=== PATIENT | female | born 1970 | race Caucasian/White ===

== ENCOUNTER → 2016-04-28 | Outpatient (CLI) | payer BC, OTHER ==
[~2016-04-28] MED LIST: NITROGLYCERIN SL TABS 0.4 MG TAB SUBLINGUAL ONE; REGADENOSON 0.4 MG/5 ML SYRINGE IV ONE
--- NOTE | 2016-04-28 12:14 | EST ---
DATE OF SERVICE: 04/28/2016 AGE: 45Y SEX: F HT: 64" WT: 356 lbs. Protocol Nelson: Other: Lexiscan Cardiolite Stage: Dur. of Exercise: *Heart Rate Blood Pressure *Rest: 68 Rest: 157/85 * *Max. Achieved: 96 Maximum BP: 254/117 85% PMHR: 147 100% PMHR: 173 *METS: INDICATIONS: Abnormal EKG. MEDICATIONS: [place], morphine, Mobic, Xanax. Baseline EKG revealed a lot of artifact, but there were no EKG changes of significance. Sinus bradycardia was noted. With Lexiscan administration, the patient had symptoms of shortness of breath, chest tightness. There was some hypertensive response, but then after nitroglycerin the pressure came back to normal. Maximum heart rate was 96 beats per minute. EKG was unremarkable for ischemia. IMPRESSION: 1. By EKG criteria this is an unremarkable Lexiscan stress test. 2. There was some hypertension noted, which then normalized. 3. Nuclear scan results, which are more pertinent, will be reported by the radiologist.
--- NOTE | 2016-04-28 14:30 | NM ---
EXAMINATION TYPE: NM stress lexiscan cardiolite DATE OF EXAM: 04/28/2016 11:39 AM COMPARISON: NONE HISTORY: 45-year-old female with chest pain TECHNIQUE: After the intravenous administration of 10.82 mCi Tc 99m Sestamibi - Cardiolite resting S PECT images acquired 45 minutes post injection. The patient received 0.4mg Lexiscan, 27.5 mCi Tc 99m Sestamibi - Stress images obtained [address] injection FINDINGS: Review of stress and rest SPECT images demonstrates moderate sized fixed perfusion defect along the m id to apical inferior wall. Gated analysis shows an estimated left ventricular ejection fraction of 5 7 %. TID is 1.01, within normal limits. IMPRESSION: Fixed defect along the mid to apical inferior wall could represent prominent artifact or prior infarc t. Clinically correlate. No scintigraphic evidence for reversible ischemia.
== END ==
LOC: RADNMMAIN 08:09
PROVIDERS: ATTEND Internal Medicine
DX: R94.31 Abnormal electrocardiogram [ECG] [EKG] (principal); R07.9 Chest pain, unspecified
CPT/HCPCS: 93017; 78452; A9500; J2785

== ENCOUNTER 2017-01-25 11:44 | Emergency (ER) | payer BC, OTHER ==
[2017-01-25 11:58] VITALS: BP 161/95; PULSE 71; RESP 18; TEMP 97.7
[2017-01-25] MEDS ORDERED: HYDROmorphone 1 MG/ML 1 ML SYRINGE IVP STA (12:14)
[2017-01-25] MEDS ORDERED: ONDANSETRON 4 MG/2 ML VIAL IVP STA (12:14)
--- NOTE | 2017-01-25 12:17 | XR ---
EXAMINATION TYPE: XR shoulder complete RT DATE OF EXAM: 01/25/2017 COMPARISON: None HISTORY: 46-year-old female with pain after fall today TECHNIQUE: 3 views FINDINGS: Mild degenerative joint space narrowing at the AC joint. Subacromial space is preserved. There is com minuted fracture of the right humeral head with a transverse component through the surgical neck and a gated greater tuberosity component that is displaced by 9 mm. The glenohumeral joint itself appears to be intact. IMPRESSION: 1. Comminuted fracture right humeral head involving the surgical neck and greater tuberosity. The gre ater tuberosity fracture fragment is displaced by 9 mm. 2. Mild AC joint OA.
--- NOTE | 2017-01-25 12:23 | ED ---
Fall HPI - General Chief Complaint: Fall Stated Complaint: Fall Time Seen by Provider: 01/25/17 11:49 Source: patient, EMS, old records reviewed Mode of arrival: EMS Limitations: no limitations - History of Present Illness Initial Comments: This a 46-year-old female presents emergency Department chief complaint trip and fall. Patient is she is walking 3 yard and states that there was a whole knee aren't she tripped and fell onto her right shoulder. Patient went to severe right shoulder pain. Patient denies head injury, LOC, hip or neck or back pain this time. Patient states that she only has right shoulder pain. No prior injuries. Patient is left-hand dominant. - Related Data Home Medications Medication Instructions Recorded Confirmed ALPRAZolam [Xanax] 1 mg PO TID 09/11/13 09/11/13 Butalb/Acetaminophen/Caffeine 1 each PO TID 09/11/13 09/11/13 [Fioricet 50-325-40 mg Tablet] Citalopram Hydrobromide 40 mg PO DAILY 09/11/13 09/11/13 [Citalopram HBr] Etodolac [Lodine] 400 mg PO BID 09/11/13 09/11/13 Gabapentin [Neurontin] 600 mg PO TID 09/11/13 09/11/13 HYDROcodone/APAP 7.5-325MG [Redrock 1 each PO Q8HR PRN 09/11/13 09/11/13 7.5] Oxybutynin Chloride [Ditropan XL] 10 mg PO DAILY 09/11/13 09/11/13 Zonisamide [Zonegran] 200 mg PO DAILY 09/11/13 09/11/13 rOPINIRole HCL [Requip] 1 mg PO HS 09/11/13 09/11/13 traZODone HCL [traZODone] 200 mg PO HS 09/11/13 09/11/13 Previous Rx's Medication Instructions Recorded HYDROcodone/APAP 7.5-325MG [[place]rock 1 tab PO Q6HR PRN #20 tab 01/25/17 7.5-325] Allergies Allergy/AdvReac Type Severity Reaction Status Date / Time No Known Allergies Allergy Verified 09/11/13 20:34 Review of Systems ROS Statement: Those systems with pertinent positive or pertinent negative responses have been documented in the HPI. ROS Other: All systems not noted in ROS Statement are negative. Past Medical History Additional Past Medical History / Comment(s): NEUROPATHY, CARPEL TUNNEL, BACK AND KNEE PAIN, MIGRAIN, NECK PAIN History of Any Multi-Drug Resistant Organisms: None Reported Past Surgical History: Bariatric Surgery, Section, Hysterectomy, Orthopedic Surgery, Tubal Ligation Additional Past Surgical History / Comment(s): GASTRIC BIPASS, SPINAL CORD STIMULATOR Past Psychological History: No Psychological Hx Reported Smoking Status: Never smoker Past Alcohol Use History: None Reported Past Drug Use History: None Reported General Exam Limitations: no limitations General appearance: alert, in no apparent distress Head exam: Present: atraumatic, normocephalic, normal inspection Neck exam: Present: normal inspection, full ROM. Absent: tenderness, meningismus, lymphadenopathy Respiratory exam: Present: normal lung sounds bilaterally. Absent: respiratory distress, wheezes, rales, rhonchi, stridor, chest wall tenderness Cardiovascular Exam: Present: regular rate, normal rhythm, normal heart sounds. Absent: systolic murmur, diastolic murmur, rubs, gallop, clicks GI/Abdominal exam: Present: soft, normal bowel sounds. 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 Absent: motor sensory deficit Skin exam: Present: warm, dry, intact, normal color. Absent: rash Course Vital Signs 01/25/17 11:54 Temperature 97.7 F Pulse Rate 71 Respiratory 18 Rate Blood Pressure 161/95 O2 Sat by Pulse 98 Oximetry Medical Decision Making - Medical Decision Making 46-year-old female presents emergency department for a fall. Patient has a comminuted right humeral fracture. Patient was placed in a sling and follow-up with on-call orthopedics Dr. Bates. Return parameters were discussed. Disposition Clinical Impression: Fall, Right humeral fracture Disposition: HOME SELF-CARE Condition: Stable Instructions: Arm Fracture in Adults (ED) Additional Instructions: Please return to the Emergency Department if symptoms worsen or any other concerns. Prescriptions: HYDROcodone/APAP 7.5-325MG [[place] 7.5-325] 1 tab PO Q6HR PRN #20 tab PRN Reason: Pain Referrals: Anthony Brandon MD [Primary Care Provider] - 1-2 days Santo Martell MD [STAFF PHYSICIAN] - 1-2 days Time of Disposition: 12:22
== END 2017-01-25 12:37 | disposition home or self-care (01) ==
LOC: EC 11:44
DX: S42.211A Unspecified displaced fracture of surgical neck of right humerus, initial encounter for closed fracture (principal); G62.9 Polyneuropathy, unspecified; Z79.899 Other long term (current) drug therapy; W01.0XXA Fall on same level from slipping, tripping and stumbling without subsequent striking against object, initial encounter; Y92.096 Garden or yard of other non-institutional residence as the place of occurrence of the external cause
CPT/HCPCS: 99284 ×2; 96374 ×2; 96375 ×2; 73030; J2405; J1170

== ENCOUNTER → 2020-06-22 | Outpatient (CLI) | payer MEDICARE ==
[2020-06-22 20:11] LABS: Follicle Stimulating Hormone 42.2 mIU/mL; Luteinizing Hormone 14.1 mIU/mL; Prolactin 5.4 ng/mL (2.8-29.2); T4, Free (Free Thyroxine) 1.1 ng/dL (0.80-1.80)
[2020-06-22 20:42] LABS: Progesterone <0.2 ng/mL
[2020-06-23 14:32] LABS: Estrogens Total 108 pg/mL
[2020-06-24 06:09] LABS: ACTH 7.41 pg/mL (0.00-45.99)
== END | disposition home or self-care (01) ==
LOC: LABWHC1 14:19
PROVIDERS: ATTEND Psychiatry & Neurology Pain Medicine
DX: R53.82 Chronic fatigue, unspecified (principal)
CPT/HCPCS: 36415; 82024; 82672; 83001; 83002; 84144; 84146; 84305; 84439; 84443; 84481

== ENCOUNTER → 2020-07-23 | Outpatient (CLI) | payer MEDICARE ==
[2020-07-24 01:36] LABS: Basophils # (A) 0.06 X 10*3/uL (0.00-0.10); Basophils % (A) 0.8 %; Eosinophils # (A) 0.54 X 10*3/uL (0.04-0.35); Eosinophils % (A) 7.3 %; HCT 41.6 % (37.2-46.3); HGB 12.1 g/dL (12.0-15.0); Lymphocytes # (A) 1.44 X 10*3/uL (0.90-5.00); Lymphocytes % (A) 19.5 %; MCH 25.6 pg (27.0-32.0); MCHC 29.1 g/dL (32.0-37.0); MCV 88.1 fL (80.0-97.0); Mean Platelet Volume 13.2 fL (9.5-12.2); Monocytes # (A) 0.64 X 10*3/uL (0.20-1.00); Monocytes % (A) 8.6 %; Neutrophils # (A) 4.71 X 10*3/uL (1.80-7.70); Neutrophils % (A) 63.7 %; Platelet Count 175 X 10*3/uL (140-440); RBC 4.72 X 10*6/uL (4.10-5.20); RDW 15.5 % (11.5-14.5)
== END | disposition home or self-care (01) ==
LOC: LABWHC1 15:40
PROVIDERS: ATTEND Psychiatry & Neurology Pain Medicine
DX: T14.8XXA Other injury of unspecified body region, initial encounter (principal); X58.XXXA Exposure to other specified factors, initial encounter
CPT/HCPCS: 36415; 85025

== ENCOUNTER → 2020-07-27 | Day surgery (SDC) | payer MEDICARE ==
[2020-07-23 11:25] VITALS: BMI 64.3
[~2020-07-27] MED LIST changes: -NITROGLYCERIN SL TABS 0.4 MG TAB SUBLINGUAL ONE; -REGADENOSON 0.4 MG/5 ML SYRINGE IV ONE; +SIMETHICONE 40 MG/0.6 ML DROPS 2,000 MG/30 ML BOTTLE PO ONE
[2020-07-27 06:52] VITALS: BP 131/77; PULSE 73; RESP 18; TEMP 97.8
== END ==
LOC: ORWHC2ENDO 06:16
PROVIDERS: ATTEND Internal Medicine
DX: D50.9 Iron deficiency anemia, unspecified (principal)
CPT/HCPCS: 91110

== ENCOUNTER → 2021-03-03 | Outpatient (CLI) | payer MEDICARE ==
[2021-03-04 01:23] LABS: Basophils # (A) 0.07 X 10*3/uL (0.00-0.10); Basophils % (A) 0.8 %; Eosinophils # (A) 0.47 X 10*3/uL (0.04-0.35); Eosinophils % (A) 5.4 %; HCT 49.2 % (37.2-46.3); HGB 15.2 g/dL (12.0-15.0); Lymphocytes # (A) 1.49 X 10*3/uL (0.90-5.00); Lymphocytes % (A) 17.2 %; MCHC 30.9 g/dL (32.0-37.0); MCV 97.2 fL (80.0-97.0); Mean Platelet Volume 10.9 fL (9.5-12.2); Monocytes # (A) 0.51 X 10*3/uL (0.20-1.00); Monocytes % (A) 5.9 %; Neutrophils # (A) 6.12 X 10*3/uL (1.80-7.70); Neutrophils % (A) 70.5 %; Platelet Count 185 X 10*3/uL (140-440); RBC 5.06 X 10*6/uL (4.10-5.20); RDW 12.2 % (11.5-14.5); WBC 8.68 X 10*3/uL (4.50-10.00)
[2021-03-04 02:53] LABS: African American GFR (CKD) 121.5 (60.0-200.0); Albumin 3.7 g/dL (3.8-4.9); Albumin/Globulin Ratio 1.54 (1.60-3.17); Anion Gap 9.5 mmol/L (4.00-12.00); BUN/Creat Ratio 10.83 Ratio (12.00-20.00); Blood Urea Nitrogen 6.5 mg/dL (9.0-27.0); Calcium 8.8 mg/dL (8.7-10.3); Carbon Dioxide 32.5 mmol/L (21.6-31.8); Globulin 2.4 g/dL (1.6-3.3); Non-African American GFR(CKD) 104.8 (60.0-200.0); Potassium 3.9 mmol/L (3.5-5.5); Total Bilirubin 0.3 mg/dL (0.30-1.20); Total Protein 6.1 g/dL (6.2-8.2)
== END | disposition home or self-care (01) ==
LOC: LABWHC1 15:29
PROVIDERS: ATTEND Psychiatry & Neurology Neurology
DX: Z20.822 Contact with and (suspected) exposure to COVID-19 (principal); R50.9 Fever, unspecified; R53.83 Other fatigue
CPT/HCPCS: 80053; 85025; 36415; U0003; C9803

== ENCOUNTER 2021-11-13 17:00 | Emergency (ER) | payer MEDICARE ==
[2021-11-13 17:06] VITALS: TEMP 98.2
--- NOTE | 2021-11-13 18:32 | ED ---
General Adult HPI - General Chief complaint: Shortness of Breath Stated complaint: SOB Time Seen by Provider: 11/13/21 17:14 Source: patient Mode of arrival: ambulatory Limitations: no limitations - History of Present Illness Initial comments: Patient is a 51-year-old female presents to the emergency room with complaints of episodic dyspnea at rest along with associated palpitations. She was confident that her symptoms more most likely due to anxiety. She did take a dose of her blood pressure medication along with hydroxyzine which she is now on for anxiety. She was previously on Xanax several months ago for anxiety as needed unfortunately her primary care provider can no longer prescribe benzodiazepines and she is only on hydroxyzine for anxiety. She reports that she also had another episode in the car and the episode resolved without any intervention other than deep breathing. She denies any typical chest pain, shortness of breath at this time, cough, abdominal pain, nausea, vomiting, fevers or chills. She does have a significant past medical history including CAD, home oxygen secondary to COPD, morbid obesity, chronic back pain with spine simulator hypertension and hyperlipidemia along with neuropathy secondary to her chronic pain syndrome. - Related Data Home Medications Medication Instructions Recorded Confirmed ALPRAZolam [Xanax] 1 mg PO TID PRN 09/11/13 07/23/20 Butalb/Acetaminophen/Caffeine 1 each PO TID PRN 09/11/13 07/23/20 [Fioricet 50-325-40 mg Tablet] Etodolac [Lodine] 400 mg PO BID 09/11/13 07/23/20 Gabapentin [Neurontin] 600 mg PO TID 09/11/13 07/23/20 Oxybutynin Chloride [Ditropan XL] 10 mg PO DAILY 09/11/13 07/23/20 Zonisamide [Zonegran] 200 mg PO DAILY 09/11/13 07/23/20 rOPINIRole HCL [Requip] 1 mg PO HS 09/11/13 07/23/20 traZODone HCL [traZODone] 200 mg PO HS 09/11/13 07/23/20 Cold Sore Medication 1 tab PO DIRECTED PRN 07/23/20 07/23/20 Folic Acid (Unknown Dose) 1 tab PO DAILY 07/23/20 07/23/20 HYDROcodone/APAP 7.5-325MG [[place] 1 tab PO Q6H PRN 07/23/20 07/23/20 7.5-325] Metoprolol Succinate (ER) [Toprol 50 mg PO BID 07/23/20 07/23/20 Xl] Allergies Allergy/AdvReac Type Severity Reaction Status Date / Time No Known Allergies Allergy Verified 11/13/21 17:06 Review of Systems ROS Statement: Those systems with pertinent positive or pertinent negative responses have been documented in the HPI. ROS Other: All systems not noted in ROS Statement are negative. Past Medical History Past Medical History: Hyperlipidemia, Hypertension, Musculoskeletal Disorder, Osteoarthritis (OA) Additional Past Medical History / Comment(s): NEUROPATHY, CARPEL TUNNEL, BACK NECK AND KNEE PAIN, MIGRAINES. "Raspy voice last few days." "Oxygen 2.5L per brayan al cannula." History of Any Multi-Drug Resistant Organisms: None Reported Past Surgical History: Bariatric Surgery, Section, Hysterectomy, Joint Replacement, Orthopedic Surgery, Tubal Ligation Additional Past Surgical History / Comment(s): GASTRIC BYPASS, SPINAL CORD STIMULATOR, bilateral knee replacements, right knee arthroscopy. Past Anesthesia/Blood Transfusion Reactions: No Reported Reaction Past Psychological History: Anxiety Smoking Status: Never smoker Past Alcohol Use History: None Reported Past Drug Use History: None Reported - Past Family History Mother Family Medical History: No Reported History General Exam Limitations: no limitations General appearance: alert, in no apparent distress, obese Head exam: Present: atraumatic, normocephalic, normal inspection Eye exam: Present: normal appearance, PERRL, EOMI. Absent: scleral icterus, conjunctival injection, periorbital swelling ENT exam: Present: normal exam, mucous membranes moist Neck exam: Present: normal inspection. Absent: tenderness, meningismus, lymphadenopathy Respiratory exam: Present: normal lung sounds bilaterally. Absent: respiratory distress, wheezes, rales, rhonchi, stridor Cardiovascular Exam: Present: regular rate, normal rhythm, normal heart sounds. Absent: systolic murmur, diastolic murmur, rubs, gallop, clicks GI/Abdominal exam: Present: soft, normal bowel sounds. Absent: distended, tenderness, guarding, rebound, rigid Extremities exam: Present: normal inspection. Absent: pedal edema, joint swelling Neurological exam: Present: alert, oriented X3, CN II-XII intact Psychiatric exam: Present: normal affect, normal mood Skin exam: Present: warm, dry, intact, normal color. Absent: rash Course Vital Signs 11/13/21 11/13/21 17:03 18:54 Temperature 98.2 F Pulse Rate 57 L 57 L Respiratory 20 18 Rate Blood Pressure 150/67 136/63 O2 Sat by Pulse 96 98 Oximetry Medical Decision Making - Medical Decision Making Patient is a 51-year-old female presents for dyspnea with associated palpitations that occurred in 3 different events today without any identifying aggravating factors. She does note alleviating factor of hydroxyzine at one point and deep breathing for another. High probability for panic attack in the setting of response to hydroxyzine without associated symptoms. Unfortunately given past medical history of CAD, hypertension and home oxygen will check EKG, CMP, CBC, PT, PTT, d-dimer, troponin and chest x-ray. Chest x-ray without acute cardiopulmonary processes. Laboratory studies consistent for chronic diseases troponin negative. EKG sinus bradycardia without acute abnormalities. D-dimer elevated. Given dyspnea with elevated d-dimer will check CTA to rule out pulmonary emboli the low probability. CTA negative for acute pulmonary process including thrombus. Will discharge home. Advised to continue use of hydroxyzine for anxiety as n eeded. She is establishing with a new primary care provider next week. Encouraged to keep upcoming appointment with new provider. Signs and symptoms requiring further evaluation intention reviewed at length with patient. Patient reassured of findings today. Case discussed with Dr. Lieberman and Dr. Chaney - Lab Data Result diagrams: 11/13/21 18:46 11/13/21 18:46 Lab Results 11/13/21 11/13/21 11/13/21 Range/Units 18:46 18:46 18:46 WBC 8.9 (3.8-10.6) k/uL RBC 5.27 (3.80-5.40) m/uL Hgb 14.8 (11.4-16.0) gm/dL Hct 47.3 H (34.0-46.0) % MCV 89.7 (80.0-100.0) fL MCH 28.0 (25.0-35.0) pg MCHC 31.2 (31.0-37.0) g/dL RDW 12.3 (11.5-15.5) % Plt Count 155 (150-450) k/uL MPV 8.0 Neutrophils % 70 % Lymphocytes % 14 % Monocytes % 5 % Eosinophils % 9 % Basophils % 1 % Neutrophils # 6.2 (1.3-7.7) k/uL Lymphocytes # 1.3 (1.0-4.8) k/uL Monocytes # 0.4 (0-1.0) k/uL Eosinophils # 0.8 H (0-0.7) k/uL Basophils # 0.1 (0-0.2) k/uL PT 9.6 (9.0-12.0) sec INR 0.9 (<1.2) APTT 23.8 (22.0-30.0) sec D-Dimer 1.84 H (<0.60) mg/L FEU Sodium 138 (137-145) mmol/L Potassium 4.1 (3.5-5.1) mmol/L Chloride 102 (98-107) mmol/L Carbon Dioxide 34 H (22-30) mmol/L Anion Gap 2 mmol/L BUN 5 L (7-17) mg/dL Creatinine 0.68 (0.52-1.04) mg/dL Est GFR (CKD-EPI)AfAm >90 (>60 ml/min/1.73 sqM) Est GFR (CKD-EPI)NonAf >90 (>60 ml/min/1.73 sqM) Glucose 102 H (74-99) mg/dL Plasma Lactic Acid Narinder (0.7-2.0) mmol/L Calcium 8.9 (8.4-10.2) mg/dL Total Bilirubin 0.5 (0.2-1.3) mg/dL AST 34 (14-36) U/L ALT 24 (4-34) U/L Alkaline Phosphatase 132 H (38-126) U/L Troponin I (0.000-0.034) ng/mL NT-Pro-B Natriuret Pep pg/mL Total Protein 6.5 (6.3-8.2) g/dL Albumin 3.8 (3.5-5.0) g/dL 11/13/21 11/13/21 11/13/21 Range/Units 18:46 18:46 18:46 WBC (3.8-10.6) k/uL RBC (3.80-5.40) m/uL Hgb (11.4-16.0) gm/dL Hct (34.0-46.0) % MCV (80.0-100.0) fL MCH (25.0-35.0) pg MCHC (31.0-37.0) g/dL RDW (11.5-15.5) % Plt Count (150-450) k/uL MPV Neutrophils % % Lymphocytes % % Monocytes % % Eosinophils % % Basophils % % Neutrophils # (1.3-7.7) k/uL Lymphocytes # (1.0-4.8) k/uL Monocytes # (0-1.0) k/uL Eosinophils # (0-0.7) k/uL Basophils # (0-0.2) k/uL PT (9.0-12.0) sec INR (<1.2) APTT (22.0-30.0) sec D-Dimer (<0.60) mg/L FEU Sodium (137-145) mmol/L Potassium (3.5-5.1) mmol/L Chloride (98-107) mmol/L Carbon Dioxide (22-30) mmol/L Anion Gap mmol/L BUN (7-17) mg/dL Creatinine (0.52-1.04) mg/dL Est GFR (CKD-EPI)AfAm (>60 ml/min/1.73 sqM) Est GFR (CKD-EPI)NonAf (>60 ml/min/1.73 sqM) Glucose (74-99) mg/dL Plasma Lactic Acid Narinder 0.6 L (0.7-2.0) mmol/L Calcium (8.4-10.2) mg/dL Total Bilirubin (0.2-1.3) mg/dL AST (14-36) U/L ALT (4-34) U/L Alkaline Phosphatase (38-126) U/L Troponin I <0.012 (0.000-0.034) ng/mL NT-Pro-B Natriuret Pep 548 pg/mL Total Protein (6.3-8.2) g/dL Albumin (3.5-5.0) g/dL - EKG Data EKG Comments: Sinus bradycardia. Old probable lateral myocardial infarct. Ventricular rate 56 bpm, TX interval 176 ms, QRS duration 122 ms, QT/QTC 406/397 ms, PRT axes 47, - 15, 39 Disposition Clinical Impression: Panic attack Disposition: HOME SELF-CARE Condition: Stable Instructions (If sedation given, give patient instructions): Panic Attack (ED), Anxiety (ED) Additional Instructions: Your testing today did not reveal any findings concerning for your shortness of breath and palpitations. Your symptoms are consistent with a panic attack. Please continue to utilize your already prescribed hydroxyzine as needed. Please follow-up with your new primary care provider as scheduled next week. Please return to the Emergency Department if symptoms worsen or any other concerns. Is patient prescribed a controlled substance at d/c from ED?: No Referrals: Carlos Eduardo Reese [STAFF PHYSICIAN] - 1-2 days Time of Disposition: 22:02
[2021-11-13 18:56] VITALS: RESP 18
[2021-11-13 18:57] LABS: Basophils # (A) 0.1 k/uL (0-0.2); Basophils % (A) 1 %; Eosinophils # (A) 0.8 k/uL (0-0.7); Eosinophils % (A) 9 %; HCT 47.3 % (34.0-46.0); HGB 14.8 gm/dL (11.4-16.0); Lymphocytes # (A) 1.3 k/uL (1.0-4.8); Lymphocytes % (A) 14 %; MCHC 31.2 g/dL (31.0-37.0); MCV 89.7 fL (80.0-100.0); Monocytes # (A) 0.4 k/uL (0-1.0); Monocytes % (A) 5 %; Neutrophils # (A) 6.2 k/uL (1.3-7.7); Neutrophils % (A) 70 %; Platelet Count 155 k/uL (150-450); RBC 5.27 m/uL (3.80-5.40); RDW 12.3 % (11.5-15.5); WBC 8.9 k/uL (3.8-10.6)
[2021-11-13 19:06] LABS: ALT 24 U/L (4-34); AST 34 U/L (14-36); African American GFR (CKD) >90 (>60 ml/min/1.73 sqM); Albumin 3.8 g/dL (3.5-5.0); Alkaline Phosphatase 132 U/L (38-126); Anion Gap 2 mmol/L; Blood Urea Nitrogen 5 mg/dL (7-17); Calcium 8.9 mg/dL (8.4-10.2); Carbon Dioxide 34 mmol/L (22-30); Chloride 102 mmol/L (98-107); Glucose 102 mg/dL (74-99); Non-African American GFR(CKD) >90 (>60 ml/min/1.73 sqM); Potassium 4.1 mmol/L (3.5-5.1); Sodium 138 mmol/L (137-145); Total Bilirubin 0.5 mg/dL (0.2-1.3); Total Protein 6.5 g/dL (6.3-8.2)
[2021-11-13 19:19] LABS: INR 0.9 (<1.2); Partial Thromboplastin Time 23.8 sec (22.0-30.0); Prothrombin Time 9.6 sec (9.0-12.0)
--- NOTE | 2021-11-13 19:21 | XR ---
EXAMINATION TYPE: XR chest 2V DATE OF EXAM: 11/13/2021 COMPARISON: 05/19/2020 HISTORY: Short of breath TECHNIQUE: 2 FINDINGS: There is no heart failure nor confluent pneumonic infiltrate. There is no stimulator in the thoracic spine. Costophrenic angles are clear. IMPRESSION: No active cardiopulmonary disease. No change
--- NOTE | 2021-11-13 20:47 | CT ---
EXAMINATION TYPE: CT chest angio for PE DATE OF EXAM: 11/13/2021 COMPARISON: HISTORY: Dyspnea CT DLP: 1113 mGycm Automated exposure control for dose reduction was used. CONTRAST: Performed with IV Contrast, patient injected with 100ml mL of Isovue 370. There are 3-D post processed images. The lungs are clear of consolidation. No pleural effusion. Heart size is normal. No pericardial effus ion. There is no mediastinal adenopathy. There are no hilar masses. There is normal contrast opacification of the pulmonary arteries. No filling defect. There is neural stimulator in the thoracic spine. . There is a T3 compression fracture 75%. Fracture is probably old. There is old healed manubrial fra cture. IMPRESSION: No evidence of pulmonary embolism. There is T3 compression fracture that appears old and is a change compared to old exam.
[2021-11-13 22:46] VITALS: BP 143/78; PULSE 71
== END 2021-11-13 22:46 | disposition home or self-care (01) ==
LOC: EC 17:00
DX: F41.0 Panic disorder [episodic paroxysmal anxiety] (principal); E78.5 Hyperlipidemia, unspecified; I10 Essential (primary) hypertension
CPT/HCPCS: 36415; 93005; 85379; 83880; 80053; 83605; 84484; 85025; 85610; 85730; 71046; 71275; 99285; Q9967

== ENCOUNTER 2022-03-08 15:37 | Observation (INO) | payer MEDICARE ==
--- NOTE | 2022-03-08 16:25 | ED ---
Anxiety HPI - General Chief Complaint: Anxiety Stated Complaint: Back Pain,SOB Time Seen by Provider: 03/08/22 15:46 Source: patient Mode of arrival: wheelchair - History of Present Illness Initial Comments: This patient is a 51-year-old woman who presents evaluation which she initially thought was a panic attack, however was accompanied by chest pain and numbness of the right arm. The patient states that today she had onset of her usual panic symptoms. She had palpitations, shortness of breath, anxiety, and tingling to the extremities. She states she became concerned when she noticed that she was having numbness of the right arm. She checked her blood pressure at home and it was elevated as well as her heart rate. She felt she should be seen here. She states that her symptoms have improved somewhat. MD Complaint: anxiety, shortness of breath -: hour(s) Symptoms: dyspnea, palpitations, extremity numbness/tingling Place: home Previous History of Same: Yes Severity: severe Quality: improving Provoking factors: none known Improves With: nothing Worsens With: nothing Associated symptoms: chest pain, shortness of breath - Related Data Home Medications: Home Medications Medication Instructions Recorded Confirmed Zonisamide [Zonegran] 200 mg PO DAILY 09/11/13 03/08/22 Gabapentin 800 mg PO DAILY 03/08/22 03/08/22 HYDROcodone/APAP 5-325MG [[place] 1 tab PO BID 03/08/22 03/08/22 5-325] Montelukast [Singulair] 10 mg PO DAILY 03/08/22 03/08/22 Morphine Pain Pump 1 dose INTRATHECA CONTINUOUS 03/08/22 03/08/22 Oxybutynin Chloride [Oxybutynin 15 mg PO DAILY 03/08/22 03/08/22 Chloride ER] hydrOXYzine HCL [Atarax] 25 mg PO DAILY PRN 03/08/22 03/08/22 Previous Rx's Medication Instructions Recorded Metoprolol Succinate (ER) [Toprol 50 mg PO DAILY #30 tab 03/09/22 XL] Allergies/Adverse Reactions: Allergies Allergy/AdvReac Type Severity Reaction Status Date / Time No Known Allergies Allergy Verified 03/08/22 17:44 Review of Systems ROS Statement: Those systems with pertinent positive or pertinent negative responses have been documented in the HPI. ROS Other: All systems not noted in ROS Statement are negative. Constitutional: Denies: fever, chills, weakness Eyes: Denies: vision change Respiratory: Reports: as per HPI, dyspnea, wheezes. Denies: cough, hemoptysis Cardiovascular: Reports: as per HPI, chest pain, palpitations. Denies: syncope Gastrointestinal: Denies: abdominal pain, nausea, vomiting, diarrhea Genitourinary: Denies: dysuria, hematuria Musculoskeletal: Denies: back pain Skin: Denies: rash Neurological: Reports: paresthesias (Right arm). Denies: headache, weakness, numbness Psychiatric: Reports: anxiety Past Medical History Past Medical History: Hyperlipidemia, Hypertension, Musculoskeletal Disorder, Osteoarthritis (OA) Additional Past Medical History / Comment(s): NEUROPATHY, CARPEL TUNNEL, BACK NECK AND KNEE PAIN, MIGRAINES. "Raspy voice last few days." "Oxygen 2.5L per nasal cannula." History of Any Multi-Drug Resistant Organisms: None Reported Past Surgical History: Bariatric Surgery, Section, Hysterectomy, Joint Replacement, Orthopedic Surgery, Tubal Ligation Additional Past Surgical History / Comment(s): GASTRIC BYPASS, SPINAL CORD STIMULATOR, bilateral knee replacements, right knee arthroscopy. Past Anesthesia/Blood Transfusion Reactions: No Reported Reaction Past Psychological History: Anxiety Smoking Status: Never smoker Past Alcohol Use History: None Reported Past Drug Use History: None Reported - Past Family History Mother Family Medical History: No Reported History General Exam Limitations: no limitations General appearance: alert, in no apparent distress Head exam: Present: atraumatic, normocephalic Eye exam: Present: normal appearance. Absent: scleral icterus, conjunctival injection Neck exam: Present: normal inspection Respiratory exam: Present: wheezes. Absent: normal lung sounds bilaterally, respiratory distress, rales, rhonchi, chest wall tenderness, accessory muscle use, decreased breath sounds, prolonged expiratory Cardiovascular Exam: Present: regular rate, normal rhythm, normal heart sounds. Absent: systolic murmur, diastolic murmur, rubs, gallop GI/Abdominal exam: Present: soft. Absent: distended, tenderness, guarding, rebound, rigid, mass Extremities exam: Present: normal inspection, normal capillary refill. Absent: pedal edema, calf tenderness Back exam: Present: normal inspection. Absent: CVA tenderness (R), CVA tenderness (L) Neurological exam: Present: alert Skin exam: Present: warm, dry, intact, normal color. Absent: rash Course Vital Signs 03/08/22 03/08/22 03/08/22 15:39 15:53 17:28 Temperature 98.1 F Pulse Rate 132 H 68 68 Respiratory 24 20 18 Rate Blood Pressure 156/70 140/88 O2 Sat by Pulse 99 98 Oximetry 03/08/22 03/09/22 03/09/22 22:38 00:00 03:00 Temperature Pulse Rate 60 Respiratory 16 14 Rate Blood Pressure 140/68 115/76 O2 Sat by Pulse 97 97 97 Oximetry 03/09/22 03/09/22 03/09/22 05:12 06:00 07:25 Temperature 98.3 F Pulse Rate 60 58 L 58 L Respiratory 18 14 16 Rate Blood Pressure 137/83 124/71 121/75 O2 Sat by Pulse 97 96 95 Oximetry Medical Decision Making - Lab Data Result diagrams: 03/08/22 16:45 03/08/22 16:45 Lab Results 03/08/22 03/08/22 03/08/22 Range/Units 16:45 16:45 16:45 WBC 8.4 (3.8-10.6) k/uL RBC 5.12 (3.80-5.40) m/uL Hgb 14.6 (11.4-16.0) gm/dL Hct 44.9 (34.0-46.0) % MCV 87.7 (80.0-100.0) fL MCH 28.5 (25.0-35.0) pg MCHC 32.5 (31.0-37.0) g/dL RDW 13.1 (11.5-15.5) % Plt Count 128 L (150-450) k/uL MPV 9.7 Neutrophils % 75 % Lymphocytes % 13 % Monocytes % 4 % Eosinophils % 6 % Basophils % 1 % Neutrophils # 6.3 (1.3-7.7) k/uL Lymphocytes # 1.1 (1.0-4.8) k/uL Monocytes # 0.3 (0-1.0) k/uL Eosinophils # 0.5 (0-0.7) k/uL Basophils # 0.1 (0-0.2) k/uL PT 9.8 (9.0-12.0) sec INR 0.9 (<1.2) APTT 23.5 (22.0-30.0) sec D-Dimer 2.41 H (<0.60) mg/L FEU Sodium 141 (137-145) mmol/L Potassium 4.0 (3.5-5.1) mmol/L Chloride 103 (98-107) mmol/L Carbon Dioxide 33 H (22-30) mmol/L Anion Gap 5 mmol/L BUN 10 (7-17) mg/dL Creatinine 0.72 (0.52-1.04) mg/dL Est GFR (CKD-EPI)AfAm >90 (>60 ml/min/1.73 sqM) Est GFR (CKD-EPI)NonAf >90 (>60 ml/min/1.73 sqM) Glucose 113 H (74-99) mg/dL Plasma Lactic Acid Narinder (0.7-2.0) mmol/L Calcium 8.8 (8.4-10.2) mg/dL Total Bilirubin 0.5 (0.2-1.3) mg/dL AST 62 H (14-36) U/L ALT 50 H (4-34) U/L Alkaline Phosphatase 173 H (38-126) U/L Troponin I (0.000-0.034) ng/mL NT-Pro-B Natriuret Pep pg/mL Total Protein 6.2 L (6.3-8.2) g/dL Albumin 3.8 (3.5-5.0) g/dL Coronavirus (PCR) (Not Detectd) 03/08/22 03/08/22 03/08/22 Range/Units 16:52 16:52 16:52 WBC (3.8-10.6) k/uL RBC (3.80-5.40) m/uL Hgb (11.4-16.0) gm/dL Hct (34.0-46.0) % MCV (80.0-100.0) fL MCH (25.0-35.0) pg MCHC (31.0-37.0) g/dL RDW (11.5-15.5) % Plt Count (150-450) k/uL MPV Neutrophils % % Lymphocytes % % Monocytes % % Eosinophils % % Basophils % % Neutrophils # (1.3-7.7) k/uL Lymphocytes # (1.0-4.8) k/uL Monocytes # (0-1.0) k/uL Eosinophils # (0-0.7) k/uL Basophils # (0-0.2) k/uL PT (9.0-12.0) sec INR (<1.2) APTT (22.0-30.0) sec D-Dimer (<0.60) mg/L FEU Sodium (137-145) mmol/L Potassium (3.5-5.1) mmol/L Chloride (98-107) mmol/L Carbon Dioxide (22-30) mmol/L Anion Gap mmol/L BUN (7-17) mg/dL Creatinine (0.52-1.04) mg/dL Est GFR (CKD-EPI)AfAm (>60 ml/min/1.73 sqM) Est GFR (CKD-EPI)NonAf (>60 ml/min/1.73 sqM) Glucose (74-99) mg/dL Plasma Lactic Acid Narinder 0.9 (0.7-2.0) mmol/L Calcium (8.4-10.2) mg/dL Total Bilirubin (0.2-1.3) mg/dL AST (14-36) U/L ALT (4-34) U/L Alkaline Phosphatase (38-126) U/L Troponin I <0.012 (0.000-0.034) ng/mL NT-Pro-B Natriuret Pep 607 pg/mL Total Protein (6.3-8.2) g/dL Albumin (3.5-5.0) g/dL Coronavirus (PCR) (Not Detectd) 03/08/22 Range/Units 16:55 WBC (3.8-10.6) k/uL RBC (3.80-5.40) m/uL Hgb (11.4-16.0) gm/dL Hct (34.0-46.0) % MCV (80.0-100.0) fL MCH (25.0-35.0) pg MCHC (31.0-37.0) g/dL RDW (11.5-15.5) % Plt Count (150-450) k/uL MPV Neutrophils % % Lymphocytes % % Monocytes % % Eosinophils % % Basophils % % Neutrophils # (1.3-7.7) k/uL Lymphocytes # (1.0-4.8) k/uL Monocytes # (0-1.0) k/uL Eosinophils # (0-0.7) k/uL Basophils # (0-0.2) k/uL PT (9.0-12.0) sec INR (<1.2) APTT (22.0-30.0) sec D-Dimer (<0.60) mg/L FEU Sodium (137-145) mmol/L Potassium (3.5-5.1) mmol/L Chloride (98-107) mmol/L Carbon Dioxide (22-30) mmol/L Anion Gap mmol/L BUN (7-17) mg/dL Creatinine (0.52-1.04) mg/dL Est GFR (CKD-EPI)AfAm (>60 ml/min/1.73 sqM) Est GFR (CKD-EPI)NonAf (>60 ml/min/1.73 sqM) Glucose (74-99) mg/dL Plasma Lactic Acid Narinder (0.7-2.0) mmol/L Calcium (8.4-10.2) mg/dL Total Bilirubin (0.2-1.3) mg/dL AST (14-36) U/L ALT (4-34) U/L Alkaline Phosphatase (38-126) U/L Troponin I (0.000-0.034) ng/mL NT-Pro-B Natriuret Pep pg/mL Total Protein (6.3-8.2) g/dL Albumin (3.5-5.0) g/dL Coronavirus (PCR) Not Detected (Not Detectd) - EKG Data -: EKG Interpreted by Me EKG shows normal: sinus rhythm, intervals (Normal), QRS complexes (Possible right ventricular conduction delay) Rate: normal (Rate 69 bpm) Interpretation: LVH, other (Possible old lateral HI) Disposition Clinical Impression: Chest pain Disposition: ADMITTED IP TO THIS HOSP Condition: Stable Is patient prescribed a controlled substance at d/c from ED?: No
[2022-03-08 17:31] LABS: ALT 50 U/L (4-34); AST 62 U/L (14-36); African American GFR (CKD) >90 (>60 ml/min/1.73 sqM); Albumin 3.8 g/dL (3.5-5.0); Alkaline Phosphatase 173 U/L (38-126); Anion Gap 5 mmol/L; Blood Urea Nitrogen 10 mg/dL (7-17); Calcium 8.8 mg/dL (8.4-10.2); Carbon Dioxide 33 mmol/L (22-30); Chloride 103 mmol/L (98-107); Glucose 113 mg/dL (74-99); Non-African American GFR(CKD) >90 (>60 ml/min/1.73 sqM); Sodium 141 mmol/L (137-145); Total Bilirubin 0.5 mg/dL (0.2-1.3); Total Protein 6.2 g/dL (6.3-8.2)
[2022-03-08 17:39] LABS: INR 0.9 (<1.2); Partial Thromboplastin Time 23.5 sec (22.0-30.0); Prothrombin Time 9.8 sec (9.0-12.0)
[2022-03-08 18:11] LABS: Basophils # (A) 0.1 k/uL (0-0.2); Basophils % (A) 1 %; Eosinophils # (A) 0.5 k/uL (0-0.7); Eosinophils % (A) 6 %; HCT 44.9 % (34.0-46.0); HGB 14.6 gm/dL (11.4-16.0); Lymphocytes # (A) 1.1 k/uL (1.0-4.8); Lymphocytes % (A) 13 %; MCH 28.5 pg (25.0-35.0); MCHC 32.5 g/dL (31.0-37.0); MCV 87.7 fL (80.0-100.0); Mean Platelet Volume 9.7; Monocytes # (A) 0.3 k/uL (0-1.0); Monocytes % (A) 4 %; Neutrophils # (A) 6.3 k/uL (1.3-7.7); Neutrophils % (A) 75 %; Platelet Count 128 k/uL (150-450); RBC 5.12 m/uL (3.80-5.40); RDW 13.1 % (11.5-15.5); WBC 8.4 k/uL (3.8-10.6)
--- NOTE | 2022-03-08 18:24 | XR ---
EXAMINATION TYPE: XR chest 2V DATE OF EXAM: 03/08/2022 COMPARISON: 11/13/2021 HISTORY: Short of breath TECHNIQUE: 2 views FINDINGS: There is no heart failure nor confluent pneumonic infiltrate. Costophrenic angles are clear . Bony thorax is intact. There are chest leads. IMPRESSION: No active cardiopulmonary disease. No change.
--- NOTE | 2022-03-08 20:00 | CT ---
EXAMINATION TYPE: CT chest angio for PE DATE OF EXAM: 03/08/2022 COMPARISON: None HISTORY: dyspnea, possible PE CT DLP: 942.6 mGycm Automated exposure control for dose reduction was used. CONTRAST: Performed with IV Contrast, patient injected with 76 mL of Isovue 370. Images obtained from the thoracic inlet to the diaphragm with the IV contrast. There are Three-D post processed images. There is no pericardial effusion. Heart size is fairly normal. No pleural effusion. The lungs are alexis ar of consolidation. There are some mild groundglass interstitial infiltrates in the upper lobes. No There is no mediastinal adenopathy. There are no hilar masses. There is some fatty infiltration of th e liver. Spleen is intact. There is no evidence of filling defect in the pulmonary arteries. The thoracic spine is intact. No compression fracture. There is neural stimulator in the mid thoracic spine. IMPRESSION: No evidence of pulmonary embolism. Fatty infiltration of the liver. Mild interstitial pulmonary infil trates.
[2022-03-08] MEDS ORDERED: NALOXONE 0.4 MG/ML 1 ML VIAL IVP PRN (23:42)
[2022-03-08] MEDS ORDERED: ASPIRIN 325 MG TAB PO STA (23:42)
--- NOTE | 2022-03-08 23:42 | P.HPIM ---
History of Present Illness H&P Date: 03/08/22 The patient is a 51-year-old female with a PMH of [id number] bariatric surgery, anxiety, and panic disorder who presents to the emergency room with complaints of shortness of breath. Patient reports that she suddenly developed dyspnea at around 11 AM shortly after she took her daily Atarax. She reports associated mild pressure-like chest discomfort. States that the dyspnea persisted until she arrived at the emergency room. She denied experiencing nausea, diaphoresis, lower extremity swelling, or lower extremity pain. Denied fever, chills, cough. Laboratory evaluation in the emergency room was remarkable for d-dimer 2.41, AST 62, ALT 50, alk phos 173, and troponin less than 0.012 with proBNP 607. Chest CTA revealed fatty infiltration of the liver with mild interstitial pulmonary infiltrates. EKG revealed sinus rhythm at 69 bpm with LVH. Review of systems: Pertinent positives and negatives as discussed in HPI, a complete review of systems was performed and all other systems are negative. Physical examination: General: non toxic, no distress, appears older than stated age, morbidly obese Derm: no unusual rashes/lesions, warm Head: atraumatic, normocephalic, symmetric Eyes: EOMI, no lid lag, anicteric sclera, pupils equal round reactive to light ENT: Nose and ears atraumatic Neck: No cervical lymphadenopathy, trachea midline, supple Mouth: no lip lesion, mucus membranes moist Cardiovascular: S1S2 reg, no murmur, positive dorsalis pedis pulse bilateral, no edema Lungs: CTA bilateral, no rhonchi, no rales, no accessory muscle use Abdominal: soft, nontender to palpation, no guarding Ext: muscle strength 4 out of 5 in all 4 extremities grossly, no gross muscle atrophy, no contractures, Neuro: CN II-XI grossly intact, no gross focal neuro deficits Psych: Alert, oriented, appropriate affect Assessment/plan Chest pain and shortness of breath, rule out ACS -Cardiology consult -Cardiac monitoring -Trend troponin -Echocardiogram -C/w ASA and statin Abnormal LFTs, likely secondary to hepatic steatosis -Advised patient on importance of lifestyle modifications including an outpatient dietitian follow-up DVT prophylaxis -Heparin subq The patient is admitted with an anticipated less than 2 midnight stay for evaluation of chest pain CODE STATUS: Full Code Discussed with: Patient Anticipated discharge date: in am Anticipated discharge place: Home Past Medical History Past Medical History: Hyperlipidemia, Hypertension, Musculoskeletal Disorder, Osteoarthritis (OA) Additional Past Medical History / Comment(s): NEUROPATHY, CARPEL TUNNEL, BACK NECK AND KNEE PAIN, MIGRAINES. "Raspy voice last few days." "Oxygen 2.5L per nasal cannula." History of Any Multi-Drug Resistant Organisms: None Reported Past Surgical History: Bariatric Surgery, Section, Hysterectomy, Joint Replacement, Orthopedic Surgery, Tubal Ligation Additional Past Surgical History / Comment(s): GASTRIC BYPASS, SPINAL CORD STIMULATOR, bilateral knee replacements, right knee arthroscopy. Past Anesthesia/Blood Transfusion Reactions: No Reported Reaction Past Psychological History: Anxiety Smoking Status: Never smoker Past Alcohol Use History: None Reported Past Drug Use History: None Reported - Past Family History Mother Family Medical History: Hyperlipidemia Medications and Allergies Home Medications Medication Instructions Recorded Confirmed Type Zonisamide [Zonegran] 200 mg PO DAILY 09/11/13 03/08/22 History Metoprolol Succinate (ER) [Toprol 50 mg PO DAILY 07/23/20 03/08/22 History Xl] Gabapentin 800 mg PO DAILY 03/08/22 03/08/22 History HYDROcodone/APAP 5-325MG [[place] 1 tab PO BID 03/08/22 03/08/22 History 5-325] Montelukast [Singulair] 10 mg PO DAILY 03/08/22 03/08/22 History Morphine Pain Pump 1 dose INTRATHECA CONTINUOUS 03/08/22 03/08/22 History Oxybutynin Chloride [Oxybutynin 15 mg PO DAILY 03/08/22 03/08/22 History Chloride ER] hydrOXYzine HCL [Atarax] 25 mg PO DAILY PRN 03/08/22 03/08/22 History Allergies Allergy/AdvReac Type Severity Reaction Status Date / Time No Known Allergies Allergy Verified 03/08/22 17:44 Physical Exam Vitals: Vital Signs Temp Pulse Resp BP Pulse Ox 03/08/22 22:38 97 03/08/22 17:28 68 18 140/88 03/08/22 15:53 68 20 98 03/08/22 15:39 98.1 F 132 H 24 156/70 99 Intake and Output 03/08/22 03/08/22 03/09/22 14:59 22:59 06:59 Other: Weight 173.272 kg Results CBC & Chem 7: 03/08/22 16:45 03/08/22 16:45 Labs: Abnormal Lab Results - Last 24 Hours (Table) 03/08/22 03/08/22 03/08/22 Range/Units 16:45 16:45 16:45 Plt Count 128 L (150-450) k/uL D-Dimer 2.41 H (<0.60) mg/L FEU Carbon Dioxide 33 H (22-30) mmol/L Glucose 113 H (74-99) mg/dL AST 62 H (14-36) U/L ALT 50 H (4-34) U/L Alkaline Phosphatase 173 H (38-126) U/L Total Protein 6.2 L (6.3-8.2) g/dL
[2022-03-08] MEDS ORDERED: ATORVASTATIN 80 MG TAB PO SCH (23:45)
[2022-03-09] MEDS ORDERED: MORPHINE SULFATE 4 MG/ML SYRINGE IV PRN (01:20)
[2022-03-09] MEDS ORDERED: NALOXONE 0.4 MG/ML 1 ML VIAL IV PRN (01:20)
[2022-03-09] MEDS ORDERED: ONDANSETRON 4 MG/2 ML VIAL IVP PRN (01:20)
[2022-03-09] MEDS ORDERED: DOBUTamine DRIP for NUC MED 500 MG in DEXTROSE/WATER 1 250ML.BAG IV PRN (08:41)
[2022-03-09] MEDS ORDERED: ASPIRIN 81 MG PO SCH (09:00)
[2022-03-09 09:24] LABS: Chol/HDL Ratio 4.91 Ratio; LDL Cholesterol,Calculated 132.3 mg/dL (0.0-131.0); VLDL Calculation 18.22 mg/dL (5.00-40.00)
--- NOTE | 2022-03-09 10:00 | P.CRDCN ---
History of Present Illness Consult date: 03/09/22 History of present illness: HISTORY OF PRESENT ILLNESS: This is a 51-year-old female with a past medical history significant for paroxysmal atrial fibrillation, anxiety, and multiple orthopedic issues with a pain pump, and morbid obesity. Patient follows in the office with Dr. Tran but has not been seen in the office since June 2020. We have been asked to see the patient in consultation for chest pain. Patient examined at the bedside. Arjun sarmiento states that yesterday around 11 AM she had a panic attack. She states that she felt her heart racing. She also felt as though her blood pressure was elevated. She reports taking and Atarax an extra blood pressure pill but her symptoms persisted so she came to the hospital for further evaluation. She reports feeling the patient's twice since been in the hospital. Telemetry was reviewed revealing sinus mechanism with no signs of atrial fibrillation. She denies chest pain or pressure. She currently denies shortness of breath. Vital signs are stable. * EKG reveals sinus mechanism with no signs of acute ischemia * Chest xray negative for acute process * Chest CTA: Negative for pulmonary embolism. Fatty infiltration of the liver. Mild interstitial pulmonary infiltrates. * Laboratory data: WBC 8.4. Hemoglobin 14.6. Platelet count 128. D-dimer 2.41. Sodium 141. Potassium 4.0. BUN 10. Creatinine 0.72. Troponin negative 3. ProBNP 607. * Current home cardiac medications include metoprolol succinate 50 mg daily * Most recent echocardiogram obtained in July 2020 revealing ejection fraction 55%, moderate LVH, moderate mitral regurgitation, and moderate tricuspid regurgitation * Cardiac catheterization history: Unknown REVIEW OF SYSTEMS: At the time of my exam: CONSTITUTIONAL: Denies fever or chills. HEENT: Denies blurred vision, vision changes, or eye pain. Denies hemoptysis CARDIOVASCULAR: Denies chest pain. Denies orthopnea. Denies PND. Denies palpitations RESPIRATORY: Denies shortness of breath. GASTROINTESTINAL: Denies abdominal pain. Denies nausea or vomiting. HEMATOLOGIC: Denies bleeding disorders. GENITOURINARY: Denies any blood in urine. SKIN: Denies pruitis. Denies rash. PHYSICAL EXAM: VITAL SIGNS: Reviewed. GENERAL: Well-developed in no acute distress. HEENT: Head is normocephalic. Pupils are equal, round. Sclerae anicteric. Mucous membranes of the mouth are moist. Neck supple. No JVD or thyromegaly LUNGS: Respirations even and unlabored. Lungs essentially clear to auscultation bilaterally. HEART: Regular rate and rhythm. S1 and S2 heard. ABDOMEN: Soft. Nondistended. Nontender. EXTREMITIES: Normal range of motion. No clubbing or cyanosis. Peripheral pulses intact. No lower extremity edema NEUROLOGIC: Awake and alert. Oriented x 3. ASSESSMENT: Anxiety Palpitations History of paroxysmal atrial fibrillation with RVR, currently maintaining sinus mechanism History of multiple orthopedic issues with pain pump Morbid obesity PLAN: Obtain 2D echo to assess cardiac structure and function Continue telemetry monitoring Patient to undergo Dobutamine stress test today If negative, she may be discharged home from a cardiac standpoint and follow up outpatient with Dr. Tran Nurse practitioner note has been reviewed by physician. Signing provider agrees with the documented findings, assessment, and plan of care. Past Medical History Past Medical History: Hyperlipidemia, Hypertension, Musculoskeletal Disorder, Osteoarthritis (OA) Additional Past Medical History / Comment(s): NEUROPATHY, CARPEL TUNNEL, BACK NECK AND KNEE PAIN, MIGRAINES. "Raspy voice last few days." "Oxygen 2.5L per nasal cannula." History of Any Multi-Drug Resistant Organisms: None Reported Past Surgical History: Bariatric Surgery, Section, Hysterectomy, Joint Replacement, Orthopedic Surgery, Tubal Ligation Additional Past Surgical History / Comment(s): GASTRIC BYPASS, SPINAL CORD STIMULATOR, bilateral knee replacements, right knee arthroscopy. Past Anesthesia/Blood Transfusion Reactions: No Reported Reaction Past Psychological History: Anxiety Smoking Status: Never smoker Past Alcohol Use History: None Reported Past Drug Use History: None Reported - Past Family History Mother Family Medical History: No Reported History Medications and Allergies Home Medications Medication Instructions Recorded Confirmed Type Zonisamide [Zonegran] 200 mg PO DAILY 09/11/13 03/08/22 History Metoprolol Succinate (ER) [Toprol 50 mg PO DAILY 07/23/20 03/08/22 History Xl] Gabapentin 800 mg PO DAILY 03/08/22 03/08/22 History HYDROcodone/APAP 5-325MG [[place] 1 tab PO BID 03/08/22 03/08/22 History 5-325] Montelukast [Singulair] 10 mg PO DAILY 03/08/22 03/08/22 History Morphine Pain Pump 1 dose INTRATHECA CONTINUOUS 03/08/22 03/08/22 History Oxybutynin Chloride [Oxybutynin 15 mg PO DAILY 03/08/22 03/08/22 History Chloride ER] hydrOXYzine HCL [Atarax] 25 mg PO DAILY PRN 03/08/22 03/08/22 History Allergies Allergy/AdvReac Type Severity Reaction Status Date / Time No Known Allergies Allergy Verified 03/08/22 17:44 Physical Exam Vitals: Vital Signs Temp Pulse Resp BP Pulse Ox 03/09/22 07:25 98.3 F 58 L 16 121/75 95 03/09/22 06:00 58 L 14 124/71 96 03/09/22 05:12 60 18 137/83 97 03/09/22 03:00 60 14 115/76 97 03/09/22 00:00 16 140/68 97 03/08/22 22:38 97 03/08/22 17:28 68 18 140/88 03/08/22 15:53 68 20 98 03/08/22 15:39 98.1 F 132 H 24 156/70 99 Intake and Output 03/08/22 03/09/22 03/09/22 22:59 06:59 14:59 Other: Weight 173.272 kg Results 03/08/22 16:45 03/08/22 16:45 Cardiac Enzymes 03/08/22 03/08/22 03/09/22 Range/Units 16:45 16:52 02:19 AST 62 H (14-36) U/L Troponin I <0.012 <0.012 (0.000-0.034) ng/mL 03/09/22 Range/Units 05:46 AST (14-36) U/L Troponin I <0.012 (0.000-0.034) ng/mL Coagulation 03/08/22 Range/Units 16:45 PT 9.8 (9.0-12.0) sec APTT 23.5 (22.0-30.0) sec Lipids 03/09/22 Range/Units 05:46 Triglycerides 91.10 (0.00-149.00) mg/dL Cholesterol 189.00 (0.00-200.00) mg/dL HDL Cholesterol 38.50 L (40.00-60.00) mg/dL Cholesterol/HDL Ratio 4.91 Ratio CBC 03/08/22 Range/Units 16:45 WBC 8.4 (3.8-10.6) k/uL RBC 5.12 (3.80-5.40) m/uL Hgb 14.6 (11.4-16.0) gm/dL Hct 44.9 (34.0-46.0) % Plt Count 128 L (150-450) k/uL Comprehensive Metabolic Panel 03/08/22 Range/Units 16:45 Sodium 141 (137-145) mmol/L Potassium 4.0 (3.5-5.1) mmol/L Chloride 103 (98-107) mmol/L Carbon Dioxide 33 H (22-30) mmol/L BUN 10 (7-17) mg/dL Creatinine 0.72 (0.52-1.04) mg/dL Glucose 113 H (74-99) mg/dL Calcium 8.8 (8.4-10.2) mg/dL AST 62 H (14-36) U/L ALT 50 H (4-34) U/L Alkaline Phosphatase 173 H (38-126) U/L Total Protein 6.2 L (6.3-8.2) g/dL Albumin 3.8 (3.5-5.0) g/dL Current Medications Generic Name Dose Route Start Last Admin Trade Name Freq PRN Reason Stop Dose Admin Aspirin 81 mg 03/09/22 09:00 Aspirin 81 Mg PO DAILY VANE Atorvastatin Calcium 80 mg 03/08/22 23:45 03/09/22 02:04 Atorvastatin 80 Mg Tab PO 80 mg HS VANE Administration Dobutamine HCl/Dextrose 500 mg 250 mls @ 51.982 mls/hr 03/09/22 08:41 / IV Solution IV 03/09/22 12:41 .Q4H49M PRN Per Protocol Protocol 10 MCG/KG/MIN Morphine Sulfate 4 mg 03/09/22 01:20 03/09/22 02:17 Morphine Sulfate 4 Mg/Ml Syringe IV 4 mg Q4HR PRN Administration Severe Pain (Scale 7 to 10) Naloxone HCl 0.2 mg 03/08/22 23:42 Naloxone 0.4 Mg/Ml 1 Ml Vial IVP Q2M PRN Opioid Reversal Naloxone HCl 0.2 mg 03/09/22 01:20 Naloxone 0.4 Mg/Ml 1 Ml Vial IV Q2M PRN Opioid Reversal Ondansetron HCl 4 mg 03/09/22 01:20 Ondansetron 4 Mg/2 Ml Vial IVP Q8HR PRN Nausea And Vomiting Intake and Output 03/08/22 03/09/22 03/09/22 22:59 06:59 14:59 Other: Weight 173.272 kg 03/08/22 16:45 03/08/22 16:45
[2022-03-09] MEDS ORDERED: DOBUTamine DRIP for NUC MED 500 MG/250 ML BAG IV ONE (11:00)
--- NOTE | 2022-03-09 13:05 | CA ---
Dobutamine Stress Echocardiogram Report Jemma Muniz Age: 51 Gender: F : 1970 Exam Date: 03/09/2022 10:45 Exam Location: [facility] Ordering Physician: Lizzeth Orozco Referring Physician: Vanda Marie MD [place] Attendant: Roya Jerome RDCS Technologist: Ht (in): 64 Wt (lb): 382 Procedure CPT: Indication: CP ICD-9 Codes: Rhythm: Patient History: CHEST PAIN, DIFFICULTY IN BREATHING, PALPITATIONS, HTN, TIA, ASTHMA/COPD Cardiac Medications: Medications in past 24 hours: Contrast: Total Dose (mL): Stress Results Protocol: Peak Dose (???g/kg/min): Duration (min:sec): Atropine:(mg) Target HR: 142 Double Product: 07507 Resting HR: 70 Resting BP: 142 / 83 Peak HR: 150 Peak BP: 148 / 78 Max Predicted HR: 167 90 % Max Predicted HR Stress Summary: BP Response: Reason for Termination: Target HR Cardiac Symptoms: CHEST PRESSURE ECG Analysis Resting EKG: Stress EKG: Arrhythmia: Echo Analysis Base Echo Analysis: Low Echo Anaylsis: Peak Echo Analysis: Recovery Echo: MEASUREMENTS (Male/Female) Normal Values CONCLUSIONS Patient underwent dobutamine stress echo with infusion of dobutamine into Stage 3 for a total of 11 minutes and 27 seconds. Patient's maximum heart rate was 150 which represented 89 % age-predicted maximum heart rate. Stress EKG portion: At baseline patient's EKG showed normal sinus rhythm, normal axis, no significant ST or T wave abnormalities. At peak dobutamine infusion, EKG showed occasional PVCs, nonspecific 0.[address] depressions in the inferolateral leads which is nondiagnostic. Stress echo portion: 2-D echocardiogram was performed in the parasternal long, personal short, apical 2 and apical four-chamber views at rest, low-dose, peak infusion and in recovery. At baseline, echocardiogram showed left ventricular ejection fraction 55% without wall motion abnormalities. With peak infusion, echocardiogram shows improvement in left ventricular ejection fraction, increase contractility, decrease in left ventricular end systolic dimension without wall motion abnormalities consistent with a normal response to dobutamine. Conclusions: 1. Normal stress EKG and echo response to dobutamine infusion without any evidence of inducible ischemia. Dr. Dl Tran DO (Electronically Signed) Final Date: 09 March 2022 13:04
--- NOTE | 2022-03-09 13:07 | CA ---
Transthoracic Echo Report Name: Jemma Muniz Age: 51 Gender: F : 1970 Exam Date: 03/09/2022 11:22 Exam Location: [facility] Ht (in): 64 Wt (lb): 382 Ordering Physician: Quin Bustos MD Attending/Referring Phys: Vanda Marie MD [place] Skimmer Roya Jerome, RDCS Procedure CPT: Indications: Chest Pain Cardiac Hx: Technical Quality: Very technically difficult study Contrast 1: Total Dose (mL): Contrast 2: Total Dose (mL): MEASUREMENTS (Male / Female) Normal Values 2D ECHO LV Diastolic Diameter PLAX 4.1 cm 4.2 - 5.9 / 3.9 - 5.3 cm LV Systolic Diameter PLAX 3.0 cm IVS Diastolic Thickness 1.4 cm 0.6 - 1.0 / 0.6 - 0.9 cm LVPW Diastolic Thickness 1.4 cm 0.6 - 1.0 / 0.6 - 0.9 cm LV Relative Wall Thickness 0.7 RV Internal Dim ED PLAX 3.2 cm LA Systolic Diameter LX 4.1 cm 3.0 - 4.0 / 2.7 - 3.8 cm M-MODE Aortic Root Diameter MM 3.0 cm AV Cusp Separation MM 2.2 cm DOPPLER AV Peak Velocity 187.0 cm/s AV Peak Gradient 14.0 mmHg MV Area PHT 2.5 cm??? Mitral E Point Velocity 93.0 cm/s Mitral A Point Velocity 89.4 cm/s Mitral E to A Ratio 1.0 MV Deceleration Time 303.5 ms FINDINGS Left Ventricle Left ventricular ejection fraction is estimated at 55-60 %. Left ventricular cavity size normal. Moderate concentric left ventricular hypertrophy. Right Ventricle Normal right ventricular size. Unable to estimate the right ventricular systolic pressure. Right Atrium Right atrium not well visualized. Left Atrium Mild left atrial dilatation. Mitral Valve Structurally normal mitral valve. No mitral stenosis, regurgitation or prolapse. Aortic Valve Aortic valve not well visualized. No aortic valve stenosis or regurgitation. Tricuspid Valve Tricuspid valve not well visualized. Pulmonic Valve Pulmonic valve not well visualized. Pericardium Normal pericardium. No pericardial effusion. Aorta Normal size aortic root and proximal ascending aorta. CONCLUSIONS Moderate LVH Left ventricular ejection fraction 55-60% Mild left atrial dilation No mitral regurgitation No pericardial effusion Previewed by: Dr. Dl Tran DO (Electronically Signed) Final Date: 09 March 2022 13:06
--- NOTE | 2022-03-09 14:33 | P.DS ---
Providers Date of admission: 03/09/22 01:21 Expected date of discharge: 03/09/22 Attending physician: Quin Bustos MD Primary care physician: Joseph Barillas MD Hospital Course: Discharge Diagnosis: Chest pain Anxiety Morbid obesity Abnormal LFTs Hospital Course: 51-year-old female with a PMH of Vinh-en-Y bariatric surgery, anxiety, and panic disorder who presents to the emergency room with complaints of shortness of breath. Patient reports that she suddenly developed dyspnea at around 11 AM shortly after she took her daily Atarax. She reports associated mild pressure- like chest discomfort. States that the dyspnea persisted until she arrived at the emergency room. She denied experiencing nausea, diaphoresis, lower extremity swelling, or lower extremity pain. Denied fever, chills, cough. Laboratory evaluation in the emergency room was remarkable for d-dimer 2.41, AST 62, ALT 50, alk phos 173, and troponin less than 0.012 with proBNP 607. Chest CTA revealed fatty infiltration of the liver with mild interstitial pulmonary infiltrates. EKG revealed sinus rhythm at 69 bpm with LVH. Cardiology consulted. Echocardiogram showed LVEF 55-60%. Dobutamine stress test showed no evidence of inducible ischemia. Lipid panel showed total cholesterol 189, LDL 132, triglyceride 91, HDL 38. ASVCD score less than 5%. Chest pain likely in the setting of anxiety. Patient seen and examined at bedside. Vital signs reviewed and stable. General: nontoxic, no distress, appears at stated age, morbid obesity Derm: warm, dry Head: atraumatic, normocephalic, symmetric Eyes: EOMI, no lid lag, anicteric sclera Mouth: no lip lesion, mucus membranes moist Cardiovascular: S1S2 reg, no murmur Lungs: CTA bilateral, no rhonchi, no rales , no accessory muscle use Abdominal: soft, nontender to palpation, no guarding, no appreciable organomegaly Ext: no gross muscle atrophy, no edema, no contractures Neuro: CN II-XI grossly intact, no focal neuro deficits Psych: Alert, oriented, appropriate affect A total of 35 minutes of time were spent preparing this complex discharge summary. Patient was discharged on 03/09/22 at 14:31. Patient Condition at Discharge: Stable Plan - Discharge Summary Discharge Rx Participant: No New Discharge Prescriptions: Continue Zonisamide [Zonegran] 200 mg PO DAILY Metoprolol Succinate (ER) [Toprol XL] 50 mg PO DAILY Gabapentin 800 mg PO DAILY Oxybutynin Chloride [Oxybutynin Chloride ER] 15 mg PO DAILY HYDROcodone/APAP 5-325MG [[place] 5-325] 1 tab PO BID hydrOXYzine HCL [Atarax] 25 mg PO DAILY PRN PRN Reason: Anxiety Montelukast [Singulair] 10 mg PO DAILY Morphine Pain Pump 1 dose INTRATHECA CONTINUOUS Discharge Medication List Zonisamide [Zonegran] 200 mg PO DAILY 09/11/13 [History] Metoprolol Succinate (ER) [Toprol XL] 50 mg PO DAILY 07/23/20 [History] Gabapentin 800 mg PO DAILY 03/08/22 [History] HYDROcodone/APAP 5-325MG [Wilson 5-325] 1 tab PO BID 03/08/22 [History] Montelukast [Singulair] 10 mg PO DAILY 03/08/22 [History] Morphine Pain Pump 1 dose INTRATHECA CONTINUOUS 03/08/22 [History] Oxybutynin Chloride [Oxybutynin Chloride ER] 15 mg PO DAILY 03/08/22 [History] hydrOXYzine HCL [Atarax] 25 mg PO DAILY PRN 03/08/22 [History] Follow up Appointment(s)/Referral(s): Joseph Barillas MD [Primary Care Provider] - 1-2 days Patient Instructions/Handouts: Generalized Anxiety Disorder (ED) Discharge Disposition: HOME SELF-CARE
[2022-03-09 14:39] VITALS: BP 114/74; PULSE 88; RESP 20; TEMP 98.2
--- NOTE | 2022-03-09 15:10 | P.CNPUL ---
History of Present Illness Consult date: 03/09/22 Reason for consult: dyspnea History of present illness: This is a morbidly obese female patient and I was investigated with the patient was of some shortness of breath and chest pain. The patient states that she has undergone a previous bariatric surgery more than 10 years ago and she has undergone a Vinh-en-Y gastric bypass surgery. At the time of surgery, the patient was given an IVC filter. Nevertheless, the patient does not have any p revious history of DVT or pulmonary embolism. The patient has history of chronic panic and she is on off hyperventilating and she admits to do this for quite sometime. She denies having any active chest pain for now. She became short of breath and anxious yesterday and this occurs periodically and she takes Atarax in that regard. The patient came into the hospital for further evaluation. Motor the d-dimer was slightly elevated at 2.41. Based on that, the patient was given a CT angiogram that showed no acute abnormalities. No evidence of any pulmonary embolism. She is morbidly obese and she was oxygen probably related to chronic hypoxic respiratory failure. She states that she doesn't use oxygen or regular basis and she mainly uses at night. She denies having any sleep breathing disorder and she denies having any previous is a soapsuds of sleep apnea. The patient underwent further evaluation here in the hospital. The patient's blood work was essentially within normal limits. The [place] with 8.4 with a hemoglobin of 14.6 and a platelet count of 128. Cognition profile was normal. There blood work was essentially within normal limits including normal electrolytes, and some mild metabolic alkalosis. LFTs were slightly elevated with an AST of 62 ALP of 50, troponins were negative, proBNP level was 607, and the Covid 19 testing was also negative. The patient underwent an echocardiogram that showed no acute abnormalities and the patient had a preserved LV function. The patient's stress echo was also within normal limits. No significant emphysema. Positive asthma. No aspiration. No chest trauma. Review of Systems Constitutional: Reports chronic pain (And the patient is in morphine pump for chronic back pain), Reports daytime sleepiness, Reports weight gain, Reports weight loss Eyes: denies as per HPI, denies blurred vision, denies bulging eye, denies decreased vision, denies diplopia, denies discharge, denies dry eye, denies irritation, denies itching, denies pain, denies photophobia, denies loss of peripheral vision, denies loss of vision, denies tunnel vision/blind spots Ears: deny: decreased hearing, ear discharge, earache, tinnitus Ears, nose, mouth and throat: Reports as per HPI Breasts: absent: as per HPI, change in shape, gynecomastia, masses, nipple discharge, pain, skin changes, swelling Cardiovascular: Reports decreased exercise tolerance, Reports dyspnea on exertion Respiratory: Reports dyspnea Gastrointestinal: Reports as per HPI Genitourinary: Reports as per HPI Menstruation: Reports as per HPI Musculoskeletal: Reports as per HPI (Chronic back pain), Reports gait dysfunction, Reports limitation of motion Musculoskeletal: absent: ankle pain, ankle stiffness, ankle swelling Integumentary: Reports as per HPI Neurological: Reports as per HPI Psychiatric: Reports anxiety Endocrine: Reports as per HPI, Reports fatigue Hematologic/Lymphatic: Reports as per HPI Allergic/Immunologic: Reports as per HPI Past Medical History Past Medical History: Hyperlipidemia, Hypertension, Musculoskeletal Disorder, Osteoarthritis (OA) Additional Past Medical History / Comment(s): NEUROPATHY, CARPEL TUNNEL, BACK NECK AND KNEE PAIN, MIGRAINES. "Raspy voice last few days." "Oxygen 2.5L per nasal cannula." History of Any Multi-Drug Resistant Organisms: None Reported Past Surgical History: Bariatric Surgery, Section, Hysterectomy, Joint Replacement, Orthopedic Surgery, Tubal Ligation Additional Past Surgical History / Comment(s): GASTRIC BYPASS, SPINAL CORD STIMULATOR, bilateral knee replacements, right knee arthroscopy. Past Anesthesia/Blood Transfusion Reactions: No Reported Reaction Past Psychological History: Anxiety Smoking Status: Never smoker Past Alcohol Use History: None Reported Past Drug Use History: None Reported - Past Family History Mother Family Medical History: No Reported History Medications and Allergies Home Medications Medication Instructions Recorded Confirmed Type Zonisamide [Zonegran] 200 mg PO DAILY 09/11/13 03/08/22 History Metoprolol Succinate (ER) [Toprol 50 mg PO DAILY 07/23/20 03/08/22 History XL] Gabapentin 800 mg PO DAILY 03/08/22 03/08/22 History HYDROcodone/APAP 5-325MG [[place] 1 tab PO BID 03/08/22 03/08/22 History 5-325] Montelukast [Singulair] 10 mg PO DAILY 03/08/22 03/08/22 History Morphine Pain Pump 1 dose INTRATHECA CONTINUOUS 03/08/22 03/08/22 History Oxybutynin Chloride [Oxybutynin 15 mg PO DAILY 03/08/22 03/08/22 History Chloride ER] hydrOXYzine HCL [Atarax] 25 mg PO DAILY PRN 03/08/22 03/08/22 History Allergies Allergy/AdvReac Type Severity Reaction Status Date / Time No Known Allergies Allergy Verified 03/08/22 17:44 Physical Exam Vitals: Vital Signs Temp Pulse Pulse Resp BP BP Pulse Ox 03/09/22 14:37 98.2 F 88 20 114/74 100 03/09/22 10:08 18 03/09/22 07:25 98.3 F 58 L 16 121/75 95 03/09/22 06:00 58 L 14 124/71 96 03/09/22 05:12 60 18 137/83 97 03/09/22 03:00 60 14 115/76 97 03/09/22 00:00 16 140/68 97 03/08/22 22:38 97 03/08/22 17:28 68 18 140/88 03/08/22 15:53 68 20 98 03/08/22 15:39 98.1 F 132 H 24 156/70 99 Intake and Output 03/09/22 03/09/22 03/09/22 06:59 14:59 22:59 Intake Total 120 Balance 120 Intake: Oral 120 Other: # Voids 2 # Bowel Movements 0 Weight 173.272 kg GENERAL: Well-developed in no acute distress. Head exam was generally normal. There was no scleral icterus or corneal arcus. Mucous membranes were moist. HEENT: Head is normocephalic. Pupils are equal, round. Sclerae anicteric. Mucous membranes of the mouth are moist. Neck supple. No JVD or thyromegaly ,Mallampati class IV LUNGS: Respirations even and unlabored. Lungs essentially clear to auscultation bilaterally. HEART: Regular rate and rhythm. S1 and S2 heard. ABDOMEN: Soft. Nondistended. Nontender. EXTREMITIES: Normal range of motion. No clubbing or cyanosis. Peripheral pulses intact. No lower extremity edema NEUROLOGIC: Awake and alert. Oriented x 3. Examination of the skin revealed no evidence of significant rashes, suspicious appearing nevi or other concerning lesions. Results - Laboratory Findings CBC and BMP: 03/08/22 16:45 03/08/22 16:45 PT/INR, D-dimer PT 9.8 sec (9.0-12.0) 03/08/22 16:45 INR 0.9 (<1.2) 03/08/22 16:45 D-Dimer 2.41 mg/L FEU (<0.60) H 03/08/22 16:45 Abnormal lab findings: Abnormal Labs 03/08/22 03/08/22 03/08/22 16:45 16:45 16:45 Plt Count 128 L D-Dimer 2.41 H Carbon Dioxide 33 H Glucose 113 H AST 62 H ALT 50 H Alkaline Phosphatase 173 H Total Protein 6.2 L LDL Cholesterol, Calc HDL Cholesterol 03/09/22 05:46 Plt Count D-Dimer Carbon Dioxide Glucose AST ALT Alkaline Phosphatase Total Protein LDL Cholesterol, Calc 132.3 H HDL Cholesterol 38.50 L - Diagnostic Findings Chest x-ray: image reviewed CT scan - chest: image reviewed Assessment and Plan Plan: Episodic dyspnea, on the basis of anxiety/panic. The patient response Atarax. The patient underwent an extensive cardiac pulmonary evaluation during this current admission and a workup has been essentially negative. D-dimer was mildly elevated and the patient had a CT angiogram that was negative and the patient has an IVC filter in place. She is morbidly obese and she is currently being some chronic dyspnea. Cardiac workup has been negative including cardiac enzymes, proBNP, troponins were negative and the patient's echocardiogram and stress echo was also within normal limits Morbid obesity Chronic obesity hypoventilation with metabolic alkalosis. The patient is oxygen dependent at 2.5 L on outpatient basis Hypertension Hyperlipidemia Previous history of bariatric surgery History of IVC filter placement History of chronic back pain and the patient has a morphine pump in place Plan No additional workup is needed The patient can be discharged home from pulmonary standpoint Continue oxygen at 2 1/2 L with activity and during sleep Outpatient PFT Outpatient sleep study Cardiac evaluation has been completed We'll see on an as-needed basis and would like to see her in outpatient basis. There may be a component of chronic hypercapnic and hypoxic respiratory failure due to morbid obesity and she may as well be a case of an obesity hypovent ilation syndrome.
== END 2022-03-09 15:50 | disposition home or self-care (01) ==
LOC: EC 15:37 → 6NMEDSUR 03-09 01:21
PROVIDERS: ADMIT Internal Medicine; ATTEND Internal Medicine
DX: R07.89 Other chest pain (principal); R00.2 Palpitations; F41.0 Panic disorder [episodic paroxysmal anxiety]; J45.909 Unspecified asthma, uncomplicated; I11.9 Hypertensive heart disease without heart failure; I48.0 Paroxysmal atrial fibrillation; G62.9 Polyneuropathy, unspecified; G89.29 Other chronic pain; M54.9 Dorsalgia, unspecified; E78.5 Hyperlipidemia, unspecified; M19.90 Unspecified osteoarthritis, unspecified site; G43.909 Migraine, unspecified, not intractable, without status migrainosus; R79.89 Other specified abnormal findings of blood chemistry; G56.00 Carpal tunnel syndrome, unspecified upper limb; K76.0 Fatty (change of) liver, not elsewhere classified; R91.8 Other nonspecific abnormal finding of lung field; E66.01 Morbid (severe) obesity due to excess calories; Z68.44 Body mass index [BMI] 60.0-69.9, adult; Z20.822 Contact with and (suspected) exposure to COVID-19; Z79.891 Long term (current) use of opiate analgesic; Z79.899 Other long term (current) drug therapy; Z98.84 Bariatric surgery status; Z90.710 Acquired absence of both cervix and uterus; Z98.891 History of uterine scar from previous surgery; Z96.82 Presence of neurostimulator; Z96.653 Presence of artificial knee joint, bilateral; Z98.51 Tubal ligation status; Z83.49 Family history of other endocrine, nutritional and metabolic diseases
CPT/HCPCS: 96374; 99285; 36415; 93005; 85379; 83880; 80061; 80053; 83605; 84484 ×2; 85025; 85610; 85730; 87635; 71046; 71275; G0378; C8929; C8930; J1250; J2270; Q9950; Q9967; 93306; 93351

== ENCOUNTER 2022-08-29 19:40 | Inpatient (IN) | payer MEDICARE ==
--- NOTE | 2022-08-29 19:54 | ED ---
General Adult HPI - General Chief complaint: Skin/Abscess/Foreign Body Stated complaint: A fib/R leg pain Time Seen by Provider: 08/29/22 19:44 Source: patient, EMS, RN notes reviewed Mode of arrival: EMS Limitations: no limitations - History of Present Illness Initial comments: Patient is a pleasant 51-year-old female presenting to the emergency department with concerns for right leg pain. Onset of symptoms was today. Patient states anus persistent and worse with trying in bed. Patient has noticed redness. Discomfort is most of the right knee that extends from right mid thigh all the way down. No weakness. No history of similar symptoms previously. No recent trauma. Patient denies any chest pain or palpitations. Patient states she does have history of atrial fibrillation however is not on anticoagulation, unclear why. - Related Data Home Medications Medication Instructions Recorded Confirmed Zonisamide [Zonegran] 200 mg PO HS 09/11/13 08/29/22 Gabapentin 800 mg PO DAILY 03/08/22 08/29/22 HYDROcodone/APAP 5-325MG [[place] 1 tab PO BID PRN 03/08/22 08/29/22 5-325] Montelukast [Singulair] 10 mg PO DAILY 03/08/22 08/29/22 Morphine Pain Pump 1 dose INTRATHECA CONTINUOUS 03/08/22 08/29/22 Oxybutynin Chloride [Oxybutynin 15 mg PO DAILY 03/08/22 08/29/22 Chloride ER] hydrOXYzine HCL [Atarax] 25 mg PO DAILY 03/08/22 08/29/22 Butalb/APAP/Caff 50-325-40Mg 1 tab PO Q4H PRN 08/29/22 08/29/22 [Fioricet 50-325-40] Metoprolol Succinate (ER) [Toprol 50 mg PO BID 08/29/22 08/29/22 XL] Nystatin [Nystop] 1 applic TOPICAL BID PRN 08/29/22 08/29/22 Allergies Allergy/AdvReac Type Severity Reaction Status Date / Time No Known Allergies Allergy Verified 08/29/22 21:53 Review of Systems ROS Statement: Those systems with pertinent positive or pertinent negative responses have been documented in the HPI. ROS Other: All systems not noted in ROS Statement are negative. Constitutional: Denies: fever Eyes: Denies: eye pain ENT: Denies: ear pain Respiratory: Denies: cough, dyspnea Cardiovascular: Denies: chest pain, palpitations Endocrine: Denies: fatigue Gastrointestinal: Denies: abdominal pain Genitourinary: Denies: dysuria Musculoskeletal: Reports: as per HPI. Denies: back pain Skin: Reports: as per HPI, rash Past Medical History Past Medical History: Atrial Fibrillation, Hyperlipidemia, Hypertension, Musculoskeletal Disorder, Osteoarthritis (OA) Additional Past Medical History / Comment(s): NEUROPATHY, CARPEL TUNNEL, BACK NECK AND KNEE PAIN, MIGRAINES. "Raspy voice last few days." "Oxygen 2.5L per nasal cannula." History of Any Multi-Drug Resistant Organisms: None Reported Past Surgical History: Bariatric Surgery, Section, Hysterectomy, Joint Replacement, Orthopedic Surgery, Tubal Ligation Additional Past Surgical History / Comment(s): GASTRIC BYPASS, SPINAL CORD STIMULATOR, bilateral knee replacements, right knee arthroscopy. Past Anesthesia/Blood Transfusion Reactions: No Reported Reaction Past Psychological History: Anxiety Smoking Status: Never smoker Past Alcohol Use History: None Reported Past Drug Use History: None Reported - Past Family History Mother Family Medical History: No Reported History General Exam Limitations: no limitations General appearance: alert Head exam: Present: atraumatic Eye exam: Present: normal appearance Respiratory exam: Present: normal lung sounds bilaterally Cardiovascular Exam: Present: tachycardia, irregular rhythm Expanded Peripheral pulses: 2+: Posterior Tibialis (R), Dorsalis Pedis (R) GI/Abdominal exam: Present: soft. Absent: distended, tenderness Extremities exam: Present: other (Right lower leg with erythema from mid thigh down. There is warmth and tenderness. Distally the patient and he is neurovascularly intact.) Neurological exam: Present: alert Psychiatric exam: Present: normal affect, normal mood Skin exam: Present: erythema Course Vital Signs 08/29/22 08/29/22 08/29/22 19:44 19:50 21:01 Temperature 97.6 F 98.6 F Pulse Rate 165 H 165 H 135 H Respiratory 20 16 20 Rate Blood Pressure 127/85 127/86 110/60 O2 Sat by Pulse 95 96 98 Oximetry 08/29/22 08/29/22 08/29/22 22:41 22:50 23:00 Temperature Pulse Rate 130 H 120 H 114 H Respiratory 17 13 17 Rate Blood Pressure 119/82 119/82 119/82 O2 Sat by Pulse 90 L 93 L 93 L Oximetry - Reevaluation(s) Reevaluation #1: 08/29/22 23:36 Patient does meet sepsis criteria diagnosed at 2330. Blood culture and lactic acid and IV antibiotics will be started EKG Findings - EKG Results: EKG: interpreted by ERMD (Nonspecific ST-T), normal axis, normal QRS EKG shows: tachycardia, atrial fibrillation Medical Decision Making - Medical Decision Making Was pt. sent in by a medical professional or institution (, PA, ELECTROPHYSIOLOGY TECHNOLOGIST, urgent care, hospital, or half-way...) When possible be specific @ -No Did you speak to anyone other than the patient for history (EMS, parent, family, police, friend...)? What history was obtained from this source @ -No Did you review nursing and triage notes (agree or disagree)? Why? @ -I reviewed and agree with nursing and triage notes Were old charts reviewed (outside hosp., previous admission, EMS record, old EKG, old radiological studies, urgent care reports/EKG's, half-way records)? Report findings @ -No old charts were reviewed Differential Diagnosis (chest pain, altered mental status, abdominal pain women, abdominal pain men, vaginal bleeding, weakness, fever, dyspnea, syncope, headache, dizziness, GI bleed, back pain, seizure, CVA, palpatations, mental health)? @ -Differential Fever: Pneumonia, viral URI, endocarditis, myocarditis, pericarditis, otitis, sinusitis, peritonsillar Abscess, retropharyngeal Abscess, epiglottitis, peritonitis, appendicitis, Magaly cystitis, diverticulitis, hepatitis, colitis, UTI, PID, TOA, pyelonephritis, prostatitis, epididymitis, meningitis, encephalitis, pulmonary embolism, CVA, thyroid storm, pancreatitis, adrenal crisis, cavernous sinus thrombosis, this is not meant to be an all-inclusive list. EKG interpreted by me (3pts min.). @ -As above X-rays interpreted by me (1pt min.). @ -Chest x-ray shows no acute process. X-ray right knee shows no acute process. CT interpreted by me (1pt min.). @ -None done U/S interpreted by me (1pt. min.). @ -Report reviewed What testing was considered but not performed or refused? (CT, X-rays, U/S, labs)? Why? @ -None What meds were considered but not given or refused? Why? @ -None Did you discuss the management of the patient with other professionals (professionals i.e. , PA, ELECTROPHYSIOLOGY TECHNOLOGIST, lab, RT, psych nurse, social service agency director, jig maker, teacher, aoc plans intelligence officer, family independence case manager)? Give summary @ -Case was discussed in detail with Dr. simental, who will admit, Dr. Cardona Was smoking cessation discussed for >3mins.? @ -No Was critical care preformed (if so, how long)? @ -33 minutes critical care to Were there social determinants of health that impacted care today? How? (Homelessness, low income, unemployed, alcoholism, drug addiction, transportation, low edu. Level, literacy, decrease access to med. care, correction, rehab)? @ -No Was there de-escalation of care discussed even if they declined (Discuss DNR or withdrawal of care, Hospice)? DNR status @ -No What co-morbidities impacted this encounter? (DM, HTN, Smoking, COPD, CAD, Cancer, CVA, ARF, Chemo, Hep., AIDS, mental health diagnosis, sleep apnea, morbid obesity)? @ -None Was patient admitted / discharged? Hospital course, mention meds given and route, prescriptions, significant lab abnormalities, going to OR and other pertinent info. @ -Patient reevaluated. Heart rate remains 05/17/1941. Patient is on Cardizem drip. Patient will be admitted with cardiac consult. Patient also has concern for cellulitis and sepsis Undiagnosed new problem with uncertain prognosis? @ -No Drug Therapy requiring intensive monitoring for toxicity (Heparin, Nitro, Insulin, Cardizem)? @ -Patient on Cardizem drip which will require monitoring. Patient also will necessitate blood thinners, IV heparin Were any procedures done? @ -No Diagnosis/symptom? @ -A. fib with RVR, cellulitis, sepsis Acute, or Chronic, or Acute on Chronic? @ -Acute, acute, acute Uncomplicated (without systemic symptoms) or Complicated (systemic symptoms)? @ -Cellulitis is complicated with sepsis Side effects of treatment? @ -No Exacerbation, Progression, or Severe Exacerbation? @ -No Poses a threat to life or bodily function? How? (Chest pain, [place], [place], pneumonia, PE, COPD, DKA, ARF, appy, cholecystitis, CVA, Diverticulitis, Homicidal, Suicidal, threat to staff... and all critical care pts) @ -[Sepsis does pose a threat to life - Lab Data Result diagrams: 08/29/22 19:55 08/29/22 19:55 Lab Results 08/29/22 08/29/22 08/29/22 Range/Units 19:55 19:55 19:55 WBC 18.5 H (3.8-10.6) k/uL RBC 5.20 (3.80-5.40) m/uL Hgb 15.0 (11.4-16.0) gm/dL Hct 47.8 H (34.0-46.0) % MCV 91.9 (80.0-100.0) fL MCH 28.8 (25.0-35.0) pg MCHC 31.4 (31.0-37.0) g/dL RDW 13.7 (11.5-15.5) % Plt Count 201 (150-450) k/uL MPV 9.9 Neutrophils % 90 % Lymphocytes % 5 % Monocytes % 2 % Eosinophils % 1 % Basophils % 0 % Neutrophils # 16.7 H (1.3-7.7) k/uL Lymphocytes # 1.0 (1.0-4.8) k/uL Monocytes # 0.4 (0-1.0) k/uL Eosinophils # 0.2 (0-0.7) k/uL Basophils # 0.0 (0-0.2) k/uL PT 12.0 (9.0-12.0) sec INR 1.2 H (<1.2) APTT 26.5 (22.0-30.0) sec Sodium 140 (137-145) mmol/L Potassium 4.3 (3.5-5.1) mmol/L Chloride 101 (98-107) mmol/L Carbon Dioxide 31 H (22-30) mmol/L Anion Gap 8 mmol/L BUN 16 (7-17) mg/dL Creatinine 0.73 (0.52-1.04) mg/dL Est GFR (CKD-EPI)AfAm >90 (>60 ml/min/1.73 sqM) Est GFR (CKD-EPI)NonAf >90 (>60 ml/min/1.73 sqM) Glucose 116 H (74-99) mg/dL Plasma Lactic Acid Narinder (0.7-2.0) mmol/L Calcium 8.3 L (8.4-10.2) mg/dL Total Bilirubin 0.9 (0.2-1.3) mg/dL AST 29 (14-36) U/L ALT 23 (4-34) U/L Alkaline Phosphatase 297 H (38-126) U/L Troponin I (0.000-0.034) ng/mL Total Protein 6.2 L (6.3-8.2) g/dL Albumin 3.2 L (3.5-5.0) g/dL 08/29/22 08/29/22 Range/Units 19:55 19:55 WBC (3.8-10.6) k/uL RBC (3.80-5.40) m/uL Hgb (11.4-16.0) gm/dL Hct (34.0-46.0) % MCV (80.0-100.0) fL MCH (25.0-35.0) pg MCHC (31.0-37.0) g/dL RDW (11.5-15.5) % Plt Count (150-450) k/uL MPV Neutrophils % % Lymphocytes % % Monocytes % % Eosinophils % % Basophils % % Neutrophils # (1.3-7.7) k/uL Lymphocytes # (1.0-4.8) k/uL Monocytes # (0-1.0) k/uL Eosinophils # (0-0.7) k/uL Basophils # (0-0.2) k/uL PT (9.0-12.0) sec INR (<1.2) APTT (22.0-30.0) sec Sodium (137-145) mmol/L Potassium (3.5-5.1) mmol/L Chloride (98-107) mmol/L Carbon Dioxide (22-30) mmol/L Anion Gap mmol/L BUN (7-17) mg/dL Creatinine (0.52-1.04) mg/dL Est GFR (CKD-EPI)AfAm (>60 ml/min/1.73 sqM) Est GFR (CKD-EPI)NonAf (>60 ml/min/1.73 sqM) Glucose (74-99) mg/dL Plasma Lactic Acid Narinder 1.4 (0.7-2.0) mmol/L Calcium (8.4-10.2) mg/dL Total Bilirubin (0.2-1.3) mg/dL AST (14-36) U/L ALT (4-34) U/L Alkaline Phosphatase (38-126) U/L Troponin I <0.012 (0.000-0.034) ng/mL Total Protein (6.3-8.2) g/dL Albumin (3.5-5.0) g/dL Critical Care Time Critical Care Time: Yes Total Critical Care Time: 33 Disposition Clinical Impression: Atrial fibrillation with RVR, Cellulitis, Sepsis Disposition: ADMITTED IP TO THIS HOSP Condition: Serious Is patient prescribed a controlled substance at d/c from ED?: No Referrals: Radha Epps MD [REFERRING] - 1-2 days Time of Disposition: 23:37
[2022-08-29] MEDS: DILTIAZEM 125 MG in SODIUM CHLORIDE 0.9% 100 ML IV SCH (20:13)
[2022-08-29 20:27] LABS: Basophils % (A) 0 %; Eosinophils # (A) 0.2 k/uL (0-0.7); Eosinophils % (A) 1 %; HCT 47.8 % (34.0-46.0); Lymphocytes % (A) 5 %; MCH 28.8 pg (25.0-35.0); MCHC 31.4 g/dL (31.0-37.0); MCV 91.9 fL (80.0-100.0); Mean Platelet Volume 9.9; Monocytes # (A) 0.4 k/uL (0-1.0); Monocytes % (A) 2 %; Neutrophils # (A) 16.7 k/uL (1.3-7.7); Neutrophils % (A) 90 %; Platelet Count 201 k/uL (150-450); RDW 13.7 % (11.5-15.5); WBC 18.5 k/uL (3.8-10.6)
[2022-08-29 20:46] LABS: ALT 23 U/L (4-34); AST 29 U/L (14-36); African American GFR (CKD) >90 (>60 ml/min/1.73 sqM); Albumin 3.2 g/dL (3.5-5.0); Alkaline Phosphatase 297 U/L (38-126); Anion Gap 8 mmol/L; Blood Urea Nitrogen 16 mg/dL (7-17); Calcium 8.3 mg/dL (8.4-10.2); Carbon Dioxide 31 mmol/L (22-30); Chloride 101 mmol/L (98-107); Glucose 116 mg/dL (74-99); Non-African American GFR(CKD) >90 (>60 ml/min/1.73 sqM); Potassium 4.3 mmol/L (3.5-5.1); Sodium 140 mmol/L (137-145); Total Bilirubin 0.9 mg/dL (0.2-1.3); Total Protein 6.2 g/dL (6.3-8.2)
[2022-08-29 20:52] LABS: INR 1.2 (<1.2); Partial Thromboplastin Time 26.5 sec (22.0-30.0)
[2022-08-29] MEDS ORDERED: MORPHINE SULFATE 4 MG/ML SYRINGE IVP STA ×2 (20:58→23:18)
--- NOTE | 2022-08-29 22:42 | XR ---
EXAMINATION TYPE: XR chest 1V portable DATE OF EXAM: 08/29/2022 COMPARISON: Chest x-ray March 08, 2022 HISTORY: Dysrhythmia. TECHNIQUE: Single AP portable frontal upright view of the chest is obtained. FINDINGS: Low lung volumes redemonstrated. There is no suspicious new focal air space opacity, pleura l effusion, or pneumothorax seen. Increased central markings redemonstrated. The cardiac silhouette size is upper limits of normal. The osseous structures are intact. IMPRESSION: No new acute pulmonary infiltrate.
--- NOTE | 2022-08-29 22:42 | XR ---
EXAMINATION TYPE: XR knee limited RT DATE OF EXAM: 08/29/2022 CLINICAL HISTORY: Pain. TECHNIQUE: Frontal and lateral views of the right knee are obtained. COMPARISON: Bilateral knee x-rays 2014. FINDINGS: There is no acute fracture/dislocation evident in right knee. Metallic prosthesis is now p resent. Positioning is satisfactory. No suspicious lucency to suggest loosening or infection. Old hea led fracture of the fibular head is noted. Soft tissue prominence likely reflects product of patient' s large body habitus. IMPRESSION: As above.
--- NOTE | 2022-08-29 22:42 | US ---
EXAMINATION TYPE: US venous doppler duplex LE RT DATE OF EXAM: 08/29/2022 7:52 PM COMPARISON: Bilateral venous ultrasound 2015 CLINICAL INDICATION: Female, 51 years old with history of pain; Right knee and calf pain on lateral s gloria and redness. No hx of DVT. Not on blood thinners Limited due to pt being morbidly obese SIDE PERFORMED: Right TECHNIQUE: The lower extremity deep venous system is examined utilizing real time linear array sonog yosef with graded compression, doppler sonography and color-flow sonography. VESSELS IMAGED: Common Femoral Vein Deep Femoral Vein Greater Saphenous Vein * Femoral Vein Popliteal Vein Small Saphenous Vein * (* superficial vessels) Right Leg: Limited due to body habitus. Appears negative for DVT Grayscale, color doppler, spectral doppler imaging performed of the deep veins of the right lower ext remity. There is normal flow, compressibility, vascular waveforms. IMPRESSION: No ultrasound evidence for acute DVT in the right lower extremity.
[2022-08-29] MEDS ORDERED: HEPARIN SODIUM 1,000 UN/ML (10ML VL) IV PRN (23:37)
[2022-08-29] MEDS ORDERED: HEPARIN SODIUM 1,000 UN/ML (10ML VL) IV ONE (23:37)
[2022-08-29] MEDS ORDERED: ONDANSETRON 4 MG/2 ML VIAL IVP PRN (23:38)
[2022-08-29] MEDS ORDERED: AMPICILLIN-SULBACTAM 3 GM in SODIUM CHLORIDE 0.9% 100 ML IVPB STA (23:38)
[2022-08-29] MEDS ORDERED: NALOXONE 0.4 MG/ML 1 ML VIAL IV PRN (23:38)
[2022-08-29] MEDS ORDERED: SODIUM CHLORIDE 0.9% 1,000 ML IV STA (23:38)
[2022-08-30] MEDS: HEPARIN SOD,PORK IN 0.45% NACL 25,000 UNIT in 0.45% NACL 1 250ML.BAG IV SCH ×2 (00:22→23:19)
[2022-08-30] MEDS: SODIUM CHLORIDE 0.9% 1,000 ML IV SCH ×4 (00:27→23:20)
--- NOTE | 2022-08-30 02:17 | P.HPIM ---
History of Present Illness H&P Date: 08/29/22 The patient is a 51-year-old female with a PMH of [id number]-[id number] bariatric surgery, morbid obesity, anxiety, and panic disorder who presents to the emergency room with complaints of right leg pain. The patient states that her symptoms started 2 days ago initially with a small amount of redness which gradually worsened. She reports that the pain extending from her right mid thigh to her feet. She denied experiencing fever, chest pain, shortness of breath, nausea, vomiting, abdominal pain, diarrhea. Also denies trauma to the area. She underwent an extensive evaluation in the emergency room with right lower extremity venous Doppler which revealed no evidence of DVT. Chest x-ray was unremarkable. Knee x-ray was unremarkable. EKG had revealed A. fib with RVR at [address] segment changes noted. Laboratory evaluation was remarkable for leukocytosis of 18.5, CO2 31, lactic acid 1.4, and albumin 3.2. ED documentation reviewed and case discussed with ED provider. Review of systems: Pertinent positives and negatives as discussed in HPI, a complete review of systems was performed and all other systems are negative. Physical examination: Vital signs reviewed General: non toxic, no distress, appears at stated age, morbidly obese Derm: Right lower extremity mild erythema, warmth, and tenderness extending from the right mid thigh below, warm Head: atraumatic, normocephalic, symmetric Eyes: EOMI, no lid lag, anicteric sclera, pupils equal round reactive to light ENT: Nose and ears atraumatic Neck: No cervical lymphadenopathy, trachea midline, supple Mouth: no lip lesion, mucus membranes moist Cardiovascular: S1S2 reg, no murmur, positive dorsalis pedis pulse bilateral, no edema Lungs: CTA bilateral, no rhonchi, no rales, no accessory muscle use Abdominal: soft, nontender to palpation, no guarding Ext: muscle strength 5 out of 5 in all 4 extremities grossly, no gross muscle atrophy, no contractures, Neuro: CN II-XI grossly intact, no gross focal neuro deficits Psych: Alert, oriented, appropriate affect Assessment: Sepsis secondary to right lower extremity cellulitis A. fib with RVR, not on anticoagulation Imaging: right lower extremity venous Doppler which revealed no evidence of DVT. Chest x-ray was unremarkable. Knee x-ray was unremarkable. EKG had revealed A. fib with RVR at [address] segment changes noted. Data Review: Laboratory evaluation was remarkable for leukocytosis of 18.5, CO2 31, lactic acid 1.4, and albumin 3.2. Plan: Continue Unasyn 3 g every 6 hourly IV Continue with Cardizem infusion at 5 mg an hour with heparin infusion per protocol with aPTT monitoring Pain control with morphine Continue with normal saline IV fluids at 1:30 miles per hour Cardiology consulted Follow-up blood cultures Cardiac monitoring DVT prophylaxis: Heparin infusion The patient is admitted with an anticipated greater than than 2 midnight stay for evaluation of cellulitis CODE STATUS: Full Code Discussed with: Patient Anticipated discharge date: 2-[address]: Home Past Medical History Past Medical History: Atrial Fibrillation, Hyperlipidemia, Hypertension, Musculoskeletal Disorder, Osteoarthritis (OA) Additional Past Medical History / Comment(s): NEUROPATHY, CARPEL TUNNEL, BACK NECK AND KNEE PAIN, MIGRAINES. "Raspy voice last few days." "Oxygen 2.5L per nasal cannula." History of Any Multi-Drug Resistant Organisms: None Reported Past Surgical History: Bariatric Surgery, Section, Hysterectomy, Joint Replacement, Orthopedic Surgery, Tubal Ligation Additional Past Surgical History / Comment(s): GASTRIC BYPASS, SPINAL CORD STIMULATOR, bilateral knee replacements, right knee arthroscopy. Past Anesthesia/Blood Transfusion Reactions: No Reported Reaction Past Psychological History: Anxiety Smoking Status: Never smoker Past Alcohol Use History: None Reported Past Drug Use History: None Reported - Past Family History Mother Family Medical History: Cancer Medications and Allergies Home Medications Medication Instructions Recorded Confirmed Type Zonisamide [Zonegran] 200 mg PO HS 09/11/13 08/29/22 History Gabapentin 800 mg PO DAILY 03/08/22 08/29/22 History HYDROcodone/APAP 5-325MG [[place] 1 tab PO BID PRN 03/08/22 08/29/22 History 5-325] Montelukast [Singulair] 10 mg PO DAILY 03/08/22 08/29/22 History Morphine Pain Pump 1 dose INTRATHECA CONTINUOUS 03/08/22 08/29/22 History Oxybutynin Chloride [Oxybutynin 15 mg PO DAILY 03/08/22 08/29/22 History Chloride ER] hydrOXYzine HCL [Atarax] 25 mg PO DAILY 03/08/22 08/29/22 History Butalb/APAP/Caff 50-325-40Mg 1 tab PO Q4H PRN 08/29/22 08/29/22 History [Fioricet 50-325-40] Metoprolol Succinate (ER) [Toprol 50 mg PO BID 08/29/22 08/29/22 History XL] Nystatin [Nystop] 1 applic TOPICAL BID PRN 08/29/22 08/29/22 History Allergies Allergy/AdvReac Type Severity Reaction Status Date / Time No Known Allergies Allergy Verified 08/29/22 21:53 Physical Exam Vitals: Vital Signs Temp Pulse Resp BP Pulse Ox 08/29/22 23:40 112 H 18 111/68 94 L 08/29/22 23:00 114 H 17 119/82 93 L 08/29/22 22:50 120 H 13 119/82 93 L 08/29/22 22:41 130 H 17 119/82 90 L 08/29/22 21:01 98.6 F 135 H 20 110/60 98 08/29/22 19:50 165 H 16 127/86 96 08/29/22 19:44 97.6 F 165 H 20 127/85 95 Intake and Output 08/29/22 08/29/22 08/30/22 14:59 22:59 06:59 Intake Total 1.667 Balance 1.667 Intake: Intake, IV Titration 1.667 Amount Diltiazem 125 mg In 1.667 Sodium Chloride 0.9% 100 ml @ 5 MG/HR 5 mls/hr IV .Q24H [facility] Rx#:[id number] Other: Weight 199.581 kg Results CBC & Chem 7: 08/29/22 19:55 08/29/22 19:55 Labs: Abnormal Lab Results - Last 24 Hours (Table) 08/29/22 08/29/22 08/29/22 Range/Units 19:55 19:55 19:55 WBC 18.5 H (3.8-10.6) k/uL Hct 47.8 H (34.0-46.0) % Neutrophils # 16.7 H (1.3-7.7) k/uL INR 1.2 H (<1.2) Carbon Dioxide 31 H (22-30) mmol/L Glucose 116 H (74-99) mg/dL Calcium 8.3 L (8.4-10.2) mg/dL Alkaline Phosphatase 297 H (38-126) U/L Total Protein 6.2 L (6.3-8.2) g/dL Albumin 3.2 L (3.5-5.0) g/dL
[2022-08-30] MEDS: MORPHINE SULFATE 4 MG/ML SYRINGE IV PRN ×3 (05:39→15:31)
[2022-08-30] MEDS: AMPICILLIN-SULBACTAM 3 GM in SODIUM CHLORIDE 0.9% 100 ML IVPB SCH ×4 (05:41→23:27)
[2022-08-30] MEDS: DILTIAZEM 125 MG in SODIUM CHLORIDE 0.9% 100 ML IV SCH ×2 (05:44→17:38)
[2022-08-30 07:07] LABS: Basophils # (A) 0.1 k/uL (0-0.2); Basophils % (A) 0 %; Eosinophils # (A) 0.4 k/uL (0-0.7); Eosinophils % (A) 2 %; HCT 44.3 % (34.0-46.0); HGB 13.6 gm/dL (11.4-16.0); Hypochromasia Slight; Lymphocytes # (A) 1.2 k/uL (1.0-4.8); Lymphocytes % (A) 6 %; MCH 28.7 pg (25.0-35.0); MCHC 30.7 g/dL (31.0-37.0); MCV 93.4 fL (80.0-100.0); Mean Platelet Volume 10.2; Monocytes # (A) 0.8 k/uL (0-1.0); Monocytes % (A) 4 %; Neutrophils # (A) 18.3 k/uL (1.3-7.7); Neutrophils % (A) 87 %; Platelet Count 173 k/uL (150-450); RBC 4.74 m/uL (3.80-5.40); RDW 13.5 % (11.5-15.5); WBC 21.1 k/uL (3.8-10.6)
[2022-08-30 07:09] LABS: INR 1.3 (<1.2); Prothrombin Time 13.6 sec (9.0-12.0)
[2022-08-30] MEDS ORDERED: GABAPENTIN 400 MG CAP PO SCH (09:00)
[2022-08-30] MEDS: METOPROLOL SUCCINATE (ER) 50 MG TAB.ER.24H PO SCH ×2 (09:46→19:56)
[2022-08-30] MEDS: PANTOPRAZOLE 40 MG/10 ML VIAL IV SCH (09:46)
--- NOTE | 2022-08-30 10:21 | CONS ---
CONSULTATION CHIEF COMPLAINT: Right leg and foot pain. HISTORY OF PRESENT ILLNESS: Jemma is a 51-year-old lady with history of atrial fibrillation, hypertension, chronic musculoskeletal pain, who presented to hospital primarily complaining of inability to walk and pain and discomfort involving right leg. We have been consulted because of atrial fibrillation with poorly controlled ventricular rate. On her initial presentation, the EKG revealed atrial fibrillation with RVR with a heart rate of 160 beats per minute. At the time of my evaluation this morning, she has intravenous Cardizem, continues to have somewhat of a poorly controlled ventricular rate. Her home medications have not been resumed yet. She is on beta blockers, which I am going to resume for better rate control. She is on IV heparin and I am going to switch her to Xarelto or Eliquis based on what she is covered. The patient had palpitations intermittently prior to coming in, which may be related to the atrial fibrillation. She has discomfort in the right leg. Management is as per primary. PAST MEDICAL HISTORY: Significant for paroxysmal atrial fibrillation, hypertension, COPD, morbid obesity, and chronic musculoskeletal pain. MEDICATIONS: Include, 1. Toprol-XL 50 b.i.d. 2. Morphine pain pump. 3. Singulair. 4. Neurontin. 5. Oxybutynin. 6. Fioricet. 7. [place]. ALLERGIES: There are no known drug allergies. FAMILY HISTORY: Negative for premature coronary artery disease. SOCIAL HISTORY: Negative for current smoking, EtOH abuse or drug abuse. REVIEW OF SYSTEMS: A 14 out of 14 review of systems has been performed. Pertinents are as documented. PHYSICAL EXAMINATION: GENERAL: She is comfortable at rest. Heart rate is 80 beats per minute, blood pressure is 115/79, respiratory rate is 18, O2 saturation is 96% on room air. NECK: There is no jugular venous distention. Carotid upstroke is normal. There is no bruit. CHEST: Reveals diminished air entry at the bases. HEART: Reveals first and second heart sounds, irregular rhythm and a systolic murmur at the apex. ABDOMEN: Soft. EXTREMITIES: Exam of extremities reveals chronic stasis changes. Foot pulses are intact. She has mild discomfort on touch in the right leg. DIAGNOSTIC DATA: EKG shows atrial fibrillation with poorly controlled ventricular rate. She had a venous duplex study that did not reveal any evidence of DVT. LABORATORY DATA: Labs showed a hemoglobin of 15.6, white cell count is 21, platelet count is 170. Potassium is 4.3, creatinine is 0.7. Troponin is normal. ASSESSMENT AND PLAN: 1. Persistent atrial fibrillation with poorly controlled ventricular rate. 2. Hypertension. 3. Morbid obesity. PLAN: I will treat the patient with intravenous Cardizem and heparin. The rest of the issues are going to be addressed by the primary care physician, especially the right leg discomfort and elevated white cell count. I will obtain a 2D echo to evaluate her LV function. MMROVERTO / IJN: [id number] /
--- NOTE | 2022-08-30 10:41 | P.PN ---
Subjective Progress Note Date: 08/30/22 Patient continues to report pain in the right lower extremity, especially on walking or moving the right lower extremity. Heart rates are still in the 110s range Gen: awake, alert, morbidly obese HEENT: normocephalic, atraumatic, good hearing acuity, moist mucous membranes Resp: good air exchange, breathing comfortably with no accessory muscle use CVS: good distal perfusion x 4, GI: soft, NTTP, ND : no SPT, no CVAT, eisenberg catheter not present MSK: Bilateral pitting edema, no clubbing, right lower extremity erythema Neuro: non-focal, moving all extremities Psych: cooperative, euthymic mood Hospital course: The patient is a 51-year-old female with a PMH of Vinh-en-Y bariatric surgery, morbid obesity, anxiety, and panic disorder who presents to the emergency room with complaints of right leg pain. Laboratory evaluation was remarkable for leukocytosis of 18.5, CO2 31, lactic acid 1.4, and albumin 3.2. Right lower extremity venous did not show evidence of DVT. Chest x-ray was unremarkable. Knee x-ray was unremarkable. EKG had revealed A. fib with RVR at [address] segment changes noted. Laboratory evaluation was remarkable for leukocytosis of 18.5, CO2 31, lactic acid 1.4, and albumin 3.2. Assessment: Sepsis secondary to right lower extremity cellulitis A. fib with RVR, not on anticoagulation Plan: Today, patient is afebrile, 123/73, heart rate 106, 94% on 4 L of nasal cannula CBC shows leukocytosis at 21 INR this morning was 1.3 Ordered CBC, basic metabolic panel, magnesium for tomorrow Cardiology note reviewed, continue heparin, Cardizem, obtain echocardiogram Continue Cardizem drip, monitor telemetry for toxicity Continue heparin drip, monitor PTT for toxicity Continue Unasyn 3 g every 6 hours Continue morphine 4 mg every 4 hours when necessary for pain Continue metoprolol XL 50 mg by mouth twice a day Patient is full code DVT prophylaxis is covered with therapeutic heparin Objective - Vital Signs Vital signs: Vital Signs Temp 97 F L 08/30/22 08:00 Pulse 106 H 08/30/22 08:00 Resp 18 08/30/22 08:00 BP 123/73 08/30/22 08:00 Pulse Ox 94 L 08/30/22 08:00 FiO2 Intake & Output 08/29/22 08/30/22 08/30/22 18:59 06:59 18:59 Intake Total 523.500 Output Total 300 Balance 223.500 Weight 200 kg Intake: IV 230 Ampicillin-Sulbactam 3 gm 100 In Sodium Chloride 0.9% 100 ml @ 200 mls/hr IVPB Q6HR [facility] Rx#:[id number] Sodium Chloride 0.9% 1, 130 000 ml @ 130 mls/hr IV . Q7H42M [facility] Rx#:[id number] Intake, IV Titration 93.500 Amount Diltiazem 125 mg In 93.500 Sodium Chloride 0.9% 100 ml @ 5 MG/HR 5 mls/hr IV .Q24H [facility] Rx#:[id number] Oral 200 Output: Urine 300 Other: Voiding Method External Catheter External Catheter - Labs CBC & Chem 7: 08/30/22 06:07 08/29/22 19:55 Labs: Abnormal Lab Results - Last 24 Hours (Table) 08/29/22 08/29/22 08/29/22 Range/Units 19:55 19:55 19:55 WBC 18.5 H (3.8-10.6) k/uL Hct 47.8 H (34.0-46.0) % MCHC (31.0-37.0) g/dL Neutrophils # 16.7 H (1.3-7.7) k/uL PT (9.0-12.0) sec INR 1.2 H (<1.2) Carbon Dioxide 31 H (22-30) mmol/L Glucose 116 H (74-99) mg/dL Calcium 8.3 L (8.4-10.2) mg/dL Alkaline Phosphatase 297 H (38-126) U/L Total Protein 6.2 L (6.3-8.2) g/dL Albumin 3.2 L (3.5-5.0) g/dL 08/30/22 08/30/22 Range/Units 06:07 06:16 WBC 21.1 H (3.8-10.6) k/uL Hct (34.0-46.0) % MCHC 30.7 L (31.0-37.0) g/dL Neutrophils # 18.3 H (1.3-7.7) k/uL PT 13.6 H (9.0-12.0) sec INR 1.3 H (<1.2) Carbon Dioxide (22-30) mmol/L Glucose (74-99) mg/dL Calcium (8.4-10.2) mg/dL Alkaline Phosphatase (38-126) U/L Total Protein (6.3-8.2) g/dL Albumin (3.5-5.0) g/dL
[2022-08-30] MEDS: OXYBUTYNIN 15 MG TAB.ER.24 PO SCH (12:00)
[2022-08-30] MEDS ORDERED: HEPARIN SODIUM 1,000 UN/ML (10ML VL) IVP ONE (18:04)
[2022-08-30] MEDS: HYDROcodone/APAP 5-325MG 1 EACH TAB PO PRN (18:53)
[2022-08-30] MEDS: GABAPENTIN 300 MG CAP PO SCH (19:56)
[2022-08-30] MEDS: ZONISAMIDE 100 MG CAP PO SCH (21:46)
[2022-08-30] MEDS: ACETAMINOPHEN TAB 325 MG TAB PO PRN (23:33)
[2022-08-31] MEDS: NYSTATIN 100,000 UNIT/GM POWD 15 GM TOPICAL SCH ×3 (00:18→19:42)
[2022-08-31] MEDS: HYDROcodone/APAP 5-325MG 1 EACH TAB PO PRN ×2 (04:54→18:04)
[2022-08-31] MEDS: SODIUM CHLORIDE 0.9% 1,000 ML IV SCH ×3 (04:54→19:42)
[2022-08-31] MEDS: AMPICILLIN-SULBACTAM 3 GM in SODIUM CHLORIDE 0.9% 100 ML IVPB SCH ×4 (04:54→23:05)
[2022-08-31] MEDS: DILTIAZEM 125 MG in SODIUM CHLORIDE 0.9% 100 ML IV SCH (05:34)
[2022-08-31 07:37] LABS: Basophils # (A) 0.1 k/uL (0-0.2); Basophils % (A) 0 %; Eosinophils # (A) 0.6 k/uL (0-0.7); Eosinophils % (A) 3 %; HCT 38.5 % (34.0-46.0); Hypochromasia Moderate; Lymphocytes # (A) 1.1 k/uL (1.0-4.8); Lymphocytes % (A) 7 %; MCH 28.5 pg (25.0-35.0); MCHC 31.2 g/dL (31.0-37.0); MCV 91.5 fL (80.0-100.0); Mean Platelet Volume 10.7; Monocytes # (A) 0.7 k/uL (0-1.0); Monocytes % (A) 4 %; Neutrophils # (A) 14.6 k/uL (1.3-7.7); Neutrophils % (A) 84 %; Platelet Count 182 k/uL (150-450); RDW 13.8 % (11.5-15.5); WBC 17.3 k/uL (3.8-10.6)
[2022-08-31 08:10] LABS: African American GFR (CKD) >90 (>60 ml/min/1.73 sqM); Anion Gap 7 mmol/L; Blood Urea Nitrogen 12 mg/dL (7-17); Calcium 7.5 mg/dL (8.4-10.2); Carbon Dioxide 24 mmol/L (22-30); Chloride 106 mmol/L (98-107); Glucose 125 mg/dL (74-99); Magnesium 2.3 mg/dL (1.6-2.3); Non-African American GFR(CKD) >90 (>60 ml/min/1.73 sqM); Sodium 137 mmol/L (137-145)
[2022-08-31] MEDS: PANTOPRAZOLE 40 MG/10 ML VIAL IV SCH (09:09)
[2022-08-31] MEDS: METOPROLOL SUCCINATE (ER) 50 MG TAB.ER.24H PO SCH ×2 (09:09→19:41)
[2022-08-31] MEDS: OXYBUTYNIN 15 MG TAB.ER.24 PO SCH (09:09)
[2022-08-31] MEDS: hydrOXYzine HCL 25 MG TAB PO SCH (09:10)
[2022-08-31] MEDS: MORPHINE SULFATE 4 MG/ML SYRINGE IV PRN (09:11)
[2022-08-31] MEDS: APIXABAN 5 MG TAB PO SCH ×2 (10:00→19:41)
[2022-08-31] MEDS ORDERED: VANCOMYCIN IV PER PHARMACY 1 EACH MISC MISCELLANE PRN (10:28)
--- NOTE | 2022-08-31 10:35 | P.PN ---
Subjective Progress Note Date: 08/31/22 Patient continues to report pain in the right lower extremity, especially on walking or moving the right lower extremity. HRs improved Gen: awake, alert, morbidly obese HEENT: normocephalic, atraumatic, good hearing acuity, moist mucous membranes Resp: good air exchange, breathing comfortably with no accessory muscle use CVS: good distal perfusion x 4, GI: soft, NTTP, ND : no SPT, no CVAT, eisenberg catheter not present MSK: Bilateral pitting edema, no clubbing, right lower extremity erythema Neuro: non-focal, moving all extremities Psych: cooperative, euthymic mood Hospital course: The patient is a 51-year-old female with a PMH of Vinh-en-Y bariatric surgery, morbid obesity, anxiety, and panic disorder who presents to the emergency room with complaints of right leg pain. Laboratory evaluation was remarkable for leukocytosis of 18.5, CO2 31, lactic acid 1.4, and albumin 3.2. Right lower extremity venous did not show evidence of DVT. Chest x-ray was unremarkable. Knee x-ray was unremarkable. EKG had revealed A. fib with RVR at [address] segment changes noted. Laboratory evaluation was remarkable for leukocytosis of 18.5, CO2 31, lactic acid 1.4, and albumin 3.2. Patient was admitted to the hospital and started on cardizem gtt, heparin gtt, and had cardiology evaluation. She underwent echo evaluation. Regarding cellulitis, she was started on unasyn, however, blood culture gram stain showed GPCs in clusters and was broadened to vancomycin. Assessment: Sepsis secondary to right lower extremity cellulitis Paroxysmal A. fib with RVR Gram positive bacteremia Plan: Today, patient is afebrile, 87/61, heart rate 89, 99% on 2 L of nasal cannula CBC shows leukocytosis at 17 BMP is unremarkable Blood culture gram stain showing GPCs in clusters Ordered CBC, basic metabolic panel, magnesium for tomorrow Continue Cardizem drip, monitor telemetry for toxicity Discontinue heparin gtt, transition to Apixaban 5mg BID Continue Unasyn 3 g every 6 hours, Add vancomycin, dose base on trough, and monitor trough for toxicity Continue morphine 4 mg every 4 hours when necessary for pain Continue metoprolol XL 50 mg by mouth twice a day Patient is full code DVT prophylaxis is covered with therapeutic heparin Objective - Vital Signs Vital signs: Vital Signs Temp 98.4 F 08/31/22 08:59 Pulse 89 08/31/22 08:59 Resp 18 08/31/22 08:59 BP 87/61 08/31/22 08:59 Pulse Ox 99 08/31/22 08:59 FiO2 Intake & Output 08/30/22 08/31/22 08/31/22 18:59 06:59 18:59 Intake Total 1050.945 481.246 144.893 Output Total 1200 450 Balance -149.055 31.246 144.893 Intake: IV 780 Sodium Chloride 0.9% 1, 780 000 ml @ 130 mls/hr IV . Q7H42M [facility] Rx#:[id number] Intake, IV Titration 270.945 245.246 144.893 Amount Diltiazem 125 mg In 119 125 Sodium Chloride 0.9% 100 ml @ 5 MG/HR 5 mls/hr IV .Q24H [facility] Rx#:[id number] Heparin Sod,Pork in 0.45% 151.945 120.246 144.893 NaCl 25,000 unit In 0.45 % NaCl 1 250ml.bag @ 5. 0105 UNITS/KG/HR 10 mls/ hr IV .Q24H [facility] Rx#: [id number] Oral 236 Output: Urine 1200 450 Other: Voiding Method External Catheter External Catheter - Labs CBC & Chem 7: 08/31/22 06:19 08/31/22 06:19 Labs: Abnormal Lab Results - Last 24 Hours (Table) 08/30/22 08/31/22 08/31/22 Range/Units 08:55 00:29 06:19 WBC 17.3 H (3.8-10.6) k/uL Neutrophils # 14.6 H (1.3-7.7) k/uL APTT 93.4 H 30.9 H (22.0-30.0) sec Glucose (74-99) mg/dL Calcium (8.4-10.2) mg/dL 08/31/22 08/31/22 Range/Units 06:19 06:19 WBC (3.8-10.6) k/uL Neutrophils # (1.3-7.7) k/uL APTT 34.9 H (22.0-30.0) sec Glucose 125 H (74-99) mg/dL Calcium 7.5 L (8.4-10.2) mg/dL Microbiology - Last 24 Hours (Table) 08/29/22 19:55 Blood Culture Gram Stain - Preliminary Blood
[2022-08-31] MEDS ORDERED: VANCOMYCIN 2,500 MG in SODIUM CHLORIDE 0.9% 500 ML 500 ML IVPB SCH (11:00)
--- NOTE | 2022-08-31 12:20 | P.PN ---
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 Patient presented to the hospital with difficulty walking and pain in her right lower extremity. She is being treated for cellulitis and is receiving IV hepatic. Patient was found to be in A. fib with RVR upon presentation to the emergency room. She denies a history of atrial fibrillation. Patient examined this morning at the bedside. She denies chest pain or pressure. She denies shortness of breath. Telemetry reveals atrial fibrillation with a heart rate in the 90s. Patient's blood pressure is on the lower side with a systolic in the 80s. Patient is continued on IV Cardizem at 10 mg an hour. PHYSICAL EXAM: VITAL SIGNS: Reviewed. GENERAL: Well-developed in no acute distress. NECK: Supple. No JVD or thyromegaly LUNGS: Respirations even and unlabored. Lungs essentially clear to auscultation bilaterally. HEART: Irregular rate and rhythm. S1 and S2 heard. EXTREMITIES: Normal range of motion. No clubbing or cyanosis. Peripheral p ulses intact. Trace lower extremity edema ASSESSMENT: Difficulty walking Right lower extremity cellulitis Atrial fibrillation with RVR, currently rate controlled, unknown duration, appears persistent Gram positive bacteremia Morbid obesity, BMI 75.7 History of anxiety Borderline hypotension, suspect secondary to IV Cardizem infusion PLAN: 2-D echo ordered. Await results Discontinue IV heparin. Begin Eliquis 5 mg twice a day Continue current dose of metoprolol succinate 50 mg twice a day Wean off Cardizem drip as heart rate will tolerate Continue to monitor blood pressure Further recommendations pending patient's course Nurse practitioner note has been reviewed by physician. Signing provider agrees with the documented findings, assessment, and plan of care. Objective - Vital Signs Vital signs: Vital Signs Temp 98.4 F 08/31/22 08:59 Pulse 89 08/31/22 08:59 Resp 18 08/31/22 08:59 BP 87/61 08/31/22 08:59 Pulse Ox 99 08/31/22 08:59 FiO2 Intake & Output 08/30/22 08/31/22 08/31/22 18:59 06:59 18:59 Intake Total 1050.945 481.246 144.893 Output Total 1200 450 Balance -149.055 31.246 144.893 Intake: IV 780 Sodium Chloride 0.9% 1, 780 000 ml @ 130 mls/hr IV . Q7H42M [facility] Rx#:[id number] Intake, IV Titration 270.945 245.246 144.893 Amount Diltiazem 125 mg In 119 125 Sodium Chloride 0.9% 100 ml @ 5 MG/HR 5 mls/hr IV .Q24H [facility] Rx#:[id number] Heparin Sod,Pork in 0.45% 151.945 120.246 144.893 NaCl 25,000 unit In 0.45 % NaCl 1 250ml.bag @ 5. 0105 UNITS/KG/HR 10 mls/ hr IV .Q24H [facility] Rx#: [id number] Oral 236 Output: Urine 1200 450 Other: Voiding Method External Catheter External Catheter External Catheter - Labs CBC & Chem 7: 08/31/22 06:19 08/31/22 06:19 Labs: Abnormal Lab Results - Last 24 Hours (Table) 08/31/22 08/31/22 08/31/22 Range/Units 00:29 06:19 06:19 WBC 17.3 H (3.8-10.6) k/uL Neutrophils # 14.6 H (1.3-7.7) k/uL APTT 30.9 H (22.0-30.0) sec Glucose 125 H (74-99) mg/dL Calcium 7.5 L (8.4-10.2) mg/dL 08/31/22 Range/Units 06:19 WBC (3.8-10.6) k/uL Neutrophils # (1.3-7.7) k/uL APTT 34.9 H (22.0-30.0) sec Glucose (74-99) mg/dL Calcium (8.4-10.2) mg/dL Microbiology - Last 24 Hours (Table) 08/29/22 19:55 Blood Culture Gram Stain - Preliminary Blood Blood Culture - Preliminary Coagulase Negative Staph
--- NOTE | 2022-08-31 12:23 | CA ---
Transthoracic Echo Report Name: Jemma Muniz Age: 51 Gender: F : 1970 Exam Date: 08/30/2022 13:30 Exam Location: [place] [facility] Ht (in): 64 Wt (lb): 440 Ordering Physician: Kei Kaplan MD ([id number]) Attending/Referring Phys: Rosaura HAYES [employer] Supervisor Matt Paredes Procedure CPT: Indications: a fib Cardiac Hx: Technical Quality: Very technically difficult study Contrast 1: Lumason Total Dose (mL): 5ml Contrast 2: Total Dose (mL): MEASUREMENTS (Male / Female) Normal Values 2D ECHO LV Diastolic Diameter PLAX 4.3 cm 4.2 - 5.9 / 3.9 - 5.3 cm LV Systolic Diameter PLAX 3.5 cm IVS Diastolic Thickness 1.7 cm 0.6 - 1.0 / 0.6 - 0.9 cm LVPW Diastolic Thickness 1.5 cm 0.6 - 1.0 / 0.6 - 0.9 cm LV Relative Wall Thickness 0.7 RV Internal Dim ED PLAX 2.4 cm Aortic Root Diameter 2.7 cm LA Systolic Diameter LX 2.4 cm 3.0 - 4.0 / 2.7 - 3.8 cm DOPPLER AV Peak Velocity 155.1 cm/s AV Peak Gradient 9.6 mmHg Mitral E Point Velocity 133.5 cm/s Mitral A Point Velocity 19.6 cm/s Mitral E to A Ratio 6.8 MV Deceleration Time 257.3 ms TR Peak Velocity 136.2 cm/s TR Peak Gradient 7.4 mmHg Right Ventricular Systolic Press 12.5 mmHg FINDINGS Left Ventricle Left ventricular ejection fraction is estimated at 55-60 %. Grossly normal size. Right Ventricle Right ventricle not well visualized. Normal right ventricular size and function. Right Atrium Not well visualized, Grossly within normal limits. Left Atrium Mild to Mod LA enlargement. Mitral Valve Grossly normal. No MR. Aortic Valve Aortic valve not well visualized. No aortic regurgitation. Tricuspid Valve Tricuspid valve not well visualized. Mild TR. Pulmonic Valve Pulmonic valve not well visualized. Pericardium Normal pericardium. Aorta Normal AO root ministerio. CONCLUSIONS Technically difficult study. Echo contrast was used. Ejection fraction is normal. Doppler exam is suboptimal. No pericardial effusion Previewed by: Dr. Shira Taylor MD (Electronically Signed) Final Date: 31 Aug 2022 12:22
[2022-08-31] MEDS: ZONISAMIDE 100 MG CAP PO SCH (19:41)
[2022-08-31] MEDS: GABAPENTIN 300 MG CAP PO SCH (19:41)
[2022-08-31] MEDS: ACETAMINOPHEN TAB 325 MG TAB PO PRN (23:04)
[2022-09-01] MEDS: DILTIAZEM 125 MG in SODIUM CHLORIDE 0.9% 100 ML IV SCH (05:10)
[2022-09-01] MEDS: SODIUM CHLORIDE 0.9% 1,000 ML IV SCH ×2 (05:11→17:03)
[2022-09-01] MEDS: AMPICILLIN-SULBACTAM 3 GM in SODIUM CHLORIDE 0.9% 100 ML IVPB SCH ×4 (05:11→23:44)
[2022-09-01] MEDS: ACETAMINOPHEN TAB 325 MG TAB PO PRN (05:18)
[2022-09-01] MEDS: HYDROcodone/APAP 5-325MG 1 EACH TAB PO PRN (08:46)
[2022-09-01] MEDS: hydrOXYzine HCL 25 MG TAB PO SCH (09:26)
[2022-09-01] MEDS: METOPROLOL SUCCINATE (ER) 50 MG TAB.ER.24H PO SCH ×2 (09:26→19:41)
[2022-09-01] MEDS: APIXABAN 5 MG TAB PO SCH ×2 (09:26→19:41)
[2022-09-01] MEDS: OXYBUTYNIN 15 MG TAB.ER.24 PO SCH (09:26)
[2022-09-01] MEDS: NYSTATIN 100,000 UNIT/GM POWD 15 GM TOPICAL SCH ×2 (09:27→19:42)
[2022-09-01 09:29] LABS: Basophils # (A) 0.1 k/uL (0-0.2); Basophils % (A) 0 %; Eosinophils # (A) 0.7 k/uL (0-0.7); Eosinophils % (A) 5 %; HCT 42.5 % (34.0-46.0); Hypochromasia Marked; Lymphocytes # (A) 1.2 k/uL (1.0-4.8); Lymphocytes % (A) 9 %; MCH 28.5 pg (25.0-35.0); MCHC 30.7 g/dL (31.0-37.0); MCV 92.8 fL (80.0-100.0); Mean Platelet Volume 9.2; Monocytes # (A) 0.6 k/uL (0-1.0); Monocytes % (A) 5 %; Neutrophils # (A) 11.1 k/uL (1.3-7.7); Neutrophils % (A) 80 %; Platelet Count 220 k/uL (150-450); RBC 4.58 m/uL (3.80-5.40); RDW 13.8 % (11.5-15.5); WBC 13.8 k/uL (3.8-10.6)
[2022-09-01] MEDS ORDERED: METOPROLOL SUCCINATE (ER) 25 MG TAB.ER.24H PO STA (09:36)
[2022-09-01 09:37] LABS: African American GFR (CKD) >90 (>60 ml/min/1.73 sqM); Anion Gap 9 mmol/L; Blood Urea Nitrogen 9 mg/dL (7-17); Calcium 7.6 mg/dL (8.4-10.2); Carbon Dioxide 26 mmol/L (22-30); Chloride 105 mmol/L (98-107); Glucose 116 mg/dL (74-99); Magnesium 2.3 mg/dL (1.6-2.3); Non-African American GFR(CKD) >90 (>60 ml/min/1.73 sqM); Potassium 4.1 mmol/L (3.5-5.1); Sodium 140 mmol/L (137-145)
[2022-09-01] MEDS: PANTOPRAZOLE 40 MG/10 ML VIAL IV SCH (10:04)
--- NOTE | 2022-09-01 12:29 | P.PN ---
Subjective Progress Note Date: 09/01/22 Hospital Course: 51-year-old female with a PMH of Vinh-en-Y bariatric surgery, morbid obesity, anxiety, and panic disorder who presents to the emergency room with complaints of right leg pain. Laboratory evaluation was remarkable for leukocytosis of 18.5, CO2 31, lactic acid 1.4, and albumin 3.2. Right lower extremity venous did not show evidence of DVT. Chest x-ray was unremarkable. Knee x-ray was unremarkable. EKG had revealed A. fib with RVR at [address] segment changes noted. Laboratory evaluation was remarkable for leukocytosis of 18.5, CO2 31, lactic acid 1.4, and albumin 3.2. Patient was admitted to the hospital and started on cardizem gtt, heparin gtt, and had cardiology evaluation. She underwent echo evaluation, showed normal EF. Regarding cellulitis, she was started on unasyn, however, blood culture gram stain showed GPCs in clusters and was broadened to vancomycin. Blood cultures resulted in coag negative staph, likely contaminant., Patient back on IV Unasyn. Subjective: Patient seen and examined at bedside. No acute events overnight. Denies any chest pain, shortness of breath, palpitations, nausea, vomiting, diarrhea, con stipation, or urinary complaints. She claims that she feels weak and unable to get out of the bed on her own. Pertinent positives and negatives as discussed above, a complete review of systems was performed and all other systems are negative. Vitals Signs Reviewed. General: nontoxic, no distress, appears at stated age, morbidly obese Derm: warm, dry, right lower extremity erythema improved Head: atraumatic, normocephalic, symmetric Eyes: EOMI, no lid lag, anicteric sclera Mouth: no lip lesion, mucus membranes moist Cardiovascular: S1S2 reg, no murmur Lungs: CTA bilateral, no rhonchi, no rales , no accessory muscle use Abdominal: soft, nontender to palpation, no guarding, no appreciable organomegaly Ext: no gross muscle atrophy, no edema, no contractures Neuro: CN II-XI grossly intact, no focal neuro deficits Psych: Alert, oriented, appropriate affect Data Reviewed Today: Pertinent Labs: WBC 13.8, sodium 140, creatinine 0.57, magnesium 2.3 Imaging: Echocardiogram report reviewed, normal EF, no pericardial effusion Assessment and Plan: Sepsis secondary to right lower extremity cellulitis Paroxysmal A. fib with RVR Coag negative staph bacteremia, likely contaminant -Leukocytosis improving, her erythema is improving -Continue IV Unasyn -Currently rate controlled, continue metoprolol 50 mg by mouth twice a day, and Eliquis 5 mg twice a day -Physical therapy evaluation, needs subacute rehab DVT ppx: Eliquis Code status: Full code Anticipated discharge place: Subacute rehab Anticipated discharge time: 1-2 days Objective - Vital Signs Vital signs: Vital Signs Temp 99.4 F 09/01/22 12:00 Pulse 120 H 09/01/22 12:00 Resp 18 09/01/22 12:00 BP 118/78 09/01/22 12:00 Pulse Ox 97 09/01/22 12:00 FiO2 Intake & Output 08/31/22 09/01/22 09/01/22 18:59 06:59 18:59 Intake Total 869.893 240 Output Total 800 1100 Balance 69.893 -1100 240 Intake: IV 100 Ampicillin-Sulbactam 3 gm 100 In Sodium Chloride 0.9% 100 ml @ 200 mls/hr IVPB Q6HR [facility] Rx#:[id number] Intake, IV Titration 769.893 Amount Diltiazem 125 mg In 125 Sodium Chloride 0.9% 100 ml @ 5 MG/HR 5 mls/hr IV .Q24H [facility] Rx#:[id number] Heparin Sod,Pork in 0.45% 144.893 NaCl 25,000 unit In 0.45 % NaCl 1 250ml.bag @ 5. 0105 UNITS/KG/HR 10 mls/ hr IV .Q24H [facility] Rx#: [id number] Vancomycin 2,500 mg In 500 Sodium Chloride 0.9% 500 ml 500 ml @ 167 mls/hr IVPB Q12HR [facility] Rx#: [id number] Oral 240 Output: Urine 800 1100 Other: Voiding Method External Catheter External Catheter External Catheter - Labs CBC & Chem 7: 09/01/22 08:45 09/01/22 08:45 Labs: Abnormal Lab Results - Last 24 Hours (Table) 09/01/22 09/01/22 Range/Units 08:45 08:45 WBC 13.8 H (3.8-10.6) k/uL MCHC 30.7 L (31.0-37.0) g/dL Neutrophils # 11.1 H (1.3-7.7) k/uL Glucose 116 H (74-99) mg/dL Calcium 7.6 L (8.4-10.2) mg/dL Microbiology - Last 24 Hours (Table) 08/29/22 19:55 Blood Culture Gram Stain - Preliminary Blood Blood Culture - Preliminary Coagulase Negative Staph
[2022-09-01] MEDS ORDERED: METOPROLOL SUCCINATE (ER) 25 MG TAB.ER.24H PO ONE (12:45)
--- NOTE | 2022-09-01 12:48 | P.PN ---
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 Patient presented to the hospital with difficulty walking and pain in her right lower extremity. She is being treated for cellulitis and is receiving IV hepatic. Patient was found to be in A. fib with RVR upon presentation to the emergency room. She denies a history of atrial fibrillation. Patient examined this morning at the bedside. She denies chest pain or pressure. She denies shortness of breath. Telemetry reveals atrial fibrillation with a heart rate in the 90s. Patient's blood pressure is on the lower side with a systolic in the 80s. Patient is continued on IV Cardizem at 10 mg an hour. 09/01/2022 Patient examined this morning at the bedside. Patient denies chest pain or pressure. She denies shortness of breath. Telemetry reveals atrial fibrillation with a heart rate around [id number]. She remains on IV Cardizem at 2.5 mg an hour. Echocardiogram completed revealing ejection fraction 55-60%. PHYSICAL EXAM: VITAL SIGNS: Reviewed. GENERAL: Well-developed in no acute distress. NECK: Supple. No JVD or thyromegaly LUNGS: Respirations even and unlabored. Lungs essentially clear to auscultation bilaterally. HEART: Irregular rate and rhythm. S1 and S2 heard. EXTREMITIES: Normal range of motion. No clubbing or cyanosis. Peripheral pulses intact. Trace lower extremity edema ASSESSMENT: Difficulty walking Right lower extremity cellulitis Atrial fibrillation with RVR, currently rate controlled, unknown duration, appears persistent Gram positive bacteremia Morbid obesity, BMI 75.7 History of anxiety Borderline hypotension, suspect secondary to IV Cardizem infusion PLAN: Discontinue IV Cardizem Change metoprolol to 100 mg in the morning and 50 mg at night for optimal heart rate control Continue additional cardiac medications Further recommendations pending patient's course Nurse practitioner note has been reviewed by physician. Signing provider agrees with the documented findings, assessment, and plan of care. Objective - Vital Signs Vital signs: Vital Signs Temp 99.4 F 09/01/22 12:00 Pulse 120 H 09/01/22 12:00 Resp 18 09/01/22 12:00 BP 118/78 09/01/22 12:00 Pulse Ox 97 09/01/22 12:00 FiO2 Intake & Output 08/31/22 09/01/22 09/01/22 18:59 06:59 18:59 Intake Total 869.893 240 Output Total 800 1100 Balance 69.893 -1100 240 Intake: IV 100 Ampicillin-Sulbactam 3 gm 100 In Sodium Chloride 0.9% 100 ml @ 200 mls/hr IVPB Q6HR [facility] Rx#:[id number] Intake, IV Titration 769.893 Amount Diltiazem 125 mg In 125 Sodium Chloride 0.9% 100 ml @ 5 MG/HR 5 mls/hr IV .Q24H [facility] Rx#:[id number] Heparin Sod,Pork in 0.45% 144.893 NaCl 25,000 unit In 0.45 % NaCl 1 250ml.bag @ 5. 0105 UNITS/KG/HR 10 mls/ hr IV .Q24H [facility] Rx#: [id number] Vancomycin 2,500 mg In 500 Sodium Chloride 0.9% 500 ml 500 ml @ 167 mls/hr IVPB Q12HR [facility] Rx#: [id number] Oral 240 Output: Urine 800 1100 Other: Voiding Method External Catheter External Catheter External Catheter - Labs CBC & Chem 7: 09/01/22 08:45 09/01/22 08:45 Labs: Abnormal Lab Results - Last 24 Hours (Table) 09/01/22 09/01/22 Range/Units 08:45 08:45 WBC 13.8 H (3.8-10.6) k/uL MCHC 30.7 L (31.0-37.0) g/dL Neutrophils # 11.1 H (1.3-7.7) k/uL Glucose 116 H (74-99) mg/dL Calcium 7.6 L (8.4-10.2) mg/dL Microbiology - Last 24 Hours (Table) 08/29/22 19:55 Blood Culture Gram Stain - Preliminary Blood Blood Culture - Preliminary Coagulase Negative Staph
[2022-09-01] MEDS: MORPHINE SULFATE 4 MG/ML SYRINGE IV PRN (17:25)
[2022-09-01] MEDS: GABAPENTIN 300 MG CAP PO SCH (19:41)
[2022-09-01] MEDS: ZONISAMIDE 100 MG CAP PO SCH (19:42)
[2022-09-02] MEDS: AMPICILLIN-SULBACTAM 3 GM in SODIUM CHLORIDE 0.9% 100 ML IVPB SCH ×3 (05:04→16:57)
[2022-09-02] MEDS: METOPROLOL SUCCINATE (ER) 100 MG TAB.ER.24H PO SCH (05:05)
[2022-09-02] MEDS: DILTIAZEM 125 MG in SODIUM CHLORIDE 0.9% 100 ML IV SCH (06:44)
[2022-09-02] MEDS: APIXABAN 5 MG TAB PO SCH ×2 (08:26→20:25)
[2022-09-02] MEDS: hydrOXYzine HCL 25 MG TAB PO SCH (08:26)
[2022-09-02] MEDS: PANTOPRAZOLE 40 MG/10 ML VIAL IV SCH (08:26)
[2022-09-02] MEDS: ACETAMINOPHEN TAB 325 MG TAB PO PRN ×2 (08:26→20:25)
[2022-09-02] MEDS: NYSTATIN 100,000 UNIT/GM POWD 15 GM TOPICAL SCH ×2 (08:27→20:26)
[2022-09-02] MEDS: OXYBUTYNIN 15 MG TAB.ER.24 PO SCH (08:27)
[2022-09-02] MEDS: HYDROcodone/APAP 5-325MG 1 EACH TAB PO PRN ×2 (10:41→21:47)
[2022-09-02 11:50] LABS: Basophils # (A) 0.1 k/uL (0-0.2); Basophils % (A) 0 %; Eosinophils # (A) 0.5 k/uL (0-0.7); Eosinophils % (A) 3 %; HCT 38.9 % (34.0-46.0); HGB 12.2 gm/dL (11.4-16.0); Hypochromasia Marked; Lymphocytes # (A) 1.3 k/uL (1.0-4.8); Lymphocytes % (A) 7 %; MCH 28.9 pg (25.0-35.0); MCHC 31.3 g/dL (31.0-37.0); MCV 92.3 fL (80.0-100.0); Mean Platelet Volume 9.1; Monocytes # (A) 0.8 k/uL (0-1.0); Monocytes % (A) 4 %; Neutrophils % (A) 84 %; Platelet Count 260 k/uL (150-450); RBC 4.21 m/uL (3.80-5.40); RDW 13.9 % (11.5-15.5); WBC 17.8 k/uL (3.8-10.6)
[2022-09-02 12:00] LABS: African American GFR (CKD) >90 (>60 ml/min/1.73 sqM); Anion Gap 7 mmol/L; Blood Urea Nitrogen 8 mg/dL (7-17); Calcium 7.8 mg/dL (8.4-10.2); Carbon Dioxide 29 mmol/L (22-30); Chloride 102 mmol/L (98-107); Glucose 114 mg/dL (74-99); Non-African American GFR(CKD) >90 (>60 ml/min/1.73 sqM); Potassium 4.6 mmol/L (3.5-5.1); Sodium 138 mmol/L (137-145)
--- NOTE | 2022-09-02 13:09 | P.PN ---
Subjective Progress Note Date: 09/02/22 Hospital Course: 51-year-old female with a PMH of Vinh-en-Y bariatric surgery, morbid obesity, a nxiety, and panic disorder who presents to the emergency room with complaints of right leg pain. Laboratory evaluation was remarkable for leukocytosis of 18.5, CO2 31, lactic acid 1.4, and albumin 3.2. Right lower extremity venous did not show evidence of DVT. Chest x-ray was unremarkable. Knee x-ray was unremarkable. EKG had revealed A. fib with RVR at [address] segment changes noted. Laboratory evaluation was remarkable for leukocytosis of 18.5, CO2 31, lactic acid 1.4, and albumin 3.2. Patient was admitted to the hospital and started on cardizem gtt, heparin gtt, and had cardiology evaluation. She underwent echo evaluation, showed normal EF. Regarding cellulitis, she was started on unasyn, however, blood culture gram stain showed GPCs in clusters and was broadened to vancomycin. Blood cultures resulted in coag negative staph, likely contaminant., Patient back on IV Unasyn. Still having fevers, repeat blood cultures pending Subjective: Patient seen and examined at bedside. No acute events overnight. Denies any chest pain, shortness of breath, palpitations, nausea, vomiting, diarrhea, constipation, or urinary complaints. She claims that she feels weak and unable to get out of the bed on her own. Pertinent positives and negatives as discussed above, a complete review of systems was performed and all other systems are negative. Vitals Signs Reviewed. General: nontoxic, no distress, appears at stated age, morbidly obese Derm: warm, dry, right lower extremity erythema improved Head: atraumatic, normocephalic, symmetric Eyes: EOMI, no lid lag, anicteric sclera Mouth: no lip lesion, mucus membranes moist Cardiovascular: S1S2 reg, tachycardic, no murmur Lungs: CTA bilateral, no rhonchi, no rales , no accessory muscle use Abdominal: soft, nontender to palpation, no guarding, no appreciable organomegaly Ext: no gross muscle atrophy, no edema, no contractures Neuro: CN II-XI grossly intact, no focal neuro deficits Psych: Alert, oriented, appropriate affect Data Reviewed Today: Pertinent Labs: WBC 13.8, sodium 140, creatinine 0.57, magnesium 2.3 Imaging: Echocardiogram report reviewed, normal EF, no pericardial effusion Assessment and Plan: Sepsis secondary to right lower extremity cellulitis Persistent fevers Paroxysmal A. fib with RVR Coag negative staph bacteremia, likely contaminant -Erythema has improved, but continues to have worsening leukocytosis and persistent fevers -Continue IV Unasyn -Repeat blood cultures ordered -Consulted ID -Became tachycardic again, metoprolol succinate increased 200 mg daily, card iology following -Eliquis 5 mg twice a day -Physical therapy evaluation, needs subacute rehab DVT ppx: Eliquis Code status: Full code Anticipated discharge place: Subacute rehab Anticipated discharge time: Likely Monday Objective - Vital Signs Vital signs: Vital Signs Temp 98.5 F 09/02/22 12:00 Pulse 104 H 09/02/22 12:00 Resp 20 09/02/22 12:00 BP 91/52 09/02/22 12:00 Pulse Ox 95 09/02/22 12:00 FiO2 Intake & Output 09/01/22 09/02/22 09/02/22 18:59 06:59 18:59 Intake Total 720 240 Output Total 600 2000 Balance 120 -2000 240 Intake: Oral 720 240 Output: Urine 600 2000 Other: Voiding Method External Catheter External Catheter External Catheter - Labs CBC & Chem 7: 09/02/22 11:05 09/02/22 11:05 Labs: Abnormal Lab Results - Last 24 Hours (Table) 09/02/22 09/02/22 Range/Units 11:05 11:05 WBC 17.8 H (3.8-10.6) k/uL Neutrophils # 15.0 H (1.3-7.7) k/uL Glucose 114 H (74-99) mg/dL Calcium 7.8 L (8.4-10.2) mg/dL
[2022-09-02] MEDS: GABAPENTIN 300 MG CAP PO SCH (20:24)
[2022-09-02] MEDS: ZONISAMIDE 100 MG CAP PO SCH (20:25)
[2022-09-02] MEDS: METOPROLOL SUCCINATE (ER) 50 MG TAB.ER.24H PO SCH (20:25)
[2022-09-02] MEDS ORDERED: VANCOMYCIN IV PER PHARMACY 1 EACH MISC MISCELLANE PRN (21:29)
[2022-09-02] MEDS ORDERED: VANCOMYCIN 2,500 MG in SODIUM CHLORIDE 0.9% 500 ML 500 ML IVPB ONE (21:45)
--- NOTE | 2022-09-02 21:51 | P.CONS ---
History of Present Illness - Reason for Consult Consult date: 09/02/22 Sepsis Requesting physician: Shaun Hines - Chief Complaint Right thigh pain and swelling x days - History of Present Illness Patient is a 51-year-old female presenting to the hospital 4 days ago on 08/29/2022 concerning for right lower extremity pain the patient pain started the day of presentation to the hospital and has been mostly to the right thigh area patient denies having any history of any fall trauma patient was describing the pain to be more of a sharp in nature 7- 8 out of 10 radiation with associated swelling and redness did not have any open wound or any drainage, patient on presentation to the hospital was afebrile she did spike a fever of 101 F on 08/30/2022 and the patient was afebrile since then until this morning when she spiked another fever of 101 F patient did have a elevated white count of 18.5 that it came down to 13.8 as of yesterday however it is up to 17.8 today with a left shift kidney function has been normal liver enzymes are normal patient did have blood culture positive for coagulase-negative staph and diphtheria species and is currently on Unasyn infectious disease was consulted for sepsis and adjustment of antibiotic therapy patient did have x-ray of the knee on admission no acute fracture or dislocation no suspicious lucency chest x-ray no acute cardiopulmonary disease also have a venous Doppler study appears negative for DVT, patient denies having any headache or URI symptoms no chest pain no shortness of breath or cough no abdominal pain no diarrhea and no urinary symptoms Review of Systems Positive point and negatives has been mentioned in the HPI, complete review of systems was performed and all other systems are negative Past Medical History Past Medical History: Atrial Fibrillation, Hyperlipidemia, Hypertension, Musculo skeletal Disorder, Osteoarthritis (OA) Additional Past Medical History / Comment(s): NEUROPATHY, CARPEL TUNNEL, BACK NECK AND KNEE PAIN, MIGRAINES. "Raspy voice last few days." "Oxygen 2.5L per nasal cannula." History of Any Multi-Drug Resistant Organisms: None Reported Past Surgical History: Bariatric Surgery, Section, Hysterectomy, Joint Replacement, Orthopedic Surgery, Tubal Ligation Additional Past Surgical History / Comment(s): GASTRIC BYPASS, SPINAL CORD STIMULATOR, bilateral knee replacements, right knee arthroscopy. Past Anesthesia/Blood Transfusion Reactions: No Reported Reaction Past Psychological History: Anxiety Smoking Status: Never smoker Past Alcohol Use History: None Reported Past Drug Use History: None Reported - Past Family History Mother Family Medical History: Cancer Medications and Allergies Home Medications Medication Instructions Recorded Confirmed Type Zonisamide [Zonegran] 200 mg PO HS 09/11/13 08/29/22 History Montelukast [Singulair] 10 mg PO DAILY 03/08/22 08/29/22 History Morphine Pain Pump 1 dose INTRATHECA CONTINUOUS 03/08/22 08/29/22 History Oxybutynin Chloride [oxyBUTYnin 15 mg PO DAILY 03/08/22 08/29/22 History chloride ER] hydrOXYzine HCL [Atarax] 25 mg PO DAILY 03/08/22 08/29/22 History Butalb/APAP/Caff 50-325-40Mg 1 tab PO Q4H PRN 08/29/22 08/29/22 History [Fioricet 50-325-40] Nystatin [Nystop] 1 applic TOPICAL BID PRN 08/29/22 08/29/22 History Amiodarone [Cordarone] 200 mg PO BID tab 09/08/22 Rx Apixaban [Eliquis] 5 mg PO BID tab 09/08/22 Rx Cefepime [Maxipime] 2 gm IVPB Q8H 10 Days each 09/08/22 Rx Diltiazem Oral [Cardizem*] 30 mg PO TID tab 09/08/22 Rx Gabapentin [Neurontin] 300 mg PO HS #3 cap 09/08/22 Rx HYDROcodone/APAP 5-325MG [[place] 1 tab PO BID PRN #6 tab 09/08/22 Rx 5-325] Metoprolol Succinate (ER) [Toprol 50 mg PO HS tab 09/08/22 Rx XL] Metoprolol Succinate (ER) [Toprol 100 mg PO DAILY tab 09/08/22 Rx XL] Allergies Allergy/AdvReac Type Severity Reaction Status Date / Time No Known Allergies Allergy Verified 08/29/22 21:53 Physical Exam Vitals: Vital Signs Temp Pulse Resp BP Pulse Ox 09/02/22 12:00 98.5 F 104 H 20 91/52 95 09/02/22 08:16 97 09/02/22 08:00 101.8 F H 118 H 20 86/62 95 09/02/22 06:41 110/62 09/02/22 03:12 99.5 F 126 H 19 97/68 97 09/01/22 23:54 98.9 F 113 H 19 123/86 97 09/01/22 19:36 100.0 F H 113 H 19 110/80 100 09/01/22 15:50 99.1 F 106 H 19 109/66 98 Intake and Output 09/01/22 09/02/22 09/02/22 22:59 06:59 14:59 Intake Total 240 240 Output Total 2000 Balance 240 -1999 240 Intake: Oral 240 240 Output: Urine 1999 Other: Voiding Method External Catheter External Catheter External Catheter GENERAL DESCRIPTION: Middle-aged female lying in bed, no distress. No tachypnea or accessory muscle of respiration use. HEENT: Shows Pallor , no scleral icterus. Oral mucous membrane is dry. No pharyngeal erythema or thrush NECK: Trachea central, no thyromegaly. LUNGS: Unlabored breathing. Clear to auscultation anteriorly. No wheeze or crackle. HEART: S1, S2, regular rate and rhythm. No loud murmur ABDOMEN: Soft, no tenderness , guarding or rigidity, no organomegaly EXTREMITIES: Right anterior thigh with swelling redness , warmth and tenderness SKIN: No rash, no masses palpable. NEUROLOGICAL: The patient is awake, alert, oriented x3, mood and affect normal. Results CBC & Chem 7: 09/07/22 07:54 09/06/22 10:15 Labs: Abnormal Lab Results - Last 24 Hours (Table) 09/02/22 09/02/22 Range/Units 11:05 11:05 WBC 17.8 H (3.8-10.6) k/uL Neutrophils # 15.0 H (1.3-7.7) k/uL Glucose 114 H (74-99) mg/dL Calcium 7.8 L (8.4-10.2) mg/dL Assessment and Plan (1) Abscess of right thigh Current Visit: Yes Status: Acute Code(s): L02.415 - CUTANEOUS ABSCESS OF R IGHT LOWER LIMB SNOMED Code(s): 34913726182916134 (2) Sepsis Current Visit: Yes Status: Acute Code(s): A41.9 - SEPSIS, UNSPECIFIED ORGANISM SNOMED Code(s): 40492286 Plan: 1patient with sepsis in this patient who did have a fever elevated white count symptom predominantly right thigh pain swelling numbness with the patient has been tender to touch likely the source of the sepsis patient abdominal soft medical examination no urinary symptoms no diarrhea and no evidence of pneumonia on the x-ray on admission 2-we will obtain a CT of the right thigh to make sure evidence of any abscess that may need to be drained 3-discontinue Unasyn 4-vancomycin pharmacy to dose with a target trough of 15 while watching kidney f unction and Vanco trough closely. We will follow on clinical condition and cultures to further adjust medication if needed Thank you for this consultation we will follow the patient along with you Time with Patient: Greater than 30
[2022-09-02] MEDS ORDERED: LORazepam 2 MG/ML INJ IV PRN (22:48)
--- NOTE | 2022-09-02 23:56 | PN ---
PROGRESS NOTE SUBJECTIVE: This is a 51-year-old lady who is admitted to hospital with cellulitis, infection, and atrial fibrillation with rapid ventricular rate. Yesterday, the heart rates were better controlled, but she went into atrial fibrillation with rapid ventricular rate again and had to be started back on Cardizem. OBJECTIVE: VITAL SIGNS: At the time of my evaluation, her heart rate is around 100 beats per minute, blood pressure is 91/50, respiratory rate is 18. CHEST: Reveals good air entry bilaterally. HEART: Reveals first and second heart sounds, irregular rhythm, and a systolic murmur at the left lower sternal border. ABDOMEN: Soft. EXTREMITIES: Reveal mild edema. LABORATORY DATA: Showed hemoglobin of 12.2, platelet count is 260, potassium is 4.6, and creatinine 0.6. ASSESSMENT: Persistent atrial fibrillation with poorly controlled ventricular rate. PLAN: The patient will continue the intravenous Cardizem for now, tomorrow I will switch her to oral Cardizem. Continue the Eliquis and continue the metoprolol that she is on. MMODL / IJN: [id number] /
--- NOTE | 2022-09-03 01:54 | CT ---
EXAM: CT Right Lower Extremity With Intravenous Contrast CLINICAL HISTORY: ITS.REASON CT Reason: Fever-- right thigh abscess TECHNIQUE: Axial computed tomography images of the right lower extremity with intravenous contrast. CTDI is 64 mGy and DLP is 2874 mGy-cm. This CT exam was performed using one or more of the following dose reduction techniques: automated exposure control, adjustment of the mA and/or kV according to patient size, and/or use of iterative reconstruction technique. COMPARISON: No relevant prior studies available. FINDINGS: There is a total knee arthroplasty with cemented tibial component. There is no evidence of hardware complication. There is no acute fracture or dislocation. There is an old, healed fracture of the fibular neck. Bones are osteopenic. There is a small right knee joint effusion. There is a peripherally enhancing subcutaneous collection anterior to the distal femur measuring 9.3 x 3.9 x 4.5 cm, located 12 cm above the joint line of the knee. There is a broad region of subcutaneous fat stranding within the thigh and calf. IMPRESSION: 1. Peripherally enhancing subcutaneous fluid collection in the anterior distal thigh measuring 9.3 x 3.9 x 4.5 cm, potentially an abscess. 2. Diffuse subcutaneous edema may represent cellulitis.
[2022-09-03] MEDS: ACETAMINOPHEN TAB 325 MG TAB PO PRN (04:36)
[2022-09-03] MEDS: DILTIAZEM 125 MG in SODIUM CHLORIDE 0.9% 100 ML IV SCH (05:32)
[2022-09-03 07:33] LABS: Basophils # (A) 0.1 k/uL (0-0.2); Basophils % (A) 0 %; Eosinophils # (A) 0.7 k/uL (0-0.7); Eosinophils % (A) 4 %; HGB 11.6 gm/dL (11.4-16.0); Hypochromasia Marked; Lymphocytes # (A) 1.1 k/uL (1.0-4.8); Lymphocytes % (A) 6 %; MCH 28.4 pg (25.0-35.0); MCHC 30.6 g/dL (31.0-37.0); Mean Platelet Volume 8.8; Monocytes # (A) 0.7 k/uL (0-1.0); Monocytes % (A) 4 %; Neutrophils # (A) 14.7 k/uL (1.3-7.7); Neutrophils % (A) 84 %; Platelet Count 223 k/uL (150-450); RBC 4.09 m/uL (3.80-5.40); RDW 13.9 % (11.5-15.5); WBC 17.4 k/uL (3.8-10.6)
[2022-09-03 07:38] LABS: African American GFR (CKD) >90 (>60 ml/min/1.73 sqM); Anion Gap 5 mmol/L; Blood Urea Nitrogen 7 mg/dL (7-17); Calcium 7.7 mg/dL (8.4-10.2); Carbon Dioxide 26 mmol/L (22-30); Chloride 106 mmol/L (98-107); Glucose 143 mg/dL (74-99); Non-African American GFR(CKD) >90 (>60 ml/min/1.73 sqM); Potassium 4.2 mmol/L (3.5-5.1); Sodium 137 mmol/L (137-145)
[2022-09-03] MEDS: APIXABAN 5 MG TAB PO SCH (08:37)
[2022-09-03] MEDS: hydrOXYzine HCL 25 MG TAB PO SCH (08:37)
[2022-09-03] MEDS: OXYBUTYNIN 15 MG TAB.ER.24 PO SCH (08:37)
[2022-09-03] MEDS: PANTOPRAZOLE 40 MG/10 ML VIAL IV SCH (08:37)
[2022-09-03] MEDS: METOPROLOL SUCCINATE (ER) 100 MG TAB.ER.24H PO SCH (08:37)
[2022-09-03] MEDS: NYSTATIN 100,000 UNIT/GM POWD 15 GM TOPICAL SCH ×2 (08:38→21:38)
[2022-09-03] MEDS: HYDROcodone/APAP 5-325MG 1 EACH TAB PO PRN ×2 (08:39→21:36)
--- NOTE | 2022-09-03 10:35 | P.GSCN ---
History of Present Illness Consult date: 09/03/22 Reason for Consult: Right thigh abscess History of present illness: 51-year-old female hospitalized with complaints of fevers. During the hospital stay the patient was having complaints of pain right thigh. She was noted to have some erythema there. She had a CAT scan performed last night showing a 9 cm fluid collection in the anterior aspect of the right thigh. A small knee effusion is also seen. There is a fair distance between the suspected abscess and the knee joint. White blood cell count today 17.4. T-max 101.8 yesterday morning. Review of Systems The patient denies any acute changes in vision or hearing, no dysphagia or odynophagia, no chest pain or shortness of breath, no dysuria or hematuria, no headache, no runny nose, no rectal bleeding or melena, no unexplained weight loss Past Medical History Past Medical History: Atrial Fibrillation, Hyperlipidemia, Hypertension, Musculoskeletal Disorder, Osteoarthritis (OA) Additional Past Medical History / Comment(s): NEUROPATHY, CARPEL TUNNEL, BACK NECK AND KNEE PAIN, MIGRAINES. "Raspy voice last few days." "Oxygen 2.5L per nasal cannula." History of Any Multi-Drug Resistant Organisms: None Reported Past Surgical History: Bariatric Surgery, Section, Hysterectomy, Joint Replacement, Orthopedic Surgery, Tubal Ligation Additional Past Surgical History / Comment(s): GASTRIC BYPASS, SPINAL CORD STIMULATOR, bilateral knee replacements, right knee arthroscopy. Past Anesthesia/Blood Transfusion Reactions: No Reported Reaction Past Psychological History: Anxiety Smoking Status: Never smoker Past Alcohol Use History: None Reported Past Drug Use History: None Reported - Past Family History Mother Family Medical History: Cancer Medications and Allergies Home Medications Medication Instructions Recorded Confirmed Type Zonisamide [Zonegran] 200 mg PO HS 09/11/13 08/29/22 History Gabapentin 800 mg PO DAILY 03/08/22 08/29/22 History HYDROcodone/APAP 5-325MG [[place] 1 tab PO BID PRN 03/08/22 08/29/22 History 5-325] Montelukast [Singulair] 10 mg PO DAILY 03/08/22 08/29/22 History Morphine Pain Pump 1 dose INTRATHECA CONTINUOUS 03/08/22 08/29/22 History Oxybutynin Chloride [oxyBUTYnin 15 mg PO DAILY 03/08/22 08/29/22 History chloride ER] hydrOXYzine HCL [Atarax] 25 mg PO DAILY 03/08/22 08/29/22 History Butalb/APAP/Caff 50-325-40Mg 1 tab PO Q4H PRN 08/29/22 08/29/22 History [Fioricet 50-325-40] Metoprolol Succinate (ER) [Toprol 50 mg PO BID 08/29/22 08/29/22 History XL] Nystatin [Nystop] 1 applic TOPICAL BID PRN 08/29/22 08/29/22 History Allergies Allergy/AdvReac Type Severity Reaction Status Date / Time No Known Allergies Allergy Verified 08/29/22 21:53 Surgical - Exam Vital Signs Temp Pulse Resp BP Pulse Ox 97.6 F 165 H 20 127/85 95 08/29/22 19:44 08/29/22 19:44 08/29/22 19:44 08/29/22 19:44 08/29/22 19:44 Physical exam: General: Well-developed, well-nourished HEENT: Normocephalic, sclerae nonicteric Abdomen: Nontender, nondistended Extremities: Edema present bilaterally, tenderness and erythema over the anterior aspect of the distal right thigh proximal to her vertical incision from previous knee replacement, no fluctuance Neuro: Alert and oriented Results - Labs 09/03/22 06:49 09/03/22 06:49 Abnormal Lab Results - Last 24 Hours (Table) 09/02/22 09/02/22 09/03/22 Range/Units 11:05 11:05 06:49 WBC 17.8 H 17.4 H (3.8-10.6) k/uL MCHC 30.6 L (31.0-37.0) g/dL Neutrophils # 15.0 H 14.7 H (1.3-7.7) k/uL Glucose 114 H (74-99) mg/dL Calcium 7.8 L (8.4-10.2) mg/dL C-Reactive Protein (<1.0) mg/dL 09/03/22 Range/Units 06:49 WBC (3.8-10.6) k/uL MCHC (31.0-37.0) g/dL Neutrophils # (1.3-7.7) k/uL Glucose 143 H (74-99) mg/dL Calcium 7.7 L (8.4-10.2) mg/dL C-Reactive Protein 21.0 H (<1.0) mg/dL Microbiology - Last 24 Hours (Table) 08/29/22 19:55 Blood Culture Gram Stain - Final Blood Blood Culture - Final Coagulase Negative Staph Diphtheroid species Diabetes panel 09/02/22 09/03/22 Range/Units 11:05 06:49 Sodium 138 137 (137-145) mmol/L Potassium 4.6 4.2 (3.5-5.1) mmol/L Chloride 102 106 (98-107) mmol/L Carbon Dioxide 29 26 (22-30) mmol/L BUN 8 7 (7-17) mg/dL Creatinine 0.69 0.58 (0.52-1.04) mg/dL Glucose 114 H 143 H (74-99) mg/dL Calcium 7.8 L 7.7 L (8.4-10.2) mg/dL Calcium panel 09/02/22 09/03/22 Range/Units 11:05 06:49 Calcium 7.8 L 7.7 L (8.4-10.2) mg/dL Pituitary panel 09/02/22 09/03/22 Range/Units 11:05 06:49 Sodium 138 137 (137-145) mmol/L Potassium 4.6 4.2 (3.5-5.1) mmol/L Chloride 102 106 (98-107) mmol/L Carbon Dioxide 29 26 (22-30) mmol/L BUN 8 7 (7-17) mg/dL Creatinine 0.69 0.58 (0.52-1.04) mg/dL Glucose 114 H 143 H (74-99) mg/dL Calcium 7.8 L 7.7 L (8.4-10.2) mg/dL Adrenal panel 09/02/22 09/03/22 Range/Units 11:05 06:49 Sodium 138 137 (137-145) mmol/L Potassium 4.6 4.2 (3.5-5.1) mmol/L Chloride 102 106 (98-107) mmol/L Carbon Dioxide 29 26 (22-30) mmol/L BUN 8 7 (7-17) mg/dL Creatinine 0.69 0.58 (0.52-1.04) mg/dL Glucose 114 H 143 H (74-99) mg/dL Calcium 7.8 L 7.7 L (8.4-10.2) mg/dL Assessment and Plan (1) Abscess of right thigh Narrative/Plan: 51-year-old female with right thigh abscess. Options reviewed with patient. We'll proceed with open incision and drainage tomorrow morning. Nothing by mouth after midnight. Hold eloquis. Current Visit: Yes Status: Acute Code(s): L02.415 - CUTANEOUS ABSCESS OF RIG HT LOWER LIMB SNOMED Code(s): 42395807128248131
--- NOTE | 2022-09-03 11:14 | P.PN ---
Subjective Progress Note Date: 09/03/22 Hospital Course: 51-year-old female with a PMH of Vinh-en-Y bariatric surgery, morbid obesity, anxiety, and panic disorder who presents to the emergency room with complaints of right leg pain. Laboratory evaluation was remarkable for leukocytosis of 18.5, CO2 31, lactic acid 1.4, and albumin 3.2. Right lower extremity venous did not show evidence of DVT. Chest x-ray was unremarkable. Knee x-ray was unremarkable. EKG had revealed A. fib with RVR at [address] segment changes noted. Laboratory evaluation was remarkable for leukocytosis of 18.5, CO2 31, lactic acid 1.4, and albumin 3.2. Patient was admitted to the hospital and started on cardizem gtt, heparin gtt, and had cardiology evaluation. She underwent echo evaluation, showed normal EF. Regarding ce llulitis, she was started on unasyn, however, blood culture gram stain showed GPCs in clusters and was broadened to vancomycin. Blood cultures resulted in coag negative staph, likely contaminant., Patient back on IV Unasyn. Still having fevers. ID consulted. Right lower extremity CT showed subcutaneous fluid collection in the anterior distal thigh measuring 9.3x3.94.5 cm, potentially an abscess. ID placed patient back on vancomycin. Surgery consulted. Subjective: Patient seen and examined at bedside. No acute events overnight. Denies any chest pain, shortness of breath, palpitations, nausea, vomiting, diarrhea, constipation, or urinary complaints. Continue to have right leg pain. Pertinent positives and negatives as discussed above, a complete review of systems was performed and all other systems are negative. Vitals Signs Reviewed. General: nontoxic, no distress, appears at stated age, morbidly obese Derm: warm, dry, right lower extremity erythema still present Head: atraumatic, normocephalic, symmetric Eyes: EOMI, no lid lag, anicteric sclera Mouth: no lip lesion, mucus membranes moist Cardiovascular: S1S2 reg, tachycardic, no murmur Lungs: CTA bilateral, no rhonchi, no rales , no accessory muscle use Abdominal: soft, nontender to palpation, no guarding, no appreciable organomegaly Ext: no gross muscle atrophy, no edema, no contractures, right lower extremity tender to palpation proximal to right knee Neuro: CN II-XI grossly intact, no focal neuro deficits Psych: Alert, oriented, appropriate affect Data Reviewed Today: Pertinent Labs: WBC 17.4, potassium 4.2, creatinine 0.58, CRP 21 Imaging: Right lower extremity CT fluid collection, essentially absence Assessment and Plan: Patient remains critically ill. Sepsis secondary to right lower extremity abscess and cellulitis Paroxysmal A. fib with RVR Coag negative staph bacteremia, likely contaminant -ID following, patient started back on vancomycin, monitor for renal toxicity -Surgery note reviewed, I&D tomorrow morning, hold Eliquis -Pain control with oral Tylenol, oral [place], IV morphine as needed -Remains tachycardic, on metoprolol 100 mg daily, and also Cardizem drip -Physical therapy evaluation, needs subacute rehab DVT ppx:SCDs Code status: Full code Anticipated discharge place: Subacute rehab Anticipated discharge time: Pending clinical course Objective - Vital Signs Vital signs: Vital Signs Temp 98.2 F 09/03/22 08:35 Pulse 115 H 09/03/22 08:35 Resp 18 09/03/22 08:35 BP 106/68 09/03/22 08:35 Pulse Ox 95 09/03/22 08:35 FiO2 Intake & Output 09/02/22 09/03/22 09/03/22 18:59 06:59 18:59 Intake Total 360 240 Output Total 1300 1400 Balance -940 -1400 240 Intake: Oral 360 240 Output: Urine 1300 1400 Other: Voiding Method External Catheter External Catheter External Catheter # Bowel Movements 1 - Labs CBC & Chem 7: 09/03/22 06:49 09/03/22 06:49 Labs: Abnormal Lab Results - Last 24 Hours (Table) 09/02/22 09/02/22 09/03/22 Range/Units 11:05 11:05 06:49 WBC 17.8 H 17.4 H (3.8-10.6) k/uL MCHC 30.6 L (31.0-37.0) g/dL Neutrophils # 15.0 H 14.7 H (1.3-7.7) k/uL Glucose 114 H (74-99) mg/dL Calcium 7.8 L (8.4-10.2) mg/dL C-Reactive Protein (<1.0) mg/dL 09/03/22 Range/Units 06:49 WBC (3.8-10.6) k/uL MCHC (31.0-37.0) g/dL Neutrophils # (1.3-7.7) k/uL Glucose 143 H (74-99) mg/dL Calcium 7.7 L (8.4-10.2) mg/dL C-Reactive Protein 21.0 H (<1.0) mg/dL Microbiology - Last 24 Hours (Table) 08/29/22 19:55 Blood Culture Gram Stain - Final Blood Blood Culture - Final Coagulase Negative Staph Diphtheroid species
[2022-09-03] MEDS: VANCOMYCIN 2,500 MG in SODIUM CHLORIDE 0.9% 500 ML 500 ML IVPB SCH ×2 (12:10→23:44)
--- NOTE | 2022-09-03 13:51 | P.PN ---
Subjective Progress Note Date: 09/03/22 History of present illness: This is a 51-year-old female admitted to the hospital due to cellulitis, abscess and atrial fibrillation with RVR. Yesterday, patient was started back on Cardizem drip currently at 5. Heart rate is 118, blood pressure 106/68. Patient denies having any chest pain. She does have palpitations. WBC 17.4, potassium 4.2, creatinine 0.58. Physical examination: Gen: This is a morbidly obese 51-year-old female. She is resting in bed and appears to be comfortable. VS: reviewed HEENT: Head is atraumatic, normocephalic. Pupils equal, round. Sclerae is anicteric. NECK: Supple. No JVD. . LUNGS: Good air entry bilaterally. No intercostal retractions. HEART: First heart sound and second heart sounds, irregular rhythm, systolic murmur at the left lower sternal border. ABDOMEN: Soft No tenderness. EXTREMITIES: Minimal pedal edema. No calf tenderness. NEUROLOGICAL: Patient is awake, alert and oriented x3. Assessment: Persistent atrial fibrillation with poorly controlled ventricular rate Right thigh abscess worked up by general surgery for I&D Plan: Discontinue Cardizem drip and start patient on oral Cardizem 30 mg every 8 hours starting now Continue eliquis and metoprolol Further recommendations to follow based upon clinical course Nurse practitioner note has been reviewed, I agree with documented findings and plan of care. Patient was seen and examined. Objective - Vital Signs Vital signs: Vital Signs Temp 98.2 F 09/03/22 08:35 Pulse 115 H 09/03/22 08:35 Resp 18 09/03/22 08:35 BP 106/68 09/03/22 08:35 Pulse Ox 95 09/03/22 08:35 FiO2 Intake & Output 09/02/22 09/03/22 09/03/22 18:59 06:59 18:59 Intake Total 360 240 Output Total 1300 1400 Balance -940 -1400 240 Intake: Oral 360 240 Output: Urine 1300 1400 Other: Voiding Method External Catheter External Catheter External Catheter # Bowel Movements 1 - Labs CBC & Chem 7: 09/03/22 06:49 09/03/22 06:49 Labs: Abnormal Lab Results - Last 24 Hours (Table) 09/02/22 09/02/22 09/03/22 Range/Units 11:05 11:05 06:49 WBC 17.8 H 17.4 H (3.8-10.6) k/uL MCHC 30.6 L (31.0-37.0) g/dL Neutrophils # 15.0 H 14.7 H (1.3-7.7) k/uL Glucose 114 H (74-99) mg/dL Calcium 7.8 L (8.4-10.2) mg/dL C-Reactive Protein (<1.0) mg/dL 09/03/22 Range/Units 06:49 WBC (3.8-10.6) k/uL MCHC (31.0-37.0) g/dL Neutrophils # (1.3-7.7) k/uL Glucose 143 H (74-99) mg/dL Calcium 7.7 L (8.4-10.2) mg/dL C-Reactive Protein 21.0 H (<1.0) mg/dL Microbiology - Last 24 Hours (Table) 08/29/22 19:55 Blood Culture Gram Stain - Final Blood Blood Culture - Final Coagulase Negative Staph Diphtheroid species
[2022-09-03] MEDS: DILTIAZEM ORAL 30 MG TAB PO SCH ×2 (14:54→21:36)
[2022-09-03 18:14] VITALS: BMI 75.6
[2022-09-03] MEDS: ZONISAMIDE 100 MG CAP PO SCH (21:35)
[2022-09-03] MEDS: METOPROLOL SUCCINATE (ER) 50 MG TAB.ER.24H PO SCH (21:38)
[2022-09-03] MEDS: GABAPENTIN 300 MG CAP PO SCH (21:39)
[2022-09-04] MEDS: DILTIAZEM ORAL 30 MG TAB PO SCH ×3 (07:33→21:59)
[2022-09-04] MEDS: PANTOPRAZOLE 40 MG/10 ML VIAL IV SCH (07:33)
[2022-09-04] MEDS: hydrOXYzine HCL 25 MG TAB PO SCH (07:33)
[2022-09-04] MEDS: METOPROLOL SUCCINATE (ER) 100 MG TAB.ER.24H PO SCH (07:33)
[2022-09-04] MEDS: NYSTATIN 100,000 UNIT/GM POWD 15 GM TOPICAL SCH ×2 (07:34→22:01)
[2022-09-04] MEDS: OXYBUTYNIN 15 MG TAB.ER.24 PO SCH (07:34)
[2022-09-04] MEDS ORDERED: PROPOFOL 10 MG/ML 20 ML VIAL IV ONE (07:55)
[2022-09-04] MEDS ORDERED: KETAMINE 10 MG/ML 20 ML VIAL ONE (07:55)
[2022-09-04] MEDS ORDERED: MIDAZOLAM 2 MG/2 ML VIAL ONE (07:55)
[2022-09-04] MEDS ORDERED: ONDANSETRON 4 MG/2 ML VIAL ONE (07:55)
[2022-09-04] MEDS ORDERED: LIDOCAINE 2% INJ 20 MG/ML (2 ML VIAL) ONE (07:55)
[2022-09-04] MEDS ORDERED: DEXAMETHASONE SOD PHOSPHATE 4 MG/ML 1 ML VIAL ONE (07:55)
[2022-09-04] MEDS ORDERED: fentaNYL (PF) 50 MCG/ML 2 ML AMP ONE (07:55)
[2022-09-04] MEDS ORDERED: LACTATED RINGERS 1,000 ML IV ONE (08:00)
[2022-09-04] MEDS ORDERED: BUPIVACAINE (PF) 0.25% 30 ML VIAL SQ ONE (08:33)
--- NOTE | 2022-09-04 08:55 | P.OP ---
Date of Procedure: 09/04/22 Procedure(s) Performed: PREOPERATIVE DIAGNOSIS: Right thigh abscess POSTOPERATIVE DIAGNOSIS: Same PROCEDURE: Incision and drainage right thigh abscess SURGEON: Waldemar EBL: 20 mL ANESTHESIA: Sedation and local COMPLICATIONS: None OPERATIVE PROCEDURE: Patient placed in the operating table in the supine positio n. The anterior aspect of the right thigh was prepped and draped sterilely. A vertical incision was made overlying the mid to lower anterior thigh. Entrance into a subcutaneous abscess cavity took place. This measured approximately 13 cm in width and 4 cm in length. Fluid was cultured. Area was then irrigated thoroughly with saline. No further purulence was seen. I made a counter incision 2 one on the medial aspect and one on the lateral aspect of the thigh lateral to our incision sites. This is where the abscess seemed to be coming close to the skin surface. The Radha drain was then brought through these 2 counterincisions and sutured back to itself externally. The wound bed itself was of packed with lightly moistened Kerlix roll. Sterile dressings were applied. DISPOSITION: Stable to recovery room
[2022-09-04] MEDS ORDERED: PHENYLEPHRINE 10 MG/ML VIAL IV ONE (09:00)
[2022-09-04 09:13] LABS: Glucose,Whole Blood 117 mg/dL (70-110)
[2022-09-04] MEDS ORDERED: DILTIAZEM ORAL 30 MG TAB PO STA (10:02)
[2022-09-04] MEDS ORDERED: METOPROLOL SUCCINATE (ER) 50 MG TAB.ER.24H PO STA (10:02)
[2022-09-04] MEDS: HYDROcodone/APAP 5-325MG 1 EACH TAB PO PRN ×2 (10:49→23:53)
[2022-09-04] MEDS: VANCOMYCIN 2,500 MG in SODIUM CHLORIDE 0.9% 500 ML 500 ML IVPB SCH ×2 (10:49→23:54)
[2022-09-04] MEDS: ACETAMINOPHEN TAB 325 MG TAB PO PRN (13:12)
[2022-09-04] MEDS: AMIODARONE 200 MG TAB PO SCH ×2 (13:17→22:04)
--- NOTE | 2022-09-04 13:17 | P.PN ---
Subjective Progress Note Date: 09/04/22 History of present illness: This is a 51-year-old female admitted to the hospital due to cellulitis, abscess and atrial fibrillation with RVR. Yesterday, patient was started back on Cardizem drip currently at 5. Heart rate is 118, blood pressure 106/68. Patient denies having any chest pain. She does have palpitations. WBC 17.4, potassium 4.2, creatinine 0.58. 09/04 Patient is seen in follow-up today. She remains in atrial fibrillation heart rate running between 129 and 133. Patient is currently on Toprol-XL 100 mg in the morning, 50 in the afternoon and Cardizem 30 mg 3 times daily. Patient underwent drainage of a right thigh abscess by Dr. Medeiros this morning and if cleared by surgery, we will resume eliquis today. Physical examination: Gen: This is a morbidly obese 51-year-old female. She is resting in bed and appears to be comfortable. VS: reviewed HEENT: Head is atraumatic, normocephalic. Pupils equal, round. Sclerae is anicteric. NECK: Supple. No JVD. . LUNGS: Good air entry bilaterally. No intercostal retractions. HEART: First heart sound and second heart sounds, irregular rhythm, systolic murmur at the left lower sternal border. ABDOMEN: Soft No tenderness. EXTREMITIES: Minimal pedal edema. No calf tenderness. NEUROLOGICAL: Patient is awake, alert and oriented x3. Assessment: Persistent atrial fibrillation with poorly controlled ventricular rate Right thigh abscess status post I&D 09/04 Plan: Continue oral Cardizem 30 mg every 8 hours and continue metoprolol 100 mg in the morning and 50 mg at bedtime Add amiodarone 200 mg twice daily for better heart rate control. Resume eliquis 5 g twice daily if cleared by general surgery Further recommendations to follow based upon clinical course Nurse practitioner note has been reviewed, I agree with the documented findings and plan of care. Patient was seen and examined. Objective - Vital Signs Vital signs: Vital Signs Temp 98 F 09/04/22 08:46 Pulse 121 H 09/04/22 09:46 Resp 23 09/04/22 09:46 BP 106/70 09/04/22 09:46 Pulse Ox 95 09/04/22 09:46 FiO2 Intake & Output 09/03/22 09/04/2209/04/23 18:59 06:59 18:59 Intake Total 1320 400 Output Total 1200 1550 20 Balance 120 -1550 380 Weight 200 kg Intake: IV 400 Oral 1320 Output: Urine 1200 1550 Estimated Blood Loss 20 Other: Voiding Method External Catheter External Catheter External Catheter - Labs CBC & Chem 7: 09/03/22 06:49 09/03/22 06:49 Labs: Abnormal Lab Results - Last 24 Hours (Table) 09/03/22 09/04/22 Range/Units 06:49 09:11 POC Glucose (mg/dL) 117 H (70-110) mg/dL Procalcitonin 0.13 H (0.02-0.09) ng/mL
--- NOTE | 2022-09-04 13:24 | P.PN ---
Subjective Progress Note Date: 09/04/22 Hospital Course: 51-year-old female with a PMH of Vinh-en-Y bariatric surgery, morbid obesity, anxiety, and panic disorder who presents to the emergency room with complaints of right leg pain. Laboratory evaluation was remarkable for leukocytosis of 18.5, CO2 31, lactic acid 1.4, and albumin 3.2. Right lower extremity venous did not show evidence of DVT. Chest x-ray was unremarkable. Knee x-ray was unremarkable. EKG had revealed A. fib with RVR at [address] segment changes noted. Laboratory evaluation was remarkable for leukocytosis of 18.5, CO2 31, lactic acid 1.4, and albumin 3.2. Patient was admitted to the hospital and started on cardizem gtt, heparin gtt, and had cardiology evaluation. She underwent echo evaluation, showed normal EF. Regarding ce llulitis, she was started on unasyn, however, blood culture gram stain showed GPCs in clusters and was broadened to vancomycin. Blood cultures resulted in coag negative staph, likely contaminant., Patient back on IV Unasyn. Still having fevers. ID consulted. Right lower extremity CT showed subcutaneous fluid collection in the anterior distal thigh measuring 9.3x3.94.5 cm, potentially an abscess. ID placed patient back on vancomycin. Surgery consulted. Patient is now status post I&D. Subjective: Patient seen and examined at bedside. No acute events overnight. Denies any chest pain, shortness of breath, palpitations, nausea, vomiting, diarrhea, constipation, or urinary complaints. She is now status post I&D. Pertinent positives and negatives as discussed above, a complete review of systems was performed and all other systems are negative. Vitals Signs Reviewed. General: nontoxic, no distress, appears at stated age, morbidly obese Derm: warm, dry, right thigh dressing appears clean, dry, intact Head: atraumatic, normocephalic, symmetric Eyes: EOMI, no lid lag, anicteric sclera Mouth: no lip lesion, mucus membranes moist Cardiovascular: S1S2 reg, tachycardic, no murmur Lungs: CTA bilateral, no rhonchi, no rales , no accessory muscle use Abdominal: soft, nontender to palpation, no guarding, no appreciable organomegaly Ext: no gross muscle atrophy, no edema, no contractures Neuro: CN II-XI grossly intact, no focal neuro deficits Psych: Alert, oriented, appropriate affect Data Reviewed Today: Pertinent Labs: CBC and BMP pending, will be reviewed when available Assessment and Plan: Sepsis secondary to right lower extremity abscess and cellulitis Status post I&D Paroxysmal A. fib with RVR Coag negative staph bacteremia, likely contaminant -ID following, patient on vancomycin, monitor for renal toxicity with BMP -Operative note reviewed, estimated blood loss 20 mL -Pain control with oral Tylenol, oral Allen, IV morphine as needed -Remains tachycardic, patient now on Cardizem 30 mg 3 times a day, metoprolol- grade PID -Physical therapy evaluation, needs subacute rehab DVT ppx:SCDs Code status: Full code Anticipated discharge place: Subacute rehab Anticipated discharge time: Pending clinical course Objective - Vital Signs Vital signs: Vital Signs Temp 98 F 09/04/22 08:46 Pulse 101 H 09/04/22 10:45 Resp 18 09/04/22 10:45 BP 97/66 09/04/22 10:45 Pulse Ox 96 09/04/22 10:45 FiO2 Intake & Output 09/03/22 09/04/22 09/04/22 18:59 06:59 18:59 Intake Total 1320 400 Output Total 1200 1550 870 Balance 120 -1550 -470 Weight 200 kg Intake: IV 400 Oral 1320 Output: Urine 1200 1550 850 Estimated Blood Loss 20 Other: Voiding Method External Catheter External Catheter External Catheter # Voids 1 - Labs CBC & Chem 7: 09/03/22 06:49 09/03/22 06:49 Labs: Abnormal Lab Results - Last 24 Hours (Table) 09/04/22 Range/Units 09:11 POC Glucose (mg/dL) 117 H (70-110) mg/dL
[2022-09-04 14:56] LABS: Basophils % (A) 0 %; Eosinophils # (A) 0.1 k/uL (0-0.7); Eosinophils % (A) 0 %; HCT 40.9 % (34.0-46.0); HGB 12.2 gm/dL (11.4-16.0); Hypochromasia Marked; Lymphocytes # (A) 0.8 k/uL (1.0-4.8); Lymphocytes % (A) 5 %; MCH 27.7 pg (25.0-35.0); MCHC 29.9 g/dL (31.0-37.0); MCV 92.6 fL (80.0-100.0); Mean Platelet Volume 8.9; Monocytes # (A) 0.2 k/uL (0-1.0); Monocytes % (A) 1 %; Neutrophils # (A) 15.6 k/uL (1.3-7.7); Neutrophils % (A) 93 %; Platelet Count 253 k/uL (150-450); RBC 4.42 m/uL (3.80-5.40); WBC 16.8 k/uL (3.8-10.6)
[2022-09-04 15:21] LABS: African American GFR (CKD) >90 (>60 ml/min/1.73 sqM); Anion Gap 7 mmol/L; Blood Urea Nitrogen 9 mg/dL (7-17); Carbon Dioxide 25 mmol/L (22-30); Chloride 104 mmol/L (98-107); Glucose 234 mg/dL (74-99); Non-African American GFR(CKD) >90 (>60 ml/min/1.73 sqM); Potassium 4.9 mmol/L (3.5-5.1); Sodium 136 mmol/L (137-145)
--- NOTE | 2022-09-04 15:40 | P.PN ---
Subjective Progress Note Date: 09/04/22 Principal diagnosis: Right thigh abscess and cellulitis Patient is a 51-year-old female presenting to the hospital on 08/29/2022 concerning for right lower extremity pain, patient was diagnosed with a cellulitis treated with Unasyn did not have improvement subsequently leading to infectious disease consultation patient did have a CT of right thigh concerning for an abscess that was completed on 09/02/2022 evening, patient is status post surgical drainage of the right thigh abscess on 09/04/2022 On today's evaluation that is 09/04/2022, the patient remains to be afebrile, patient pain to the right thigh area is controlled with the pain medication, the patient denies having any chest pain shortness of breath or cough no nausea no vomiting no abdominal pain or diarrhea Objective - Vital Signs Vital signs: Vital Signs Temp 98 F 09/04/22 08:46 Pulse 101 H 09/04/22 10:45 Resp 18 09/04/22 10:45 BP 97/66 09/04/22 10:45 Pulse Ox 96 09/04/22 10:45 FiO2 Intake & Output 09/03/22 09/04/22 09/04/22 18:59 06:59 18:59 Intake Total 1320 400 Output Total 1200 1550 870 Balance 120 -1550 -470 Weight 200 kg Intake: IV 400 Oral 1320 Output: Urine 1200 1550 850 Estimated Blood Loss 20 Other: Voiding Method External Catheter External Catheter External Catheter # Voids 1 - Exam GENERAL DESCRIPTION: Middle-aged female lying in bed in no distress RESPIRATORY SYSTEM: Unlabored breathing , decreased breath sounds at bases HEART: S1 S2 regular rate and rhythm , ABDOMEN: Soft , no tenderness EXTREMITIES: Right thigh is currently dressed in OR dressing - Labs CBC & Chem 7: 09/04/22 14:34 09/04/22 14:34 Labs: Abnormal Lab Results - Last 24 Hours (Table) 09/04/22 Range/Units 09:11 POC Glucose (mg/dL) 117 H (70-110) mg/dL Assessment and Plan (1) Abscess of right thigh Current Visit: Yes Status: Acute Code(s): L02.415 - CUTANEOUS ABSCESS OF RIGHT LOWER LIMB SNOMED Code(s): 82802644912206710 Plan: 1patient with sepsis in this patient who did have a fever elevated white count symptom predominantly right thigh pain swelling numbness with the patient has been tender to touch likely the source of the sepsis patient abdominal soft medical examination no urinary symptoms no diarrhea and no evidence of pneumonia on the x-ray on admission 2-patient did have CT of the right thigh with evidence of abscess , patient is s tatus post surgical drainage of the abscess and cultures which are currently pending 3Patient to continue pharmacy to dose with a target trough of 15 while waiting for the cultures to finalize Time with Patient: Less than 30
[2022-09-04] MEDS ORDERED: METOPROLOL SUCCINATE (ER) 50 MG TAB.ER.24H PO SCH (21:00)
[2022-09-04] MEDS: GABAPENTIN 300 MG CAP PO SCH (21:59)
[2022-09-04] MEDS: METOPROLOL SUCCINATE (ER) 50 MG TAB.ER.24H PO SCH ×2 (22:00→23:37)
[2022-09-04] MEDS: APIXABAN 5 MG TAB PO SCH (22:00)
[2022-09-04] MEDS: ZONISAMIDE 100 MG CAP PO SCH (22:00)
[2022-09-05] MEDS: AMIODARONE 200 MG TAB PO SCH ×2 (09:03→21:28)
[2022-09-05] MEDS: DILTIAZEM ORAL 30 MG TAB PO SCH ×3 (09:03→21:28)
[2022-09-05] MEDS: PANTOPRAZOLE 40 MG/10 ML VIAL IV SCH (09:03)
[2022-09-05] MEDS: APIXABAN 5 MG TAB PO SCH ×2 (09:03→21:27)
[2022-09-05] MEDS: METOPROLOL SUCCINATE (ER) 100 MG TAB.ER.24H PO SCH (09:03)
[2022-09-05] MEDS: hydrOXYzine HCL 25 MG TAB PO SCH (09:04)
[2022-09-05] MEDS: OXYBUTYNIN 15 MG TAB.ER.24 PO SCH (09:04)
[2022-09-05] MEDS: NYSTATIN 100,000 UNIT/GM POWD 15 GM TOPICAL SCH ×2 (09:04→21:29)
[2022-09-05] MEDS ORDERED: VANCOMYCIN TROUGH DUE 1 EACH MISC MISCELLANE ONE (11:00)
[2022-09-05 11:27] LABS: Basophils % (A) 0 %; Eosinophils # (A) 0.1 k/uL (0-0.7); Eosinophils % (A) 0 %; HCT 40.7 % (34.0-46.0); HGB 12.3 gm/dL (11.4-16.0); Hypochromasia Marked; Lymphocytes # (A) 0.9 k/uL (1.0-4.8); Lymphocytes % (A) 5 %; MCH 28.7 pg (25.0-35.0); MCHC 30.3 g/dL (31.0-37.0); MCV 94.7 fL (80.0-100.0); Mean Platelet Volume 9.2; Monocytes # (A) 0.5 k/uL (0-1.0); Monocytes % (A) 2 %; Neutrophils # (A) 18.5 k/uL (1.3-7.7); Neutrophils % (A) 92 %; Platelet Count 309 k/uL (150-450); RDW 13.7 % (11.5-15.5); WBC 20.1 k/uL (3.8-10.6)
[2022-09-05 11:38] LABS: African American GFR (CKD) >90 (>60 ml/min/1.73 sqM); Anion Gap 4 mmol/L; Blood Urea Nitrogen 13 mg/dL (7-17); Calcium 8.2 mg/dL (8.4-10.2); Carbon Dioxide 32 mmol/L (22-30); Chloride 101 mmol/L (98-107); Glucose 180 mg/dL (74-99); Non-African American GFR(CKD) >90 (>60 ml/min/1.73 sqM); Potassium 5.5 mmol/L (3.5-5.1); Sodium 137 mmol/L (137-145)
[2022-09-05] MEDS: VANCOMYCIN 2,500 MG in SODIUM CHLORIDE 0.9% 500 ML 500 ML IVPB SCH (11:50)
--- NOTE | 2022-09-05 11:52 | P.PN ---
Subjective Progress Note Date: 09/05/22 CHIEF COMPLAINT: Right thigh abscess HISTORY OF PRESENT ILLNESS: Patient is postop day #1 status post incision and drainage of right thigh abscess. Patient reports improvement in pain in her right thigh. Afebrile. WBC 16.8 up to 20.1 hgb 12.3 PHYSICAL EXAM: VITAL SIGNS: Reviewed. GENERAL: Well-developed in no acute distress. HEENT: No sclera icterus. Extraocular movements grossly intact. Moist buccal mucosa. Head is atraumatic, normocephalic. ABDOMEN: Soft. Nondistended. Nontender. NEUROLOGIC: Alert and oriented. Cranial nerves II through XII grossly intact. Extremities: Right thigh packing with serosanguineous drainage. [place] drain in place. soft. Nontender ASSESSMENT: 1. Right thigh abscess status post incision and drainage PLAN: -Continue local wound care -Continue antibiotics per ID service -Continue supportive care Physician Office Machine Installer note has been reviewed by physician. Signing provider agrees with the documented findings, assessment, and plan of care. I have personally seen and examined the patient, reviewed the HOME ECONOMIST /PAs history, exam and MDM and agree with the assessment and plan as written. Based on total visit time, I have performed more than 50% of the visit. As above: Patient doing better today. Pain is improved. Mild soreness and mild erythema on exam. Await cultures. Continue antibiotics. Objective - Vital Signs Vital signs: Vital Signs Temp 97.7 F 09/05/22 08:00 Pulse 70 09/05/22 08:00 Resp 18 09/05/22 08:00 BP 96/64 09/05/22 08:00 Pulse Ox 89 L 09/05/22 08:00 FiO2 Intake & Output 09/04/22 09/05/22 09/05/22 18:59 06:59 18:59 Intake Total 400 2040 118 Output Total 1320 700 Balance -920 1340 118 Intake: IV 400 Intake, IV Titration 500 Amount Vancomycin 2,500 mg In 500 Sodium Chloride 0.9% 500 ml 500 ml @ 167 mls/hr IVPB Q12H [facility] Rx#: [id number] Oral 1540 118 Output: Urine 1300 700 Estimated Blood Loss 20 Other: Voiding Method External Catheter External Catheter External Catheter # Voids 1 - Labs CBC & Chem 7: 09/05/22 10:50 09/05/22 10:50 Labs: Abnormal Lab Results - Last 24 Hours (Table) 09/04/22 09/04/22 09/05/22 Range/Units 14:34 14:34 10:50 WBC 16.8 H 20.1 H (3.8-10.6) k/uL MCHC 29.9 L 30.3 L (31.0-37.0) g/dL Neutrophils # 15.6 H 18.5 H (1.3-7.7) k/uL Lymphocytes # 0.8 L 0.9 L (1.0-4.8) k/uL Sodium 136 L (137-145) mmol/L Potassium (3.5-5.1) mmol/L Carbon Dioxide (22-30) mmol/L Glucose 234 H (74-99) mg/dL Calcium 8.0 L (8.4-10.2) mg/dL 09/05/22 Range/Units 10:50 WBC (3.8-10.6) k/uL MCHC (31.0-37.0) g/dL Neutrophils # (1.3-7.7) k/uL Lymphocytes # (1.0-4.8) k/uL Sodium (137-145) mmol/L Potassium 5.5 H (3.5-5.1) mmol/L Carbon Dioxide 32 H (22-30) mmol/L Glucose 180 H (74-99) mg/dL Calcium 8.2 L (8.4-10.2) mg/dL Microbiology - Last 24 Hours (Table) 09/02/22 13:10 Blood Culture - Preliminary Blood
--- NOTE | 2022-09-05 11:57 | P.PN ---
Subjective Progress Note Date: 09/05/22 History of present illness: This is a 51-year-old female admitted to the hospital due to cellulitis, abscess and atrial fibrillation with RVR. Yesterday, patient was started back on Cardizem drip currently at 5. Heart rate is 118, blood pressure 106/68. Patient denies having any chest pain. She does have palpitations. WBC 17.4, potassium 4.2, creatinine 0.58. 09/04 Patient is seen in follow-up today. She remains in atrial fibrillation heart rate running between 129 and 133. Patient is currently on Toprol-XL 100 mg in the morning, 50 in the afternoon and Cardizem 30 mg 3 times daily. Patient underwent drainage of a right thigh abscess by Dr. Medeiros this morning and if cleared by surgery, we will resume eliquis today. 09/05 Heart rate is improved today running in the 80s, continues to be in atrial fibrillation. She was resumed back on eliquis last evening. Yesterday, we added amiodarone 200 mg twice daily continue Cardizem and Toprol. Blood pressure this morning is 109/70. Patient denies any chest pain, shortness of breath, palpitations. Physical examination: Gen: This is a morbidly obese 51-year-old female. She is resting in bed and appears to be comfortable. VS: reviewed HEENT: Head is atraumatic, normocephalic. Pupils equal, round. Sclerae is anicteric. NECK: Supple. No JVD. . LUNGS: Good air entry bilaterally. No intercostal retractions. HEART: First heart sound and second heart sounds, irregular rhythm, systolic murmur at the left lower sternal border. ABDOMEN: Soft No tenderness. EXTREMITIES: Minimal pedal edema. No calf tenderness. NEUROLOGICAL: Patient is awake, alert and oriented x3. Assessment: Paroxysmal atrial fibrillation with poorly controlled ventricular rate Right thigh abscess status post I&D 09/04 Plan: Continue oral Cardizem 30 mg every 8 hours and continue metoprolol 100 mg in the morning and 50 mg at bedtime Continue amiodarone 200 mg twice daily for better heart rate control. Continue eliquis 5 g twice daily Further recommendations to follow based upon clinical course Nurse practitioner note has been reviewed, I agree with the documented findings and plan of care. Patient was seen and examined. Objective - Vital Signs Vital signs: Vital Signs Temp 97.8 F 09/05/22 04:00 Pulse 76 09/05/22 04:00 Resp 18 09/05/22 04:00 BP 109/70 09/05/22 04:00 Pulse Ox 99 09/05/22 07:42 FiO2 Intake & Output 09/04/22 09/05/22 09/05/22 18:59 06:59 18:59 Intake Total 400 2040 118 Output Total 1320 700 Balance -920 1340 118 Intake: IV 400 Intake, IV Titration 500 Amount Vancomycin 2,500 mg In 500 Sodium Chloride 0.9% 500 ml 500 ml @ 167 mls/hr IVPB Q12H [facility] Rx#: [id number] Oral 1540 118 Output: Urine 1300 700 Estimated Blood Loss 20 Other: Voiding Method External Catheter External Catheter # Voids 1 - Labs CBC & Chem 7: 09/05/22 10:50 09/05/22 10:50 Labs: Abnormal Lab Results - Last 24 Hours (Table) 09/04/22 09/04/22 09/04/22 Range/Units 09:11 14:34 14:34 WBC 16.8 H (3.8-10.6) k/uL MCHC 29.9 L (31.0-37.0) g/dL Neutrophils # 15.6 H (1.3-7.7) k/uL Lymphocytes # 0.8 L (1.0-4.8) k/uL Sodium 136 L (137-145) mmol/L Glucose 234 H (74-99) mg/dL POC Glucose (mg/dL) 117 H (70-110) mg/dL Calcium 8.0 L (8.4-10.2) mg/dL Microbiology - Last 24 Hours (Table) 09/02/22 13:10 Blood Culture - Preliminary Blood
--- NOTE | 2022-09-05 12:08 | P.PN ---
Subjective Progress Note Date: 09/05/22 51-year-old female with a PMH of Vinh-en-Y bariatric surgery, morbid obesity, anxiety, and panic disorder who presents to the emergency room with complaints of right leg pain. Laboratory evaluation was remarkable for leukocytosis of 18.5, CO2 31, lactic acid 1.4, and albumin 3.2. Right lower extremity venous did not show evidence of DVT. Chest x-ray was unremarkable. Knee x-ray was unremarkable. EKG had revealed A. fib with RVR at [address] segment changes noted. Laboratory evaluation was remarkable for leukocytosis of 18.5, CO2 31, lactic acid 1.4, and albumin 3.2. Patient was admitted to the hospital and started on cardizem gtt, heparin gtt, and had cardiology evaluatio n. She underwent echocardiogram, showed normal EF. Regarding cellulitis, she was started on unasyn. However, blood culture gram stain showed GPCs in clusters and was broadened to vancomycin. Blood cultures resulted in coagulase negative staph, likely contaminant. Patient was placed back on IV Unasyn. She continued to have persistent fevers. ID consulted. Right lower extremity CT showed subcu taneous fluid collection in the anterior distal thigh measuring 9.3 x 3.9 x 4.5 cm, potentially an abscess. ID placed patient back on vancomycin. Surgery consulted. Patient is now status post I&D on 09/04. 09/05 Patient was seen and examined. Tmax 99.6F over the past 24H. CBC shows leukocytosis of 20.1 with neutrophilia. BMP shows potassium of 5.5 and bicarb of 32 with glucose 180 and calcium of 8.2. Patient reports well-controlled pain in her right thigh. She has no complaints today. General: non toxic, no distress, appears at stated age, morbidly obese Derm: warm, dry Head: atraumatic, normocephalic, symmetric Eyes: EOMI, no lid lag, anicteric sclera Cardiovascular: Irregularly regular, no murmur Lungs: Decreased breath bilateral, no rhonchi, no rales , no accessory muscle use Abdominal: soft, nontender to palpation, no guarding, no appreciable organomegaly Ext: no gross muscle atrophy, no edema, no contractures, right thigh dressing clean dry and intact Neuro: no focal neuro deficits Psych: Alert, oriented, appropriate affect Assessment and Plan: Sepsis secondary to right lower extremity abscess and cellulitis status post I&D 09/04 Paroxysmal A. fib with RVR Hyperkalemia Coag negative staph bacteremia, likely contaminant Based on my assessment of this patient, this patient meets a high complexity level of care. Patient has an acute diagnosis of sepsis related to RLE abscess that poses a threat to life or bodily function. She is status post I&D 09/04. Wound cultures pending. Initial blood culture positive for coagulase-negative staph and Diptheroid species, likely contaminant. Repeat blood cultures on 09/02 negative at 24 hours. Antibiotics: Vancomycin 2500 mg IV twice a day all maintaining trough of 15. Daily monitoring of BMP since vancomycin is nephrotoxic. Pain control: Morphine 4 mg IV every 4 hours as needed. Antipyretic: Tylenol 650 mg by mouth every 6 hours as needed for fever or mild pain. ID and Surgery on board. PT and OT recommending SNF. Patient is currently on amiodarone 200 mg by mouth twice a day, Cardizem 30 mg by mouth 3 times a day, metoprolol 100 mg by mouth daily, 50 mg by mouth at bedtime. Eliquis 5 mg PO BID for anticoagulation. Cardiology on board. K 5.5. Repeat BMP tomorrow morning. DVT ppx: Eliquis. Code status: Full code Anticipated discharge place: Subacute rehab Anticipated discharge time: Pending clinical course I have reviewed the following human capital consultant notes: I have reviewed the results of the following tests: CBC shows leukocytosis of 20.1 with neutrophilia. BMP shows potassium of 5.5 and bicarb of 32 with glucose 180 and calcium of 8.2. I have ordered the following tests: CBC ordered to evaluate leukocytosis. BMP ordered for tomorrow morning to monitor renal function. Vancomycin trough ordered. Wound culture pending. Blood culture 09/02 negative at 24 hours. I have discussed the care of this patient with the following independent historian: I have independently interpreted the following test below: I have discussed the management of this patient with the following physician: This patient has a high risk of morbidity due to the following reasons: Patient is on Vancomycin IV - Nephrotoxic, requires daily renal function monitoring. Objective - Vital Signs Vital signs: Vital Signs Temp 97.8 F 09/05/22 04:00 Pulse 76 09/05/22 04:00 Resp 18 09/05/22 04:00 BP 109/70 09/05/22 04:00 Pulse Ox 99 09/05/22 07:42 FiO2 Intake & Output 09/04/22 09/05/22 09/05/22 18:59 06:59 18:59 Intake Total 400 2040 118 Output Total 1320 700 Balance -920 1340 118 Intake: IV 400 Intake, IV Titration 500 Amount Vancomycin 2,500 mg In 500 Sodium Chloride 0.9% 500 ml 500 ml @ 167 mls/hr IVPB Q12H [facility] Rx#: [id number] Oral 1540 118 Output: Urine 1300 700 Estimated Blood Loss 20 Other: Voiding Method External Catheter External Catheter # Voids 1 - Labs CBC & Chem 7: 09/05/22 10:50 09/05/22 10:50 Labs: Abnormal Lab Results - Last 24 Hours (Table) 09/04/22 09/04/22 09/04/22 Range/Units 09:11 14:34 14:34 WBC 16.8 H (3.8-10.6) k/uL MCHC 29.9 L (31.0-37.0) g/dL Neutrophils # 15.6 H (1.3-7.7) k/uL Lymphocytes # 0.8 L (1.0-4.8) k/uL Sodium 136 L (137-145) mmol/L Glucose 234 H (74-99) mg/dL POC Glucose (mg/dL) 117 H (70-110) mg/dL Calcium 8.0 L (8.4-10.2) mg/dL Microbiology - Last 24 Hours (Table) 09/02/22 13:10 Blood Culture - Preliminary Blood
[2022-09-05] MEDS: HYDROcodone/APAP 5-325MG 1 EACH TAB PO PRN (18:11)
[2022-09-05] MEDS: ZONISAMIDE 100 MG CAP PO SCH (21:28)
[2022-09-05] MEDS: GABAPENTIN 300 MG CAP PO SCH (21:28)
[2022-09-05] MEDS: METOPROLOL SUCCINATE (ER) 50 MG TAB.ER.24H PO SCH (21:28)
--- NOTE | 2022-09-05 22:45 | P.PN ---
Subjective Progress Note Date: 09/05/22 Principal diagnosis: Right thigh abscess and cellulitis Patient is a 51-year-old female presenting to the hospital on 08/29/2022 concerning for right lower extremity pain, patient was diagnosed with a cellulitis treated with Unasyn did not have improvement subsequently leading to infectious disease consultation patient did have a CT of right thigh concerning for an abscess that was completed on 09/02/2022 evening, patient is status post surgical drainage of the right thigh abscess on 09/04/2022 On today's evaluation that is 09/05/2022, the patient continues to be afebrile, patient pain to the right thigh area has decreased in intensity, the patient denies having any chest pain shortness of breath or cough no nausea no vomiting no abdominal pain or diarrhea Objective - Vital Signs Vital signs: Vital Signs Temp 97.7 F 09/05/22 08:00 Pulse 70 09/05/22 08:00 Resp 18 09/05/22 08:00 BP 96/64 09/05/22 08:00 Pulse Ox 89 L 09/05/22 08:00 FiO2 Intake & Output 09/04/22 09/05/22 09/05/22 18:59 06:59 18:59 Intake Total 400 2040 118 Output Total 1320 700 Balance -920 1340 118 Intake: IV 400 Intake, IV Titration 500 Amount Vancomycin 2,500 mg In 500 Sodium Chloride 0.9% 500 ml 500 ml @ 167 mls/hr IVPB Q12H [facility] Rx#: [id number] Oral 1540 118 Output: Urine 1300 700 Estimated Blood Loss 20 Other: Voiding Method External Catheter External Catheter External Catheter # Voids 1 - Exam GENERAL DESCRIPTION: Middle-aged female lying in bed in no distress RESPIRATORY SYSTEM: Unlabored breathing , decreased breath sounds at bases HEART: S1 S2 regular rate and rhythm , ABDOMEN: Soft , no tenderness EXTREMITIES: Right thigh is currently dressed in OR dressing - Labs CBC & Chem 7: 09/05/22 10:50 09/05/22 10:50 Labs: Abnormal Lab Results - Last 24 Hours (Table) 09/04/22 09/04/22 09/05/22 Range/Units 14:34 14:34 10:50 WBC 16.8 H 20.1 H (3.8-10.6) k/uL MCHC 29.9 L 30.3 L (31.0-37.0) g/dL Neutrophils # 15.6 H 18.5 H (1.3-7.7) k/uL Lymphocytes # 0.8 L 0.9 L (1.0-4.8) k/uL Sodium 136 L (137-145) mmol/L Potassium (3.5-5.1) mmol/L Carbon Dioxide (22-30) mmol/L Glucose 234 H (74-99) mg/dL Calcium 8.0 L (8.4-10.2) mg/dL 09/05/22 Range/Units 10:50 WBC (3.8-10.6) k/uL MCHC (31.0-37.0) g/dL Neutrophils # (1.3-7.7) k/uL Lymphocytes # (1.0-4.8) k/uL Sodium (137-145) mmol/L Potassium 5.5 H (3.5-5.1) mmol/L Carbon Dioxide 32 H (22-30) mmol/L Glucose 180 H (74-99) mg/dL Calcium 8.2 L (8.4-10.2) mg/dL Microbiology - Last 24 Hours (Table) 09/02/22 13:10 Blood Culture - Preliminary Blood Assessment and Plan (1) Abscess of right thigh Current Visit: Yes Status: Acute Code(s): L02.415 - CUTANEOUS ABSCESS OF RIGHT LOWER LIMB SNOMED Code(s): 36957619973928920 Plan: 1patient with sepsis in this patient who did have a fever elevated white count symptom predominantly right thigh pain swelling numbness with the patient has been tender to touch likely the source of the sepsis patient abdominal soft medical examination no urinary symptoms no diarrhea and no evidence of pneumonia on the x-ray on admission 2-patient did have CT of the right thigh with evidence of abscess , patient is status post surgical drainage of the abscess and cultures which are currently pending 3Patient is afebrile however the patient did have slight worsening of the white count which will be monitored closely, patient to continue pharmacy to dose with a target trough of 15 while waiting for the cultures to finalize Time with Patient: Less than 30
[2022-09-06] MEDS: VANCOMYCIN 2,250 MG in SODIUM CHLORIDE 0.9% 500 ML 500 ML IVPB SCH ×2 (03:33→17:16)
[2022-09-06 09:26] LABS: HCT 42.1 % (34.0-46.0); HGB 12.7 gm/dL (11.4-16.0); Hypochromasia Marked; MCH 28.8 pg (25.0-35.0); MCHC 30.3 g/dL (31.0-37.0); MCV 95.1 fL (80.0-100.0); Mean Platelet Volume 9.4; Platelet Count 345 k/uL (150-450); RBC 4.42 m/uL (3.80-5.40); RDW 13.9 % (11.5-15.5); WBC 20.9 k/uL (3.8-10.6)
[2022-09-06] MEDS: DILTIAZEM ORAL 30 MG TAB PO SCH ×3 (09:38→20:19)
[2022-09-06] MEDS: APIXABAN 5 MG TAB PO SCH ×2 (09:38→20:19)
[2022-09-06] MEDS: AMIODARONE 200 MG TAB PO SCH ×2 (09:38→20:19)
[2022-09-06] MEDS: PANTOPRAZOLE 40 MG/10 ML VIAL IV SCH (09:38)
[2022-09-06] MEDS: METOPROLOL SUCCINATE (ER) 100 MG TAB.ER.24H PO SCH (09:38)
[2022-09-06] MEDS: hydrOXYzine HCL 25 MG TAB PO SCH (09:39)
[2022-09-06] MEDS: NYSTATIN 100,000 UNIT/GM POWD 15 GM TOPICAL SCH ×2 (09:39→20:24)
[2022-09-06] MEDS: OXYBUTYNIN 15 MG TAB.ER.24 PO SCH (09:40)
[2022-09-06] MEDS: MORPHINE SULFATE 4 MG/ML SYRINGE IV PRN ×3 (09:42→22:56)
[2022-09-06 10:53] LABS: African American GFR (CKD) >90 (>60 ml/min/1.73 sqM); Anion Gap 4 mmol/L; Blood Urea Nitrogen 18 mg/dL (7-17); Calcium 7.9 mg/dL (8.4-10.2); Carbon Dioxide 31 mmol/L (22-30); Chloride 103 mmol/L (98-107); Glucose 122 mg/dL (74-99); Non-African American GFR(CKD) >90 (>60 ml/min/1.73 sqM); Potassium 4.9 mmol/L (3.5-5.1); Sodium 138 mmol/L (137-145)
--- NOTE | 2022-09-06 11:16 | P.PN ---
Subjective Progress Note Date: 09/06/22 History of present illness: This is a 51-year-old female admitted to the hospital due to cellulitis, abscess and atrial fibrillation with RVR. Yesterday, patient was started back on Cardizem drip currently at 5. Heart rate is 118, blood pressure 106/68. Patient denies having any chest pain. She does have palpitations. WBC 17.4, potassium 4.2, creatinine 0.58. 09/04 Patient is seen in follow-up today. She remains in atrial fibrillation heart rate running between 129 and 133. Patient is currently on Toprol-XL 100 mg in the morning, 50 in the afternoon and Cardizem 30 mg 3 times daily. Patient underwent drainage of a right thigh abscess by Dr. Medeiros this morning and if cleared by surgery, we will resume eliquis today. 09/05 Heart rate is improved today running in the 80s, continues to be in atrial fibrillation. She was resumed back on eliquis last evening. Yesterday, we added amiodarone 200 mg twice daily continue Cardizem and Toprol. Blood pressure this morning is 109/70. Patient denies any chest pain, shortness of breath, palpitations. 09/06 Patient is seen today in follow-up. cafeteria monitor and remains atrial fibrillation 7680s and blood pressure 144/82. Patient is continued on IV antibiotics managed by infectious disease. Discharge planning is in process. Physical examination: Gen: This is a morbidly obese 51-year-old female. She is resting in bed and appears to be comfortable. VS: reviewed HEENT: Head is atraumatic, normocephalic. Pupils equal, round. Sclerae is anicteric. LUNGS: Good air entry bilaterally. No intercostal retractions. HEART: First heart sound and second heart sounds, irregular rhythm, systolic murmur at the left lower sternal border. ABDOMEN: Soft No tenderness. EXTREMITIES: Minimal pedal edema. No calf tenderness. NEUROLOGICAL: Patient is awake, alert and oriented x3. Assessment: Paroxysmal atrial fibrillation with poorly controlled ventricular rate Right thigh abscess status post I&D 09/04 Plan: Continue oral Cardizem 30 mg every 8 hours and continue metoprolol 100 mg in the morning and 50 mg at bedtime Continue amiodarone 200 mg twice daily for better heart rate control. Continue eliquis 5 mg twice daily Patient will have follow-up with Dr. Kaplan 2 weeks after discharge. Nurse practitioner note has been reviewed, I agree with the documented findings and plan of care. Patient was seen and examined. Objective - Vital Signs Vital signs: Vital Signs Temp 98.2 F 09/06/22 04:00 Pulse 88 09/06/22 04:00 Resp 20 09/06/22 04:00 BP 144/82 09/06/22 04:00 Pulse Ox 99 09/06/22 04:00 FiO2 Intake & Output 09/05/22 09/06/22 09/06/22 18:59 06:59 18:59 Intake Total 838 1740 Output Total 500 Balance 338 1740 Intake: Intake, IV Titration 500 500 Amount Vancomycin 2,250 mg In 500 500 Sodium Chloride 0.9% 500 ml 500 ml @ 167 mls/hr IVPB Q12H [facility] Rx#: [id number] Oral 338 1240 Output: Urine 500 Other: Voiding Method External Catheter External Catheter - Labs CBC & Chem 7: 09/06/22 08:55 09/06/22 10:15 Labs: Abnormal Lab Results - Last 24 Hours (Table) 09/05/22 09/05/22 Range/Units 10:50 10:50 WBC 20.1 H (3.8-10.6) k/uL MCHC 30.3 L (31.0-37.0) g/dL Neutrophils # 18.5 H (1.3-7.7) k/uL Lymphocytes # 0.9 L (1.0-4.8) k/uL Potassium 5.5 H (3.5-5.1) mmol/L Carbon Dioxide 32 H (22-30) mmol/L Glucose 180 H (74-99) mg/dL Calcium 8.2 L (8.4-10.2) mg/dL Microbiology - Last 24 Hours (Table) 09/04/22 08:30 Gram Stain - Preliminary Thigh - Right Wound Culture - Preliminary 09/02/22 13:10 Blood Culture - Preliminary Blood
--- NOTE | 2022-09-06 11:47 | P.PN ---
Subjective Progress Note Date: 09/06/22 Principal diagnosis: Right thigh abscess and cellulitis Patient is a 51-year-old female presenting to the hospital on 08/29/2022 concerning for right lower extremity pain, patient was diagnosed with a cellulitis treated with Unasyn did not have improvement subsequently leading to infectious disease consultation patient did have a CT of right thigh concerning for an abscess that was completed on 09/02/2022 evening, patient is status post surgical drainage of the right thigh abscess on 09/04/2022 On today's evaluation that is 09/06/2022, the patient remains to be afebrile, patient pain to the right thigh area is controlled with current pain medication, the patient denies having any chest pain shortness of breath or cough no nausea no vomiting no abdominal pain or diarrhea with antibiotic therapy Objective - Vital Signs Vital signs: Vital Signs Temp 98.2 F 09/06/22 04:00 Pulse 88 09/06/22 04:00 Resp 20 09/06/22 04:00 BP 144/82 09/06/22 04:00 Pulse Ox 99 09/06/22 04:00 FiO2 Intake & Output 09/05/22 09/06/22 09/06/22 18:59 06:59 18:59 Intake Total 838 1740 236 Output Total 500 Balance 338 1740 236 Intake: Intake, IV Titration 500 500 Amount Vancomycin 2,250 mg In 500 500 Sodium Chloride 0.9% 500 ml 500 ml @ 167 mls/hr IVPB Q12H [facility] 234 BEDS AT [facility] Rx#: [id number] Oral 338 1240 236 Output: Urine 500 Other: Voiding Method External Catheter External Catheter - Exam GENERAL DESCRIPTION: Middle-aged female lying in bed in no distress RESPIRATORY SYSTEM: Unlabored breathing , decreased breath sounds at bases HEART: S1 S2 regular rate and rhythm , ABDOMEN: Soft , no tenderness EXTREMITIES: Right thigh is currently dressed in OR dressing - Labs CBC & Chem 7: 09/06/22 08:55 09/06/22 10:15 Labs: Abnormal Lab Results - Last 24 Hours (Table) 09/05/22 09/05/22 09/06/22 Range/Units 10:50 10:50 08:55 WBC 20.1 H 20.9 H (3.8-10.6) k/uL MCHC 30.3 L 30.3 L (31.0-37.0) g/dL Neutrophils # 18.5 H (1.3-7.7) k/uL Lymphocytes # 0.9 L (1.0-4.8) k/uL Potassium 5.5 H (3.5-5.1) mmol/L Carbon Dioxide 32 H (22-30) mmol/L Glucose 180 H (74-99) mg/dL Calcium 8.2 L (8.4-10.2) mg/dL Microbiology - Last 24 Hours (Table) 09/04/22 08:30 Gram Stain - Preliminary Thigh - Right Wound Culture - Preliminary 09/02/22 13:10 Blood Culture - Preliminary Blood Assessment and Plan (1) Abscess of right thigh Current Visit: Yes Status: Acute Code(s): L02.415 - CUTANEOUS ABSCESS OF RIGHT LOWER LIMB SNOMED Code(s): 00640092460224815 Plan: 1patient with sepsis in this patient who did have a fever elevated white count symptom predominantly right thigh pain swelling numbness with the patient has been tender to touch likely the source of the sepsis patient abdominal soft medical examination no urinary symptoms no diarrhea and no evidence of pneumonia on the x-ray on admission 2-patient did have CT of the right thigh with evidence of abscess , patient is status post surgical drainage of the abscess and cultures which are currently pending 3Patient is afebrile however the patient did have persistent elevated white co unt the will add cefepime to cover for the gram-negative till the culture finalized and continue with vancomycin, may need IV antibiotic on discharge Time with Patient: Less than 30
--- NOTE | 2022-09-06 11:49 | P.PN ---
Subjective Progress Note Date: 09/06/22 CHIEF COMPLAINT: Right thigh abscess HISTORY OF PRESENT ILLNESS: Patient is postop day #2 status post incision and drainage of right thigh abscess. Patient does report pain in her right thigh. However, it has improved since the incision and drainage. WBC 20.9 Hgb 12.7. Wound culture preliminary report shows no growth PHYSICAL EXAM: VITAL SIGNS: Reviewed. GENERAL: Well-developed in no acute distress. HEENT: No sclera icterus. Extraocular movements grossly intact. Moist buccal mucosa. Head is atraumatic, normocephalic. ABDOMEN: Soft. Nondistended. Nontender. NEUROLOGIC: Alert and oriented. Cranial nerves II through XII grossly intact. Extremities: Right thigh packing with serosanguineous drainage. Mild erythema noted at the incision. Lateral aspect of the right thigh with swelling. Tony drain in place. ASSESSMENT: 1. Right thigh abscess status post incision and drainage PLAN: -Continue local wound care -Continue antibiotics per ID service -Continue supportive care -Educated patient to change positions to help with swelling. Elevate hip with pillow Physician Music Therapy Specialist note has been reviewed by physician. Signing provider agrees with the documented findings, assessment, and plan of care. I have personally seen and examined the patient, reviewed the CEMETERY MANAGER /PAs history, exam and MDM and agree with the assessment and plan as written. Based on total visit time, I have performed more than 50% of the visit. As above: Patient doing well today. White blood cell count remains elevated. Await cultures. Change packing today. Continue local wound care. Objective - Vital Signs Vital signs: Vital Signs Temp 97.7 F 09/06/22 08:00 Pulse 105 H 09/06/22 08:00 Resp 20 09/06/22 08:00 BP 97/65 09/06/22 08:00 Pulse Ox 94 L 09/06/22 08:00 FiO2 Intake & Output 09/05/22 09/06/22 09/06/22 18:59 06:59 18:59 Intake Total 838 1740 356 Output Total 500 Balance 338 1740 356 Intake: Intake, IV Titration 500 500 Amount Vancomycin 2,250 mg In 500 500 Sodium Chloride 0.9% 500 ml 500 ml @ 167 mls/hr IVPB Q12H [facility] Rx#: [id number] Oral 338 1240 356 Output: Urine 500 Other: Voiding Method External Catheter External Catheter External Catheter - Labs CBC & Chem 7: 09/06/22 08:55 09/06/22 10:15 Labs: Abnormal Lab Results - Last 24 Hours (Table) 09/06/22 09/06/22 Range/Units 08:55 10:15 WBC 20.9 H (3.8-10.6) k/uL MCHC 30.3 L (31.0-37.0) g/dL Carbon Dioxide 31 H (22-30) mmol/L BUN 18 H (7-17) mg/dL Glucose 122 H (74-99) mg/dL Calcium 7.9 L (8.4-10.2) mg/dL Microbiology - Last 24 Hours (Table) 09/04/22 08:30 Gram Stain - Preliminary Thigh - Right Wound Culture - Preliminary 09/02/22 13:10 Blood Culture - Preliminary Blood
--- NOTE | 2022-09-06 12:15 | P.PN ---
Subjective Progress Note Date: 09/06/22 51-year-old female with a PMH of Vinh-en-Y bariatric surgery, morbid obesity, anxiety, and panic disorder who presents to the emergency room with complaints of right leg pain. Laboratory evaluation was remarkable for leukocytosis of 18.5, CO2 31, lactic acid 1.4, and albumin 3.2. Right lower extremity venous did not show evidence of DVT. Chest x-ray was unremarkable. Knee x-ray was unremarkable. EKG had revealed A. fib with RVR at [address] segment changes noted. Laboratory evaluation was remarkable for leukocytosis of 18.5, CO2 31, lactic acid 1.4, and albumin 3.2. Patient was admitted to the hospital and started on cardizem gtt, heparin gtt, and had cardiology evaluatio n. She underwent echocardiogram, showed normal EF. Regarding cellulitis, she was started on unasyn. However, blood culture gram stain showed GPCs in clusters and was broadened to vancomycin. Blood cultures resulted in coagulase negative staph, likely contaminant. Patient was placed back on IV Unasyn. She continued to have persistent fevers. ID consulted. Right lower extremity CT showed subcu taneous fluid collection in the anterior distal thigh measuring 9.3 x 3.9 x 4.5 cm, potentially an abscess. ID placed patient back on vancomycin. Surgery consulted. Patient is now status post I&D on 09/04. 09/05 Patient was seen and examined. Tmax 99.6F over the past 24H. CBC shows leukocytosis of 20.1 with neutrophilia. BMP shows potassium of 5.5 and bicarb of 32 with glucose 180 and calcium of 8.2. Patient reports well-controlled pain in her right thigh. She has no complaints today. 09/06 Patient was seen and examined. Afebrile over the past 24H. BMP shows bicarb of 31 and BUN of 18 with glucose of 122 and Ca of 7.9. She has no complaints today. CBC pending at the time of this note. General: non toxic, no distress, appears at stated age, morbidly obese Derm: warm, dry Head: atraumatic, normocephalic, symmetric Eyes: EOMI, no lid lag, anicteric sclera Cardiovascular: Irregularly regular, no murmur Lungs: Decreased breath bilateral, no rhonchi, no rales , no accessory muscle use Ext: no gross muscle atrophy, no edema, no contractures, right thigh dressing clean dry and intact Neuro: no focal neuro deficits Psych: Alert, oriented, appropriate affect Assessment and Plan: Sepsis secondary to right lower extremity abscess and cellulitis status post I&D 09/04 Paroxysmal A. fib with RVR Coag negative staph bacteremia, likely contaminant Resolved: HyperK Based on my assessment of this patient, this patient meets a high complexity level of care. Patient has an acute diagnosis of sepsis related to RLE abscess that poses a threat to life or bodily function. She is status post I&D 09/04. Wound cultures pending. Initial blood culture positive for coagulase-negative staph and Diptheroid species, likely contaminant. Repeat blood cultures on 09/02 negative at 48 hours. Antibiotics: Vancomycin 2250 mg IV twice a day all maintaining trough of 15. Daily monitoring of BMP since vancomycin is nephrotoxic. Pain control: Morphine 4 mg IV every 4 hours as needed. Antipyretic: Tylenol 650 mg by mouth every 6 hours as needed for fever or mild pain. ID and Surgery on board. PT and OT recommending SNF. Patient is currently on amiodarone 200 mg by mouth twice a day, Cardizem 30 mg by mouth 3 times a day, metoprolol 100 mg by mouth daily, 50 mg by mouth at bedtime. Eliquis 5 mg PO BID for anticoagulation. Cardiology on board. DVT ppx: Eliquis. Code status: Full code Anticipated discharge place: Subacute rehab Anticipated discharge time: Pending clinical course I have reviewed the following [employer] consultant notes: I have reviewed the results of the following tests: BMP shows bicarb of 31 and BUN of 18 with glucose of 122 and Ca of 7.9. Vancomycin trough 21.7. I have ordered the following tests: CBC ordered to evaluate leukocytosis. BMP ordered for tomorrow morning to monitor renal function. Vancomycin trough ordered. Wound culture pending. Blood culture 09/02 negative at 48 hours. I have discussed the care of this patient with the following independent histor tato: I have independently interpreted the following test below: I have discussed the management of this patient with the following physician: This patient has a high risk of morbidity due to the following reasons: Patient is on Vancomycin IV - Nephrotoxic, requires daily renal function monitoring. Objective - Vital Signs Vital signs: Vital Signs Temp 97.7 F 09/06/22 08:00 Pulse 105 H 09/06/22 08:00 Resp 20 09/06/22 08:00 BP 97/65 09/06/22 08:00 Pulse Ox 94 L 09/06/22 08:00 FiO2 Intake & Output 09/05/22 09/06/22 09/06/22 18:59 06:59 18:59 Intake Total 838 1740 356 Output Total 500 Balance 338 1740 356 Intake: Intake, IV Titration 500 500 Amount Vancomycin 2,250 mg In 500 500 Sodium Chloride 0.9% 500 ml 500 ml @ 167 mls/hr IVPB Q12H [facility] Rx#: [id number] Oral 338 1240 356 Output: Urine 500 Other: Voiding Method External Catheter External Catheter External Catheter - Labs CBC & Chem 7: 09/06/22 08:55 09/06/22 10:15 Labs: Abnormal Lab Results - Last 24 Hours (Table) 09/06/22 09/06/22 Range/Units 08:55 10:15 WBC 20.9 H (3.8-10.6) k/uL MCHC 30.3 L (31.0-37.0) g/dL Carbon Dioxide 31 H (22-30) mmol/L BUN 18 H (7-17) mg/dL Glucose 122 H (74-99) mg/dL Calcium 7.9 L (8.4-10.2) mg/dL Microbiology - Last 24 Hours (Table) 09/04/22 08:30 Gram Stain - Preliminary Thigh - Right Wound Culture - Preliminary 09/02/22 13:10 Blood Culture - Preliminary Blood
[2022-09-06] MEDS: CEFEPIME 2 GM in SODIUM CHLORIDE 0.9% 100 ML IVPB SCH ×2 (12:45→20:19)
[2022-09-06] MEDS: GABAPENTIN 300 MG CAP PO SCH (20:19)
[2022-09-06] MEDS: METOPROLOL SUCCINATE (ER) 50 MG TAB.ER.24H PO SCH (20:19)
[2022-09-06] MEDS: ZONISAMIDE 100 MG CAP PO SCH (20:19)
[2022-09-07] MEDS: VANCOMYCIN 2,250 MG in SODIUM CHLORIDE 0.9% 500 ML 500 ML IVPB SCH (01:17)
[2022-09-07] MEDS: CEFEPIME 2 GM in SODIUM CHLORIDE 0.9% 100 ML IVPB SCH ×3 (04:56→17:09)
[2022-09-07] MEDS: MORPHINE SULFATE 4 MG/ML SYRINGE IV PRN ×2 (04:57→21:18)
--- NOTE | 2022-09-07 08:31 | P.PN ---
Subjective Progress Note Date: 09/07/22 History of present illness: This is a 51-year-old female admitted to the hospital due to cellulitis, abscess and atrial fibrillation with RVR. Yesterday, patient was started back on Cardizem drip currently at 5. Heart rate is 118, blood pressure 106/68. Patient denies having any chest pain. She does have palpitations. WBC 17.4, potassium 4.2, creatinine 0.58. 09/04 Patient is seen in follow-up today. She remains in atrial fibrillation heart rate running between 129 and 133. Patient is currently on Toprol-XL 100 mg in the morning, 50 in the afternoon and Cardizem 30 mg 3 times daily. Patient underwent drainage of a right thigh abscess by Dr. Medeiros this morning and if cleared by surgery, we will resume eliquis today. 09/05 Heart rate is improved today running in the 80s, continues to be in atrial fibrillation. She was resumed back on eliquis last evening. Yesterday, we added amiodarone 200 mg twice daily continue Cardizem and Toprol. Blood pressure this morning is 109/70. Patient denies any chest pain, shortness of breath, palpitations. 09/06 Patient is seen today in follow-up. licensed mental health counselor and remains atrial fibrillation 70-80s and blood pressure 144/82. Patient is continued on IV antibiotics managed by infectious disease. Discharge planning is in process. 09/07 The patient states that she is feeling sore and achy all over. Heart rate is running in the 60s to 80s. Blood pressure 109/70. Patient is maintained on amiodarone, continued on eliquis, Cardizem and Toprol-XL. Physical examination: Gen: This is a morbidly obese 51-year-old female. She is resting in bed and appears to be comfortable. VS: reviewed HEENT: Head is atraumatic, normocephalic. Pupils equal, round. Sclerae is anicteric. LUNGS: Good air entry bilaterally. No intercostal retractions. HEART: First heart sound and second heart sounds, irregular rhythm, systolic murmur at the left lower sternal border. ABDOMEN: Soft No tenderness. EXTREMITIES: Minimal pedal edema. No calf tenderness. NEUROLOGICAL: Patient is awake, alert and oriented x3. Assessment: Paroxysmal atrial fibrillation with poorly controlled ventricular rate Right thigh abscess status post I&D 09/04 Plan: Continue oral Cardizem 30 mg every 8 hours and continue metoprolol 100 mg in the morning and 50 mg at bedtime Continue amiodarone 200 mg twice daily Continue eliquis 5 mg twice daily Cardiology we'll sign off and follow on an as-needed basis. Please reconsult for any new concerns. Patient will have follow-up with Dr. Kaplan 2 weeks after discharge. Nurse practitioner note has been reviewed, I agree with the documented findings and plan of care. Patient was seen and examined. Objective - Vital Signs Vital signs: Vital Signs Temp 97.9 F 09/07/22 03:58 Pulse 86 09/07/22 03:58 Resp 18 09/07/22 03:58 BP 109/70 09/07/22 03:58 Pulse Ox 94 L 09/07/22 03:58 FiO2 Intake & Output 09/06/22 09/07/22 09/07/22 18:59 06:59 18:59 Intake Total 356 540 Output Total 1100 1100 Balance -744 -560 Intake: Oral 356 540 Output: Urine 1100 1100 Other: Voiding Method External Catheter External Catheter - Labs CBC & Chem 7: 09/06/22 08:55 09/06/22 10:15 Labs: Abnormal Lab Results - Last 24 Hours (Table) 09/06/22 09/06/22 Range/Units 08:55 10:15 WBC 20.9 H (3.8-10.6) k/uL MCHC 30.3 L (31.0-37.0) g/dL Carbon Dioxide 31 H (22-30) mmol/L BUN 18 H (7-17) mg/dL Glucose 122 H (74-99) mg/dL Calcium 7.9 L (8.4-10.2) mg/dL Microbiology - Last 24 Hours (Table) 09/04/22 08:30 Gram Stain - Preliminary Thigh - Right Wound Culture - Preliminary 09/02/22 13:10 Blood Culture - Preliminary Blood
[2022-09-07 08:39] LABS: HCT 41.9 % (34.0-46.0); HGB 12.5 gm/dL (11.4-16.0); Hypochromasia Marked; MCHC 29.9 g/dL (31.0-37.0); MCV 93.8 fL (80.0-100.0); Mean Platelet Volume 8.7; Platelet Count 353 k/uL (150-450); RBC 4.47 m/uL (3.80-5.40); RDW 14.1 % (11.5-15.5); WBC 16.1 k/uL (3.8-10.6)
[2022-09-07] MEDS: OXYBUTYNIN 15 MG TAB.ER.24 PO SCH (09:31)
[2022-09-07] MEDS: PANTOPRAZOLE 40 MG/10 ML VIAL IV SCH (09:31)
[2022-09-07] MEDS: METOPROLOL SUCCINATE (ER) 100 MG TAB.ER.24H PO SCH (09:32)
[2022-09-07] MEDS: DILTIAZEM ORAL 30 MG TAB PO SCH ×3 (09:32→21:18)
[2022-09-07] MEDS: APIXABAN 5 MG TAB PO SCH ×2 (09:32→20:40)
[2022-09-07] MEDS: AMIODARONE 200 MG TAB PO SCH ×2 (09:32→20:40)
[2022-09-07] MEDS: hydrOXYzine HCL 25 MG TAB PO SCH (09:32)
[2022-09-07] MEDS: HYDROcodone/APAP 5-325MG 1 EACH TAB PO PRN ×2 (09:32→17:08)
[2022-09-07] MEDS: NYSTATIN 100,000 UNIT/GM POWD 15 GM TOPICAL SCH ×2 (09:37→23:05)
--- NOTE | 2022-09-07 10:17 | P.PN ---
Subjective Progress Note Date: 09/07/22 CHIEF COMPLAINT: Right thigh abscess HISTORY OF PRESENT ILLNESS: Patient is postop day #3 status post incision and drainage of right thigh abscess. Patient does report pain in her right thigh. Controlled with pain medication. Afebrile. Mildly tachycardic. WBC is down from 20.9-16.1. Wound culture final report pending PHYSICAL EXAM: VITAL SIGNS: Reviewed. GENERAL: Well-developed in no acute distress. HEENT: No sclera icterus. Extraocular movements grossly intact. Moist buccal mucosa. Head is atraumatic, normocephalic. ABDOMEN: Soft. Nondistended. Nontender. NEUROLOGIC: Alert and oriented. Cranial nerves II through XII grossly intact. Extremities: Right thigh Aquacel silver packing in place with serosanguineous drainage Minimal erythema noted at the incision. Lateral aspect of the right thigh with swelling. Radha drain in place. ASSESSMENT: 1. Right thigh abscess status post incision and drainage PLAN: -Continue local wound care -Continue antibiotics per ID service -Continue supportive care -Follow up on culture results Physician Cash Posting Clerk note has been reviewed by physician. Signing provider agrees with the documented findings, assessment, and plan of care. I have personally seen and examined the patient, reviewed the DUMBWAITER OPERATOR /PAs history, exam and MDM and agree with the assessment and plan as written. Based on total visit time, I have performed more than 50% of the visit. As above: Patient doing well today. Pain is improved. Continue local wound care. Continue antibiotics per infectious disease. Objective - Vital Signs Vital signs: Vital Signs Temp 97.9 F 09/07/22 08:00 Pulse 111 H 09/07/22 08:00 Resp 18 09/07/22 08:00 BP 103/74 09/07/22 08:00 Pulse Ox 98 09/07/22 08:00 FiO2 Intake & Output 09/06/22 09/07/22 09/07/22 18:59 06:59 18:59 Intake Total 356 540 Output Total 1100 1100 Balance -744 -560 Intake: Oral 356 540 Output: Urine 1100 1100 Other: Voiding Method External Catheter External Catheter - Labs CBC & Chem 7: 09/07/22 07:54 09/06/22 10:15 Labs: Abnormal Lab Results - Last 24 Hours (Table) 09/06/22 09/07/22 Range/Units 10:15 07:54 WBC 16.1 H (3.8-10.6) k/uL MCHC 29.9 L (31.0-37.0) g/dL Carbon Dioxide 31 H (22-30) mmol/L BUN 18 H (7-17) mg/dL Glucose 122 H (74-99) mg/dL Calcium 7.9 L (8.4-10.2) mg/dL Microbiology - Last 24 Hours (Table) 09/04/22 08:30 Gram Stain - Final Thigh - Right Wound Culture - Final 09/02/22 13:10 Blood Culture - Preliminary Blood
--- NOTE | 2022-09-07 14:43 | P.PN ---
Subjective Progress Note Date: 09/07/22 51-year-old female with a PMH of Vinh-en-Y bariatric surgery, morbid obesity, anxiety, and panic disorder who presents to the emergency room with complaints of right leg pain. Laboratory evaluation was remarkable for leukocytosis of 18.5, CO2 31, lactic acid 1.4, and albumin 3.2. Right lower extremity venous did not show evidence of DVT. Chest x-ray was unremarkable. Knee x-ray was unremarkable. EKG had revealed A. fib with RVR at [address] segment changes noted. Laboratory evaluation was remarkable for leukocytosis of 18.5, CO2 31, lactic acid 1.4, and albumin 3.2. Patient was admitted to the hospital and started on cardizem gtt, heparin gtt, and had cardiology evaluatio n. She underwent echocardiogram, showed normal EF. Regarding cellulitis, she was started on unasyn. However, blood culture gram stain showed GPCs in clusters and was broadened to vancomycin. Blood cultures resulted in coagulase negative staph, likely contaminant. Patient was placed back on IV Unasyn. She continued to have persistent fevers. ID consulted. Right lower extremity CT showed subcu taneous fluid collection in the anterior distal thigh measuring 9.3 x 3.9 x 4.5 cm, potentially an abscess. ID placed patient back on vancomycin. Surgery consulted. Patient is now status post I&D on 09/04. 09/05 Patient was seen and examined. Tmax 99.6F over the past 24H. CBC shows leukocytosis of 20.1 with neutrophilia. BMP shows potassium of 5.5 and bicarb of 32 with glucose 180 and calcium of 8.2. Patient reports well-controlled pain in her right thigh. She has no complaints today. 09/06 Patient was seen and examined. Afebrile over the past 24H. BMP shows bicarb of 31 and BUN of 18 with glucose of 122 and Ca of 7.9. She has no complaints today. CBC pending at the time of this note. 09/07 Patient was seen and examined. She reports well controlled pain in her right thigh. CBC shows WBC count of 16.1. General: non toxic, no distress, appears at stated age, morbidly obese Derm: warm, dry Head: atraumatic, normocephalic, symmetric Eyes: EOMI, no lid lag, anicteric sclera Cardiovascular: Irregularly regular, no murmur Lungs: Decreased breath bilateral, no rhonchi, no rales , no accessory muscle use Ext: no gross muscle atrophy, no edema, no contractures, right thigh dressing clean dry and intact Neuro: no focal neuro deficits Psych: Alert, oriented, appropriate affect Assessment and Plan: Sepsis secondary to right lower extremity abscess and cellulitis status post I&D 09/04 Paroxysmal A. fib with RVR Coag negative staph bacteremia, likely contaminant Resolved: HyperK Based on my assessment of this patient, this patient meets a moderate complexity level of care. Patient has an acute diagnosis of sepsis related to RLE abscess that poses a threat to life or bodily function. She is status post I&D 09/04. Wound cultures pending. Initial blood culture positive for coagulase-negative staph and Diptheroid species, likely contaminant. Repeat blood cultures on 09/02 negative at 96 hours. Wound culture negative as of now. Antibiotics: Vancomycin 2250 mg IV twice a day all maintaining trough of 15. Cafepime 2g IV Q8H added on 09/06. Daily monitoring of BMP since vancomycin is nephrotoxic. Pain control: Morphine 4 mg IV every 4 hours as needed. Antipyretic: Tylenol 650 mg by mouth every 6 hours as needed for fever or mild pain. ID and Surgery on board. PT and OT recommending SNF. Patient is currently on amiodarone 200 mg by mouth twice a day, Cardizem 30 mg by mouth 3 times a day, metoprolol 100 mg by mouth daily, 50 mg by mouth at bedtime. Eliquis 5 mg PO BID for anticoagulation. Cardiology on board. DVT ppx: Eliquis. Code status: Full code Anticipated discharge place: Subacute rehab Anticipated discharge time: Pending clinical course I have reviewed the following qm consultant notes: I have reviewed the results of the following tests: CBC shows WBC count of 16.1. I have ordered the following tests: BMP ordered for tomorrow morning to monitor renal function. Vancomycin trough ordered. Wound culture pending. Blood culture 09/02 negative at 96 hours. I have discussed the care of this patient with the following independent historian: I have independently interpreted the following test below: I have discussed the management of this patient with the following physician: This patient has a moderate risk of morbidity due to the following reasons: Patient is on Vancomycin IV - Nephrotoxic, requires daily renal function monitoring. Patient is medically cleared for discharge. Will discuss with Dr. Casper regarding antibiotic selection. Pending insurance authorization for SNF. Objective - Vital Signs Vital signs: Vital Signs Temp 97.9 F 09/07/22 12:00 Pulse 103 H 09/07/22 12:00 Resp 18 09/07/22 12:00 BP 97/65 09/07/22 12:00 Pulse Ox 97 09/07/22 12:00 FiO2 Intake & Output 09/06/22 09/07/22 09/07/22 18:59 06:59 18:59 Intake Total 356 540 Output Total 1100 1100 Balance -744 -560 Weight 200 kg Intake: Oral 356 540 Output: Urine 1100 1100 Other: Voiding Method External Catheter External Catheter External Catheter - Labs CBC & Chem 7: 09/07/22 07:54 09/06/22 10:15 Labs: Abnormal Lab Results - Last 24 Hours (Table) 09/07/22 Range/Units 07:54 WBC 16.1 H (3.8-10.6) k/uL MCHC 29.9 L (31.0-37.0) g/dL Microbiology - Last 24 Hours (Table) 09/04/22 08:30 Gram Stain - Final Thigh - Right Wound Culture - Final 09/02/22 13:10 Blood Culture - Preliminary Blood
[2022-09-07] MEDS: METOPROLOL SUCCINATE (ER) 50 MG TAB.ER.24H PO SCH (20:40)
[2022-09-07] MEDS: GABAPENTIN 300 MG CAP PO SCH (20:40)
[2022-09-07] MEDS: ZONISAMIDE 100 MG CAP PO SCH (20:40)
[2022-09-08] MEDS: CEFEPIME 2 GM in SODIUM CHLORIDE 0.9% 100 ML IVPB SCH ×3 (04:12→17:25)
[2022-09-08] MEDS: METOPROLOL SUCCINATE (ER) 100 MG TAB.ER.24H PO SCH (08:35)
[2022-09-08] MEDS: AMIODARONE 200 MG TAB PO SCH ×2 (08:35→20:34)
[2022-09-08] MEDS: DILTIAZEM ORAL 30 MG TAB PO SCH ×3 (08:35→21:48)
[2022-09-08] MEDS: OXYBUTYNIN 15 MG TAB.ER.24 PO SCH (08:35)
[2022-09-08] MEDS: PANTOPRAZOLE 40 MG/10 ML VIAL IV SCH (08:35)
[2022-09-08] MEDS: hydrOXYzine HCL 25 MG TAB PO SCH (08:35)
[2022-09-08] MEDS: HYDROcodone/APAP 5-325MG 1 EACH TAB PO PRN ×2 (08:36→17:24)
[2022-09-08] MEDS: APIXABAN 5 MG TAB PO SCH ×2 (08:37→20:34)
[2022-09-08] MEDS: NYSTATIN 100,000 UNIT/GM POWD 15 GM TOPICAL SCH ×2 (08:37→20:35)
--- NOTE | 2022-09-08 11:19 | P.DS ---
Providers Date of admission: 08/29/22 23:39 Expected date of discharge: 09/08/22 Attending physician: Quin Bustos MD Consults: 08/29/22 23:38 Consult Physician Routine Consulting Provider: Rosmery Knutson Consult Reason/Comments: A. fib with RVR Do you want consulting provider notified?: Yes 09/02/22 13:07 Consult Physician Routine Consulting Provider: Gabe Casper Consult Reason/Comments: sepsis Do you want consulting provider notified?: Yes 09/04/22 10:12 Consult Physician Routine Consulting Provider: Thaddeus Medeiros Consult Reason/Comments: abscess Do you want consulting provider notified?: Already Contacted Primary care physician: Joseph Barillas MD Hospital Course: 51-year-old female with a PMH of Vinh-en-Y bariatric surgery, morbid obesity, anxiety, and panic disorder who presents to the emergency room with complaints of right leg pain. Laboratory evaluation was remarkable for leukocytosis of 18.5, CO2 31, lactic acid 1.4, and albumin 3.2. Right lower extremity venous did not show evidence of DVT. Chest x-ray was unremarkable. Knee x-ray was unremarkable. EKG had revealed A. fib with RVR at [address] segment changes noted. Laboratory evaluation was remarkable for leukocytosis of 18.5, CO2 31, lactic acid 1.4, and albumin 3.2. Patient was admitted to the hospital and started on cardizem gtt, heparin gtt, and had cardiology evaluation. She underwent echocardiogram, showed normal EF. Regarding cellulitis, she was started on unasyn. However, blood culture gram stain showed GPCs in clusters and was broadened to vancomycin. Blood cultures resulted in coagulase negative staph, likely contaminant. Patient was placed back on IV Unasyn. She continued to have persistent fevers. ID consulted. Right lower extremity CT showed subcutaneous fluid collection in the anterior distal thigh measuring 9.3 x 3.9 x 4.5 cm, potentially an abscess. ID placed patient back on vancomycin. Surgery consulted. Patient is now status post I&D on 09/04. Cardiology started the patient on Amiodarone and increased her Metoprolol. Heparin drip was switched to Eliquis. Wound culture came back negative. Repeat blood culture came back negative. 09/05 Patient was seen and examined. Tmax 99.6F over the past 24H. CBC shows leukocytosis of 20.1 with neutrophilia. BMP shows potassium of 5.5 and bicarb of 32 with glucose 180 and calcium of 8.2. Patient reports well-controlled pain in her right thigh. She has no complaints today. 09/06 Patient was seen and examined. Afebrile over the past 24H. BMP shows bicarb of 31 and BUN of 18 with glucose of 122 and Ca of 7.9. She has no complaints today. CBC pending at the time of this note. 09/07 Patient was seen and examined. She reports well controlled pain in her right thigh. CBC shows WBC count of 16.1. 09/08 Patient was seen and examined. Wound culture and repeat blood culture negative. Case discussed with Dr. Casper who recommends 10 days of Cefepime and wound vac. Discussed with Lawanda RAMIREZ who will check with surgeon if wound vac is appropriate. Midline order placed for antibiotics. Plans for discharge to SNF today. Pertinent studies include venous Doppler, echocardiogram, lower extremity CT, knee x-ray, chest x-ray. Pertinent procedures include I&D of right thigh abscess. General: non toxic, no distress, appears at stated age, morbidly obese Derm: warm, dry Head: atraumatic, normocephalic, symmetric Eyes: EOMI, no lid lag, anicteric sclera Cardiovascular: Irregularly regular, no murmur Lungs: Decreased breath bilateral, no rhonchi, no rales , no accessory muscle use Ext: no gross muscle atrophy, no edema, no contractures, right thigh dressing clean dry and intact Neuro: no focal neuro deficits Psych: Alert, oriented, appropriate affect Discharge diagnosis: Sepsis secondary to right lower extremity abscess and cellulitis status post I&D 09/04, wound culture negative Paroxysmal A. fib with RVR Coag negative staph bacteremia, likely contaminant, repeat blood culture negative Resolved: HyperK This complex discharge took 35 minutes to complete. Patient Condition at Discharge: Stable Plan - Discharge Summary Discharge Rx Participant: Yes New Discharge Prescriptions: New Gabapentin [Neurontin] 300 mg PO HS #3 cap Metoprolol Succinate (ER) [Toprol XL] 50 mg PO HS tab Diltiazem Oral [Cardizem*] 30 mg PO TID tab Amiodarone [Cordarone] 200 mg PO BID tab Apixaban [Eliquis] 5 mg PO BID tab Cefepime [Maxipime] 2 gm IVPB Q8H 10 Days each Metoprolol Succinate (ER) [Toprol XL] 100 mg PO DAILY tab Continue Zonisamide [Zonegran] 200 mg PO HS Oxybutynin Chloride [oxyBUTYnin chloride ER] 15 mg PO DAILY Butalb/APAP/Caff 50-325-40Mg [Fioricet 50-325-40] 1 tab PO Q4H PRN PRN Reason: Migraine Headache HYDROcodone/APAP 5-325MG [[place] 5-325] 1 tab PO BID PRN #6 tab PRN Reason: Breakthrough Pain hydrOXYzine HCL [Atarax] 25 mg PO DAILY Montelukast [Singulair] 10 mg PO DAILY Morphine Pain Pump 1 dose INTRATHECA CONTINUOUS Nystatin [Nystop] 1 applic TOPICAL BID PRN PRN Reason: Skin Irritation Discontinued Gabapentin 800 mg PO DAILY Metoprolol Succinate (ER) [Toprol XL] 50 mg PO BID Discharge Medication List Zonisamide [Zonegran] 200 mg PO HS 09/11/13 [History] Montelukast [Singulair] 10 mg PO DAILY 03/08/22 [History] Morphine Pain Pump 1 dose INTRATHECA CONTINUOUS 03/08/22 [History] Oxybutynin Chloride [oxyBUTYnin chloride ER] 15 mg PO DAILY 03/08/22 [History] hydrOXYzine HCL [Atarax] 25 mg PO DAILY 03/08/22 [History] Butalb/APAP/Caff 50-325-40Mg [Fioricet 50-325-40] 1 tab PO Q4H PRN 08/29/22 [History] Nystatin [Nystop] 1 applic TOPICAL BID PRN 08/29/22 [History] Amiodarone [Cordarone] 200 mg PO BID tab 09/08/22 [Rx] Apixaban [Eliquis] 5 mg PO BID tab 09/08/22 [Rx] Cefepime [Maxipime] 2 gm IVPB Q8H 10 Days each 09/08/22 [Rx] Diltiazem Oral [Cardizem*] 30 mg PO TID tab 09/08/22 [Rx] Gabapentin [Neurontin] 300 mg PO HS #3 cap 09/08/22 [Rx] HYDROcodone/APAP 5-325MG [[place] 5-325] 1 tab PO BID PRN #6 tab 09/08/22 [Rx] Metoprolol Succinate (ER) [Toprol XL] 50 mg PO HS tab 09/08/22 [Rx] Metoprolol Succinate (ER) [Toprol XL] 100 mg PO DAILY tab 09/08/22 [Rx] Follow up Appointment(s)/Referral(s): Radha Epps MD [REFERRING] - 1-2 days Gabe Casper MD [STAFF PHYSICIAN] - 1 Week Kei Kaplan MD [STAFF PHYSICIAN] - 2 Weeks Activity/Diet/Wound Care/Special Instructions: Diet: Regular Continue Cefepime IV for the next 10 days along with wound vac. Follow up with your PCP within 1-2 days of discharge. Follow up with Infectious disease and Cardiology within 1 week of discharge. Take all medications as advised. Discharge Disposition: TRANSFER TO SNF/ECF
[2022-09-08] MEDS ORDERED: VANCOMYCIN TROUGH DUE 1 EACH MISC MISCELLANE ONE (13:00)
--- NOTE | 2022-09-08 14:38 | P.PN ---
Subjective Progress Note Date: 09/07/22 Principal diagnosis: Right thigh abscess and cellulitis Patient is a 51-year-old female presenting to the hospital on 08/29/2022 concerning for right lower extremity pain, patient was diagnosed with a cellulitis treated with Unasyn did not have improvement subsequently leading to infectious disease consultation patient did have a CT of right thigh concerning for an abscess that was completed on 09/02/2022 evening, patient is status post surgical drainage of the right thigh abscess on 09/04/2022 On today's evaluation that is 09/07/2022, the patient continues to be afebrile, patient pain to the right thigh area has decreased in intensity, the patient denies having any chest pain shortness of breath or cough no nausea no vomiting no abdominal pain or diarrhea with antibiotic therapy Objective - Vital Signs Vital signs: Vital Signs Temp 97.9 F 09/07/22 08:00 Pulse 81 09/07/22 08:00 Resp 18 09/07/22 08:00 BP 103/74 09/07/22 08:00 Pulse Ox 98 09/07/22 08:00 FiO2 Intake & Output 09/06/22 09/07/22 09/07/22 18:59 06:59 18:59 Intake Total 356 540 Output Total 1100 1100 Balance -744 -560 Intake: Oral 356 540 Output: Urine 1100 1100 Other: Voiding Method External Catheter External Catheter External Catheter - Exam GENERAL DESCRIPTION: Middle-aged female lying in bed in no distress RESPIRATORY SYSTEM: Unlabored breathing , decreased breath sounds at bases HEART: S1 S2 regular rate and rhythm , ABDOMEN: Soft , no tenderness EXTREMITIES: Right thigh is currently dressed in OR dressing - Labs CBC & Chem 7: 09/07/22 07:54 09/06/22 10:15 Labs: Abnormal Lab Results - Last 24 Hours (Table) 09/07/22 Range/Units 07:54 WBC 16.1 H (3.8-10.6) k/uL MCHC 29.9 L (31.0-37.0) g/dL Microbiology - Last 24 Hours (Table) 09/04/22 08:30 Gram Stain - Final Thigh - Right Wound Culture - Final 09/02/22 13:10 Blood Culture - Preliminary Blood Assessment and Plan (1) Abscess of right thigh Current Visit: Yes Status: Acute Code(s): L02.415 - CUTANEOUS ABSCESS OF RIGHT LOWER LIMB SNOMED Code(s): 44536663902317565 Plan: 1patient with sepsis in this patient who did have a fever elevated white count symptom predominantly right thigh pain swelling numbness with the patient has been tender to touch likely the source of the sepsis patient abdominal soft medical examination no urinary symptoms no diarrhea and no evidence of pneumonia on the x-ray on admission 2-patient did have CT of the right thigh with evidence of abscess , patient is status post surgical drainage of the abscess and cultures which are currently pending 3Patient is afebrile and the white count is down to 16,000 today with addition of cefepime yesterday that'll be continued and local wound care with a wound VAC discussed with the surgeon who did okay to use a wound VAC Time with Patient: Less than 30
--- NOTE | 2022-09-08 14:40 | P.PN ---
Subjective Progress Note Date: 09/08/22 Principal diagnosis: Right thigh abscess and cellulitis Patient is a 51-year-old female presenting to the hospital on 08/29/2022 concerning for right lower extremity pain, patient was diagnosed with a cellulitis treated with Unasyn did not have improvement subsequently leading to infectious disease consultation patient did have a CT of right thigh concerning for an abscess that was completed on 09/02/2022 evening, patient is status post surgical drainage of the right thigh abscess on 09/04/2022 On today's evaluation that is 09/08/2022, the patient denies any fever or rigors, the patient pain to the right thigh area has improved, the patient denies having any chest pain shortness of breath or cough no nausea no vomiting no abdominal pain or diarrhea with antibiotic therapy Objective - Vital Signs Vital signs: Vital Signs Temp 98.8 F 09/08/22 08:00 Pulse 111 H 09/08/22 08:00 Resp 18 09/08/22 08:00 BP 110/66 09/08/22 08:00 Pulse Ox 97 09/08/22 09:28 FiO2 Intake & Output 09/07/22 09/08/22 09/08/22 18:59 06:59 18:59 Intake Total 120 Output Total 132 950 6652 Balance -950 -950 -1080 Weight 200 kg Intake: Oral 120 Output: Urine 319 820 8929 Other: Voiding Method External Catheter External Catheter External Catheter - Exam GENERAL DESCRIPTION: Middle-aged female lying in bed in no distress RESPIRATORY SYSTEM: Unlabored breathing , decreased breath sounds at bases HEART: S1 S2 regular rate and rhythm , ABDOMEN: Soft , no tenderness EXTREMITIES: Right thigh is currently dressed no drainage on the dressing - Labs CBC & Chem 7: 09/07/22 07:54 09/06/22 10:15 Labs: Microbiology - Last 24 Hours (Table) 09/02/22 13:10 Blood Culture - Final Blood Assessment and Plan (1) Abscess of right thigh Current Visit: Yes Status: Acute Code(s): L02.415 - CUTANEOUS ABSCESS OF RIGHT LOWER LIMB SNOMED Code(s): 46839847794162134 Plan: 1patient with sepsis in this patient who did have a fever elevated white count symptom predominantly right thigh pain swelling numbness with the patient has been tender to touch likely the source of the sepsis patient abdominal soft medical examination no urinary symptoms no diarrhea and no evidence of pneumonia on the x-ray on admission 2-patient did have CT of the right thigh with evidence of abscess , patient is status post surgical drainage of the abscess and cultures which are currently pending 3Patient is afebrile and the white count is down to 16,000 as of yesterday no CBC was in today 4-plan is to continue cefepime 2 g every 8 hours 10 days on discharge and local wound care with a wound VAC to the right thigh with the black foam continues pressure of 125 mmHg to change Monday and close outpatient follow-up Time with Patient: Less than 30
--- NOTE | 2022-09-08 15:10 | P.PN ---
Subjective Progress Note Date: 09/08/22 CHIEF COMPLAINT: Right thigh abscess HISTORY OF PRESENT ILLNESS: Patient is postop day #4 status post incision and drainage of right thigh abscess. Patient's pain is controlled. Denies any nausea or vomiting. Afebrile. Wound culture shows no growth PHYSICAL EXAM: VITAL SIGNS: Reviewed. GENERAL: Well-developed in no acute distress. ABDOMEN: Soft. Nondistended. Nontender. NEUROLOGIC: Alert and oriented. Cranial nerves II through XII grossly intact. Extremities: Right thigh Aquacel silver packing in place with serosanguineous drainage. No erythema. Lateral aspect of the right thigh with swelling. Union drain in place. ASSESSMENT: 1. Right thigh abscess status post incision and drainage PLAN: -Patient can be discharged from surgical standpoint -OK for wound VAC placement -Continue local wound care -Discharge antibiotics per ID service -Continue Union drain upon discharge -Follow up in office with Dr. Medeiros in 1 week Physician Project Controller note has been reviewed by physician. Signing provider agrees with the documented findings, assessment, and plan of care. Objective - Vital Signs Vital signs: Vital Signs Temp 98.8 F 09/08/22 08:00 Pulse 111 H 09/08/22 08:00 Resp 18 09/08/22 08:00 BP 110/66 09/08/22 08:00 Pulse Ox 97 09/08/22 09:28 FiO2 Intake & Output 09/07/22 09/08/22 09/08/22 18:59 06:59 18:59 Intake Total 120 Output Total 066 219 8362 Balance -950 -950 -1080 Weight 200 kg Intake: Oral 120 Output: Urine 501 242 7761 Other: Voiding Method External Catheter External Catheter External Catheter - Labs CBC & Chem 7: 09/07/22 07:54 09/06/22 10:15 Labs: Microbiology - Last 24 Hours (Table) 09/02/22 13:10 Blood Culture - Final Blood 09/04/22 08:30 Gram Stain - Final Thigh - Right Wound Culture - Final
[2022-09-08 17:23] VITALS: RESP 18
[2022-09-08] MEDS: METOPROLOL SUCCINATE (ER) 50 MG TAB.ER.24H PO SCH (20:34)
[2022-09-08] MEDS: GABAPENTIN 300 MG CAP PO SCH (20:34)
[2022-09-08] MEDS: ZONISAMIDE 100 MG CAP PO SCH (21:48)
[2022-09-08] MEDS: MORPHINE SULFATE 4 MG/ML SYRINGE IV PRN (21:49)
[2022-09-09] MEDS: HYDROcodone/APAP 5-325MG 1 EACH TAB PO PRN ×2 (00:59→09:00)
[2022-09-09] MEDS: CEFEPIME 2 GM in SODIUM CHLORIDE 0.9% 100 ML IVPB SCH ×2 (03:53→08:52)
[2022-09-09] MEDS: PANTOPRAZOLE 40 MG/10 ML VIAL IV SCH (08:52)
[2022-09-09] MEDS: hydrOXYzine HCL 25 MG TAB PO SCH (08:52)
[2022-09-09] MEDS: OXYBUTYNIN 15 MG TAB.ER.24 PO SCH (08:52)
[2022-09-09] MEDS: APIXABAN 5 MG TAB PO SCH (08:53)
[2022-09-09] MEDS: DILTIAZEM ORAL 30 MG TAB PO SCH ×2 (08:53→16:14)
[2022-09-09] MEDS: METOPROLOL SUCCINATE (ER) 100 MG TAB.ER.24H PO SCH (08:53)
[2022-09-09] MEDS: AMIODARONE 200 MG TAB PO SCH (08:53)
[2022-09-09] MEDS: NYSTATIN 100,000 UNIT/GM POWD 15 GM TOPICAL SCH (09:01)
--- NOTE | 2022-09-09 10:00 | P.PN ---
Progress Note - Text Progress Note Date: 09/09/22 The patient remains stable. Her thigh wound appears stable. She is stable for discharge to [facility].
--- NOTE | 2022-09-09 12:32 | P.PN ---
Subjective Progress Note Date: 09/09/22 Principal diagnosis: Right thigh abscess and cellulitis Patient is a 51-year-old female presenting to the hospital on 08/29/2022 concerning for right lower extremity pain, patient was diagnosed with a cellulitis treated with Unasyn did not have improvement subsequently leading to infectious disease consultation patient did have a CT of right thigh concerning for an abscess that was completed on 09/02/2022 evening, patient is status post surgical drainage of the right thigh abscess on 09/04/2022 On today's evaluation that is 09/09/2022, the patient remains to be afebrile, the patient pain to the right thigh area is controlled with the current pain medication, the patient denies having any chest pain shortness of breath or cough no nausea no vomiting no abdominal pain or diarrhea with antibiotic therapy Objective - Vital Signs Vital signs: Vital Signs Temp 98.2 F 09/09/22 08:00 Pulse 115 H 09/09/22 08:00 Resp 18 09/09/22 08:00 BP 89/61 09/09/22 08:00 Pulse Ox 96 09/09/22 08:00 FiO2 Intake & Output 09/08/22 09/09/22 09/09/22 18:59 06:59 18:59 Intake Total 360 960 360 Output Total 3200 2200 Balance -2840 -1240 360 Intake: Oral 360 960 360 Output: Urine 3200 2200 Other: Voiding Method External Catheter External Catheter External Catheter - Exam GENERAL DESCRIPTION: Middle-aged female lying in bed in no distress RESPIRATORY SYSTEM: Unlabored breathing , decreased breath sounds at bases HEART: S1 S2 regular rate and rhythm , ABDOMEN: Soft , no tenderness EXTREMITIES: Right thigh is currently dressed no drainage on the dressing - Labs CBC & Chem 7: 09/07/22 07:54 09/06/22 10:15 Labs: Microbiology - Last 24 Hours (Table) 09/02/22 13:10 Blood Culture - Final Blood Assessment and Plan (1) Abscess of right thigh Current Visit: Yes Status: Acute Code(s): L02.415 - CUTANEOUS ABSCESS OF RIGHT LOWER LIMB SNOMED Code(s): 05655061181592573 (2) Sepsis Current Visit: Yes Status: Acute Code(s): A41.9 - SEPSIS, UNSPECIFIED ORGANISM SNOMED Code(s): 48986026 Plan: 1patient with sepsis in this patient who did have a fever elevated white count symptom predominantly right thigh pain swelling numbness with evidence of abscess on a CT of the right thigh status post surgical drainage culture had been negative the patient white count responded to cefepime and plan is to continue the patient on cefepime for 10 days local wound care with a wound VAC and a close outpatient follow-up questions Answered Time with Patient: Less than 30
--- NOTE | 2022-09-09 13:01 | P.DS ---
Providers Date of admission: 08/29/22 23:39 Expected date of discharge: 09/09/22 Attending physician: Quin Bustos MD Consults: 08/29/22 23:38 Consult Physician Routine Consulting Provider: Rosmery Knutson Consult Reason/Comments: A. fib with RVR Do you want consulting provider notified?: Yes 09/02/22 13:07 Consult Physician Routine Consulting Provider: Gabe Casper Consult Reason/Comments: sepsis Do you want consulting provider notified?: Yes 09/04/22 10:12 Consult Physician Routine Consulting Provider: Thaddeus Medeiros Consult Reason/Comments: abscess Do you want consulting provider notified?: Already Contacted Primary care physician: Joseph Barillas MD Hospital Course: 51-year-old female with a PMH of Vinh-en-Y bariatric surgery, morbid obesity, anxiety, and panic disorder who presents to the emergency room with complaints of right leg pain. Laboratory evaluation was remarkable for leukocytosis of 18.5, CO2 31, lactic acid 1.4, and albumin 3.2. Right lower extremity venous did not show evidence of DVT. Chest x-ray was unremarkable. Knee x-ray was unremarkable. EKG had revealed A. fib with RVR at [address] segment changes noted. Laboratory evaluation was remarkable for leukocytosis of 18.5, CO2 31, lactic acid 1.4, and albumin 3.2. Patient was admitted to the hospital and started on cardizem gtt, heparin gtt, and had cardiology evaluation. She underwent echocardiogram, showed normal EF. Regarding cellulitis, she was started on unasyn. However, blood culture gram stain showed GPCs in clusters and was broadened to vancomycin. Blood cultures resulted in coagulase negative staph, likely contaminant. Patient was placed back on IV Unasyn. She continued to have persistent fevers. ID consulted. Right lower extremity CT showed subcutaneous fluid collection in the anterior distal thigh measuring 9.3 x 3.9 x 4.5 cm, potentially an abscess. ID placed patient back on vancomycin. Surgery consulted. Patient is now status post I&D on 09/04. Cardiology started the patient on Amiodarone and increased her Metoprolol. Heparin drip was switched to Eliquis. Wound culture came back negative. Repeat blood culture came back negative. 09/05 Patient was seen and examined. Tmax 99.6F over the past 24H. CBC shows leukocytosis of 20.1 with neutrophilia. BMP shows potassium of 5.5 and bicarb of 32 with glucose 180 and calcium of 8.2. Patient reports well-controlled pain in her right thigh. She has no complaints today. 09/06 Patient was seen and examined. Afebrile over the past 24H. BMP shows bicarb of 31 and BUN of 18 with glucose of 122 and Ca of 7.9. She has no complaints today. CBC pending at the time of this note. 09/07 Patient was seen and examined. She reports well controlled pain in her right thigh. CBC shows WBC count of 16.1. 09/08 Patient was seen and examined. Wound culture and repeat blood culture negative. Midline obtained yesterday. Case discussed with Dr. Casper who recommends 10 days of Cefepime and wound vac. Discussed with Lawanda RAMIREZ who agreed to the wound vac. 09/09 Patient was seen and examined. Patient reports no complaints today. Discharge held yesterday because SNF was unable to get a bariatric bed. Plans for discharge to SNF today. Pertinent studies include venous Doppler, echocardiogram, lower extremity CT, knee x-ray, chest x-ray. Pertinent procedures include I&D of right thigh abscess. General: non toxic, no distress, appears at stated age, morbidly obese Derm: warm, dry Head: atraumatic, normocephalic, symmetric Eyes: EOMI, no lid lag, anicteric sclera Cardiovascular: good distal perfusion in all 4 extremities Lungs: no accessory muscle use Ext: no gross muscle atrophy, no edema, no contractures, right thigh dressing clean dry and intact Neuro: no focal neuro deficits Psych: Alert, oriented, appropriate affect Discharge diagnosis: Sepsis secondary to right lower extremity abscess and cellulitis status post I&D 09/04, wound culture negative Paroxysmal A. fib with RVR Coag negative staph bacteremia, likely contaminant, repeat blood culture negative Resolved: HyperK This complex discharge took 35 minutes to complete. Patient Condition at Discharge: Stable Plan - Discharge Summary Discharge Rx Participant: Yes New Discharge Prescriptions: New Gabapentin [Neurontin] 300 mg PO HS #3 cap Metoprolol Succinate (ER) [Toprol XL] 50 mg PO HS tab Diltiazem Oral [Cardizem*] 30 mg PO TID tab Amiodarone [Cordarone] 200 mg PO BID tab Apixaban [Eliquis] 5 mg PO BID tab Cefepime [Maxipime] 2 gm IVPB Q8H 10 Days each Metoprolol Succinate (ER) [Toprol XL] 100 mg PO DAILY tab Continue Zonisamide [Zonegran] 200 mg PO HS Oxybutynin Chloride [oxyBUTYnin chloride ER] 15 mg PO DAILY Butalb/APAP/Caff 50-325-40Mg [Fioricet 50-325-40] 1 tab PO Q4H PRN PRN Reason: Migraine Headache HYDROcodone/APAP 5-325MG [Cordova 5-325] 1 tab PO BID PRN #6 tab PRN Reason: Breakthrough Pain hydrOXYzine HCL [Atarax] 25 mg PO DAILY Montelukast [Singulair] 10 mg PO DAILY Morphine Pain Pump 1 dose INTRATHECA CONTINUOUS Nystatin [Nystop] 1 applic TOPICAL BID PRN PRN Reason: Skin Irritation Discontinued Gabapentin 800 mg PO DAILY Metoprolol Succinate (ER) [Toprol XL] 50 mg PO BID Discharge Medication List Zonisamide [Zonegran] 200 mg PO HS 09/11/13 [History] Montelukast [Singulair] 10 mg PO DAILY 03/08/22 [History] Morphine Pain Pump 1 dose INTRATHECA CONTINUOUS 03/08/22 [History] Oxybutynin Chloride [oxyBUTYnin chloride ER] 15 mg PO DAILY 03/08/22 [History] hydrOXYzine HCL [Atarax] 25 mg PO DAILY 03/08/22 [History] Butalb/APAP/Caff 50-325-40Mg [Fioricet 50-325-40] 1 tab PO Q4H PRN 08/29/22 [History] Nystatin [Nystop] 1 applic TOPICAL BID PRN 08/29/22 [History] Amiodarone [Cordarone] 200 mg PO BID tab 09/08/22 [Rx] Apixaban [Eliquis] 5 mg PO BID tab 09/08/22 [Rx] Cefepime [Maxipime] 2 gm IVPB Q8H 10 Days each 09/08/22 [Rx] Diltiazem Oral [Cardizem*] 30 mg PO TID tab 09/08/22 [Rx] Gabapentin [Neurontin] 300 mg PO HS #3 cap 09/08/22 [Rx] HYDROcodone/APAP 5-325MG [C[place] 5-325] 1 tab PO BID PRN #6 tab 09/08/22 [Rx] Metoprolol Succinate (ER) [Toprol XL] 50 mg PO HS tab 09/08/22 [Rx] Metoprolol Succinate (ER) [Toprol XL] 100 mg PO DAILY tab 09/08/22 [Rx] Follow up Appointment(s)/Referral(s): Thaddeus Medeiros MD [Medical Doctor] - 1 Week Radha Epps MD [REFERRING] - 1-2 days Gabe Casper MD [STAFF PHYSICIAN] - 1 Week Kei Kaplan MD [STAFF PHYSICIAN] - 2 Weeks Activity/Diet/Wound Care/Special Instructions: Diet: Regular Continue Cefepime IV for the next 10 days along with wound vac. Follow up with your PCP within 1-2 days of discharge. Follow up with Infectious disease and Cardiology within 1 week of discharge. Take all medications as advised. Local wound care to the right thigh wound with a wound VAC black foam continuous pressure of 1 25 mmHg change Monday Discharge Disposition: TRANSFER TO SNF/ECF
[2022-09-09] MEDS: MORPHINE SULFATE 4 MG/ML SYRINGE IV PRN ×2 (13:44→17:55)
[2022-09-09 21:13] VITALS: BP 113/66; PULSE 98; TEMP 98
== END 2022-09-09 21:09 | DRG 872 ==
LOC: EC 19:40 → 3SCARD 23:39
PROVIDERS: ADMIT Internal Medicine; ATTEND Internal Medicine
PROC: 0Y9C00Z Drainage of Right Upper Leg with Drainage Device, Open Approach (ICD-10-PCS; principal; 2022-09-04 08:00)
DX: A41.9 Sepsis, unspecified organism (principal); I48.19 Other persistent atrial fibrillation; Z68.45 Body mass index [BMI] 70 or greater, adult; L02.415 Cutaneous abscess of right lower limb; L03.115 Cellulitis of right lower limb; I95.2 Hypotension due to drugs; G62.9 Polyneuropathy, unspecified; E66.01 Morbid (severe) obesity due to excess calories; I10 Essential (primary) hypertension; J44.9 Chronic obstructive pulmonary disease, unspecified; F41.0 Panic disorder [episodic paroxysmal anxiety]; E78.5 Hyperlipidemia, unspecified; G89.29 Other chronic pain; T46.1X5A Adverse effect of calcium-channel blockers, initial encounter; E87.5 Hyperkalemia; D72.828 Other elevated white blood cell count; M25.461 Effusion, right knee; Z96.653 Presence of artificial knee joint, bilateral; Z28.310 Unvaccinated for COVID-19; Z98.84 Bariatric surgery status; Z96.82 Presence of neurostimulator; Z79.899 Other long term (current) drug therapy; Z79.891 Long term (current) use of opiate analgesic; Z97.8 Presence of other specified devices
CPT/HCPCS: 36410; 36415; 71045; 76937; 80048; 80053; 80202; 83605; 83735; 84145; 84484; 85025; 85027; 85610; 85730; 86140; 87040; 87070; 87205; 93005; 93306; 94760; 96365; 96366; 96367; 96375; 96376; 99291

== ENCOUNTER 2022-09-21 17:50 | Emergency (ER) | payer MEDICARE ==
[2022-09-21 18:01] VITALS: TEMP 98.7
[2022-09-21 20:26] LABS: Basophils % (A) 0 %; Eosinophils # (A) 0.7 k/uL (0-0.7); Eosinophils % (A) 8 %; HCT 43.9 % (34.0-46.0); HGB 13.4 gm/dL (11.4-16.0); Hypochromasia Marked; Lymphocytes # (A) 1.4 k/uL (1.0-4.8); Lymphocytes % (A) 16 %; MCH 27.9 pg (25.0-35.0); MCHC 30.6 g/dL (31.0-37.0); MCV 91.2 fL (80.0-100.0); Mean Platelet Volume 7.8; Monocytes # (A) 0.4 k/uL (0-1.0); Monocytes % (A) 5 %; Neutrophils # (A) 5.8 k/uL (1.3-7.7); Neutrophils % (A) 69 %; Platelet Count 290 k/uL (150-450); RBC 4.81 m/uL (3.80-5.40); RDW 14.1 % (11.5-15.5); WBC 8.3 k/uL (3.8-10.6)
[2022-09-21 20:37] LABS: ALT 14 U/L (4-34); AST 18 U/L (14-36); African American GFR (CKD) >90 (>60 ml/min/1.73 sqM); Albumin 3.4 g/dL (3.5-5.0); Alkaline Phosphatase 176 U/L (38-126); Anion Gap 5 mmol/L; Blood Urea Nitrogen 11 mg/dL (7-17); Calcium 8.9 mg/dL (8.4-10.2); Carbon Dioxide 38 mmol/L (22-30); Chloride 97 mmol/L (98-107); Glucose 113 mg/dL (74-99); Non-African American GFR(CKD) >90 (>60 ml/min/1.73 sqM); Potassium 3.9 mmol/L (3.5-5.1); Sodium 140 mmol/L (137-145); Total Bilirubin 0.6 mg/dL (0.2-1.3); Total Protein 6.7 g/dL (6.3-8.2)
--- NOTE | 2022-09-21 21:29 | ED ---
Wound/Laceration HPI - General Chief Complaint: Wound/Laceration Stated Complaint: wound vac, sepsis Time Seen by Provider: 09/21/22 19:06 Source: EMS Mode of arrival: EMS Limitations: no limitations - History of Present Illness Initial Comments: Patient is a 52-year-old female presenting from correction with concerns for cellulitis. Patient has a red and warm region on the right lower back which has been weeping some serosanguineous fluid. At this time the wound is not weeping. There is no open wound or abrasion. No purulent discharge. No fevers or chills. No nausea or vomiting. No abdominal pain. Patient is currently at correction while she receives IV cefepime after incision and drainage of an abscess to the right thigh. She reports this wound has been healing well and is currently on a wound VAC. - Related Data Home Medications Medication Instructions Recorded Confirmed Zonisamide [Zonegran] 200 mg PO HS 09/11/13 08/29/22 Montelukast [Singulair] 10 mg PO DAILY 03/08/22 08/29/22 Morphine Pain Pump 1 dose INTRATHECA CONTINUOUS 03/08/22 08/29/22 Oxybutynin Chloride [oxyBUTYnin 15 mg PO DAILY 03/08/22 08/29/22 chloride ER] hydrOXYzine HCL [Atarax] 25 mg PO DAILY 03/08/22 08/29/22 Butalb/APAP/Caff 50-325-40Mg 1 tab PO Q4H PRN 08/29/22 08/29/22 [Fioricet 50-325-40] Nystatin [Nystop] 1 applic TOPICAL BID PRN 08/29/22 08/29/22 Previous Rx's Medication Instructions Recorded Amiodarone [Cordarone] 200 mg PO BID tab 09/08/22 Apixaban [Eliquis] 5 mg PO BID tab 09/08/22 Cefepime [Maxipime] 2 gm IVPB Q8H 10 Days each 09/08/22 Diltiazem Oral [Cardizem*] 30 mg PO TID tab 09/08/22 Gabapentin [Neurontin] 300 mg PO HS #3 cap 09/08/22 HYDROcodone/APAP 5-325MG [[place] 1 tab PO BID PRN #6 tab 09/08/22 5-325] Metoprolol Succinate (ER) [Toprol 50 mg PO HS tab 09/08/22 XL] Metoprolol Succinate (ER) [Toprol 100 mg PO DAILY tab 09/08/22 XL] Clotrimazole/Betameth Cream 1 applic TOPICAL BID #45 gm 09/21/22 [Lotrisone] Allergies Allergy/AdvReac Type Severity Reaction Status Date / Time No Known Allergies Allergy Verified 09/21/22 18:01 Review of Systems ROS Statement: Those systems with pertinent positive or pertinent negative responses have been documented in the HPI. ROS Other: All systems not noted in ROS Statement are negative. Past Medical History Past Medical History: Atrial Fibrillation, Hyperlipidemia, Hypertension, Musculoskeletal Disorder, Osteoarthritis (OA) Additional Past Medical History / Comment(s): NEUROPATHY, CARPEL TUNNEL, BACK NECK AND KNEE PAIN, MIGRAINES. "Raspy voice last few days." "Oxygen 2.5L per nasal cannula." History of Any Multi-Drug Resistant Organisms: None Reported Past Surgical History: Bariatric Surgery, Section, Hysterectomy, Joint Replacement, Orthopedic Surgery, Tubal Ligation Additional Past Surgical History / Comment(s): GASTRIC BYPASS, SPINAL CORD STIMULATOR, bilateral knee replacements, right knee arthroscopy. Past Anesthesia/Blood Transfusion Reactions: No Reported Reaction Past Psychological History: Anxiety Smoking Status: Never smoker Past Alcohol Use History: None Reported Past Drug Use History: None Reported - Past Family History Mother Family Medical History: Cancer General Exam Limitations: no limitations General appearance: alert, in no apparent distress Head exam: Present: atraumatic, normocephalic, normal inspection Eye exam: Present: normal appearance, EOMI. Absent: scleral icterus, periorbital swelling Neck exam: Present: normal inspection, full ROM Respiratory exam: Present: normal lung sounds bilaterally. Absent: respiratory distress, wheezes, rales, rhonchi, stridor Cardiovascular Exam: Present: regular rate, normal rhythm, normal heart sounds. Absent: systolic murmur, diastolic murmur, rubs, gallop, clicks Neurological exam: Present: alert, oriented X3, CN II-XII intact Psychiatric exam: Present: normal affect, normal mood Skin exam: Present: erythema (erythema over intact skin with no drainage on the R lower back) Course Vital Signs 09/21/22 09/21/22 09/21/22 17:56 17:58 18:00 Temperature 98.7 F Pulse Rate 98 Respiratory 18 Rate Blood Pressure 119/67 119/67 O2 Sat by Pulse 97 96 96 Oximetry 09/21/22 09/21/22 09/21/22 18:10 18:20 18:30 Temperature Pulse Rate Respiratory Rate Blood Pressure 124/65 O2 Sat by Pulse 95 94 L 99 Oximetry 09/21/22 09/21/22 09/21/22 18:40 18:50 19:00 Temperature Pulse Rate Respiratory Rate Blood Pressure 125/79 125/79 125/79 O2 Sat by Pulse 99 99 100 Oximetry 09/21/22 09/21/22 09/21/22 19:10 19:20 19:30 Temperature Pulse Rate Respiratory Rate Blood Pressure 123/76 123/76 123/76 O2 Sat by Pulse 96 99 99 Oximetry 09/21/22 09/21/22 09/21/22 19:40 19:50 20:00 Temperature Pulse Rate 110 H 115 H Respiratory 15 24 Rate Blood Pressure 123/80 123/80 123/80 O2 Sat by Pulse 99 100 97 Oximetry 09/21/22 09/21/22 09/21/22 20:10 20:20 20:30 Temperature Pulse Rate 111 H 92 96 Respiratory 11 L 11 L 11 L Rate Blood Pressure 103/86 103/86 102/83 O2 Sat by Pulse 100 99 99 Oximetry 09/21/22 09/21/22 09/21/22 20:36 20:40 20:50 Temperature Pulse Rate 101 H 87 92 Respiratory 16 9 L 13 Rate Blood Pressure 102/83 100/76 100/76 O2 Sat by Pulse 99 98 99 Oximetry 09/21/22 09/21/22 09/21/22 21:00 21:10 21:20 Temperature Pulse Rate 122 H 98 102 H Respiratory 12 11 L 12 Rate Blood Pressure 100/76 94/82 94/82 O2 Sat by Pulse 96 98 99 Oximetry 09/21/22 09/21/22 09/21/22 21:30 21:40 21:50 Temperature Pulse Rate 101 H 98 112 H Respiratory 14 9 L 12 Rate Blood Pressure 94/82 119/84 119/84 O2 Sat by Pulse 100 99 100 Oximetry 09/21/22 21:59 Temperature Pulse Rate 105 H Respiratory 20 Rate Blood Pressure 119/60 O2 Sat by Pulse 100 Oximetry Medical Decision Making - Medical Decision Making Was pt. sent in by a medical professional or institution (KAREEM Carroll, DIRECTOR PHYSICAL THERAPY, urgent c are, hospital, or correction...) When possible be specific @ -senior care Did you speak to anyone other than the patient for history (EMS, parent, family, police, friend...)? What history was obtained from this source @ -No Did you review nursing and triage notes (agree or disagree)? Why? @ -I reviewed and agree with nursing and triage notes Were old charts reviewed (outside hosp., previous admission, EMS record, old EKG, old radiological studies, urgent care reports/EKG's, correction records)? Report findings @ -No old charts were reviewed Differential Diagnosis (chest pain, altered mental status, abdominal pain women, abdominal pain men, vaginal bleeding, weakness, fever, dyspnea, syncope, headache, dizziness, GI bleed, back pain, seizure, CVA, palpatations, mental health, musculoskeletal)? @ -Differential includes cellulitis, fungal infection, skin breakdown, ALLERGIC reaction, this is not an all inclusive list EKG interpreted by me (3pts min.). @ -As above X-rays interpreted by me (1pt min.). @ -None done CT interpreted by me (1pt min.). @ -None done U/S interpreted by me (1pt. min.). @ -None done What testing was considered but not performed or refused? (CT, X-rays, U/S, labs)? Why? @ -None What meds were considered but not given or refused? Why? @ -None Did you discuss the management of the patient with other professionals (professionals i.e. KAREEM Carroll, DIRECTOR PHYSICAL THERAPY, lab, RT, psych nurse, social service technician, adjunct instructor in economics, teacher, airfield engineer officer, case making machine operator)? Give summary @ -No Was smoking cessation discussed for >3mins.? @ -No Was critical care preformed (if so, how long)? @ -No Were there social determinants of health that impacted care today? How? (Homelessness, low income, unemployed, alcoholism, drug addiction, transportation, low edu. Level, literacy, decrease access to med. care, [facility], rehab)? @ -No Was there de-escalation of care discussed even if they declined (Discuss DNR or withdrawal of care, Hospice)? DNR status @ -No What co-morbidities impacted this encounter? (DM, HTN, Smoking, COPD, CAD, Cancer, CVA, ARF, Chemo, Hep., AIDS, mental health diagnosis, sleep apnea, morbid obesity)? @ -None Was patient admitted / discharged? Hospital course, mention meds given and route, prescriptions, significant lab abnormalities, going to OR and other pertinent info. @ -52-year-old female sent in from correction for area of redness and irritation to the right lower back. Patient is currently in a correction receiving IV cefepime after incision and drainage of abscess to the right upper thigh with wound VAC in place. On physical examination there is erythema and tenderness with no discharge noted. Patient is afebrile and nontoxic appearing. Lab work shows no leukocytosis. We will treat conservatively with topical clotrimazole betamethasone cream at this time. Follow-up with PCP. Report back to ER with any new or worsening symptoms. Discussed return parameters and answered all questions. Patient conveyed verbal understanding and agreed to the plan. I discussed this case in detail with my attending Dr. Sood Undiagnosed new problem with uncertain prognosis? @ -No Drug Therapy requiring intensive monitoring for toxicity (Heparin, Nitro, Insulin, Cardizem)? @ -No Were any procedures done? @ -No Diagnosis/symptom? @ -Soft tissue inflammation Acute, or Chronic, or Acute on Chronic? @ -Acute Uncomplicated (without systemic symptoms) or Complicated (systemic symptoms)? @ -Uncomplicated Side effects of treatment? @ -No Exacerbation, Progression, or Severe Exacerbation? @ -No Poses a threat to life or bodily function? How? (Chest pain, [place], [place], pneumonia, PE, COPD, DKA, ARF, appy, cholecystitis, CVA, Diverticulitis, Homicidal, [place] icidal, threat to staff... and all critical care pts) @ -No - Lab Data Result diagrams: 09/21/22 20:13 09/21/22 20:13 Lab Results 09/21/22 09/21/22 09/21/22 Range/Units 20:13 20:13 20:13 WBC 8.3 (3.8-10.6) k/uL RBC 4.81 (3.80-5.40) m/uL Hgb 13.4 (11.4-16.0) gm/dL Hct 43.9 (34.0-46.0) % MCV 91.2 (80.0-100.0) fL MCH 27.9 (25.0-35.0) pg MCHC 30.6 L (31.0-37.0) g/dL RDW 14.1 (11.5-15.5) % Plt Count 290 (150-450) k/uL MPV 7.8 Neutrophils % 69 % Lymphocytes % 16 % Monocytes % 5 % Eosinophils % 8 % Basophils % 0 % Neutrophils # 5.8 (1.3-7.7) k/uL Lymphocytes # 1.4 (1.0-4.8) k/uL Monocytes # 0.4 (0-1.0) k/uL Eosinophils # 0.7 (0-0.7) k/uL Basophils # 0.0 (0-0.2) k/uL Hypochromasia Marked Sodium 140 (137-145) mmol/L Potassium 3.9 (3.5-5.1) mmol/L Chloride 97 L (98-107) mmol/L Carbon Dioxide 38 H (22-30) mmol/L Anion Gap 5 mmol/L BUN 11 (7-17) mg/dL Creatinine 0.67 (0.52-1.04) mg/dL Est GFR (CKD-EPI)AfAm >90 (>60 ml/min/1.73 sqM) Est GFR (CKD-EPI)NonAf >90 (>60 ml/min/1.73 sqM) Glucose 113 H (74-99) mg/dL Plasma Lactic Acid Narinder 0.7 (0.7-2.0) mmol/L Calcium 8.9 (8.4-10.2) mg/dL Total Bilirubin 0.6 (0.2-1.3) mg/dL AST 18 (14-36) U/L ALT 14 (4-34) U/L Alkaline Phosphatase 176 H (38-126) U/L Total Protein 6.7 (6.3-8.2) g/dL Albumin 3.4 L (3.5-5.0) g/dL Disposition Clinical Impression: Inflammation of soft tissue Disposition: HOME SELF-CARE Condition: Good Additional Instructions: Follow-up with PCP. Report back to ER with any new or worsening symptoms. Apply topical cream twice daily. Prescriptions: Clotrimazole/Betameth Cream [Lotrisone] 1 applic TOPICAL BID #45 gm Is patient prescribed a controlled substance at d/c from ED?: No Referrals: Joseph Barillas MD [Primary Care Provider] - 1-2 days Time of Disposition: 21:29
[2022-09-21 21:59] VITALS: BP 119/60; PULSE 105; RESP 20
== END 2022-09-21 22:13 | disposition home or self-care (01) ==
LOC: SUPCPDRO 17:50 → EC 17:50
DX: M79.9 Soft tissue disorder, unspecified (principal); I48.91 Unspecified atrial fibrillation; I10 Essential (primary) hypertension; M19.90 Unspecified osteoarthritis, unspecified site; F41.9 Anxiety disorder, unspecified; Z79.899 Other long term (current) drug therapy
CPT/HCPCS: 36415; 80053; 83605; 85025; 99284

== ENCOUNTER 2023-10-10 14:25 | Observation (INO) | payer MEDICARE ==
[2023-10-10 15:43] LABS: ALT 10 U/L (4-34); African American GFR (CKD) >90 (>60 ml/min/1.73 sqM); Albumin 3.7 g/dL (3.5-5.0); Anion Gap 1 mmol/L; Blood Urea Nitrogen 11 mg/dL (7-17); Calcium 8.6 mg/dL (8.4-10.2); Carbon Dioxide 36 mmol/L (22-30); Chloride 101 mmol/L (98-107); Glucose 110 mg/dL (74-99); Non-African American GFR(CKD) >90 (>60 ml/min/1.73 sqM); Sodium 138 mmol/L (137-145); Total Bilirubin 0.8 mg/dL (0.2-1.3); Total Protein 6.5 g/dL (6.3-8.2)
--- NOTE | 2023-10-10 15:46 | XR ---
EXAMINATION TYPE: XR chest 1V portable DATE OF EXAM: 10/10/2023 HISTORY: Shortness of breath. COMPARISON: 08/29/2022 TECHNIQUE: Single view of the chest is submitted. FINDINGS: Demonstrated are scattered senescent parenchymal change. There is no evidence for focal infiltrate. The heart is stable. Pulmonary venous congestion with Perihilar infiltrates which may reflect early pulmonary edema. Infiltrates of other etiology not excluded. Correlate clinically and progress studi es are advised. Hilar and mediastinal structures are within normal limits. Degenerative changes are seen of the dorsal spine. IMPRESSION: 1. Pulmonary venous congestion with Perihilar infiltrates which may reflect early pulmonary edema. Infiltrates of other etiology not excluded. Correlate clinically and progress studies are advised.
[2023-10-10 15:52] LABS: NT-Pro-B-Type Natriuretic Pept 2250 pg/mL
[2023-10-10 16:02] LABS: Partial Thromboplastin Time 26.2 sec (22.0-30.0); Prothrombin Time 10.8 sec (10.0-12.5)
[2023-10-10 16:04] LABS: AST 23 U/L (14-36); Alkaline Phosphatase 128 U/L (38-126); Magnesium 1.7 mg/dL (1.6-2.3); Potassium 4.3 mmol/L (3.5-5.1)
[2023-10-10 16:34] LABS: Anisocytosis Slight; Basophils % (A) 0 %; Eosinophils # (A) 0.3 k/uL (0-0.7); Eosinophils % (A) 3 %; HCT 38.6 % (34.0-46.0); HGB 11.4 gm/dL (11.4-16.0); Hypochromasia Marked; Lymphocytes # (A) 0.7 k/uL (1.0-4.8); Lymphocytes % (A) 7 %; MCH 25.4 pg (25.0-35.0); MCHC 29.6 g/dL (31.0-37.0); MCV 85.9 fL (80.0-100.0); Mean Platelet Volume 9.7; Monocytes # (A) 0.7 k/uL (0-1.0); Monocytes % (A) 7 %; Neutrophils # (A) 8.2 k/uL (1.3-7.7); Neutrophils % (A) 82 %; Platelet Count 131 k/uL (150-450); RBC 4.49 m/uL (3.80-5.40); RDW 16.3 % (11.5-15.5)
[2023-10-10] MEDS: FUROSEMIDE 10 MG/ML 4 ML VIAL IV STA (17:09)
--- NOTE | 2023-10-10 17:25 | ED ---
General Adult HPI - General Chief complaint: Shortness of Breath Stated complaint: SOB,Raising pulse Time Seen by Provider: 10/10/23 14:32 Source: patient, RN notes reviewed, old records reviewed Mode of arrival: wheelchair Limitations: no limitations - History of Present Illness Initial comments: 53-year-old female presents for evaluation of increased dyspnea, lower extremity edema. Patient has history of congestive heart failure. She was seen by her primary care provider and was sent to the emergency department with concerns for worsening CHF. The patient denies central chest pain. Denies cough or fever. She is on supplemental oxygen at baseline 2-1/2 L normally. - Related Data Home Medications Medication Instructions Recorded Confirmed Zonisamide [Zonegran] 200 mg PO HS 09/11/13 10/10/23 Oxybutynin Chloride [oxyBUTYnin 15 mg PO DAILY 03/08/22 10/10/23 chloride ER] Albuterol Inhaler [Ventolin Hfa 2 puff INHALATION RT-Q6H PRN 10/10/23 10/10/23 Inhaler] Ammonium Lactate Cream [Lac-Hydrin 1 applic TOPICAL BID 10/10/23 10/10/23 12% Cream] Butalb/Acetaminophen/Caffeine 1 cap PO Q4H PRN 10/10/23 10/10/23 [Fioricet 50-300-40 mg Capsule] Cholecalciferol (Vitamin D3) 125 mcg PO DAILY 10/10/23 10/10/23 [Vitamin D3 (125 MCG = 5,000 IU)] Diltiazem Oral [Cardizem*] 30 mg PO Q8H 10/10/23 10/10/23 Folate 666 Mcg Dfe (Folic Acid 400 666 mcg PO DAILY 10/10/23 10/10/23 Mcg) Tablets Furosemide [Lasix] 80 mg PO DAILY 10/10/23 10/10/23 HYDROcodone/APAP 7.5-325MG [[place] 1 tab PO TID PRN 10/10/23 10/10/23 7.5-325] Ipratropium-Albuterol Nebulize 3 ml INHALATION RT-QID PRN 10/10/23 10/10/23 [Duoneb 0.5 mg-3 mg/3 ml Soln] Nystatin 100,000 Unit/gm Powd 1 applic TOPICAL BID 10/10/23 10/10/23 [Mycostatin Powder] Patient Own Pump 0 bag 10/10/23 Silver Sulfadiazine [SSD 1% Cream] 1 applic TOPICAL DAILY PRN 10/10/23 10/10/23 Thyroid,Pork [Roving Hand Thyroid] 15 mg PO DAILY 10/10/23 10/10/23 hydrOXYzine HCL [Atarax] 50 - 100 mg PO Q6H PRN 10/10/23 10/10/23 Previous Rx's Medication Instructions Recorded Metoprolol Succinate (ER) [Toprol 50 mg PO HS tab 09/08/22 XL] Allergies Allergy/AdvReac Type Severity Reaction Status Date / Time No Known Allergies Allergy Verified 10/10/23 15:26 Review of Systems ROS Statement: Those systems with pertinent positive or pertinent negative responses have been documented in the HPI. ROS Other: All systems not noted in ROS Statement are negative. Past Medical History Past Medical History: Atrial Fibrillation, Hyperlipidemia, Hypertension, Musculoskeletal Disorder, Osteoarthritis (OA) Additional Past Medical History / Comment(s): NEUROPATHY, CARPEL TUNNEL, BACK NECK AND KNEE PAIN, MIGRAINES. "Raspy voice last few days." "Oxygen 2.5L per nasal cannula." History of Any Multi-Drug Resistant Organisms: None Reported Past Surgical History: Bariatric Surgery, Section, Hysterectomy, Joint Replacement, Orthopedic Surgery, Tubal Ligation Additional Past Surgical History / Comment(s): GASTRIC BYPASS, SPINAL CORD STIMU LATOR, bilateral knee replacements, right knee arthroscopy. Past Anesthesia/Blood Transfusion Reactions: No Reported Reaction Past Psychological History: Anxiety Smoking Status: Never smoker Past Alcohol Use History: None Reported Past Drug Use History: None Reported - Past Family History Mother Family Medical History: Cancer General Exam Limitations: no limitations General appearance: alert, in no apparent distress Head exam: Present: atraumatic, normocephalic Eye exam: Present: normal appearance, PERRL ENT exam: Present: normal exam Neck exam: Present: normal inspection. Absent: tenderness, meningismus Respiratory exam: Present: rales, decreased breath sounds. Absent: respiratory distress Cardiovascular Exam: Present: tachycardia, irregular rhythm GI/Abdominal exam: Present: soft. Absent: distended, tenderness, guarding, rebound Extremities exam: Present: pedal edema, other (chronic venous stasis) Neurological exam: Present: alert, oriented X3 Psychiatric exam: Present: normal affect, normal mood Skin exam: Present: warm, dry Course Vital Signs 10/10/23 10/10/23 10/10/23 14:26 15:00 16:00 Temperature 98.2 F 98.8 F Pulse Rate 106 H 91 Respiratory 18 20 18 Rate Blood Pressure 114/82 123/76 O2 Sat by Pulse 88 L 99 Oximetry 10/10/23 17:13 Temperature Pulse Rate 95 Respiratory 16 Rate Blood Pressure 123/83 O2 Sat by Pulse 96 Oximetry Medical Decision Making - Medical Decision Making Was pt. sent in by a medical professional or institution (, KAREEM, LIQUID NATURAL GAS PLANT OPERATOR, urgent care, hospital, or penitentiary...) When possible be specific @ -No Did you speak to anyone other than the patient for history (EMS, parent, family, police, friend...)? What history was obtained from this source @ -No Did you review nursing and triage notes (agree or disagree)? Why? @ -I reviewed and agree with nursing and triage notes Were old charts reviewed (outside hosp., previous admission, EMS record, old EKG, old radiological studies, urgent care reports/EKG's, penitentiary records)? Report findings @ -No old charts were reviewed Differential Dyspnea: Coronary syndrome, arrhythmia, tamponade, asthma, COPD, pulmonary embolism, pneumonia, pneumothorax, pulmonary effusion, anaphylaxis, diabetic ketoacidosis, flailed chest, pulmonary contusion, diaphragmatic rupture, anemia, neuromuscular, this is not meant to be an all-inclusive list. EKG interpreted by me (3pts min.). @Atrial fibrillation with a rate of 101, QRS duration 94, QTc [address] segment elevation. X-rays interpreted by me (1pt min.). @ -X-ray concerning for pulmonary vascular congestion, CHF CT interpreted by me (1pt min.). @ -None done U/S interpreted by me (1pt. min.). @ -None done What testing was considered but not performed or refused? (CT, X-rays, U/S, labs)? Why? @ -None What meds were considered but not given or refused? Why? @ -None Did you discuss the management of the patient with other professionals (professionals i.e. KAREEM Carroll, LIQUID NATURAL GAS PLANT OPERATOR, lab, RT, psych nurse, social services specialist, dental laboratory worker, teacher, special weapons and tactics officer, porter sample case)? Give summary @ -Dr. Lechuga who will admit Was smoking cessation discussed for >3mins.? @ -No Was critical care preformed (if so, how long)? @ -No Were there social determinants of health that impacted care today? How? (Homelessness, low income, unemployed, alcoholism, drug addiction, transportation, low edu. Level, literacy, decrease access to med. care, snf, rehab)? @ -No Was there de-escalation of care discussed even if they declined (Discuss DNR or withdrawal of care, Hospice)? DNR status @ -No What co-morbidities impacted this encounter? (DM, HTN, Smoking, COPD, CAD, Cancer, CVA, ARF, Chemo, Hep., AIDS, mental health diagnosis, sleep apnea, morbid obesity)? @Obesity, CHF, atrial fibrillation Was patient admitted / discharged? Hospital course, mention meds given and route, prescriptions, significant lab abnormalities, going to OR and other pertinent info. @ -53-year-old female presenting with increased dyspnea, lower extremity edema, concern for CHF. Chest x-ray does appear congested with pulmonary venous congestion and edema. BNP is elevated. Laboratory testing is otherwise unrem arkable. Patient requiring additional oxygenation. She will be admitted for IV diuresis. Case discussed with Dr. Lechuga who will admit Undiagnosed new problem with uncertain prognosis? @ -No Drug Therapy requiring intensive monitoring for toxicity (Heparin, Nitro, Insulin, Cardizem)? @ -No Were any procedures done? @ -No Diagnosis/symptom? @ -[CHF exacerbation Acute, or Chronic, or Acute on Chronic? @ -Acute Uncomplicated (without systemic symptoms) or Complicated (systemic symptoms)? @ -[default Side effects of treatment? @ -No Exacerbation, Progression, or Severe Exacerbation? @ -No Poses a threat to life or bodily function? How? (Chest pain, [place], [place], pneumonia, PE, COPD, DKA, ARF, appy, cholecystitis, CVA, Diverticulitis, Homicidal, Suicidal, threat to staff... and all critical care pts) @ -[yes, CHF - Lab Data Result diagrams: 10/10/23 15:04 10/10/23 15:04 Lab Results 10/10/23 10/10/23 10/10/23 Range/Units 15:04 15:04 15:04 WBC 10.0 (3.8-10.6) k/uL RBC 4.49 (3.80-5.40) m/uL Hgb 11.4 (11.4-16.0) gm/dL Hct 38.6 (34.0-46.0) % MCV 85.9 (80.0-100.0) fL MCH 25.4 (25.0-35.0) pg MCHC 29.6 L (31.0-37.0) g/dL RDW 16.3 H (11.5-15.5) % Plt Count 131 L (150-450) k/uL MPV 9.7 Neutrophils % 82 % Lymphocytes % 7 % Monocytes % 7 % Eosinophils % 3 % Basophils % 0 % Neutrophils # 8.2 H (1.3-7.7) k/uL Lymphocytes # 0.7 L (1.0-4.8) k/uL Monocytes # 0.7 (0-1.0) k/uL Eosinophils # 0.3 (0-0.7) k/uL Basophils # 0.0 (0-0.2) k/uL Hypochromasia Marked Anisocytosis Slight PT 10.8 (10.0-12.5) sec INR 1.0 (<1.2) APTT 26.2 (22.0-30.0) sec Sodium 138 (137-145) mmol/L Potassium 4.3 (3.5-5.1) mmol/L Chloride 101 (98-107) mmol/L Carbon Dioxide 36 H (22-30) mmol/L Anion Gap 1 mmol/L BUN 11 (7-17) mg/dL Creatinine 0.62 (0.52-1.04) mg/dL Est GFR (CKD-EPI)AfAm >90 (>60 ml/min/1.73 sqM) Est GFR (CKD-EPI)NonAf >90 (>60 ml/min/1.73 sqM) Glucose 110 H (74-99) mg/dL Calcium 8.6 (8.4-10.2) mg/dL Magnesium 1.7 (1.6-2.3) mg/dL Total Bilirubin 0.8 (0.2-1.3) mg/dL AST 23 (14-36) U/L ALT 10 (4-34) U/L Alkaline Phosphatase 128 H (38-126) U/L Troponin I (0.000-0.034) ng/mL NT-Pro-B Natriuret Pep 2250 pg/mL Total Protein 6.5 (6.3-8.2) g/dL Albumin 3.7 (3.5-5.0) g/dL 10/10/23 Range/Units 15:04 WBC (3.8-10.6) k/uL RBC (3.80-5.40) m/uL Hgb (11.4-16.0) gm/dL Hct (34.0-46.0) % MCV (80.0-100.0) fL MCH (25.0-35.0) pg MCHC (31.0-37.0) g/dL RDW (11.5-15.5) % Plt Count (150-450) k/uL MPV Neutrophils % % Lymphocytes % % Monocytes % % Eosinophils % % Basophils % % Neutrophils # (1.3-7.7) k/uL Lymphocytes # (1.0-4.8) k/uL Monocytes # (0-1.0) k/uL Eosinophils # (0-0.7) k/uL Basophils # (0-0.2) k/uL Hypochromasia Anisocytosis PT (10.0-12.5) sec INR (<1.2) APTT (22.0-30.0) sec Sodium (137-145) mmol/L Potassium (3.5-5.1) mmol/L Chloride (98-107) mmol/L Carbon Dioxide (22-30) mmol/L Anion Gap mmol/L BUN (7-17) mg/dL Creatinine (0.52-1.04) mg/dL Est GFR (CKD-EPI)AfAm (>60 ml/min/1.73 sqM) Est GFR (CKD-EPI)NonAf (>60 ml/min/1.73 sqM) Glucose (74-99) mg/dL Calcium (8.4-10.2) mg/dL Magnesium (1.6-2.3) mg/dL Total Bilirubin (0.2-1.3) mg/dL AST (14-36) U/L ALT (4-34) U/L Alkaline Phosphatase (38-126) U/L Troponin I <0.012 (0.000-0.034) ng/mL NT-Pro-B Natriuret Pep pg/mL Total Protein (6.3-8.2) g/dL Albumin (3.5-5.0) g/dL Disposition Clinical Impression: Congestive heart failure Disposition: ADMITTED IP TO THIS HOSP Condition: Stable Is patient prescribed a controlled substance at d/c from ED?: No Referrals: Rodrigo Gomes MD [Primary Care Provider] - 1-2 days Time of Disposition: 18:02
[2023-10-10] MEDS ORDERED: NALOXONE 0.4 MG/ML 1 ML VIAL IV PRN (17:58)
[2023-10-10] MEDS ORDERED: ACETAMINOPHEN TAB 325 MG TAB PO PRN (17:58)
[2023-10-10] MEDS ORDERED: ALBUTEROL HFA INHALER INHALATION PRN (21:19)
[2023-10-10] MEDS ORDERED: IPRATROPIUM-ALBUTEROL 3 ML NEB INHALATION PRN (21:19)
[2023-10-10] MEDS: FUROSEMIDE 10 MG/ML 4 ML VIAL IV SCH (21:22)
[2023-10-10] MEDS: NYSTATIN 100,000 UNIT/GM POWD 15 GM TOPICAL SCH (23:04)
[2023-10-10] MEDS: DILTIAZEM ORAL 30 MG TAB PO SCH (23:04)
[2023-10-10] MEDS: METOPROLOL SUCCINATE (ER) 50 MG TAB.ER.24H PO SCH (23:04)
[2023-10-10] MEDS: AMMONIUM LACTATE 12% CREAM 140 GM TUBE TOPICAL SCH (23:04)
[2023-10-10] MEDS: ENOXAPARIN 40 MG/0.4 ML SYRINGE SQ SCH (23:05)
[2023-10-10] MEDS: ZONISAMIDE 100 MG CAP PO SCH (23:05)
[2023-10-11] MEDS: OXYBUTYNIN 15 MG TAB.ER.24 PO SCH (09:47)
[2023-10-11] MEDS: THYROID, PORK 30 MG TAB PO SCH (09:48)
[2023-10-11] MEDS: SPIRONOLACTONE 25 MG TAB PO SCH (09:49)
[2023-10-11] MEDS: METOPROLOL SUCCINATE (ER) 50 MG TAB.ER.24H PO STA (09:49)
[2023-10-11] MEDS: BUMETANIDE 1 MG TAB PO SCH (09:50)
[2023-10-11] MEDS ORDERED: BUTALB/APAP/CAFF 50-325-40MG TAB PO PRN (10:46)
[2023-10-11] MEDS ORDERED: ALBUTEROL NEBULIZED 2.5 MG/3 ML INHALATION PRN (10:59)
[2023-10-11] MEDS ORDERED: FUROSEMIDE 10 MG/ML 4 ML VIAL IV SCH (11:00)
--- NOTE | 2023-10-11 11:20 | P.CRDCN ---
History of Present Illness Consult date: 10/11/23 Consult reason: congestive heart failure History of present illness: This is a 53-year-old female patient of Dr. Tran with past medical history of paroxysmal atrial fibrillation, chronic pain syndrome with pain pump, morbid obesity with BMI of 73, TIA 8 years ago, chronic hypoxic respiratory failure on home oxygen 2.5 L nasal cannula, hypothyroidism. We have been asked to evaluate the patient for CHF. Patient states that she was sitting in front of the TV and developed a panic attack. She states she has had shortness of breath for 3 days. When she moved around the shortness of breath stopped. She states she cannot lay flat which is chronic. She states she was having her pain pump refilled at her neurologist office and was recommended to go into the hospital for evaluation. Patient denies any history of heart stents and no heart surgeries. She states she had bariatric surgery in the past lost weight and then gained that weight back. She has been in atrial fibrillation for a number of years. Discussed options of cardioversion and ablation which may not be best options for patient. She is currently on IV Lasix 40 mg every 12 hours. Blood pressure 97/67, heart rate 87, pulse ox 97% on 2 L nasal cannula. Patient's last office visit with Dr. Tran was on 06/22/2020. She states she utilizes bus services to get to the doctor's office and her PCP comes to the home. EKG: Atrial fibrillation at 101 bpm. Chest x-ray: Pulmonary venous congestion with perihilar infiltrates which may reflect early pulmonary edema. Infiltrates of other etiology not excluded. Correlate clinically. Laboratory studies: WBC 10, hemoglobin 11.4, platelet count 131. Sodium 138, potassium 4.3, creatinine 0.62. Troponin negative x 1. proBNP 2250. Home cardiac medications: Cardizem CD 30 mg every 8 hour, Lasix 80 mg daily, Toprol-XL 50 mg at bedtime, also on pork thyroid 15 mg daily Echocardiogram performed 08/30/2022 revealed technically difficult study. Echo contrast was used. EF is normal. No pericardial effusion. Review Of Systems: At the time of my exam: CONSTITUTIONAL: Denies fever or chills. HEENT: Denies blurred vision, vision changes, or eye pain. Denies hemoptysis CARDIOVASCULAR: Denies chest pain. Denies orthopnea. Denies PND. Denies palpitations RESPIRATORY: Denies shortness of breath. GASTROINTESTINAL: Denies abdominal pain. Denies nausea or vomiting. HEMATOLOGIC: Denies bleeding disorders. GENITOURINARY: Denies any blood in urine. SKIN: Denies puritis. Denies rash. Physical examination: Gen: This is a morbidly obese 53-year-old female appears to be in no acute distress. VS: reviewed HEENT: Head is atraumatic, normocephalic. Pupils equal, round. Sclerae is anicteric. NECK: Supple. No JVD. LUNGS: Clear to auscultation. No wheezes or rhonchi. No intercostal retractions. HEART: Regular rate and rhythm. No murmur. ABDOMEN: Soft No tenderness. EXTREMITIES: Bilateral pedal edema. No calf tenderness. NEUROLOGICAL: Patient is awake, alert and oriented x3. Assessment: Mild acute diastolic heart failure Paroxysmal atrial fibrillation, currently in rate controlled A-fib History of TIA Chronic hypoxic respiratory failure on home O2 at 2-1/2 L nasal cannula Hypothyroidism Morbid obesity with BMI of 73 Chronic lower extremity edema Chronic pain syndrome on pain pump Plan: Resume patient's home cardiac medications with the following changes: Discontinue Cardizem Increase Toprol-XL to 100 mg twice daily and give an extra 50 mg now Discontinue IV Lasix and start patient on oral Bumex 1 mg twice daily Add spironolactone 25 mg daily Obtain 2-D echocardiogram and Doppler study to assess cardiac structure and function Further recommendations to follow based upon clinical course Thank you kindly for this consultation. Nurse practitioner note has been reviewed, I agree with documented findings and plan of care. Patient was seen and examined. Past Medical History Past Medical History: Atrial Fibrillation, Hyperlipidemia, Hypertension, Muscu loskeletal Disorder, Osteoarthritis (OA) Additional Past Medical History / Comment(s): NEUROPATHY, CARPEL TUNNEL, BACK NECK AND KNEE PAIN, MIGRAINES. "Raspy voice last few days." "Oxygen 2.5L per nasal cannula." History of Any Multi-Drug Resistant Organisms: None Reported Past Surgical History: Bariatric Surgery, Section, Hysterectomy, Joint Replacement, Orthopedic Surgery, Tubal Ligation Additional Past Surgical History / Comment(s): GASTRIC BYPASS, SPINAL CORD STIMULATOR, bilateral knee replacements, right knee arthroscopy. Past Anesthesia/Blood Transfusion Reactions: No Reported Reaction Past Psychological History: Anxiety Smoking Status: Never smoker Past Alcohol Use History: None Reported Past Drug Use History: None Reported - Past Family History Mother Family Medical History: Cancer Medications and Allergies Home Medications Medication Instructions Recorded Confirmed Type Zonisamide [Zonegran] 200 mg PO HS 09/11/13 10/10/23 History Oxybutynin Chloride [oxyBUTYnin 15 mg PO DAILY 03/08/22 10/10/23 History chloride ER] Metoprolol Succinate (ER) [Toprol 50 mg PO HS tab 09/08/22 10/10/23 Rx XL] Albuterol Inhaler [Ventolin Hfa 2 puff INHALATION RT-Q6H PRN 10/10/23 10/10/23 History Inhaler] Ammonium Lactate Cream [Lac-Hydrin 1 applic TOPICAL BID 10/10/23 10/10/23 History 12% Cream] Butalb/Acetaminophen/Caffeine 1 cap PO Q4H PRN 10/10/23 10/10/23 History [Fioricet 50-300-40 mg Capsule] Cholecalciferol (Vitamin D3) 125 mcg PO DAILY 10/10/23 10/10/23 History [Vitamin D3 (125 MCG = 5,000 IU)] Diltiazem Oral [Cardizem*] 30 mg PO Q8H 10/10/23 10/10/23 History Folate 666 Mcg Dfe (Folic Acid 400 666 mcg PO DAILY 10/10/23 10/10/23 History Mcg) Tablets Furosemide [Lasix] 80 mg PO DAILY 10/10/23 10/10/23 History HYDROcodone/APAP 7.5-325MG [[place] 1 tab PO TID PRN 10/10/23 10/10/23 History 7.5-325] Ipratropium-Albuterol Nebulize 3 ml INHALATION RT-QID PRN 10/10/23 10/10/23 Hist ory [Duoneb 0.5 mg-3 mg/3 ml Soln] Nystatin 100,000 Unit/gm Powd 1 applic TOPICAL BID 10/10/23 10/10/23 History [Mycostatin Powder] Patient Own Pump 0 bag 10/10/23 History Silver Sulfadiazine [SSD 1% Cream] 1 applic TOPICAL DAILY PRN 10/10/23 10/10/23 History Thyroid,Pork [Field Service Tech Thyroid] 15 mg PO DAILY 10/10/23 10/10/23 History hydrOXYzine HCL [Atarax] 50 - 100 mg PO Q6H PRN 10/10/23 10/10/23 History Allergies Allergy/AdvReac Type Severity Reaction Status Date / Time No Known Allergies Allergy Verified 10/10/23 15:26 Physical Exam Vitals: Vital Signs Temp Pulse Pulse Resp BP BP Pulse Ox 10/11/23 07:30 98.5 F 87 18 97/67 97 10/11/23 02:34 98.2 F 79 15 129/68 98 10/10/23 20:40 107 H 18 115/91 96 10/10/23 20:00 97.9 F 88 15 111/73 98 10/10/23 18:10 98.4 F 100 18 124/78 98 10/10/23 17:13 95 16 123/83 96 10/10/23 16:00 98.8 F 91 18 123/76 99 10/10/23 15:00 20 10/10/23 14:26 98.2 F 106 H 18 114/82 88 L Intake and Output 10/10/23 10/11/23 10/11/23 22:59 06:59 14:59 Output Total 1400 1200 Balance -1400 -1200 Output: Urine 1400 1200 Other: Voiding Method External Catheter Weight 195.045 kg Results 10/10/23 15:04 10/10/23 15:04 Cardiac Enzymes 10/10/23 10/10/23 Range/Units 15:04 15:04 AST 23 (14-36) U/L Troponin I <0.012 (0.000-0.034) ng/mL Coagulation 10/10/23 Range/Units 15:04 PT 10.8 (10.0-12.5) sec APTT 26.2 (22.0-30.0) sec CBC 10/10/23 Range/Units 15:04 WBC 10.0 (3.8-10.6) k/uL RBC 4.49 (3.80-5.40) m/uL Hgb 11.4 (11.4-16.0) gm/dL Hct 38.6 (34.0-46.0) % Plt Count 131 L (150-450) k/uL Comprehensive Metabolic Panel 10/10/23 Range/Units 15:04 Sodium 138 (137-145) mmol/L Potassium 4.3 (3.5-5.1) mmol/L Chloride 101 (98-107) mmol/L Carbon Dioxide 36 H (22-30) mmol/L BUN 11 (7-17) mg/dL Creatinine 0.62 (0.52-1.04) mg/dL Glucose 110 H (74-99) mg/dL Calcium 8.6 (8.4-10.2) mg/dL AST 23 (14-36) U/L ALT 10 (4-34) U/L Alkaline Phosphatase 128 H (38-126) U/L Total Protein 6.5 (6.3-8.2) g/dL Albumin 3.7 (3.5-5.0) g/dL Current Medications Generic Name Dose Route Start Last Admin Trade Name Freq PRN Reason Stop Dose Admin Acetaminophen 650 mg 10/10/23 17:58 Acetaminophen Tab 325 Mg Tab PO Q6HR PRN Mild Pain or Fever > 100.5 Hydrocodone Bitart/Acetaminophen 1 each 10/10/23 21:19 Hydrocodone/Apap 7.5-325mg 1 Each Tab PO TID PRN Pain Albuterol Sulfate 2 puff 10/10/23 21:19 Albuterol Hfa Inhaler INHALATION RT-Q6H PRN Shortness Of Breath Albuterol/Ipratropium 3 ml 10/10/23 21:19 Ipratropium-Albuterol 3 Ml Neb INHALATION RT-QID PRN Shortness Of Breath Diltiazem HCl 30 mg 10/10/23 21:30 10/11/23 05:44 Diltiazem Oral 30 Mg Tab PO 30 mg Q8H VANE Administration Enoxaparin Sodium 40 mg 10/10/23 21:30 10/10/23 23:05 Enoxaparin 40 Mg/0.4 Ml Syringe SQ 40 mg DAILY VANE Administration Furosemide 40 mg 10/10/23 21:00 10/10/23 21:22 Furosemide 10 Mg/Ml 4 Ml Vial IV 40 mg Q12HR VANE Administration Lactic Acid 1 applic 10/10/23 21:30 10/10/23 23:04 Ammonium Lactate 12% Cream 140 Gm Tube TOPICAL 1 applic BID VANE Administration Protocol Metoprolol Succinate 50 mg 10/10/23 21:30 10/10/23 23:04 Metoprolol Succinate (Er) 50 Mg Tab.Er.24h PO 50 mg HS VANE Administration Naloxone HCl 0.2 mg 10/10/23 17:58 Naloxone 0.4 Mg/Ml 1 Ml Vial IV Q2M PRN Opioid Reversal Nystatin 1 applic 10/10/23 21:30 10/10/23 23:04 Nystatin 100,000 Unit/Gm Powd 15 Gm TOPICAL 1 applic BID VANE Administration Protocol Oxybutynin Chloride 15 mg 10/11/23 09:00 Oxybutynin 15 Mg Tab.Er.24 PO DAILY VANE Thyroid 15 mg 10/11/23 09:00 Thyroid, Pork 30 Mg Tab PO DAILY VANE Zonisamide 200 mg 10/10/23 21:30 10/10/23 23:05 Zonisamide 100 Mg Cap PO 200 mg HS VANE Administration Intake and Output 10/10/23 10/11/23 10/11/23 22:59 06:59 14:59 Output Total 1400 1200 Balance -1400 -1200 Output: Urine 1400 1200 Other: Voiding Method External Catheter Weight 195.045 kg 10/10/23 15:04 10/10/23 15:04
[2023-10-11] MEDS: FOLIC ACID 1 MG TAB PO SCH (12:40)
[2023-10-11] MEDS: CHOLECALCIFEROL 125 MCG (5000 IU) TABLET PO SCH (12:40)
[2023-10-11] MEDS: FUROSEMIDE 10 MG/ML 4 ML VIAL IV STA (12:40)
[2023-10-11] MEDS: SODIUM CHLORIDE 0.65% NASAL SPRAY 44 ML BTL NASAL PRN (12:41)
[2023-10-11] MEDS: METOPROLOL SUCCINATE (ER) 100 MG TAB.ER.24H PO SCH (20:11)
--- NOTE | 2023-10-11 20:36 | P.HPIM ---
History of Present Illness H&P Date: 10/11/23 Chief Complaint: Short of breath This is a pleasant 53-year-old patient who follows with Dr. Gomes. Chronic stable medical condition include atrial fibrillation, hyperlipidemia, hypertension, osteoarthritis, peripheral neuropathy. Does use oxygen at home at 2.5 L. Patient has chronic lymphedema of the lower extremity. Patient presented increasing shortness of breath for 3 days. Some cough. No sputum. No fever or chills. Appetite is okay. Lymphedema swelling lower extremities chronic and no change. Denies putting on excessive weight. When patient goes outside the house he does use a wheelchair. Otherwise able to get around the house. Review of systems: GEN.: Tired EYES: None HEENT: None NECK: None RESPIRATORY: As above CARDIOVASCULAR: None GASTROINTESTINAL: None GENITOURINARY: None MUSCULOSKELETAL: Chronic joint pains LYMPHATICS: None HEMATOLOGICAL: None PSYCHIATRY: None NEUROLOGICAL: None Social history: No smoking no alcohol. . Does use a wheelchair when outside the house. Physical examination: VITAL SIGNS: 98.5, 87, 18, 97/67, 97% on 2 L GENERAL: BMI 33.8, reclining bed awake not in distress. EYES: Pupils equal. Conjunctiva lucho l. HEENT: External appearance of nose and ears normal, oral cavity grossly normal. NECK: JVD unable to assess; masses not palpable. HEART: Heart sounds distant, some edema. LUNGS: Respiratory rate increased distant breath sounds. ABDOMEN: Soft, nontender, liver spleen not palpable, no masses palpable. PSYCH: Alert and oriented x3; mood and affect lucho l. MUSCULOSKELETAL:No Clubbing/cyanosis;muscles-grossly intact NEUROLOGICAL: Cranial nerves grossly intact; no facial asymmetry, power and sensation grossly intact. LYMPHATICS: No lymph nodes palpable in the axilla and neck Bilateral lower extremity lymphedema, with discoloration INVESTIGATIONS, reviewed in the clinical context: October 10, 2023: White count 10 hemoglobin 11.4 platelets 131 sodium 138 potassium 4.3 creatinine 0.62 Troponin I less than 0.012 proBNP 2250 EKG tracing personally reviewed by me-atrial fibrillation. Rate 101.nonspecific T wave changes Chest x-ray film personally reviewed by me-patent underpenetration. Venous prominence. Assessment and plan: -Acute congestive heart failure exacerbation, EF not known IV Lasix given. Fluid restriction. 2D echocardiogram. Cardiology consulted -COPD in non-smoker DuoNeb 4 times daily as needed -Chronic obesity hypoventilation syndrome/pickwickian syndrome -Chronic hypoxic respiratory failure from obesity hypoventilation/pickwickian syndrome Uses 3.5 L of oxygen at home -Persistent atrial fibrillation, rate controlled Toprol-XL 50 mg -Essential hypertension Cardizem 30 mg every 8. Toprol-XL 50 mg nightly -Hypothyroid Thyroid 15 mg a day -Primary/secondary osteoarthritis Gastric chronic pain medications/narcotic -Bilateral lower extremity chronic lymphedema, with some element of venous insufficiency with secondary hyperpigmentation -Chronic gait dysfunction. Does use a wheelchair outside the house. -Intertriginous candidiasis Nystatin powder -Chronic urine incontinence Oxybutynin ER 50 mg a day -Full code Care was discussed with patient. Questions answered. Past Medical History Past Medical History: Atrial Fibrillation, Hyperlipidemia, Hypertension, Musculoskeletal Disorder, Osteoarthritis (OA) Additional Past Medical History / Comment(s): NEUROPATHY, CARPEL TUNNEL, BACK NECK AND KNEE PAIN, MIGRAINES. "Raspy voice last few days." "Oxygen 2.5L per nasal cannula." History of Any Multi-Drug Resistant Organisms: None Reported Past Surgical History: Bariatric Surgery, Section, Hysterectomy, Joint Replacement, Orthopedic Surgery, Tubal Ligation Additional Past Surgical History / Comment(s): GASTRIC BYPASS, SPINAL CORD STIMULATOR, bilateral knee replacements, right knee arthroscopy. Past Anesthesia/Blood Transfusion Reactions: No Reported Reaction Past Psychological History: Anxiety Smoking Status: Never smoker Past Alcohol Use History: None Reported Past Drug Use History: None Reported - Past Family History Mother Family Medical History: Cancer Medications and Allergies Home Medications Medication Instructions Recorded Confirmed Type Zonisamide [Zonegran] 200 mg PO HS 09/11/13 10/10/23 History Oxybutynin Chloride [oxyBUTYnin 15 mg PO DAILY 03/08/22 10/10/23 History chloride ER] Metoprolol Succinate (ER) [Toprol 50 mg PO HS tab 09/08/22 10/10/23 Rx XL] Albuterol Inhaler [Ventolin Hfa 2 puff INHALATION RT-Q6H PRN 10/10/23 10/10/23 History Inhaler] Ammonium Lactate Cream [Lac-Hydrin 1 applic TOPICAL BID 10/10/23 10/10/23 History 12% Cream] Butalb/Acetaminophen/Caffeine 1 cap PO Q4H PRN 10/10/23 10/10/23 History [Fioricet 50-300-40 mg Capsule] Cholecalciferol (Vitamin D3) 125 mcg PO DAILY 10/10/23 10/10/23 History [Vitamin D3 (125 MCG = 5,000 IU)] Diltiazem Oral [Cardizem*] 30 mg PO Q8H 10/10/23 10/10/23 History Folate 666 Mcg Dfe (Folic Acid 400 666 mcg PO DAILY 10/10/23 10/10/23 History Mcg) Tablets Furosemide [Lasix] 80 mg PO DAILY 10/10/23 10/10/23 History HYDROcodone/APAP 7.5-325MG [[place] 1 tab PO TID PRN 10/10/23 10/10/23 History 7.5-325] Ipratropium-Albuterol Nebulize 3 ml INHALATION RT-QID PRN 10/10/23 10/10/23 History [Duoneb 0.5 mg-3 mg/3 ml Soln] Nystatin 100,000 Unit/gm Powd 1 applic TOPICAL BID 10/10/23 10/10/23 History [Mycostatin Powder] Patient Own Pump 0 bag 10/10/23 History Silver Sulfadiazine [SSD 1% Cream] 1 applic TOPICAL DAILY PRN 10/10/23 10/10/23 History Thyroid,Pork [Quality Management Nurse Thyroid] 15 mg PO DAILY 10/10/23 10/10/23 History hydrOXYzine HCL [Atarax] 50 - 100 mg PO Q6H PRN 10/10/23 10/10/23 History Allergies Allergy/AdvReac Type Severity Reaction Status Date / Time No Known Allergies Allergy Verified 10/10/23 15:26 Physical Exam Vitals: Vital Signs Temp Pulse Pulse Resp BP BP Pulse Ox 10/11/23 07:30 98.5 F 87 18 97/67 97 10/11/23 02:34 98.2 F 79 15 129/68 98 10/10/23 20:40 107 H 18 115/91 96 10/10/23 20:00 97.9 F 88 15 111/73 98 10/10/23 18:10 98.4 F 100 18 124/78 98 10/10/23 17:13 95 16 123/83 96 10/10/23 16:00 98.8 F 91 18 123/76 99 10/10/23 15:00 20 10/10/23 14:26 98.2 F 106 H 18 114/82 88 L Intake and Output 10/10/23 10/11/23 10/11/23 22:59 06:59 14:59 Output Total 1400 1200 Balance -1400 -1200 Output: Urine 1400 1200 Other: Voiding Method External Catheter Weight 195.045 kg Results CBC & Chem 7: 10/10/23 15:04 10/10/23 15:04 Labs: Abnormal Lab Results - Last 24 Hours (Table) 10/10/23 10/10/23 Range/Units 15:04 15:04 MCHC 29.6 L (31.0-37.0) g/dL RDW 16.3 H (11.5-15.5) % Plt Count 131 L (150-450) k/uL Neutrophils # 8.2 H (1.3-7.7) k/uL Lymphocytes # 0.7 L (1.0-4.8) k/uL Carbon Dioxide 36 H (22-30) mmol/L Glucose 110 H (74-99) mg/dL Alkaline Phosphatase 128 H (38-126) U/L
[2023-10-11 21:09] VITALS: RESP 16
[2023-10-11] MEDS: CALCIUM CARBONATE 500 MG CHEWABLE PO PRN (23:28)
[2023-10-12 07:47] VITALS: BP 116/73; PULSE 68; TEMP 97.8
[2023-10-12 08:48] LABS: African American GFR (CKD) >90 (>60 ml/min/1.73 sqM); Blood Urea Nitrogen 10 mg/dL (7-17); Calcium 8.5 mg/dL (8.4-10.2); Chloride 96 mmol/L (98-107); Glucose 93 mg/dL (74-99); Non-African American GFR(CKD) >90 (>60 ml/min/1.73 sqM); Sodium 139 mmol/L (137-145)
[2023-10-12 08:59] LABS: Anion Gap 4 mmol/L; Carbon Dioxide 39 mmol/L (22-30)
[2023-10-12] MEDS: HYDROcodone/APAP 7.5-325MG 1 EACH TAB PO PRN (09:19)
[2023-10-12 09:46] LABS: Potassium 4.5 mmol/L (3.5-5.1)
[2023-10-12 10:13] VITALS: BMI 73.7
--- NOTE | 2023-10-12 12:06 | P.PN ---
Subjective Progress Note Date: 10/12/23 Consult reason: congestive heart failure History of present illness: This is a 53-year-old female patient of Dr. Tran with past medical history of paroxysmal atrial fibrillation, chronic pain syndrome with pain pump, morbid obesity with BMI of 73, TIA 8 years ago, chronic hypoxic respiratory failure on home oxygen 2.5 L nasal cannula, hypothyroidism. We have been asked to evaluate the patient for CHF. Patient states that she was sitting in front of the TV and developed a panic attack. She states she has had shortness of breath for 3 days. When she moved around the shortness of breath stopped. She states she cannot lay flat which is chronic. She states she was having her pain pump refilled at her neurologist office and was recommended to go into the hospital for evaluation. Patient denies any history of heart stents and no heart surg eries. She states she had bariatric surgery in the past lost weight and then gained that weight back. She has been in atrial fibrillation for a number of years. Discussed options of cardioversion and ablation which may not be best options for patient. She is currently on IV Lasix 40 mg every 12 hours. Blood pressure 97/67, heart rate 87, pulse ox 97% on 2 L nasal cannula. Patient's last office visit with Dr. Tran was on 06/22/2020. She states she utilizes bus services to get to the doctor's office and her PCP comes to the home. EKG: Atrial fibrillation at 101 bpm. Chest x-ray: Pulmonary venous congestion with perihilar infiltrates which may reflect early pulmonary edema. Infiltrates of other etiology not excluded. Correlate clinically. Laboratory studies: WBC 10, hemoglobin 11.4, platelet count 131. Sodium 138, potassium 4.3, creatinine 0.62. Troponin negative x 1. proBNP 2250. Home cardiac medications: Cardizem CD 30 mg every 8 hour, Lasix 80 mg daily, Toprol-XL 50 mg at bedtime, also on pork thyroid 15 mg daily Echocardiogram performed 08/30/2022 revealed technically difficult study. Echo contrast was used. EF is normal. No pericardial effusion. 10/11 Yesterday, the following medication changes were made, Cardizem was discontinued, Toprol was increased to 100 mg twice daily, IV Lasix transition to oral Bumex 1 mg twice daily and spironolactone was added. Patient states her breathing is okay right now but she still has episodes that last briefly of shortness of breath. Patient remains in atrial fibrillation suggested to patient that she would benefit from event monitor as an outpatient to check burden on A-fib. Blood pressure 116/73, heart rate 68, pulse ox 98% on 2 L nasal cannula. Physical examination: Gen: This is a morbidly obese 53-year-old female appears to be in no acute distress. VS: reviewed HEENT: Head is atraumatic, normocephalic. Pupils equal, round. Sclerae is anicteric. NECK: Supple. No JVD. LUNGS: Clear to auscultation. No wheezes or rhonchi. No intercostal retractions. HEART: Regular rate and rhythm. No murmur. ABDOMEN: Soft No tenderness. EXTREMITIES: Bilateral pedal edema, bilateral lymphedema, chronic skin changes. No calf tenderness. NEUROLOGICAL: Patient is awake, alert and oriented x3. Assessment: Mild acute diastolic heart failure Paroxysmal atrial fibrillation, currently in rate controlled A-fib History of TIA Chronic hypoxic respiratory failure on home O2 at 2-1/2 L nasal cannula Hypothyroidism Morbid obesity with BMI of 73 Chronic lower extremity edema Chronic pain syndrome on pain pump Plan: Resume patient's home cardiac medications with the following changes: Discontinue Cardizem Increase Toprol-XL to 100 mg twice daily Continue patient on oral Bumex 1 mg twice daily Continue spironolactone 25 mg daily Patient is cleared for discharge and may follow-up in the office with Dr. Tran in 1 to 2 weeks. Nurse practitioner note has been reviewed, I agree with documented findings and plan of care. Patient was seen and examined. Objective - Vital Signs Vital signs: Vital Signs Temp 97.8 F 10/12/23 07:00 Pulse 68 10/12/23 07:00 Resp 16 10/12/23 07:00 BP 116/73 10/12/23 07:00 Pulse Ox 98 10/12/23 07:00 FiO2 Intake & Output 10/11/23 10/12/23 10/12/23 18:59 06:59 18:59 Intake Total 354 Output Total 1200 1800 Balance -846 -1800 Intake: Oral 354 Output: Urine 1200 1800 Other: Voiding Method External Catheter External Catheter # Voids 2 # Bowel Movements 1 - Labs CBC & Chem 7: 10/10/23 15:04 10/12/23 07:27
--- NOTE | 2023-10-12 17:38 | CA ---
Transthoracic Echo Report Name: Jemma Muniz Age: 53 Gender: F : 1970 Exam Date: 10/11/2023 15:47 Exam Location: [place] [facility] Ht (in): 64 Wt (lb): 430 Ordering Physician: Zara Miller Attending/Referring Phys: [id number], Angela Cisco Administrator Cristel Islas RDCS Procedure CPT: Indications: LVF Cardiac Hx: Technical Quality: Very technically difficult study Contrast 1: Definity Total Dose (mL): 2 Contrast 2: Total Dose (mL): MEASUREMENTS (Male / Female) Normal Values 2D ECHO LVOT Diameter 2.3 cm LV Diastolic Volume MOD BP 154.6 cm??? 67 - 155 / 56 - 104 cm??? LV Systolic Volume MOD BP 77.0 cm??? 22 - 58 / 19 - 49 cm??? LV Ejection Fraction MOD BP 50.2 % >= 55 % LV Cardiac Index MOD BP 2317.7 cm???/min???m??? LV Diastolic Volume MOD 4C 162.0 cm??? LV Systolic Volume MOD 4C 76.6 cm??? LV Ejection Fraction MOD 4C 52.7 % LV Cardiac Index MOD 4C 2552.5 cm???/min???m??? LV Diastolic Length 4C 8.8 cm LV Systolic Length 4C 8.0 cm LV Diastolic Volume MOD 2C 143.4 cm??? LV Systolic Volume MOD 2C 71.9 cm??? LV Ejection Fraction MOD 2C 49.9 % LV Cardiac Index MOD 2C 2138.6 cm???/min???m??? LV Diastolic Length 2C 8.5 cm LV Systolic Length 2C 7.4 cm LA Volume 104.6 cm??? 18 - 58 / 22 - 52 cm??? LA Volume Index 33.6 cm???/m??? 16 - 28 cm???/m??? DOPPLER AV Peak Velocity 158.4 cm/s AV Peak Gradient 10.0 mmHg AV Mean Velocity 112.6 cm/s AV Mean Gradient 5.6 mmHg AV Velocity Time Integral 31.3 cm LVOT Peak Velocity 120.0 cm/s LVOT Peak Gradient 5.8 mmHg LVOT Velocity Time Integral 22.2 cm LVOT Stroke Volume 88.8 cm??? LVOT Stroke Volume Index 32.8 ml/m??? LVOT Cardiac Index 2655.0 cm???/min???m??? AV Area Cont Eq vti 2.8 cm??? AV Area Cont Eq pk 3.0 cm??? FINDINGS Left Ventricle Left ventricular ejection fraction is estimated at 50-55 %. Mildly increased LV cavity size. Mildly global reduced LV systolic function. Normal wall thickness. Right Ventricle Right ventricle not well visualized. Unable to estimate the right ventricular systolic pressure. Right Atrium Right atrial dilatation. Left Atrium Mildly increased left atrial volume. Mildly increased left atrial area. Mitral Valve Structurally normal mitral valve. No evidence for mitral valve prolapse. No mitral stenosis. Trace mitral regurgitation. Aortic Valve Trileaflet aortic valve. No aortic valve stenosis or regurgitation. Tricuspid Valve Structurally normal tricuspid valve. No tricuspid regurgitation. No tricuspid stenosis. Pulmonic Valve Pulmonic valve not well visualized. Pericardium No pericardial effusion. Aorta Aortic root and proximal ascending aorta not well visualized. CONCLUSIONS LVEF 50 to 55% Mildly reduced global LV systolic function. Mildly dilated LV cavity No obvious regional wall motion abnormality Mild biatrial dilatation No significant valvular dysfunction Previewed by: Dr Mick Hansen (Electronically Signed) Final Date: 12 October 2023 17:38
--- NOTE | 2023-10-12 20:17 | P.DS ---
Providers Date of admission: 10/10/23 17:58 Expected date of discharge: 10/12/23 Attending physician: Justice Lechuga Consults: 10/10/23 17:58 Consult Physician Routine Consulting Provider: Lonnie Arce Consult Reason/Comments: CHF Do you want consulting provider notified?: Yes Primary care physician: Rodrigo [facility] Course: Chief Complaint: Short of breath This is a pleasant 53-year-old patient who follows with Dr. Gomes. Chronic stable medical condition include atrial fibrillation, hyperlipidemia, hypertension, osteoarthritis, peripheral neuropathy. Does use oxygen at home at 2.5 L. Patient has chronic lymphedema of the lower extremity. Patient presented increasing shortness of breath for 3 days. Some cough. No sputum. No fever or chills. Appetite is okay. Lymphedema swelling lower extremities chronic and no change. Denies putting on excessive weight. When patient goes outside the house he does use a wheelchair. Otherwise able to get around the house. October 11: Breathing much better. Patient on Bumex and Aldactone per cardiology. Questions answered. Social history: No smoking no alcohol. . Does use a wheelchair when outside the house. Physical examination: VITAL SIGNS: 97.8, 68, 16, 116/73, 98% on 2 L GENERAL: BMI 33.8, reclining bed awake, comfortable EYES: Pupils equal. Conjunctiva ulcho l. HEENT: External appearance of nose and ears normal, oral cavity grossly normal. NECK: JVD unable to assess; masses not palpable. HEART: Heart sounds distant, some edema. LUNGS: Respiratory rate normal, distant breath sounds. ABDOMEN: Soft, nontender, liver spleen not palpable, no masses palpable. PSYCH: Alert and oriented x3; mood and affect lucho l. MUSCULOSKELETAL:No Clubbing/cyanosis;muscles-grossly intact NEUROLOGICAL: Cranial nerves grossly intact; no facial asymmetry, power and sensation grossly intact. LYMPHATICS: No lymph nodes palpable in the axilla and neck Bilateral lower extremity lymphedema, with discoloration INVESTIGATIONS, reviewed in the clinical context: 2D echocardiogram: EF 50-55% October 11: Potassium 4.5 BUN 10 creatinine 0.67 October 10, 2023: White count 10 hemoglobin 11.4 platelets 131 sodium 138 potassium 4.3 creatinine 0.62 Troponin I less than 0.012 proBNP 2250 EKG tracing personally reviewed by me-atrial fibrillation. Rate 101.nonspecific T wave changes Chest x-ray film personally reviewed by me-patent underpenetration. Venous prominence. Assessment and plan: -Acute congestive heart failure exacerbation, from diastolic dysfunction EF 50 to 55% IV Lasix given. Fluid restriction. Seen by cardiology. Discharged on Bumex 1 mg twice daily. Aldactone 25 mg a day -COPD in non-smoker DuoNeb 4 times daily as needed -Chronic obesity hypoventilation syndrome/pickwickian syndrome -Chronic hypoxic respiratory failure from obesity hypoventilation/pickwickian syndrome Uses 3.5 L of oxygen at home -Persistent atrial fibrillation, rate controlled Toprol-XL 50 mg -Essential hypertension Cardizem 30 mg every 8. Toprol-XL 50 mg nightly -Hypothyroid Thyroid 15 mg a day -Primary/secondary osteoarthritis Gastric chronic pain medications/narcotic -Bilateral lower extremity chronic lymphedema, with some element of venous insufficiency with secondary hyperpigmentation -Chronic gait dysfunction. Does use a wheelchair outside the house. -Intertriginous candidiasis Nystatin powder -Chronic urine incontinence Oxybutynin ER 50 mg a day -Full code Disposition: Home Past Medical History Past Medical History: Atrial Fibrillation, Hyperlipidemia, Hypertension, Musculoskeletal Disorder, Osteoarthritis (OA) Additional Past Medical History / Comment(s): NEUROPATHY, CARPEL TUNNEL, BACK NECK AND KNEE PAIN, MIGRAINES. "Raspy voice last few days." "Oxygen 2.5L per nasal cannula." History of Any Multi-Drug Resistant Organisms: None Reported Past Surgical History: Bariatric Surgery, Section, Hysterectomy, Joint Replacement, Orthopedic Surgery, Tubal Ligation Additional Past Surgical History / Comment(s): GASTRIC BYPASS, SPINAL CORD STIMULATOR, bilateral knee replacements, right knee arthroscopy. Past Anesthesia/Blood Transfusion Reactions: No Reported Reaction Past Psychological History: Anxiety Smoking Status: Never smoker Past Alcohol Use History: None Reported Past Drug Use History: None Reported Plan - Discharge Summary New Discharge Prescriptions: New Spironolactone [Aldactone] 25 mg PO DAILY #30 tab Bumetanide [BUMEX] 1 mg PO BID@0900,1600 #60 tab Sodium Chloride 0.65% Nasal [Deep Sea (Saline)] 2 spray NASAL QID PRN ml PRN Reason: Allergy Symptoms Continue Zonisamide [Zonegran] 200 mg PO HS Oxybutynin Chloride [oxyBUTYnin chloride ER] 15 mg PO DAILY Metoprolol Succinate (ER) [Toprol XL] 50 mg PO HS tab Albuterol Inhaler [Ventolin Hfa Inhaler] 2 puff INHALATION RT-Q6H PRN PRN Reason: Shortness Of Breath Thyroid,Pork [Stud Driver Thyroid] 15 mg PO DAILY Nystatin 100,000 Unit/gm Powd [Mycostatin Powder] 1 applic TOPICAL BID Ammonium Lactate Cream [Lac-Hydrin 12% Cream] 1 applic TOPICAL BID Patient Own Pump 0 bag Cholecalciferol (Vitamin D3) [Vitamin D3 (125 MCG = 5,000 IU)] 125 mcg PO DAILY Folate 666 Mcg Dfe (Folic Acid 400 Mcg) Tablets 666 mcg PO DAILY Ipratropium-Albuterol Nebulize [Duoneb 0.5 mg-3 mg/3 ml Soln] 3 ml INHALATION RT-QID PRN PRN Reason: Shortness Of Breath Silver Sulfadiazine [SSD 1% Cream] 1 applic TOPICAL DAILY PRN PRN Reason: WOUND/RASH HYDROcodone/APAP 7.5-325MG [[place] 7.5-325] 1 tab PO TID PRN PRN Reason: Pain hydrOXYzine HCL [Atarax] 50 - 100 mg PO Q6H PRN PRN Reason: Anxiety Butalb/Acetaminophen/Caffeine [Fioricet 50-300-40 mg Capsule] 1 cap PO Q4H PRN PRN Reason: Migraine Headache Discontinued Furosemide [Lasix] 80 mg PO DAILY No Action Diltiazem Oral [Cardizem*] 30 mg PO Q8H Discharge Medication List Zonisamide [Zonegran] 200 mg PO HS 09/11/13 [History] Oxybutynin Chloride [oxyBUTYnin chloride ER] 15 mg PO DAILY 03/08/22 [History] Metoprolol Succinate (ER) [Toprol XL] 50 mg PO HS tab 09/08/22 [Rx] Albuterol Inhaler [Ventolin Hfa Inhaler] 2 puff INHALATION RT-Q6H PRN 10/10/23 [History] Ammonium Lactate Cream [Lac-Hydrin 12% Cream] 1 applic TOPICAL BID 10/10/23 [History] Butalb/Acetaminophen/Caffeine [Fioricet 50-300-40 mg Capsule] 1 cap PO Q4H PRN 10/10/23 [History] Cholecalciferol (Vitamin D3) [Vitamin D3 (125 MCG = 5,000 IU)] 125 mcg PO DAILY 10/10/23 [History] Diltiazem Oral [Cardizem*] 30 mg PO Q8H 10/10/23 [History] Folate 666 Mcg Dfe (Folic Acid 400 Mcg) Tablets 666 mcg PO DAILY 10/10/23 [History] HYDROcodone/APAP 7.5-325MG [[place] 7.5-325] 1 tab PO TID PRN 10/10/23 [History] Ipratropium-Albuterol Nebulize [Duoneb 0.5 mg-3 mg/3 ml Soln] 3 ml INHALATION RT-QID PRN 10/10/23 [History] Nystatin 100,000 Unit/gm Powd [Mycostatin Powder] 1 applic TOPICAL BID 10/10/23 [History] Patient Own Pump 0 bag 10/10/23 [History] Silver Sulfadiazine [SSD 1% Cream] 1 applic TOPICAL DAILY PRN 10/10/23 [History] Thyroid,Pork [Stud Driver Thyroid] 15 mg PO DAILY 10/10/23 [History] hydrOXYzine HCL [Atarax] 50 - 100 mg PO Q6H PRN 10/10/23 [History] Bumetanide [BUMEX] 1 mg PO BID@0900,1600 #60 tab 10/12/23 [Rx] Sodium Chloride 0.65% Nasal [Deep Sea (Saline)] 2 spray NASAL QID PRN ml 10/12/23 [Rx] Spironolactone [Aldactone] 25 mg PO DAILY #30 tab 10/12/23 [Rx] Follow up Appointment(s)/Referral(s): Dl Tran DO [STAFF PHYSICIAN] - 10/20/23 9:00 am Rodrigo Gomes MD [Primary Care Provider] - 1-2 days Patient Instructions/Handouts: Heart Failure (DC), A-fib (Atrial Fibrillation) (DC) Discharge Disposition: HOME SELF-CARE
== END 2023-10-12 14:33 | disposition home or self-care (01) ==
LOC: EC 14:25 → 6NMEDSUR 17:58
PROVIDERS: ADMIT Hospitalist; ATTEND Hospitalist
DX: I11.0 Hypertensive heart disease with heart failure (principal); I50.33 Acute on chronic diastolic (congestive) heart failure; I48.19 Other persistent atrial fibrillation; J96.11 Chronic respiratory failure with hypoxia; E66.2 Morbid (severe) obesity with alveolar hypoventilation; Z68.45 Body mass index [BMI] 70 or greater, adult; G89.4 Chronic pain syndrome; E03.9 Hypothyroidism, unspecified; G62.9 Polyneuropathy, unspecified; F41.0 Panic disorder [episodic paroxysmal anxiety]; M19.90 Unspecified osteoarthritis, unspecified site; E78.5 Hyperlipidemia, unspecified; I89.0 Lymphedema, not elsewhere classified; L81.9 Disorder of pigmentation, unspecified; I87.8 Other specified disorders of veins; R26.9 Unspecified abnormalities of gait and mobility; B37.2 Candidiasis of skin and nail; R32 Unspecified urinary incontinence; Z99.81 Dependence on supplemental oxygen; Z79.890 Hormone replacement therapy; Z79.899 Other long term (current) drug therapy; Z86.73 Personal history of transient ischemic attack (TIA), and cerebral infarction without residual deficits; Z97.8 Presence of other specified devices; Z98.84 Bariatric surgery status
CPT/HCPCS: 96376 ×2; 96372 ×3; 96374; 99285; 36415; 93005; 83880; 80053; 80048; 83735 ×2; 84484; 85025; 85610; 85730; 71045; G0378 ×3; C8929; J1940 ×2; J1650 ×3; Q9957; 93306

== ENCOUNTER 2024-08-06 15:22 | Inpatient (IN) | payer MEDICARE, OTHER ==
--- NOTE | 2024-08-06 15:54 | ED ---
SOB HPI - General Chief Complaint: Shortness of Breath Stated Complaint: THA Time Seen by Provider: 08/06/24 15:36 Source: patient, EMS, RN notes reviewed, old records reviewed Mode of arrival: EMS Limitations: no limitations - History of Present Illness Initial Comments: This is a 53-year-old female to the ER for evaluation of dyspnea shortness of breath, patient is morbidly obese is having a lift assist to go see her primary care doctor today for pain control and management, really no activity at baseline does not suffer from A-fib with elevated heart rate and feels severely anxious. Patient is short of breath here in the emergency department and has been having years of weakness but shortness of breath is mainly exacerbated today by the activity of having to leave the home and go to her doctor's appointment presents to the ER very short of breath and anxious MD Complaint: shortness of breath, cough, anxiety -: hour(s) Severity: moderate Severity scale (1-10): 4 Consistency: constant Improves With: nothing Worsens With: nothing Known History Of: other (Atrial fibrillation) Context: other (Morbid obesity) Associated Symptoms: denies other symptoms Treatments Prior to Arrival: none - Related Data Home Medications Medication Instructions Recorded Confirmed Zonisamide [Zonegran] 100 mg PO HS 09/11/13 08/06/24 Butalb/Acetaminophen/Caffeine 1 cap PO Q4H PRN 10/10/23 08/06/24 [Fioricet 50-300-40 mg Capsule] Cholecalciferol (Vitamin D3) 125 mcg PO DAILY 10/10/23 08/06/24 [Vitamin D3 (125 MCG = 5,000 IU)] Diltiazem Oral [Cardizem*] 30 mg PO Q8H 10/10/23 08/06/24 HYDROcodone/APAP 7.5-325MG [[place] 1 tab PO TID PRN 10/10/23 08/06/24 7.5-325] Ipratropium-Albuterol Nebulize 3 ml INHALATION RT-QID PRN 10/10/23 08/06/24 [Duoneb 0.5 mg-3 mg/3 ml Soln] Nystatin 100,000 Unit/gm Powd 1 applic TOPICAL BID PRN 10/10/23 08/06/24 [Mycostatin Powder] hydrOXYzine HCL [Atarax] 50 - 100 mg PO Q6H PRN 10/10/23 08/06/24 Apixaban [Eliquis] 5 mg PO BID 08/06/24 08/06/24 Folic Acid 667mg 667 mg PO DAILY 08/06/24 08/06/24 Levothyroxine Sodium [Synthroid] 25 mcg PO DAILY 08/06/24 08/06/24 Pantoprazole [Protonix] 40 mg PO AC-[id number] 08/06/24 08/06/24 busPIRone HCL [Buspar] 30 mg PO BID 08/06/24 08/06/24 Previous Rx's Medication Instructions Recorded Metoprolol Succinate (ER) [Toprol 50 mg PO HS tab 09/08/22 XL] Bumetanide [BUMEX] 1 mg PO BID@0900,1600 #60 tab 10/12/23 Spironolactone [Aldactone] 25 mg PO DAILY #30 tab 10/12/23 Allergies Allergy/AdvReac Type Severity Reaction Status Date / Time No Known Allergies Allergy Verified 08/07/24 09:16 Review of Systems ROS Statement: Those systems with pertinent positive or pertinent negative responses have been documented in the HPI. ROS Other: All systems not noted in ROS Statement are negative. Past Medical History Past Medical History: Atrial Fibrillation, Hyperlipidemia, Hypertension, Musculoskeletal Disorder, Osteoarthritis (OA) Additional Past Medical History / Comment(s): NEUROPATHY, CARPEL TUNNEL, BACK NECK AND KNEE PAIN, MIGRAINES. "Raspy voice last few days." "Oxygen 2.5L per nasal cannula." History of Any Multi-Drug Resistant Organisms: None Reported Past Surgical History: Bariatric Surgery, Section, Hysterectomy, Joint Replacement, Orthopedic Surgery, Tubal Ligation Additional Past Surgical History / Comment(s): GASTRIC BYPASS, SPINAL CORD STIMULATOR, bilateral knee replacements, right knee arthroscopy. Past Anesthesia/Blood Transfusion Reactions: No Reported Reaction Past Psychological History: Anxiety Smoking Status: Never smoker Past Alcohol Use History: None Reported Past Drug Use History: None Reported - Past Family History Mother Family Medical History: Cancer General Exam Limitations: no limitations General appearance: alert, in no apparent distress, obese Head exam: Present: atraumatic, normocephalic, normal inspection Eye exam: Present: normal appearance, PERRL, EOMI. Absent: scleral icterus, conjunctival injection, periorbital swelling ENT exam: Present: normal exam, mucous membranes moist Neck exam: Present: normal inspection. Absent: tenderness, meningismus, lymphadenopathy Respiratory exam: Present: normal lung sounds bilaterally. Absent: respiratory distress, wheezes, rales, rhonchi, stridor Cardiovascular Exam: Present: regular rate, normal rhythm, normal heart sounds. Absent: systolic murmur, diastolic murmur, rubs, gallop, clicks GI/Abdominal exam: Present: soft, normal bowel sounds. Absent: distended, tenderness, guarding, rebound, rigid Extremities exam: Present: normal inspection, full ROM, normal capillary refill. Absent: tenderness, pedal edema, joint swelling, calf tenderness Back exam: Present: normal inspection Neurological exam: Present: alert, oriented X3, CN II-XII intact Psychiatric exam: Present: normal affect, normal mood Skin exam: Present: warm, dry, intact, normal color. Absent: rash Course Vital Signs 08/06/24 08/06/24 08/06/24 15:32 16:03 16:15 Temperature 98.3 F Pulse Rate 102 H 115 H Pulse Rate [ Right Pulse Oximetery] Respiratory 18 24 24 Rate Blood Pressure 135/85 123/84 O2 Sat by Pulse 97 94 L Oximetry 08/06/24 08/06/24 08/06/24 16:35 17:00 17:31 Temperature 97.9 F Pulse Rate 105 H 98 93 Pulse Rate [ Right Pulse Oximetery] Respiratory 20 18 18 Rate Blood Pressure 119/71 108/74 O2 Sat by Pulse 97 96 Oximetry 08/06/24 08/06/24 08/06/24 18:21 19:25 20:30 Temperature Pulse Rate 110 H 106 H 104 H Pulse Rate [ Right Pulse Oximetery] Respiratory 20 18 18 Rate Blood Pressure 102/78 106/75 120/74 O2 Sat by Pulse 96 94 L 97 Oximetry 08/06/24 08/06/24 08/06/24 21:30 22:28 23:00 Temperature Pulse Rate 101 H 94 110 H Pulse Rate [ Right Pulse Oximetery] Respiratory 18 18 18 Rate Blood Pressure 111/88 110/84 107/73 O2 Sat by Pulse 95 93 L 94 L Oximetry 08/07/24 08/07/24 08/07/24 00:00 02:47 05:45 Temperature Pulse Rate 84 103 H 104 H Pulse Rate [ Right Pulse Oximetery] Respiratory 16 18 18 Rate Blood Pressure 107/73 104/85 119/92 O2 Sat by Pulse 92 L 94 L 97 Oximetry 08/07/24 08/07/24 08/07/24 07:50 08:10 08:13 Temperature Pulse Rate 98 84 Pulse Rate [ Right Pulse Oximetery] Respiratory 18 Rate Blood Pressure 128/82 O2 Sat by Pulse 97 95 Oximetry 08/07/24 08/07/24 08/07/24 08:21 09:35 10:00 Temperature Pulse Rate 89 104 H 74 Pulse Rate [ Right Pulse Oximetery] Respiratory 18 18 Rate Blood Pressure 119/82 117/81 O2 Sat by Pulse 94 L 96 Oximetry 08/07/24 08/07/24 08/07/24 11:00 13:37 14:00 Temperature Pulse Rate 82 84 Pulse Rate [ 88 Right Pulse Oximetery] Respiratory 18 16 Rate Blood Pressure 95/72 112/77 O2 Sat by Pulse 94 L 97 Oximetry - Reevaluation(s) Reevaluation #1: 08/06/24 16:09 Medical records reviewed Reevaluation #2: 08/06/24 17:39 Patient is feeling normal improvement in breathing here in the ER still short of breath and anxious Patient's A-fib is well-controlled Reevaluation #3: 08/06/24 17:40 Patient informed of results questions answered Reevaluation #4: Was pt. sent in by a medical professional or institution (, PA, CLIENT CARE SPECIALIST, urgent c are, hospital, or fci...) When possible be specific @ -no Did you speak to anyone other than the patient for history (EMS, parent, family, police, friend...)? What history was obtained from this source @ -no Did you review nursing and triage notes (agree or disagree)? Why? @ -agree Are old charts reviewed (outside hosp., previous admission, EMS record, old EKG, old radiological studies, urgent care reports/EKG's, fci records)? Report findings @ -yes Differential Diagnosis (chest pain, altered mental status, abdominal pain women, abdominal pain men, vaginal bleeding, weakness, fever, dyspnea, syncope, headache, dizziness, GI bleed, back pain, seizure, CVA, palpatations, mental health, musculoskeletal)? @ -prior EKG interpreted by me (3pts min.). @ -yes X-rays interpreted by me (1pt min.). @ -yes positive for CHF CT interpreted by me (1pt min.). @ -no U/S interpreted by me (1pt. min.). @ -no What testing was considered but not performed or refused? (CT, X-rays, U/S, labs)? Why? @ -none What meds were considered but not given or refused? Why? @ -none Did you discuss the management of the patient with other professionals (professionals i.e. , PA, CLIENT CARE SPECIALIST, lab, RT, psych nurse, social service assistant, commercial attorney, teacher, security patrol officer, special education case manager)? Give summary @ -no Was smoking cessation discussed for >3mins.? @ -no Was critical care preformed (if so, how long)? @ -yes31 Were there social determinants of health that impacted care today? How? (Homelessness, low income, unemployed, alcoholism, drug addiction, transportation, low edu. Level, literacy, decrease access to med. care, group home, rehab)? @ -none Was there de-escalation of care discussed even if they declined (Discuss DNR or withdrawal of care, Hospice)? DNR status @ -no What co-morbidities impacted this encounter? (DM, HTN, Smoking, COPD, CAD, Cancer, CVA, ARF, Chemo, Hep., AIDS, mental health diagnosis, sleep apnea, morbid obesity)? @ -none Was patient admitted / discharged? Hospital course, mention meds given and route, prescriptions, significant lab abnormalities, going to OR and other pertinent info. @ - 53 female to ER with A-fib with RVR and heart failure. Patient will be adm itted for heart rate control and diuresis Admitted Undiagnosed new problem with uncertain prognosis? @ -no Drug Therapy requiring intensive monitoring for toxicity (Heparin, Nitro, Insulin, Cardizem)? @ -no Were any procedures done? @ -no Diagnosis/symptom? @ -Atrial fibrillation with RVR and CHF Acute, or Chronic, or Acute on Chronic? @ -Acute Uncomplicated (without systemic symptoms) or Complicated (systemic symptoms)? @ -Complicated Side effects of treatment? @ -no Exacerbation, Progression, or Severe Exacerbation? @ -exacerbation Poses a threat to life or bodily function? How? (Chest pain, USA, NC, pneumonia, PE, COPD, DKA, ARF, appy, cholecystitis, CVA, Diverticulitis, Homicidal, Suicidal, threat to staff... and all critical care pts) @ -yes significant arrhythmia Reevaluation #5: Differential Dyspnea: Coronary syndrome, arrhythmia, tamponade, asthma, COPD, pulmonary embolism, pneumonia, pneumothorax, pulmonary effusion, anaphylaxis, diabetic ketoacidosis, flailed chest, pulmonary contusion, diaphragmatic rupture, anemia, neuromuscular, this is not meant to be an all-inclusive list. - Consultations Consultation #1: Spoke with carl agrees to admit this patient Medical Decision Making - Medical Decision Making 53 female to ER with A-fib with RVR and heart failure. Patient will be admitted for heart rate control and diuresis - Lab Data Result diagrams: 08/12/24 07:24 08/13/24 07:08 Lab Results 08/06/24 08/06/24 08/06/24 Range/Units 15:59 15:59 15:59 WBC 8.78 (4.50-10.00) 10*3/uL RBC 4.50 (4.10-5.20) 10*6/uL Hgb 11.1 L (12.0-15.0) g/dL Hct 38.3 (37.2-46.3) % MCV 85.1 (80.0-97.0) fL MCH 24.7 L (27.0-32.0) pg MCHC 29.0 L (32.0-37.0) g/dL Plt Count 148 (140-440) 10*3/uL MPV 12.0 (9.5-12.2) fL Immature Gran % (Auto) 0.2 % Neutrophils % 84.4 % Lymphocytes % 5.9 % Monocytes % 6.5 % Eosinophils % 2.7 % Basophils % 0.3 % Immature Gran # 0.02 (0.00-0.04) 10*3/uL Neutrophils # 7.40 (1.80-7.70) 10*3/uL Lymphocytes # 0.52 L (0.90-5.00) 10*3/uL Monocytes # 0.57 (0.20-1.00) 10*3/uL Eosinophils # 0.24 (0.04-0.35) 10*3/uL Basophils # 0.03 (0.00-0.10) 10*3/uL PT 11.7 (10.0-12.5) sec INR 1.1 (<1.2) APTT 20.1 L (22.0-30.0) sec Sodium 139 (137-145) mmol/L Potassium 4.5 (3.5-5.1) mmol/L Chloride 94 L (98-107) mmol/L Carbon Dioxide 38 H (22-30) mmol/L Anion Gap 7 mmol/L BUN 11 (7-17) mg/dL Creatinine 0.63 (0.52-1.04) mg/dL Est GFR (CKD-EPI)AfAm >90 (>60 ml/min/1.73 sqM) Est GFR (CKD-EPI)NonAf >90 (>60 ml/min/1.73 sqM) Glucose 121 H (74-99) mg/dL Calcium 8.8 (8.4-10.2) mg/dL Magnesium 1.8 (1.6-2.3) mg/dL Total Bilirubin 0.8 (0.2-1.3) mg/dL AST 22 (14-36) U/L ALT 14 (4-34) U/L Alkaline Phosphatase 134 H (38-126) U/L Troponin I (0.000-0.034) ng/mL NT-Pro-B Natriuret Pep 2800 pg/mL Total Protein 6.6 (6.3-8.2) g/dL Albumin 3.7 (3.5-5.0) g/dL TSH (0.465-4.680) mIU/L Free T4 (0.78-2.19) ng/dL 08/06/24 08/06/24 Range/Units 15:59 15:59 WBC (4.50-10.00) 10*3/uL RBC (4.10-5.20) 10*6/uL Hgb (12.0-15.0) g/dL Hct (37.2-46.3) % MCV (80.0-97.0) fL MCH (27.0-32.0) pg MCHC (32.0-37.0) g/dL Plt Count (140-440) 10*3/uL MPV (9.5-12.2) fL Immature Gran % (Auto) % Neutrophils % % Lymphocytes % % Monocytes % % Eosinophils % % Basophils % % Immature Gran # (0.00-0.04) 10*3/uL Neutrophils # (1.80-7.70) 10*3/uL Lymphocytes # (0.90-5.00) 10*3/uL Monocytes # (0.20-1.00) 10*3/uL Eosinophils # (0.04-0.35) 10*3/uL Basophils # (0.00-0.10) 10*3/uL PT (10.0-12.5) sec INR (<1.2) APTT (22.0-30.0) sec Sodium (137-145) mmol/L Potassium (3.5-5.1) mmol/L Chloride (98-107) mmol/L Carbon Dioxide (22-30) mmol/L Anion Gap mmol/L BUN (7-17) mg/dL Creatinine (0.52-1.04) mg/dL Est GFR (CKD-EPI)AfAm (>60 ml/min/1.73 sqM) Est GFR (CKD-EPI)NonAf (>60 ml/min/1.73 sqM) Glucose (74-99) mg/dL Calcium (8.4-10.2) mg/dL Magnesium (1.6-2.3) mg/dL Total Bilirubin (0.2-1.3) mg/dL AST (14-36) U/L ALT (4-34) U/L Alkaline Phosphatase (38-126) U/L Troponin I <0.012 (0.000-0.034) ng/mL NT-Pro-B Natriuret Pep pg/mL Total Protein (6.3-8.2) g/dL Albumin (3.5-5.0) g/dL TSH 6.160 H (0.465-4.680) mIU/L Free T4 1.78 (0.78-2.19) ng/dL - EKG Data -: EKG Interpreted by Me (EKG is A-fib with RVR 108 QRS 101 QTc 406) - Radiology Data Radiology results: report reviewed (Chest x-ray is positive for CHF), image reviewed Critical Care Time Critical Care Time: Yes Total Critical Care Time: 31 Disposition Clinical Impression: Systolic congestive heart failure, Atrial fibrillation with RVR Disposition: ADMITTED IP TO THIS [facility] Condition: Fair Is patient prescribed a controlled substance at d/c from ED?: No Time of Disposition: 17:40
[2024-08-06] MEDS: LORazepam 2 MG/ML INJ IV STA (16:06)
[2024-08-06] MEDS: SODIUM CHLORIDE 0.9% 1,000 ML IV SCH ×2 (16:06→18:18)
[2024-08-06 16:18] LABS: Basophils # (A) 0.03 10*3/uL (0.00-0.10); Basophils % (A) 0.3 %; Eosinophils # (A) 0.24 10*3/uL (0.04-0.35); Eosinophils % (A) 2.7 %; HCT 38.3 % (37.2-46.3); HGB 11.1 g/dL (12.0-15.0); Lymphocytes # (A) 0.52 10*3/uL (0.90-5.00); Lymphocytes % (A) 5.9 %; MCH 24.7 pg (27.0-32.0); MCV 85.1 fL (80.0-97.0); Monocytes # (A) 0.57 10*3/uL (0.20-1.00); Monocytes % (A) 6.5 %; Neutrophils % (A) 84.4 %; Platelet Count 148 10*3/uL (140-440); RDW 16.5 % (11.5-14.5); WBC 8.78 10*3/uL (4.50-10.00)
[2024-08-06 16:27] LABS: ALT 14 U/L (4-34); AST 22 U/L (14-36); African American GFR (CKD) >90 (>60 ml/min/1.73 sqM); Albumin 3.7 g/dL (3.5-5.0); Alkaline Phosphatase 134 U/L (38-126); Blood Urea Nitrogen 11 mg/dL (7-17); Calcium 8.8 mg/dL (8.4-10.2); Chloride 94 mmol/L (98-107); Glucose 121 mg/dL (74-99); Magnesium 1.8 mg/dL (1.6-2.3); Non-African American GFR(CKD) >90 (>60 ml/min/1.73 sqM); Potassium 4.5 mmol/L (3.5-5.1); Sodium 139 mmol/L (137-145); Total Bilirubin 0.8 mg/dL (0.2-1.3); Total Protein 6.6 g/dL (6.3-8.2)
[2024-08-06 16:33] LABS: Anion Gap 7 mmol/L
[2024-08-06 16:35] LABS: NT-Pro-B-Type Natriuretic Pept 2800 pg/mL
[2024-08-06 16:36] LABS: INR 1.1 (<1.2); Prothrombin Time 11.7 sec (10.0-12.5)
[2024-08-06] MEDS: DILTIAZEM 5 MG/ML 5 ML VIAL IVP STA (16:36)
[2024-08-06 16:39] LABS: Partial Thromboplastin Time 20.1 sec (22.0-30.0)
[2024-08-06 16:48] LABS: Carbon Dioxide 38 mmol/L (22-30)
--- NOTE | 2024-08-06 17:05 | XR ---
EXAMINATION TYPE: XR chest 2V DATE OF EXAM: 08/06/2024 5:01 PM COMPARISON: Chest radiographs from 10/10/2023 TECHNIQUE: XR chest 2V Frontal and lateral views of the chest. CLINICAL INDICATION:Female, 53 years old with history of difficulty breathing; FINDINGS: Limited examination due to patient's body habitus and patient rotation. Lungs/Pleura: No pleural effusion or pneumothorax. No distinct focal consolidation. Pulmonary vascularity: Pulmonary vascular congestion. Heart/mediastinum: Cardiomediastinal silhouette is enlarged and stable. Musculoskeletal: No acute osseous pathology. Thoracic spinal stimulator lead is identified. IMPRESSION: Cardiomegaly and mild pulmonary vascular congestion. Correlate with BNP for congestive heart failure. [facility], , 08/06/2024 5:03 PM
[2024-08-06] MEDS: DILTIAZEM 125 MG in DEXTROSE 5% IN WATER 100 ML IV SCH (18:17)
[2024-08-06] MEDS: FUROSEMIDE 10 MG/ML 4 ML VIAL IV SCH (18:20)
[2024-08-06] MEDS: busPIRone HCl 10 MG TAB PO SCH (20:27)
[2024-08-06] MEDS: APIXABAN 5 MG TAB PO SCH (20:27)
[2024-08-06] MEDS: ZONISAMIDE 100 MG CAP PO SCH (20:34)
[2024-08-06] MEDS: BUMETANIDE 0.25 MG/ML 10 ML VIAL IV SCH (22:38)
[2024-08-06] MEDS: hydrOXYzine HCL 25 MG TAB PO SCH (22:59)
[2024-08-06] MEDS: METOPROLOL SUCCINATE (ER) 50 MG TAB.ER.24H PO SCH (23:01)
[2024-08-06] MEDS: ceFAZolin 2 GM in DEXTROSE 5% IN WATER 50 ML IVPB SCH (23:41)
--- NOTE | 2024-08-07 00:04 | P.HPIM ---
History of Present Illness H&P Date: 08/06/24 Patient is a 53-year-old female with A-fib (on Eliquis), COPD (on home oxygen 2.5 L), hyperlipidemia, hypertension, osteoarthritis, heart failure with preserved EF (50 to 55% on September 2023), anxiety, class III obesity s/p gastric bypass here for evaluation of shortness of breath. Patient reported that today she was having anxiety due to the stress of going to her doctors appointments today. Sometime in the afternoon she started to have shortness of breath with associated chest pain that was midsternal nonradiating with a aching characteristic that is worse with exertion but better with rest and palpitations, dizziness. She denied fever, chills, productive cough, focal weakness, vision changes, facial asymmetry, changes in speech, acute extremity swelling or calf pain. She reported that she has chronic wounds on her bilateral ankles and she is being seen by wound care weekly to change her dressings. She does not drink coffee or alcohol. On admission: Vitals: Temperature 98.3 F, pulse rate 102, respiratory rate 18, blood pressure 135/85, O2 saturation 97% on 2.5 nasal cannula Labs: WBC 8.78, hemoglobin 11.1, platelet count 1 48,000, bicarb 38, glucose 121, BUN 11, creatinine 0.63. Imaging: Chest x-ray showed cardiomegaly and mild pulmonary vascular congestion. EKG showed atrial fibrillation with a rate of 108 bpm, no ST-T changes, QTc 406 MS. ED documentation reviewed. Cardizem drip and furosemide initiated in the ED Review of systems: Pertinent positives and negatives as discussed in HPI, a complete review of systems was performed and all other systems are negative. Social history: Tobacco: Never smoker Alcohol: Denies alcohol intake history Recreational drugs: Denies illicit or recreational drug use Travel: No recent or prolonged travel Physical examination: Vital signs reviewed General: non toxic, no distress, appears at stated age, obese BMI 79 Derm: no unusual rashes/lesions, warm Head: atraumatic, normocephalic, symmetric Eyes: EOMI, anicteric sclera, pupils equal round reactive to light ENT: Nose and ears atraumatic Neck: No cervical lymphadenopathy, trachea midline, supple Mouth: no lip lesion, mucus membranes moist Cardiovascular: S1S2 irregularly irregular no murmur Lungs: CTA bilateral, bibasilar expiratory wheeze, fine Rales in the mid lung estrella no accessory muscle use Abdominal: soft, nondistended, nontender to palpation, no guarding Ext: muscle strength 5 out of 5 in all 4 extremities grossly, no gross muscle atrophy, no contractures, positive dorsalis pedis pulse bilateral, bilateral lower extremity lymphedema, bilateral chronic ankle wounds with noted surroun ding erythema with tenderness on palpation Neuro: CN II-XI grossly intact, no gross focal neuro deficits Psych: Alert and oriented x 3, appropriate affect and mood Assessment/Plan: 53-year-old female with A-fib on anticoagulation, morbid obesity, heart failure with preserved EF (50 to 55% on September 2023) here for evaluation of A-fib with RVR and HFpEF exacerbation The patient is admitted with an anticipated greater than 2 midnight stay for evaluation of A-fib with RVR and HFpEF exacerbation Active: #. A-fib with RVR #. HFpEF exacerbation likely due to above #. Possible JAYME -Cardiac monitoring -Supplemental oxygen as needed -Fluid restriction -Strict Is and Os -Continue with Cardizem drip - Continue Eliquis 5 mg p.o. twice daily - Increase metoprolol to succinate home dose to 50 mg daily -Bumex 1.5 mg IV twice daily -Echocardiogram ordered -Consult cardiology -Possible JAYME. Patient may benefit from outpatient sleep study #. Cellulitis of bilateral lower extremities #. Chronic bilateral ankle wounds - Patient has chronic wounds of bilateral ankles with noted erythema surrounding the wounds with tenderness on palpation - Cefazolin IVPB 2 g every 8 hours for empiric coverage - Blood cultures pending -Consult wound care #. Anxiety - Continue with home hydroxyzine 12.5 mg 3 times daily as needed #. Class III obesity -BMI 79 -Patient status post gastric bypass - Patient may benefit from bariatric surgery consult outpatient Chronic Conditions: #. hyperlipidemia #. Hypertension #. Osteoarthritis #. Hypothyroidism #. COPD, not in exacerbation -Continue with levothyroxine 25 mcg daily, zonisamide 100 mg daily and pantoprazole 40 mg daily, DuoNeb as needed -Initiate Lipitor 40mg daily. Patient is not on statin at home DVT ppx: Eliquis 5 mg p.o. twice daily CODE STATUS: Full Discussed with: Patient Anticipated discharge place: Home Cinthia Benjamin MD PGY-1 Internal Medicine Dictation was produced using [employer] dictation software. please excuse any grammatical, word or spelling errors. Past Medical History Past Medical History: Atrial Fibrillation, Hyperlipidemia, Hypertension, Musculoskeletal Disorder, Osteoarthritis (OA) Additional Past Medical History / Comment(s): NEUROPATHY, CARPEL TUNNEL, BACK NECK AND KNEE PAIN, MIGRAINES. "Raspy voice last few days." "Oxygen 2.5L per nasal cannula." History of Any Multi-Drug Resistant Organisms: None Reported Past Surgical History: Bariatric Surgery, Section, Hysterectomy, Joint Replacement, Orthopedic Surgery, Tubal Ligation Additional Past Surgical History / Comment(s): GASTRIC BYPASS, SPINAL CORD STIMULATOR, bilateral knee replacements, right knee arthroscopy. Past Anesthesia/Blood Transfusion Reactions: No Reported Reaction Past Psychological History: Anxiety Smoking Status: Never smoker Past Alcohol Use History: None Reported Past Drug Use History: None Reported - Past Family History Mother Family Medical History: Cancer Medications and Allergies Home Medications Medication Instructions Recorded Confirmed Type Zonisamide [Zonegran] 100 mg PO HS 09/11/13 08/06/24 History Metoprolol Succinate (ER) [Toprol 50 mg PO HS tab 09/08/22 08/06/24 Rx XL] Butalb/Acetaminophen/Caffeine 1 cap PO Q4H PRN 10/10/23 08/06/24 History [Fioricet 50-300-40 mg Capsule] Cholecalciferol (Vitamin D3) 125 mcg PO DAILY 10/10/23 08/06/24 History [Vitamin D3 (125 MCG = 5,000 IU)] Diltiazem Oral [Cardizem*] 30 mg PO Q8H 10/10/23 08/06/24 History HYDROcodone/APAP 7.5-325MG [Watson 1 tab PO TID PRN 10/10/23 08/06/24 History 7.5-325] Ipratropium-Albuterol Nebulize 3 ml INHALATION RT-QID PRN 10/10/23 08/06/24 History [Duoneb 0.5 mg-3 mg/3 ml Soln] Nystatin 100,000 Unit/gm Powd 1 applic TOPICAL BID PRN 10/10/23 08/06/24 History [Mycostatin Powder] hydrOXYzine HCL [Atarax] 50 - 100 mg PO Q6H PRN 10/10/23 08/06/24 History Bumetanide [BUMEX] 1 mg PO BID@0900,1600 #60 tab 10/12/23 08/06/24 Rx Spironolactone [Aldactone] 25 mg PO DAILY #30 tab 10/12/23 08/06/24 Rx Apixaban [Eliquis] 5 mg PO BID 08/06/24 08/06/24 History Folic Acid 667mg 667 mg PO DAILY 08/06/24 08/06/24 History Levothyroxine Sodium [Synthroid] 25 mcg PO DAILY 08/06/24 08/06/24 History Pantoprazole [Protonix] 40 mg PO AC-BRKFST 08/06/24 08/06/24 History busPIRone HCL [Buspar] 30 mg PO BID 08/06/24 08/06/24 History Allergies Allergy/AdvReac Type Severity Reaction Status Date / Time No Known Allergies Allergy Verified 08/06/24 18:56 Physical Exam Vitals: Vital Signs Temp Pulse Resp BP Pulse Ox 08/06/24 19:25 106 H 18 106/75 94 L 08/06/24 18:21 110 H 20 102/78 96 08/06/24 17:31 97.9 F 93 18 108/74 96 08/06/24 17:00 98 18 08/06/24 16:35 105 H 20 119/71 97 08/06/24 16:15 24 08/06/24 16:03 115 H 24 123/84 94 L 08/06/24 15:32 98.3 F 102 H 18 135/85 97 Intake and Output 08/06/24 08/06/24 08/06/24 06:59 14:59 22:59 Other: Weight 208.652 kg Results CBC & Chem 7: 08/06/24 15:59 08/06/24 15:59 Labs: Abnormal Lab Results - Last 24 Hours (Table) 08/06/24 08/06/24 08/06/24 Range/Units 15:59 15:59 15:59 Hgb 11.1 L (12.0-15.0) g/dL MCH 24.7 L (27.0-32.0) pg MCHC 29.0 L (32.0-37.0) g/dL Lymphocytes # 0.52 L (0.90-5.00) 10*3/uL APTT 20.1 L (22.0-30.0) sec Chloride 94 L (98-107) mmol/L Carbon Dioxide 38 H (22-30) mmol/L Glucose 121 H (74-99) mg/dL Alkaline Phosphatase 134 H (38-126) U/L
[2024-08-07] MEDS: LEVOTHYROXINE 25 MCG TAB PO SCH (05:45)
[2024-08-07] MEDS: HYDROcodone/APAP 7.5-325MG 1 EACH TAB PO PRN (06:05)
[2024-08-07 06:47] LABS: HCT 39.5 % (37.2-46.3); HGB 11.1 g/dL (12.0-15.0); MCH 24.2 pg (27.0-32.0); MCHC 28.1 g/dL (32.0-37.0); MCV 86.2 fL (80.0-97.0); Mean Platelet Volume 12.1 fL (9.5-12.2); Platelet Count 138 10*3/uL (140-440); RBC 4.58 10*6/uL (4.10-5.20); RDW 16.8 % (11.5-14.5); WBC 10.05 10*3/uL (4.50-10.00)
[2024-08-07 07:17] LABS: African American GFR (CKD) >90 (>60 ml/min/1.73 sqM); Blood Urea Nitrogen 12 mg/dL (7-17); Chloride 91 mmol/L (98-107); Glucose 110 mg/dL (74-99); Non-African American GFR(CKD) >90 (>60 ml/min/1.73 sqM); Potassium 4.4 mmol/L (3.5-5.1); Sodium 139 mmol/L (137-145)
[2024-08-07 07:30] LABS: Anion Gap 7 mmol/L
[2024-08-07 07:33] LABS: Carbon Dioxide 41 mmol/L (22-30)
[2024-08-07] MEDS: ALPRAZolam 0.25 MG TAB PO STA (07:48)
[2024-08-07] MEDS: PANTOPRAZOLE 40 MG TABLET PO SCH (07:48)
[2024-08-07] MEDS: IPRATROPIUM-ALBUTEROL 3 ML NEB INHALATION PRN (08:10)
[2024-08-07] MEDS ORDERED: NYSTATIN 100,000 UNIT/GM POWD 15 GM TOPICAL PRN (08:47)
[2024-08-07] MEDS ORDERED: BUTALB/APAP/CAFF 50-325-40MG TAB PO PRN (08:47)
[2024-08-07] MEDS: METOPROLOL TARTRATE 50 MG TAB PO SCH (09:30)
[2024-08-07] MEDS: DILTIAZEM ORAL 30 MG TAB PO SCH (09:31)
[2024-08-07] MEDS: CHOLECALCIFEROL 125 MCG (5000 IU) TABLET PO SCH (09:31)
[2024-08-07] MEDS: SPIRONOLACTONE 25 MG TAB PO SCH (09:31)
[2024-08-07] MEDS: FOLIC ACID 1 MG TAB PO SCH (09:32)
[2024-08-07 10:22] LABS: T4, Free (Free Thyroxine) 1.78 ng/dL (0.78-2.19)
--- NOTE | 2024-08-07 10:25 | P.CONS ---
History of Present Illness - Reason for Consult Consult date: 08/07/24 wound care - History of Present Illness This is a 53-year-old patient with past medical history significant for chronic lower extremity wounds, lymphedema chronic, venous insufficiency, hypertension, congestive heart failure, status post gastric bypass surgery. Patient has been seen in the emergency department for nonhealing ulcerations to bilateral lower extremities. Patient has a open ulceration to the right medial calf measuring approximately 0.5 x 0.4 x 0.1 cm with granulation seen throughout the wound bed. Patient does have lymphedema and swelling noted to right lower extremity. Left lower extremity has no open ulcerations however her skin is macerated and weeping to the lateral aspect of the calf.Patient follows with [facility] care who comes in once weekly for bilateral wraps. Review Of Systems: Constitutional: No fever, no chills, no night sweats. No weight change. No weakness, fatigue or lethargy. No daytime sleepiness. Integumentary:reports wounds, no lesions. No rash or pruritus. No unusual bruising. No change in hair or nails. Physical exam: General Appearance: Alert, cooperative, no distress, appears stated age. Skin: See HPI all other Skin color, texture, tugor normal, no rashes or lesions. Neurologic: Alert oriented x3 Assessment: 1. Nonhealing ulceration Right lower extremity with fat layer exposed 2. Chronic hypertension venous with inflammation left lower extremity 3. Venous insufficiency Plan: 1. Right lower extremity: Apply absorptive silver, rolled gauze secured with tape wrapped with Henok wrap for compression. Left lower extremity: apply absorptive silver to macerated area, ABD and with rolled gauze. Wrap with Henok wrap for compression. Thank you for the consultation any questions please contact the wound care center DNP note has been reviewed and discussed with Dr. Montano and the impression and plan of care has been directed as dictated. Past Medical History Past Medical History: Atrial Fibrillation, Hyperlipidemia, Hypertension, Musculoskeletal Disorder, Osteoarthritis (OA) Additional Past Medical History / Comment(s): NEUROPATHY, CARPEL TUNNEL, BACK NECK AND KNEE PAIN, MIGRAINES. "Raspy voice last few days." "Oxygen 2.5L per nasal cannula." History of Any Multi-Drug Resistant Organisms: None Reported Past Surgical History: Bariatric Surgery, Section, Hysterectomy, Joint Replacement, Orthopedic Surgery, Tubal Ligation Additional Past Surgical History / Comment(s): GASTRIC BYPASS, SPINAL CORD STIMULATOR, bilateral knee replacements, right knee arthroscopy. Past Anesthesia/Blood Transfusion Reactions: No Reported Reaction Past Psychological History: Anxiety Smoking Status: Never smoker Past Alcohol Use History: None Reported Past Drug Use History: None Reported - Past Family History Mother Family Medical History: Cancer Medications and Allergies Home Medications Medication Instructions Recorded Confirmed Type Zonisamide [Zonegran] 100 mg PO HS 09/11/13 08/06/24 History Metoprolol Succinate (ER) [Toprol 50 mg PO HS tab 09/08/22 08/06/24 Rx XL] Butalb/Acetaminophen/Caffeine 1 cap PO Q4H PRN 10/10/23 08/06/24 History [Fioricet 50-300-40 mg Capsule] Cholecalciferol (Vitamin D3) 125 mcg PO DAILY 10/10/23 08/06/24 History [Vitamin D3 (125 MCG = 5,000 IU)] Diltiazem Oral [Cardizem*] 30 mg PO Q8H 10/10/23 08/06/24 History HYDROcodone/APAP 7.5-325MG [[place] 1 tab PO TID PRN 10/10/23 08/06/24 History 7.5-325] Ipratropium-Albuterol Nebulize 3 ml INHALATION RT-QID PRN 10/10/23 08/06/24 History [Duoneb 0.5 mg-3 mg/3 ml Soln] Nystatin 100,000 Unit/gm Powd 1 applic TOPICAL BID PRN 10/10/23 08/06/24 History [Mycostatin Powder] hydrOXYzine HCL [Atarax] 50 - 100 mg PO Q6H PRN 10/10/23 08/06/24 History Bumetanide [BUMEX] 1 mg PO BID@0900,1600 #60 tab 10/12/23 08/06/24 Rx Spironolactone [Aldactone] 25 mg PO DAILY #30 tab 10/12/23 08/06/24 Rx Apixaban [Eliquis] 5 mg PO BID 08/06/24 08/06/24 History Folic Acid 667mg 667 mg PO DAILY 08/06/24 08/06/24 History Levothyroxine Sodium [Synthroid] 25 mcg PO DAILY 08/06/24 08/06/24 History Pantoprazole [Protonix] 40 mg PO AC-BRKFST 08/06/24 08/06/24 History busPIRone HCL [Buspar] 30 mg PO BID 08/06/24 08/06/24 History Allergies Allergy/AdvReac Type Severity Reaction Status Date / Time No Known Allergies Allergy Verified 08/07/24 09:16 Physical Exam Vitals: Vital Signs Temp Pulse Resp BP Pulse Ox 08/07/24 09:35 104 H 18 119/82 94 L 08/07/24 08:21 89 08/07/24 08:13 95 08/07/24 08:10 84 08/07/24 07:50 98 18 128/82 97 08/07/24 05:45 104 H 18 119/92 97 08/07/24 02:47 103 H 18 104/85 94 L 08/07/24 00:00 84 16 107/73 92 L 08/06/24 23:00 110 H 18 107/73 94 L 08/06/24 22:28 94 18 110/84 93 L 08/06/24 21:30 101 H 18 111/88 95 08/06/24 20:30 104 H 18 120/74 97 08/06/24 19:25 106 H 18 106/75 94 L 08/06/24 18:21 110 H 20 102/78 96 08/06/24 17:31 97.9 F 93 18 108/74 96 08/06/24 17:00 98 18 08/06/24 16:35 105 H 20 119/71 97 08/06/24 16:15 24 08/06/24 16:03 115 H 24 123/84 94 L 08/06/24 15:32 98.3 F 102 H 18 135/85 97 Intake and Output 08/06/24 08/07/24 08/07/24 22:59 06:59 14:59 Output Total 1600 750 Balance -1600 -750 Output: Urine 1600 750 Other: Weight 208.652 kg 208.652 kg Results CBC & Chem 7: 08/07/24 06:24 08/07/24 06:24 Labs: Abnormal Lab Results - Last 24 Hours (Table) 08/06/24 08/06/24 08/06/24 Range/Units 15:59 15:59 15:59 WBC (4.50-10.00) 10*3/uL Hgb 11.1 L (12.0-15.0) g/dL MCH 24.7 L (27.0-32.0) pg MCHC 29.0 L (32.0-37.0) g/dL Plt Count (140-440) 10*3/uL Lymphocytes # 0.52 L (0.90-5.00) 10*3/uL APTT 20.1 L (22.0-30.0) sec Chloride 94 L (98-107) mmol/L Carbon Dioxide 38 H (22-30) mmol/L Glucose 121 H (74-99) mg/dL Alkaline Phosphatase 134 H (38-126) U/L TSH (0.465-4.680) mIU/L 08/06/24 08/07/24 08/07/24 Range/Units 15:59 06:24 06:24 WBC 10.05 H (4.50-10.00) 10*3/uL Hgb 11.1 L (12.0-15.0) g/dL MCH 24.2 L (27.0-32.0) pg MCHC 28.1 L (32.0-37.0) g/dL Plt Count 138 L (140-440) 10*3/uL Lymphocytes # (0.90-5.00) 10*3/uL APTT (22.0-30.0) sec Chloride 91 L (98-107) mmol/L Carbon Dioxide 41 H* (22-30) mmol/L Glucose 110 H (74-99) mg/dL Alkaline Phosphatase (38-126) U/L TSH 6.160 H (0.465-4.680) mIU/L Assessment and Plan (1) Non-pressure chronic ulcer of right calf with fat layer exposed Current Visit: Yes Status: Acute Code(s): L97.212 - NON-PRESSURE CHRONIC ULCER OF RIGHT CALF W FAT LAYER EXPOSED SNOMED Code(s): 76056756674110564 (2) Chronic venous hypertension (idiopathic) with inflammation of left lower extremity Current Visit: Yes Status: Acute Code(s): I87.322 - CHRONIC VENOUS HYPERT ENSION W INFLAMMATION OF L LOW EXTREM SNOMED Code(s): 919644835 (3) Chronic venous hypertension w/ulcer and inflammation involv right side Current Visit: Yes Status: Acute Code(s): I87.331 - CHRONIC VENOUS HTN W ULCER AND INFLAMMATION OF R LOW EXTREM SNOMED Code(s): 951972767
[2024-08-07] MEDS: ALPRAZolam 1 MG TAB PO STA (12:27)
--- NOTE | 2024-08-07 12:52 | P.CRDCN ---
History of Present Illness Consult date: 08/07/24 Reason for Consult (text): CHF, A-fib with RVR History of present illness: This is a 53-year-old female previously seen in the office by Dr. Tran with most recent office visit on 06/22/2020. Patient is homebound and has visiting physicians in place. Patient has a past medical history of venous insufficiency, paroxysmal atrial fibrillation, chronic dyspnea on exertion, morbid obesity, chronic pain with pain pump, nonhealing ulceration right lower extremity. We have been asked to evaluate the patient for A-fib with RVR and CHF. Patient states that she was very anxious yesterday and was having shortness of breath. She states she is on home O2 at 2 L nasal cannula. She does not have a CPAP but states that she had a study done a number of years ago and she did not have sleep apnea. Patient is complaining of lower extremity edema which she has which has been chronic. She also felt like her heart rate was elevated. Blood pressure 95/72, heart rate 82, pulse ox 94% on room air. Patient has been started on IV Bumex 1.5 mg every 12 hours and resumed on home cardiac medications. Patient was on Cardizem drip and is status 1 L of IV fluid bolus. -EKG: Atrial fibrillation 108 bpm. -Chest x-ray: Cardiomegaly with mild pulmonary vascular congestion. -Laboratory studies: WBC 10, hemoglobin 11.1, CO2 41, creatinine 0.69. Troponin negative x 2. TSH 6.16 with normal free T4 of 1.78. -Home cardiac medications: Eliquis 5 mg twice daily, Bumex 1 mg twice daily, Cardizem 30 mg every 8 hours, metoprolol succinate 50 mg at bedtime, spironolactone 25 mg daily, also on levothyroxine. -Dobutamine stress echo performed at [facility] on 03/09/2022 revealed normal stress EKG and echo response to dobutamine infusion without any evidence of inducible ischemia. -Echocardiogram performed on 10/11/2023 revealed EF of 50 to 55%. No significant valvular dysfunction. Review Of Systems: At the time of my exam: CONSTITUTIONAL: Denies fever or chills. HEENT: Denies blurred vision, vision changes, or eye pain. Denies hemoptysis CARDIOVASCULAR: Denies chest pain. Denies orthopnea. Denies PND. Denies palpitations RESPIRATORY: Denies shortness of breath. GASTROINTESTINAL: Denies abdominal pain. Denies nausea or vomiting. HEMATOLOGIC: Denies bleeding disorders. GENITOURINARY: Denies any blood in urine. SKIN: Denies puritis. Denies rash. Physical examination: Gen: This is a 53-year-old female in no acute respiratory distress. VS: reviewed HEENT: Head is atraumatic, normocephalic. Pupils equal, round. Sclerae is anict jaime. NECK: Supple. No JVD. LUNGS: Clear to auscultation. No wheezes or rhonchi. No intercostal r etractions. HEART: Regular rate and rhythm. No murmur. ABDOMEN: Soft No tenderness. EXTREMITIES: Massive lower extremity edema, lymphedema bilaterally with wound to the right lower extremity, chronic dark skin color changes. NEUROLOGICAL: Patient is awake, alert and oriented x3. Assessment: Paroxysmal atrial fibrillation currently heart rate is controlled Chronic hypoxic respiratory failure Chronic diastolic heart failure with possible mild component of acute failure Chronic nonhealing ulceration right lower extremity Venous insufficiency Chronic lower extremity edema and lymphedema Morbid obesity with BMI of 79 Hypothyroidism with elevated TSH and normal free T4 Anxiety Plan: Resume patient's home cardiac medications Continue IV Bumex Obtain 2-D echocardiogram and Doppler study to assess cardiac structure and function Further recommendations to follow based upon clinical course Thank you kindly for this consultation. Nurse practitioner note has been reviewed, I agree with documented findings and plan of care. Patient was seen and examined. Past Medical History Past Medical History: Atrial Fibrillation, Hyperlipidemia, Hypertension, Musculoskeletal Disorder, Osteoarthritis (OA) Additional Past Medical History / Comment(s): NEUROPATHY, CARPEL TUNNEL, BACK NECK AND KNEE PAIN, MIGRAINES. "Raspy voice last few days." "Oxygen 2.5L per nasal cannula." History of Any Multi-Drug Resistant Organisms: None Reported Past Surgical History: Bariatric Surgery, Section, Hysterectomy, Joint Replacement, Orthopedic Surgery, Tubal Ligation Additional Past Surgical History / Comment(s): GASTRIC BYPASS, SPINAL CORD STIMULATOR, bilateral knee replacements, right knee arthroscopy. Past Anesthesia/Blood Transfusion Reactions: No Reported Reaction Past Psychological History: Anxiety Smoking Status: Never smoker Past Alcohol Use History: None Reported Past Drug Use History: None Reported - Past Family History Mother Family Medical History: Cancer Medications and Allergies Home Medications Medication Instructions Recorded Confirmed Type Zonisamide [Zonegran] 100 mg PO HS 09/11/13 08/06/24 History Metoprolol Succinate (ER) [Toprol 50 mg PO HS tab 09/08/22 08/06/24 Rx XL] Butalb/Acetaminophen/Caffeine 1 cap PO Q4H PRN 10/10/23 08/06/24 History [Fioricet 50-300-40 mg Capsule] Cholecalciferol (Vitamin D3) 125 mcg PO DAILY 10/10/23 08/06/24 History [Vitamin D3 (125 MCG = 5,000 IU)] Diltiazem Oral [Cardizem*] 30 mg PO Q8H 10/10/23 08/06/24 History HYDROcodone/APAP 7.5-325MG [Conner 1 tab PO TID PRN 10/10/23 08/06/24 History 7.5-325] Ipratropium-Albuterol Nebulize 3 ml INHALATION RT-QID PRN 10/10/23 08/06/24 History [Duoneb 0.5 mg-3 mg/3 ml Soln] Nystatin 100,000 Unit/gm Powd 1 applic TOPICAL BID PRN 10/10/23 08/06/24 History [Mycostatin Powder] hydrOXYzine HCL [Atarax] 50 - 100 mg PO Q6H PRN 10/10/23 08/06/24 History Bumetanide [BUMEX] 1 mg PO BID@0900,1600 #60 tab 10/12/23 08/06/24 Rx Spironolactone [Aldactone] 25 mg PO DAILY #30 tab 10/12/23 08/06/24 Rx Apixaban [Eliquis] 5 mg PO BID 08/06/24 08/06/24 History Folic Acid 667mg 667 mg PO DAILY 08/06/24 08/06/24 History Levothyroxine Sodium [Synthroid] 25 mcg PO DAILY 08/06/24 08/06/24 History Pantoprazole [Protonix] 40 mg PO AC-BRKFST 08/06/24 08/06/24 History busPIRone HCL [Buspar] 30 mg PO BID 08/06/24 08/06/24 History Allergies Allergy/AdvReac Type Severity Reaction Status Date / Time No Known Allergies Allergy Verified 08/07/24 09:16 Physical Exam Vitals: Vital Signs Temp Pulse Resp BP Pulse Ox 08/07/24 11:00 82 18 95/72 94 L 08/07/24 10:00 74 18 117/81 96 08/07/24 09:35 104 H 18 119/82 94 L 08/07/24 08:21 89 08/07/24 08:13 95 08/07/24 08:10 84 08/07/24 07:50 98 18 128/82 97 08/07/24 05:45 104 H 18 119/92 97 08/07/24 02:47 103 H 18 104/85 94 L 08/07/24 00:00 84 16 107/73 92 L 08/06/24 23:00 110 H 18 107/73 94 L 08/06/24 22:28 94 18 110/84 93 L 08/06/24 21:30 101 H 18 111/88 95 08/06/24 20:30 104 H 18 120/74 97 08/06/24 19:25 106 H 18 106/75 94 L 08/06/24 18:21 110 H 20 102/78 96 08/06/24 17:31 97.9 F 93 18 108/74 96 08/06/24 17:00 98 18 08/06/24 16:35 105 H 20 119/71 97 08/06/24 16:15 24 08/06/24 16:03 115 H 24 123/84 94 L 08/06/24 15:32 98.3 F 102 H 18 135/85 97 Intake and Output 08/06/24 08/07/24 08/07/24 22:59 06:59 14:59 Output Total 1600 750 Balance -1600 -750 Output: Urine 1600 750 Other: Weight 208.652 kg 208.652 kg Results 08/07/24 06:24 08/07/24 06:24 Cardiac Enzymes 08/06/24 08/06/24 08/06/24 Range/Units 15:59 15:59 18:31 AST 22 (14-36) U/L Troponin I <0.012 <0.012 (0.000-0.034) ng/mL Coagulation 08/06/24 Range/Units 15:59 PT 11.7 (10.0-12.5) sec APTT 20.1 L (22.0-30.0) sec CBC 08/06/24 08/07/24 Range/Units 15:59 06:24 WBC 8.78 10.05 H (4.50-10.00) 10*3/uL RBC 4.50 4.58 (4.10-5.20) 10*6/uL Hgb 11.1 L 11.1 L (12.0-15.0) g/dL Hct 38.3 39.5 (37.2-46.3) % Plt Count 148 138 L (140-440) 10*3/uL Comprehensive Metabolic Panel 08/06/24 08/07/24 Range/Units 15:59 06:24 Sodium 139 139 (137-145) mmol/L Potassium 4.5 4.4 (3.5-5.1) mmol/L Chloride 94 L 91 L (98-107) mmol/L Carbon Dioxide 38 H 41 H* (22-30) mmol/L BUN 11 12 (7-17) mg/dL Creatinine 0.63 0.69 (0.52-1.04) mg/dL Glucose 121 H 110 H (74-99) mg/dL Calcium 8.8 9.0 (8.4-10.2) mg/dL AST 22 (14-36) U/L ALT 14 (4-34) U/L Alkaline Phosphatase 134 H (38-126) U/L Total Protein 6.6 (6.3-8.2) g/dL Albumin 3.7 (3.5-5.0) g/dL Current Medications Generic Name Dose Route Start Last Admin Trade Name Freq PRN Reason Stop Dose Admin Acetaminophen/Butalbital/Caffeine 1 each 08/07/24 08:47 Butalb/Apap/Caff 50-325-40mg Tab PO Q4H PRN Migraine Headache Hydrocodone Bitart/Acetaminophen 1 each 08/07/24 05:56 08/07/24 06:05 Hydrocodone/Apap 7.5-325mg 1 Each Tab PO 1 each TID PRN Administration Pain Albuterol/Ipratropium 3 ml 08/06/24 19:44 08/07/24 08:10 Ipratropium-Albuterol 3 Ml Neb INHALATION 3 ml RT-QID PRN Administration Shortness Of Breath Apixaban 5 mg 08/06/24 21:00 08/07/24 08:56 Apixaban 5 Mg Tab PO 5 mg BID VANE Administration Protocol Atorvastatin Calcium 40 mg 08/07/24 21:00 Atorvastatin 40 Mg Tab PO HS VANE Bumetanide 1.5 mg 08/06/24 23:00 08/07/24 12:28 Bumetanide 0.25 Mg/Ml 10 Ml Vial IV 1.5 mg Q12H VANE Administration Buspirone HCl 30 mg 08/06/24 21:00 08/07/24 09:30 Buspirone Hcl 10 Mg Tab PO 30 mg BID VANE Administration Cholecalciferol 125 mcg 08/07/24 09:00 08/07/24 09:31 Cholecalciferol 125 Mcg (5000 Iu) Tablet PO 125 mcg DAILY VANE Administration Diltiazem HCl 30 mg 08/07/24 09:00 08/07/24 09:31 Diltiazem Oral 30 Mg Tab PO 30 mg Q8HR VANE Administration Folic Acid 0.5 mg 08/07/24 09:00 08/07/24 09:32 Folic Acid 1 Mg Tab PO 0.5 mg DAILY VANE Administration Hydroxyzine HCl 12.5 mg 08/06/24 22:30 08/07/24 08:56 Hydroxyzine Hcl 25 Mg Tab PO 12.5 mg TID VANE Administration Cefazolin Sodium 2 gm/ 50 mls @ 100 mls/hr 08/07/24 00:00 08/07/24 09:31 Dextrose/Water IVPB 100 mls/hr Q8HR VANE Administration Protocol Levothyroxine Sodium 25 mcg 08/07/24 06:30 08/07/24 05:45 Levothyroxine 25 Mcg Tab PO 25 mcg DAILY@0630 VANE Administration Metoprolol Tartrate 50 mg 08/07/24 09:00 08/07/24 09:30 Metoprolol Tartrate 50 Mg Tab PO 50 mg BID VANE Administration Nystatin 1 applic 08/07/24 08:47 Nystatin 100,000 Unit/Gm Powd 15 Gm TOPICAL BID PRN Rash Protocol Pantoprazole Sodium 40 mg 08/07/24 07:30 08/07/24 07:48 Pantoprazole 40 Mg Tablet PO 40 mg AC-BRKFST VANE Administration Spironolactone 25 mg 08/07/24 09:00 08/07/24 09:31 Spironolactone 25 Mg Tab PO 25 mg DAILY VANE Administration Zonisamide 100 mg 08/06/24 21:00 08/06/24 20:34 Zonisamide 100 Mg Cap PO 100 mg HS VANE Administration Intake and Output 08/06/24 08/07/24 08/07/24 22:59 06:59 14:59 Output Total 1600 750 Balance -1600 -750 Output: Urine 1600 750 Other: Weight 208.652 kg 208.652 kg Patient Weight 08/08/24 06:59 Weight 208.652 kg 08/07/24 06:24 08/07/24 06:24
--- NOTE | 2024-08-07 13:29 | CA ---
Transthoracic Echo Report Name: Jemma Muniz Age: 53 Gender: F : 1970 Exam Date: 08/07/2024 08:58 Exam Location: [facility] Ht (in): 64 Wt (lb): 460 Ordering Physician: Jordan Sood DO Attending/Referring Phys: [id number], Indigo [employer]cat Operator Cristel Islas RDCS Procedure CPT: Indications: Heart failure Cardiac Hx: Technical Quality: Technically difficult study Contrast 1: Definity Total Dose (mL): 5 Contrast 2: Total Dose (mL): MEASUREMENTS (Male / Female) Normal Values 2D ECHO LV Diastolic Diameter PLAX 5.5 cm 4.2 - 5.9 / 3.9 - 5.3 cm LV Systolic Diameter PLAX 4.6 cm IVS Diastolic Thickness 0.8 cm 0.6 - 1.0 / 0.6 - 0.9 cm LVPW Diastolic Thickness 1.1 cm 0.6 - 1.0 / 0.6 - 0.9 cm LV Relative Wall Thickness 0.3 LVOT Diameter 2.4 cm LV Diastolic Volume MOD BP 195.9 cm??? 67 - 155 / 56 - 104 cm??? LV Systolic Volume MOD BP 129.0 cm??? 22 - 58 / 19 - 49 cm??? LV Ejection Fraction MOD BP 34.2 % >= 55 % LV Cardiac Index MOD BP 2031.7 cm???/min???m??? LV Diastolic Volume MOD 4C 192.0 cm??? LV Systolic Volume MOD 4C 117.0 cm??? LV Ejection Fraction MOD 4C 39.1 % LV Cardiac Index MOD 4C 2277.8 cm???/min???m??? LV Diastolic Length 4C 9.3 cm LV Systolic Length 4C 7.9 cm LV Diastolic Volume MOD 2C 192.1 cm??? LV Systolic Volume MOD 2C 141.9 cm??? LV Ejection Fraction MOD 2C 26.1 % LV Cardiac Index MOD 2C 1525.2 cm???/min???m??? LV Diastolic Length 2C 8.9 cm LV Systolic Length 2C 7.8 cm Ascending Aorta Diameter 3.0 cm DOPPLER AV Peak Velocity 142.0 cm/s AV Peak Gradient 8.1 mmHg AV Mean Velocity 97.8 cm/s AV Mean Gradient 4.3 mmHg AV Velocity Time Integral 23.3 cm LVOT Peak Velocity 112.2 cm/s LVOT Peak Gradient 5.0 mmHg LVOT Velocity Time Integral 19.9 cm LVOT Stroke Volume 87.5 cm??? LVOT Stroke Volume Index 31.4 ml/m??? LVOT Cardiac Index 2657.7 cm???/min???m??? AV Area Cont Eq vti 3.8 cm??? AV Area Cont Eq pk 3.5 cm??? MV Peak Velocity 139.0 cm/s MV Peak Gradient 7.7 mmHg MV Mean Velocity 96.2 cm/s MV Mean Gradient 4.2 mmHg MV Velocity Time Integral 17.0 cm MR Peak Velocity 450.0 cm/s MR Peak Gradient 81.0 mmHg MR Flow Rate PISA 102.8 cm???/s MR ERO PISA 0.2 cm??? MR Regurgitant Volume PISA 30.4 cm??? TR Peak Velocity 288.2 cm/s TR Peak Gradient 33.2 mmHg Right Atrial Pressure 20.0 mmHg Pulmonary Artery Systolic Pressu 53.2 mmHg Right Ventricular Systolic Press 53.2 mmHg PV Peak Velocity 87.8 cm/s PV Peak Gradient 3.1 mmHg FINDINGS Left Ventricle Left ventricular ejection fraction is estimated at 35-40 %. Moderate global hypokinesis.left ventricular cavity size normal. Right Ventricle Right ventricle not well visualized. Moderate pulmonary hypertension Right Atrium Severe right atrial dilatation. Left Atrium Mildly increased left atrial area. Mitral Valve Structurally normal mitral valve. No evidence for mitral valve prolapse. Mild mitral stenosis. Moderate to severe mitral regurgitation. Aortic Valve Aortic valve not well visualized. No aortic valve stenosis or regurgitation. Tricuspid Valve Structurally normal tricuspid valve. Annular dilatation of the tricuspid valve. No tricuspid stenosis. Moderate tricuspid regurgitation. Pulmonic Valve Pulmonic valve not well visualized. No pulmonic stenosis. No pulmonic regurgitation. Pericardium No pericardial effusion. Aorta Normal size aortic root and proximal ascending aorta. CONCLUSIONS Technically difficult study. Definity ECHO contrast used for improved visualization of the endocardial borders (inadequate visualization of two or more contiguous segments). Moderate impairment in the left ventricular systolic function with global hypokinesis Moderate severe mitral and moderate tricuspid regurgitation Moderate pulmonary hypertension Previewed by: Dr. Rosmery Knutson MD (Electronically Signed) Final Date: 07 August 2024 13:28
--- NOTE | 2024-08-07 18:09 | P.PN ---
Subjective Progress Note Date: 08/07/24 Hospital course: Patient is a pleasant 53-year-old female with a past medical history of atrial fibrillation on anticoagulation with Eliquis, chronic diastolic heart failure, COPD home oxygen dependent on 2-1/2 L, hypertension, hyperlipidemia, hypothyroidism, osteoarthritis with chronic lower back pain with spinal cord stimulator and morphine pain pump in place, chronic lower extremity wounds following with wound care, and anxiety. She presented to the hospital on/with a chief complaint of shortness of breath 08/06/24. Patient reports it started out as anxiety resulting from feeling stressed over going to her doctor's appointment which shortly after developed into shortness of breath, chest pain, palpitations, and dizziness. Upon arrival to our facility, patient underwent evaluation in the emergency department. Upon initial blood pressure 135/85, heart rate 102, respiratory rate 18, temp 98.3 F, and SpO2 of 97% on 2 L EKG completed showing atrial fibrillation with RVR to 108 bpm. Chest x-ray completed showing cardiomegaly and mild pulmonary vascular congestion. Labs completed and reviewed. CBC showing normocytic anemia with hemoglobin of 11.1. Coagulation profile showing low PTT of 20.1. BMP showing metabolic alkalosis with chloride of 94, bicarb of 38, and anion gap of 7. Blood glucose 121. Magnesium 1.8. Liver profile showing elevated alkaline phosphatase of 134 otherwise normal findings. Troponin was negative at less than 0.012. proBNP slightly elevated at 2800 with previous proBNP of 2250 on 10/10/2023 patient was admitted under our services with consultation to cardiology and wound care for management of patient's chronic bilateral ankle wounds. Troponins trended and negative at less than 0.012 x 2 draws Physical exam: Vital signs reviewed and stable. General: Nontoxic, no distress and appears stated age. Obese. Derm: Skin warm and dry, normal coloration for ethnicity. Head: Atraumatic, normocephalic and symmetric. Eyes: EOM's intact, no lid lag, and anicteric sclera Mouth: no lip lesions, mucus membranes moist Cardiovascular: regular rate and rhythm with normal S1S2, no murmur, positive posterior tibial pulses bilaterally, and cap refill < 2 seconds. Lungs: Respirations even, regular, and unlabored on supplemental oxygen. Lungs diminished, no rhonchi, no rales, no wheezing, and no accessory muscle usage. Abdominal: soft, nontender to palpation, no guarding, no appreciable organomegaly Ext: No gross muscle atrophy, no edema, no contractures. Bilateral lower extremity lymphedema with chronic bilateral lower extremity venous discoloration and open ulcers/wounds to right medial calf and chronic wounds to bilateral ankles. Neuro: Speech clear, face symmetrical and CN II-XII grossly intact with no noted focal neuro deficits Psych: Alert and oriented to person, place, time, and situation. Appropriate and pleasant affect. Assessment and Plan of Care: Atrial fibrillation with RVR Mild diastolic heart failure Shortness of breath and chest pain, likely secondary to above Hypertension Hyperlipidemia -Cardiology following, discussed case in detail with cardiac REPAIR MANAGER. -Telemetry monitoring - Troponins trended at negative less than 0.012 x 2 draws. proBNP 2800. -Cardiac diet - Continue cardiac medication regimen with Eliquis 5 mg twice daily, atorvastatin 40 mg nightly, Cardizem 30 mg every 8 hours, metoprolol 50 mg twice daily, and Aldactone 25 mg daily. -Continue IV diuretics with Bumex 1.5 mg twice daily with close monitoring of I's and O's. -Echocardiogram COPD with chronic hypoxic respiratory failure 2 L home oxygen dependent, not in acute exacerbation -Continue to provide supplemental oxygen as needed to maintain SpO2 equal to or greater than 90%. Continue DuoNebs 4 times daily as needed for wheezing/shortness of breath. Hypothyroidism -TSH 6.160 with normal free T4 1.78. Continue levothyroxine 25 mcg daily. Osteoarthritis with chronic lower back pain with spinal cord stimulator and morphine pain pump in place - Patient has morphine pain pump and spinal cord stimulator in place and follows outpatient with Dr. Barrett for pain management. Patient may also continue home pain medication regimen with Ennis 7.5-325 mg tablets 3 times daily as needed for breakthrough pain. Bilateral lower extremity lymphedema with chronic wounds - Wound care consulted and patient to continue to follow with wound care outpatient. Recommend elevation of legs and compression/Henok wraps to bilateral lower extremities. Morbid obesity with BMI 79.0 kg/m -Recommend structured outpatient weight management program. Data and imaging reviewed - Morning labs reviewed. CBC showing mild leukocytosis with WBC count of 10.05, thrombocytopenia with platelet count of 138 and stable normocytic anemia with hemoglobin of 11.1. BMP showing metabolic alkalosis with chloride of 91, bicarb 41 and anion gap of 7. Blood glucose 110. - Vital signs reviewed. Blood pressure 119/82, heart rate 104, respiratory rate 18, and SpO2 of 94% on 2 5 liters CODE STATUS: Full code DVT prophylaxis: Lynn Discussed with: Patient, RN, and cardiology REPAIR MANAGER Anticipated discharge date: Pending echocardiogram results Anticipated discharge place: Home Patient was seen independently by Nurse Pracitioner. This document was prepared using [employer] dictation software. Please allow for errors in department of mathematics chair, while rare they do occur. Francis Hernandez, ASHLEY rendered care for this patient independently, reviewed the fin dings and plan as documented in the note above and agree with plan. I did not physically speak with or examine the patient on this date. Objective - Vital Signs Vital signs: Vital Signs Temp 97.9 F 08/06/24 17:31 Pulse 89 08/07/24 08:21 Resp 18 08/07/24 07:50 BP 128/82 08/07/24 07:50 Pulse Ox 95 08/07/24 08:13 FiO2 Intake & Output 08/06/24 08/07/24 08/07/24 18:59 06:59 18:59 Output Total 2350 Balance -2350 Weight 208.652 kg Output: Urine 2350 - Labs CBC & Chem 7: 08/07/24 06:24 08/07/24 06:24 Labs: Abnormal Lab Results - Last 24 Hours (Table) 08/06/24 08/06/24 08/06/24 Range/Units 15:59 15:59 15:59 WBC (4.50-10.00) 10*3/uL Hgb 11.1 L (12.0-15.0) g/dL MCH 24.7 L (27.0-32.0) pg MCHC 29.0 L (32.0-37.0) g/dL Plt Count (140-440) 10*3/uL Lymphocytes # 0.52 L (0.90-5.00) 10*3/uL APTT 20.1 L (22.0-30.0) sec Chloride 94 L (98-107) mmol/L Carbon Dioxide 38 H (22-30) mmol/L Glucose 121 H (74-99) mg/dL Alkaline Phosphatase 134 H (38-126) U/L 08/07/24 08/07/24 Range/Units 06:24 06:24 WBC 10.05 H (4.50-10.00) 10*3/uL Hgb 11.1 L (12.0-15.0) g/dL MCH 24.2 L (27.0-32.0) pg MCHC 28.1 L (32.0-37.0) g/dL Plt Count 138 L (140-440) 10*3/uL Lymphocytes # (0.90-5.00) 10*3/uL APTT (22.0-30.0) sec Chloride 91 L (98-107) mmol/L Carbon Dioxide 41 H* (22-30) mmol/L Glucose 110 H (74-99) mg/dL Alkaline Phosphatase (38-126) U/L
[2024-08-07] MEDS: ATORVASTATIN 40 MG TAB PO SCH (20:18)
[2024-08-08] MEDS: METOPROLOL TARTRATE 50 MG TAB PO STA (11:32)
[2024-08-08] MEDS: KETOROLAC 15 MG/ML 1 ML VIAL IVP STA (11:32)
[2024-08-08] MEDS: LIDOCAINE 4% PATCH TOPICAL SCH (11:33)
[2024-08-08] MEDS: metOLazone 5 MG TAB PO SCH (11:35)
--- NOTE | 2024-08-08 13:33 | P.PN ---
Subjective Progress Note Date: 08/08/24 Hospital course: Patient is a pleasant 53-year-old female with a past medical history of atrial fibrillation on anticoagulation with Eliquis, chronic diastolic heart failure, COPD home oxygen dependent on 2-1/2 L, hypertension, hyperlipidemia, hypothyroidism, osteoarthritis with chronic lower back pain with spinal cord stimulator and morphine pain pump in place, chronic lower extremity wounds following with wound care, and anxiety. She presented to the hospital on/with a chief complaint of shortness of breath 08/06/24. Patient reports it started out as anxiety resulting from feeling stressed over going to her doctor's appointment which shortly after developed into shortness of breath, chest pain, palpitations, and dizziness. Upon arrival to our facility, patient underwent evaluation in the emergency department. Upon initial blood pressure 135/85, heart rate 102, respiratory rate 18, temp 98.3 F, and SpO2 of 97% on 2 L EKG completed showing atrial fibrillation with RVR to 108 bpm. Chest x-ray completed showing cardiomegaly and mild pulmonary vascular congestion. Labs completed and reviewed. CBC showing normocytic anemia with hemoglobin of 11.1. Coagulation profile showing low PTT of 20.1. BMP showing metabolic alkalosis with chloride of 94, bicarb of 38, and anion gap of 7. Blood glucose 121. Magnesium 1.8. Liver profile showing elevated alkaline phosphatase of 134 otherwise normal findings. Troponin was negative at less than 0.012. proBNP slightly elevated at 2800 with previous proBNP of 2250 on 10/10/2023 patient was admitted under our services with consultation to cardiology and wound care for management of patient's chronic bilateral ankle wounds. Troponins trended and negative at less than 0.012 x 2 draws. Echocardiogram resulting showing a reduced EF of 35 to 40% from previous preserved EF with moderate impairment in the left ventricle systolic function with global hypokinesis, moderate severe mitral and moderate tricuspid regurgitation with moderate pulmonary hypertension. Discussed echocardiogram results with cardiology VENDING MACHINE FILLER, patient's admission upgraded to inpatient from observation status for appropriate optimization of acute systolic heart failure. Physical exam: Vital signs reviewed and stable. General: Nontoxic, no distress and appears stated age. Obese. Derm: Skin warm and dry, normal coloration for ethnicity. Head: Atraumatic, normocephalic and symmetric. Eyes: EOM's intact, no lid lag, and anicteric sclera Mouth: no lip lesions, mucus membranes moist Cardiovascular: regular rate and rhythm with normal S1S2, no murmur, positive posterior tibial pulses bilaterally, and cap refill < 2 seconds. Lungs: Respirations even, regular, and unlabored on supplemental oxygen. Lungs diminished, no rhonchi, no rales, no wheezing, and no accessory muscle usage. Abdominal: soft, nontender to palpation, no guarding, no appreciable organomegaly Ext: No gross muscle atrophy, no edema, no contractures. Bilateral lower extremity lymphedema with chronic bilateral lower extremity venous discoloration and open ulcers/wounds to right medial calf and chronic wounds to bilateral ankles. Neuro: Speech clear, face symmetrical and CN II-XII grossly intact with no noted focal neuro deficits Psych: Alert and oriented to person, place, time, and situation. Appropriate and pleasant affect. Assessment and Plan of Care: Atrial fibrillation with RVR HFrEF with mild exacerbation Shortness of breath and chest pain, likely secondary to above Hypertension Hyperlipidemia -Cardiology following, discussed case in detail with educational fundraising director and cardiac VENDING MACHINE FILLER. Adding on Diamox 250 mg x 2 doses along with metolazone 5 mg daily, and increasing metoprolol to 100 mg twice daily. -Telemetry monitoring - Troponins trended at negative less than 0.012 x 2 draws. proBNP 2800. -Cardiac diet -Continue cardiac medication regimen with Eliquis 5 mg twice daily, atorvastatin 40 mg nightly, metolazone 5 mg daily, metoprolol 100 mg twice daily, and Aldactone 25 mg daily.. -Continue IV diuretics with Bumex 1.5 mg twice daily with close monitoring of I's and O's. -Echocardiogram resulting showing a reduced EF of 35 to 40% from previous preserved EF with moderate impairment in the left ventricle systolic function with global hypokinesis, moderate severe mitral and moderate tricuspid regurgitation with moderate pulmonary hypertension COPD with chronic hypoxic respiratory failure 2 L home oxygen dependent, not in acute exacerbation -Continue to provide supplemental oxygen as needed to maintain SpO2 equal to or greater than 90%. Continue DuoNebs 4 times daily as needed for wheezing/shortness of breath. Hypothyroidism -TSH 6.160 with normal free T4 1.78. Continue levothyroxine 25 mcg daily. Osteoarthritis with chronic lower back pain with spinal cord stimulator and morphine pain pump in place - Patient has morphine pain pump and spinal cord stimulator in place and follows outpatient with Dr. Barrett for pain management. Patient may also continue home pain medication regimen with Garfield 7.5-325 mg tablets 3 times daily as needed for breakthrough pain. -Patient was requesting additional dose of morphine or Dilaudid stating that she is due to have her pain pump refilled and needs pain medication. Called Dr. Marie's office and discussed with staff and was informed that patient has enough morphine in her pump to last until December and recommending to continue treatment of chronic pain only with her Garfield 7.5/325 mg tablets 3 times daily as needed for breakthrough pain. Anxiety -Patient has been requesting Klonopin, Ativan, and/or Xanax for treatment of her anxiety. Patient to continue with Zonegran 100 mg nightly and BuSpar 30 mg twice daily. Will hold off on additional benzodiazepines and increased patient's home medication hydroxyzine to 50 mg 3 times daily as needed for anxiety. Bilateral lower extremity lymphedema with chronic wounds - Wound care consulted and patient to continue to follow with wound care outpatient. Recommend elevation of legs and compression/Henok wraps to bilateral lower extremities. Morbid obesity with BMI 79.0 kg/m -Recommend structured outpatient weight management program. Data and imaging reviewed - Morning labs reviewed. CBC showing mild leukocytosis with WBC count of 10.05, thrombocytopenia with platelet count of 138 and stable normocytic anemia with hemoglobin of 11.1. BMP showing metabolic alkalosis with chloride of 91, bicarb 41 and anion gap of 7. Blood glucose 110. - Vital signs reviewed. Blood pressure 118/82, heart rate 94, respiratory rate 17, temp 97.4 F, and SpO2 of 96% on baseline 2.5 L CODE STATUS: Full code DVT prophylaxis: Lynn Discussed with: Patient, RN, educational fundraising director and cardiology VENDING MACHINE FILLER Anticipated discharge date: Pending clinical course Anticipated discharge place: Pending clinical course Patient was seen independently by Nurse Pracitioner. This document was prepared using [employer] dictation software. Please allow for errors in monitoring manager, while rare they do occur. Francis Hernandez NP rendered care for this patient independently, reviewed the findings and plan as documented in the note above and agree with plan. I did not physically speak with or examine the patient on this date. Objective - Vital Signs Vital signs: Vital Signs Temp 97.6 F 08/07/24 20:00 Pulse 96 08/08/24 04:00 Resp 16 08/08/24 04:00 BP 122/66 08/08/24 04:00 Pulse Ox 95 08/08/24 04:00 FiO2 Intake & Output 08/07/24 08/08/24 08/08/24 18:59 06:59 18:59 Output Total 500 Balance -500 Weight 208.652 kg 209 kg Output: Urine 500 Other: Voiding Method External Catheter External Catheter - Labs CBC & Chem 7: 08/07/24 06:24 08/07/24 06:24 Labs: Abnormal Lab Results - Last 24 Hours (Table) 08/06/24 Range/Units 15:59 TSH 6.160 H (0.465-4.680) mIU/L
[2024-08-08 13:37] VITALS: BMI 79.0
--- NOTE | 2024-08-08 14:05 | P.PN ---
Subjective Progress Note Date: 08/08/24 Reason for Consult (text): CHF, A-fib with RVR History of present illness: This is a 53-year-old female previously seen in the office by Dr. Tran with most recent office visit on 06/22/2020. Patient is homebound and has visiting physicians in place. Patient has a past medical history of venous insufficiency, paroxysmal atrial fibrillation, chronic dyspnea on exertion, morbid obesity, chronic pain with pain pump, nonhealing ulceration right lower extremity. We have been asked to evaluate the patient for A-fib with RVR and CHF. Patient states that she was very anxious yesterday and was having shortness of breath. She states she is on home O2 at 2 L nasal cannula. She does not have a CPAP but states that she had a study done a number of years ago and she did not have sleep apnea. Patient is complaining of lower extremity edema which she has which has been chronic. She also felt like her heart rate was elevated. Blood pressure 95/72, heart rate 82, pulse ox 94% on room air. Patient has been started on IV Bumex 1.5 mg every 12 hours and resumed on home cardiac medications. Patient was on Cardizem drip and is status 1 L of IV fluid bolus. -EKG: Atrial fibrillation 108 bpm. -Chest x-ray: Cardiomegaly with mild pulmonary vascular congestion. -Laboratory studies: WBC 10, hemoglobin 11.1, CO2 41, creatinine 0.69. Troponin negative x 2. TSH 6.16 with normal free T4 of 1.78. -Home cardiac medications: Eliquis 5 mg twice daily, Bumex 1 mg twice daily, Cardizem 30 mg every 8 hours, metoprolol succinate 50 mg at bedtime, spir onolactone 25 mg daily, also on levothyroxine. -Dobutamine stress echo performed at [facility] on 03/09/2022 revealed normal stress EKG and echo response to dobutamine infusion without any evidence of inducible ischemia. -Echocardiogram performed on 10/11/2023 revealed EF of 50 to 55%. No significant valvular dysfunction. 08/08 Patient seen and examined on the cardiac stepdown unit. Yesterday, echocardiogram was completed and EF 35 to 40%, technically difficult study. Definity contrast used. Moderate impairment in the left ventricular systolic function with global hypokinesis. Moderate severe mitral and moderate tricuspid regurgitation. Moderate pulmonary hypertension. Physical examination: Gen: This is a 53-year-old female in no acute respiratory distress. VS: reviewed HEENT: Head is atraumatic, normocephalic. Pupils equal, round. Sclerae is anicteric. NECK: Supple. No JVD. LUNGS: Clear to auscultation. No wheezes or rhonchi. No intercostal retractions. HEART: Regular rate and rhythm. No murmur. ABDOMEN: Soft No tenderness. EXTREMITIES: Massive lower extremity edema, lymphedema bilaterally with wound to the right lower extremity, chronic dark skin color changes. NEUROLOGICAL: Patient is awake, alert and oriented x3. Assessment: Paroxysmal atrial fibrillation currently heart rate is controlled Chronic hypoxic respiratory failure Chronic systolic heart failure with possible mild component of acute failure Chronic nonhealing ulceration right lower extremity Venous insufficiency Chronic lower extremity edema and lymphedema Cardiomyopathy, unknown if ischemic or nonischemic Valvular heart disease with moderate to severe mitral and moderate tricuspid reg urgitation Moderate pulmonary hypertension Suspected obstructive sleep apnea although patient denies Morbid obesity with BMI of 79 Hypothyroidism with elevated TSH and normal free T4 Anxiety Plan: Continue patient's home cardiac medications Discontinue oral Cardizem due to cardiomyopathy Continue IV Bumex 1.5 mg twice daily for another 24 hours Add Diamox 250 mg twice daily for 2 doses Add metolazone 5 mg daily Increase metoprolol tartrate to 100 mg twice daily Further recommendations to follow based upon clinical course Nurse practitioner note has been reviewed, I agree with documented findings and plan of care. Patient was seen and examined. Objective - Vital Signs Vital signs: Vital Signs Temp 97.4 F L 08/08/24 08:00 Pulse 94 08/08/24 08:00 Resp 17 08/08/24 08:00 BP 118/82 08/08/24 08:00 Pulse Ox 96 08/08/24 08:00 FiO2 Intake & Output 08/07/24 08/08/24 08/08/24 18:59 06:59 18:59 Output Total 500 600 Balance -500 -600 Weight 208.652 kg 209 kg Output: Urine 500 600 Female - External 600 Other: Voiding Method External Catheter External Catheter External Catheter - Labs CBC & Chem 7: 08/07/24 06:24 08/07/24 06:24
[2024-08-08 14:34] LABS: African American GFR (CKD) >90 (>60 ml/min/1.73 sqM); Anion Gap 6 mmol/L; Blood Urea Nitrogen 15 mg/dL (7-17); Calcium 8.2 mg/dL (8.4-10.2); Chloride 92 mmol/L (98-107); Glucose 127 mg/dL (74-99); Magnesium 1.9 mg/dL (1.6-2.3); Non-African American GFR(CKD) 83 (>60 ml/min/1.73 sqM); Potassium 4.8 mmol/L (3.5-5.1); Sodium 138 mmol/L (137-145)
[2024-08-08 14:42] LABS: Carbon Dioxide 40 mmol/L (22-30)
[2024-08-08] MEDS: hydrOXYzine HCL 25 MG TAB PO PRN (16:43)
[2024-08-08] MEDS: acetaZOLAMIDE 250 MG TAB PO SCH (17:09)
[2024-08-08] MEDS: METOPROLOL TARTRATE 50 MG TAB PO SCH (22:14)
[2024-08-09 07:07] LABS: African American GFR (CKD) 72 (>60 ml/min/1.73 sqM); Blood Urea Nitrogen 15 mg/dL (7-17); Calcium 8.4 mg/dL (8.4-10.2); Chloride 89 mmol/L (98-107); Glucose 117 mg/dL (74-99); Magnesium 1.8 mg/dL (1.6-2.3); Non-African American GFR(CKD) 62 (>60 ml/min/1.73 sqM); Potassium 3.9 mmol/L (3.5-5.1); Sodium 140 mmol/L (137-145)
[2024-08-09 07:14] LABS: Anion Gap 3 mmol/L
[2024-08-09 07:37] LABS: Carbon Dioxide 48 mmol/L (22-30)
[2024-08-09] MEDS: BUMETANIDE 0.25 MG/ML 4 ML VIAL IV SCH (12:07)
[2024-08-09] MEDS: acetaZOLAMIDE 250 MG TAB PO SCH (12:09)
--- NOTE | 2024-08-09 12:54 | P.PN ---
Subjective Progress Note Date: 08/09/24 Reason for Consult (text): CHF, A-fib with RVR History of present illness: This is a 53-year-old female previously seen in the office by Dr. Tran with most recent office visit on 06/22/2020. Patient is homebound and has visiting physicians in place. Patient has a past medical history of venous insufficiency, paroxysmal atrial fibrillation, chronic dyspnea on exertion, morbid obesity, chronic pain with pain pump, nonhealing ulceration right lower extremity. We have been asked to evaluate the patient for A-fib with RVR and CHF. Patient states that she was very anxious yesterday and was having shortness of breath. She states she is on home O2 at 2 L nasal cannula. She does not have a CPAP but states that she had a study done a number of years ago and she did not have sleep apnea. Patient is complaining of lower extremity edema which she has which has been chronic. She also felt like her heart rate was elevated. Blood pressure 95/72, heart rate 82, pulse ox 94% on room air. Patient has been started on IV Bumex 1.5 mg every 12 hours and resumed on home cardiac medications. Patient was on Cardizem drip and is status 1 L of IV fluid bolus. -EKG: Atrial fibrillation 108 bpm. -Chest x-ray: Cardiomegaly with mild pulmonary vascular congestion. -Laboratory studies: WBC 10, hemoglobin 11.1, CO2 41, creatinine 0.69. Troponin negative x 2. TSH 6.16 with normal free T4 of 1.78. -Home cardiac medications: Eliquis 5 mg twice daily, Bumex 1 mg twice daily, Cardizem 30 mg every 8 hours, metoprolol succinate 50 mg at bedtime, spir onolactone 25 mg daily, also on levothyroxine. -Dobutamine stress echo performed at [facility] on 03/09/2022 revealed normal stress EKG and echo response to dobutamine infusion without any evidence of inducible ischemia. -Echocardiogram performed on 10/11/2023 revealed EF of 50 to 55%. No significant valvular dysfunction. 08/08 Patient seen and examined on the cardiac stepdown unit. Yesterday, echocardiogram was completed and EF 35 to 40%, technically difficult study. Definity contrast used. Moderate impairment in the left ventricular systolic function with global hypokinesis. Moderate severe mitral and moderate tricuspid regurgitation. Moderate pulmonary hypertension. 08/09 Patient seen and examined. A number of medication changes were made yesterday. Cardizem was discontinued due to cardiomyopathy. She has been continued on IV Bumex 1.5 mg twice daily. We also added Diamox and metolazone and increased beta-annabelle. Blood pressure 100/63, heart rate 87, pulse ox 93% on 2 and half liters nasal cannula. Repeat blood work reveals CO2 48, creatinine 1.02. Physical examination: Gen: This is a 53-year-old female in no acute respiratory distress. VS: reviewed HEENT: Head is atraumatic, normocephalic. Pupils equal, round. Sclerae is anicteric. NECK: Supple. No JVD. LUNGS: Clear to auscultation. No wheezes or rhonchi. No intercostal retractions. HEART: Regular rate and rhythm. No murmur. ABDOMEN: Soft No tenderness. EXTREMITIES: Massive lower extremity edema, lymphedema bilaterally with wound to the right lower extremity, chronic dark skin color changes. NEUROLOGICAL: Patient is awake, alert and oriented x3. Assessment: Chronic atrial fibrillation currently heart rate is controlled Chronic hypoxic respiratory failure Chronic systolic heart failure with possible mild component of acute failure Chronic nonhealing ulceration right lower extremity Venous insufficiency Chronic lower extremity edema and lymphedema Cardiomyopathy, unknown if ischemic or nonischemic Valvular heart disease with moderate to severe mitral and moderate tricuspid regurgitation Moderate pulmonary hypertension Suspected obstructive sleep apnea although patient denies Morbid obesity with BMI of 79 Hypothyroidism with elevated TSH and normal free T4 Anxiety Plan: Continue patient's home cardiac medications Discontinue oral Cardizem due to cardiomyopathy Continue IV Bumex and decrease to 1 mg every 12 hours Add Diamox 250 mg twice daily Continue the addition of metolazone 5 mg daily Continue metoprolol tartrate 100 mg twice daily Further recommendations to follow based upon clinical course Nurse practitioner note has been reviewed, I agree with documented findings and plan of care. Patient was seen and examined. Objective - Vital Signs Vital signs: Vital Signs Temp 98.3 F 08/09/24 08:55 Pulse 87 08/09/24 08:55 Resp 20 08/09/24 08:55 BP 100/63 08/09/24 08:55 Pulse Ox 94 L 08/09/24 09:11 FiO2 Intake & Output 08/08/24 08/09/24 08/09/24 18:59 06:59 18:59 Intake Total 118 0 Output Total 600 1150 Balance -482 -1150 0 Weight 209 kg 233.7 kg Intake: Oral 118 0 Output: Urine 600 1150 Female - External 600 650 Other: Voiding Method External Catheter External Catheter External Catheter - Labs CBC & Chem 7: 08/07/24 06:24 08/09/24 06:06 Labs: Abnormal Lab Results - Last 24 Hours (Table) 08/08/24 08/09/24 Range/Units 13:57 06:06 Chloride 92 L 89 L (98-107) mmol/L Carbon Dioxide 40 H 48 H* (22-30) mmol/L Glucose 127 H 117 H (74-99) mg/dL Calcium 8.2 L (8.4-10.2) mg/dL Microbiology - Last 24 Hours (Table) 08/06/24 23:30 Blood Culture - Preliminary Blood
--- NOTE | 2024-08-09 14:38 | P.PN ---
Subjective Progress Note Date: 08/09/24 Hospital course: Patient is a pleasant 53-year-old female with a past medical history of atrial fibrillation on anticoagulation with Eliquis, chronic diastolic heart failure, COPD home oxygen dependent on 2-1/2 L, hypertension, hyperlipidemia, hypothyroidism, osteoarthritis with chronic lower back pain with spinal cord stimulator and morphine pain pump in place, chronic lower extremity wounds following with wound care, and anxiety. She presented to the hospital on/with a chief complaint of shortness of breath 08/06/24. Patient reports it started out as anxiety resulting from feeling stressed over going to her doctor's appointment which shortly after developed into shortness of breath, chest pain, palpitations, and dizziness. Upon arrival to our facility, patient underwent evaluation in the emergency department. Upon initial blood pressure 135/85, heart rate 102, respiratory rate 18, temp 98.3 F, and SpO2 of 97% on 2 L EKG completed showing atrial fibrillation with RVR to 108 bpm. Chest x-ray completed showing cardiomegaly and mild pulmonary vascular congestion. Labs completed and reviewed. CBC showing normocytic anemia with hemoglobin of 11.1. Coagulation profile showing low PTT of 20.1. BMP showing metabolic alkalosis with chloride of 94, bicarb of 38, and anion gap of 7. Blood glucose 121. Magnesium 1.8. Liver profile showing elevated alkaline phosphatase of 134 otherwise normal findings. Troponin was negative at less than 0.012. proBNP slightly elevated at 2800 with previous proBNP of 2250 on 10/10/2023 patient was admitted under our services with consultation to cardiology and wound care for management of patient's chronic bilateral ankle wounds. Troponins trended and negative at less than 0.012 x 2 draws. Echocardiogram resulting showing a reduced EF of 35 to 40% from previous preserved EF with moderate impairment in the left ventricle systolic function with global hypokinesis, moderate severe mitral and moderate tricuspid regurgitation with moderate pulmonary hypertension. Discussed echocardiogram results with cardiology [employer] [employer] ATTENDANT, patient's admission upgraded to inpatient from observation status for appropriate optimization of acute systolic heart failure. Physical exam: Patient seen and fully evaluated at the bedside this morning. She currently reports feeling okay only complaint is feeling anxiety. Patient reports longstanding history of anxiety. Patient requesting Xanax and informed patient that we will increase Atarax to 50 mg 4 times daily as needed for anxiety. Vital signs reviewed and stable. General: Nontoxic, no distress and appears stated age. Obese. Derm: Skin warm and dry, normal coloration for ethnicity. Head: Atraumatic, normocephalic and symmetric. Eyes: EOM's intact, no lid lag, and anicteric sclera Mouth: no lip lesions, mucus membranes moist Cardiovascular: regular rate and rhythm with normal S1S2, no murmur, positive posterior tibial pulses bilaterally, and cap refill < 2 seconds. Lungs: Respirations even, regular, and unlabored on supplemental oxygen. Lungs diminished, no rhonchi, no rales, no wheezing, and no accessory muscle usage. Abdominal: soft, nontender to palpation, no guarding, no appreciable organomegaly Ext: No gross muscle atrophy, no edema, no contractures. Bilateral lower extremity lymphedema with chronic bilateral lower extremity venous discoloration and open ulcers/wounds to right medial calf and chronic wounds to bilateral ankles. Neuro: Speech clear, face symmetrical and CN II-XII grossly intact with no noted focal neuro deficits Psych: Alert and oriented to person, place, time, and situation. Appropriate and pleasant affect. Assessment and Plan of Care: Atrial fibrillation with RVR HFrEF with exacerbation Metabolic alkalosis, secondary to contraction alkalosis resulting from diuresis. Shortness of breath and chest pain, likely secondary to above Hypertension Hyperlipidemia -Cardiology following, discussed case in detail with stock holder and cardiac [employer] [employer] ATTENDANT secondary to contraction alkalosis as Bumex dose decreased to 1 mg every 12 hours and patient to continue with Diamox 250 mg twice daily, metolazone 5 mg daily, and Aldactone 25 mg daily. -Troponins trended at negative less than 0.012 x 2 draws. proBNP 2800. -Cardiac diet -Continue cardiac medication regimen with Eliquis 5 mg twice daily, atorvastatin 40 mg nightly, metolazone 5 mg daily, metoprolol 100 mg twice daily, and Aldactone 25 mg daily.. -Continue IV diuretics with Bumex 1.5 mg twice daily with close monitoring of I's and O's. -Echocardiogram resulting showing a reduced EF of 35 to 40% from previous preserved EF with moderate impairment in the left ventricle systolic function with global hypokinesis, moderate severe mitral and moderate tricuspid regurgitation with moderate pulmonary hypertension COPD with chronic hypoxic respiratory failure 2 L home oxygen dependent, not in acute exacerbation -Continue to provide supplemental oxygen as needed to maintain SpO2 equal to or greater than 90%. Continue DuoNebs 4 times daily as needed for wheezing/shortness of breath. Hypothyroidism -TSH 6.160 with normal free T4 1.78. Continue levothyroxine 25 mcg daily. Osteoarthritis with chronic lower back pain with spinal cord stimulator and morphine pain pump in place - Patient has morphine pain pump and spinal cord stimulator in place and follows outpatient with Dr. Barrett for pain management. Patient may also continue home pain medication regimen with [place] 7.5-325 mg tablets 3 times daily as needed for breakthrough pain. -Patient was requesting additional dose of morphine or Dilaudid stating that she is due to have her pain pump refilled and needs pain medication. Called Dr. Marie's office and discussed with staff and was informed that patient has enough morphine in her pump to last until December and recommending to continue treatment of chronic pain only with her [place] 7.5/325 mg tablets 3 times daily as needed for breakthrough pain. Anxiety -Patient has been requesting Klonopin, Ativan, and/or Xanax for treatment of her anxiety. Patient to continue with Zonegran 100 mg nightly and BuSpar 30 mg twice daily. Will hold off on additional benzodiazepines and increased patient's home medication hydroxyzine to 50 mg 4 times daily as needed for anxiety. Bilateral lower extremity lymphedema with chronic wounds - Wound care consulted and patient to continue to follow with wound care outpatient. Recommend elevation of legs and compression/Henok wraps to bilateral lower extremities. Morbid obesity with BMI 79.0 kg/m -Recommend structured outpatient weight management program. Data and imaging reviewed - Morning labs reviewed. Revealing metabolic alkalosis with chloride of 89, bicarb of 48, and anion gap of 3. Blood glucose was 177. Magnesium 1.8. - Vital signs reviewed. Blood pressure 100/63, heart rate 87, respiratory rate 20, temp 98.3 F, and SpO2 of 93% on 2 and half liters per CODE STATUS: Full code DVT prophylaxis: [place] Discussed with: Patient, RN, stock holder and cardiology [employer] [employer] ATTENDANT Anticipated discharge date: Pending clinical course Anticipated discharge place: Pending clinical course Patient was seen independently by Nurse Pracitioner. This document was prepared using [employer] dictation software. Please allow for errors in laborer plumbing, while rare they do occur. Francis Hernandez NP rendered care for this patient independently, reviewed the findings and plan as documented in the note above and agree with plan. I did not physically speak with or examine the patient on this date. Objective - Vital Signs Vital signs: Vital Signs Temp 98.1 F 08/08/24 19:55 Pulse 93 08/09/24 03:15 Resp 18 08/09/24 03:15 BP 106/70 08/09/24 03:15 Pulse Ox 94 L 08/09/24 03:15 FiO2 Intake & Output 08/08/24 08/09/24 08/09/24 18:59 06:59 18:59 Intake Total 118 0 Output Total 600 1150 Balance -482 -1150 0 Weight 209 kg 233.7 kg Intake: Oral 118 0 Output: Urine 600 1150 Female - External 600 650 Other: Voiding Method External Catheter External Catheter - Labs CBC & Chem 7: 08/07/24 06:24 08/09/24 06:06 Labs: Abnormal Lab Results - Last 24 Hours (Table) 08/08/24 08/09/24 Range/Units 13:57 06:06 Chloride 92 L 89 L (98-107) mmol/L Carbon Dioxide 40 H 48 H* (22-30) mmol/L Glucose 127 H 117 H (74-99) mg/dL Calcium 8.2 L (8.4-10.2) mg/dL Microbiology - Last 24 Hours (Table) 08/06/24 23:30 Blood Culture - Preliminary Blood
[2024-08-09] MEDS: hydrOXYzine HCL 25 MG TAB PO PRN (18:34)
[2024-08-10 07:10] LABS: HCT 38.1 % (37.2-46.3); HGB 10.7 g/dL (12.0-15.0); MCH 24.8 pg (27.0-32.0); MCHC 28.1 g/dL (32.0-37.0); MCV 88.2 fL (80.0-97.0); Mean Platelet Volume 10.5 fL (9.5-12.2); Platelet Count 142 10*3/uL (140-440); RBC 4.32 10*6/uL (4.10-5.20); RDW 16.1 % (11.5-14.5); WBC 8.75 10*3/uL (4.50-10.00)
[2024-08-10 07:49] LABS: African American GFR (CKD) 79 (>60 ml/min/1.73 sqM); Blood Urea Nitrogen 14 mg/dL (7-17); Calcium 8.6 mg/dL (8.4-10.2); Chloride 87 mmol/L (98-107); Glucose 102 mg/dL (74-99); Magnesium 1.7 mg/dL (1.6-2.3); Non-African American GFR(CKD) 69 (>60 ml/min/1.73 sqM); Potassium 3.6 mmol/L (3.5-5.1); Sodium 138 mmol/L (137-145)
[2024-08-10 07:55] LABS: Anion Gap 3 mmol/L
[2024-08-10 07:58] LABS: Carbon Dioxide 48 mmol/L (22-30)
--- NOTE | 2024-08-10 09:56 | P.PN ---
Subjective Progress Note Date: 08/10/24 Reason for Consult (text): CHF, A-fib with RVR History of present illness: This is a 53-year-old female previously seen in the office by Dr. Tran with most recent office visit on 06/22/2020. Patient is homebound and has visiting physicians in place. Patient has a past medical history of venous insufficiency, paroxysmal atrial fibrillation, chronic dyspnea on exertion, morbid obesity, chronic pain with pain pump, nonhealing ulceration right lower extremity. We have been asked to evaluate the patient for A-fib with RVR and CHF. Patient states that she was very anxious yesterday and was having shortness of breath. She states she is on home O2 at 2 L nasal cannula. She does not have a CPAP but states that she had a study done a number of years ago and she did not have sleep apnea. Patient is complaining of lower extremity edema which she has which has been chronic. She also felt like her heart rate was elevated. Blood pressure 95/72, heart rate 82, pulse ox 94% on room air. Patient has been started on IV Bumex 1.5 mg every 12 hours and resumed on home cardiac medications. Patient was on Cardizem drip and is status 1 L of IV fluid bolus. -EKG: Atrial fibrillation 108 bpm. -Chest x-ray: Cardiomegaly with mild pulmonary vascular congestion. -Laboratory studies: WBC 10, hemoglobin 11.1, CO2 41, creatinine 0.69. Troponin negative x 2. TSH 6.16 with normal free T4 of 1.78. -Home cardiac medications: Eliquis 5 mg twice daily, Bumex 1 mg twice daily, Cardizem 30 mg every 8 hours, metoprolol succinate 50 mg at bedtime, spir onolactone 25 mg daily, also on levothyroxine. -Dobutamine stress echo performed at [facility] on 03/09/2022 revealed normal stress EKG and echo response to dobutamine infusion without any evidence of inducible ischemia. -Echocardiogram performed on 10/11/2023 revealed EF of 50 to 55%. No significant valvular dysfunction. 08/08 Patient seen and examined on the cardiac stepdown unit. Yesterday, echocardiogram was completed and EF 35 to 40%, technically difficult study. Definity contrast used. Moderate impairment in the left ventricular systolic function with global hypokinesis. Moderate severe mitral and moderate tricuspid regurgitation. Moderate pulmonary hypertension. 08/09 Patient seen and examined. A number of medication changes were made yesterday. Cardizem was discontinued due to cardiomyopathy. She has been continued on IV Bumex 1.5 mg twice daily. We also added Diamox and metolazone and increased beta-annabelle. Blood pressure 100/63, heart rate 87, pulse ox 93% on 2 and half liters nasal cannula. Repeat blood work reveals CO2 48, creatinine 1.02. 08/10 Patient seen and examined. Yesterday we decreased Bumex IV to 1 mg every 12 hours, continued metolazone and continue Diamox. Blood pressure 102/69, heart rate 93, pulse ox 99% on 2 and half liters nasal cannula. Repeat blood work reveals CO2 48, creatinine 0.94, hemoglobin 10.7. Physical examination: Gen: This is a 53-year-old female in no acute respiratory distress. VS: reviewed HEENT: Head is atraumatic, normocephalic. Pupils equal, round. Sclerae is anicteric. NECK: Supple. No JVD. LUNGS: Clear to auscultation. No wheezes or rhonchi. No intercostal retractions. HEART: Regular rate and rhythm. No murmur. ABDOMEN: Soft No tenderness. EXTREMITIES: Massive lower extremity edema, lymphedema bilaterally with wound to the right lower extremity, chronic dark skin color changes. NEUROLOGICAL: Patient is awake, alert and oriented x3. Assessment: Chronic atrial fibrillation currently heart rate is controlled Chronic hypoxic respiratory failure Chronic systolic heart failure with possible mild component of acute failure Chronic nonhealing ulceration right lower extremity Venous insufficiency Chronic lower extremity edema and lymphedema Cardiomyopathy, unknown if ischemic or nonischemic Valvular heart disease with moderate to severe mitral and moderate tricuspid regurgitation Moderate pulmonary hypertension Suspected obstructive sleep apnea although patient denies Morbid obesity with BMI of 79 Hypothyroidism with elevated TSH and normal free T4 Anxiety Plan: Continue patient's home cardiac medications Discontinue oral Cardizem due to cardiomyopathy Continue IV Bumex 1 mg every 12 hours for another 24 hours and transition to oral tomorrow Continue Diamox 250 mg twice daily Change metolazone 5 mg to every 48 hours Continue metoprolol tartrate 100 mg twice daily Anticipate probable discharge home on Monday Further recommendations to follow based upon clinical course Nurse practitioner note has been reviewed, I agree with documented findings and plan of care. Patient was seen and examined. Objective - Vital Signs Vital signs: Vital Signs Temp 98 F 08/10/24 08:55 Pulse 93 08/10/24 08:55 Resp 18 08/10/24 08:55 BP 102/69 08/10/24 08:55 Pulse Ox 99 08/10/24 08:55 FiO2 Intake & Output 08/09/24 08/10/24 08/10/24 18:59 06:59 18:59 Intake Total 718 10 Output Total 950 1600 700 Balance -232 1600 -690 Weight 233.7 kg Intake: IV 10 Invasive Line 2 10 Intake, IV Titration 100 Amount ceFAZolin 2 gm In 100 Dextrose 5% in Water 50 ml @ 100 mls/hr IVPB Q8HR [facility] Rx#:[id number] Oral 618 Output: Urine 950 1600 700 Other: Voiding Method External Catheter External Catheter - Labs CBC & Chem 7: 08/10/24 06:51 08/10/24 06:51 Labs: Abnormal Lab Results - Last 24 Hours (Table) 08/10/24 08/10/24 Range/Units 06:51 06:51 Hgb 10.7 L (12.0-15.0) g/dL MCH 24.8 L (27.0-32.0) pg MCHC 28.1 L (32.0-37.0) g/dL Chloride 87 L (98-107) mmol/L Carbon Dioxide 48 H* (22-30) mmol/L Glucose 102 H (74-99) mg/dL Microbiology - Last 24 Hours (Table) 08/06/24 23:30 Blood Culture - Preliminary Blood
[2024-08-10] MEDS: metOLazone 5 MG TAB PO SCH (11:12)
--- NOTE | 2024-08-10 16:34 | P.PN ---
Subjective Progress Note Date: 08/10/24 Hospital course: Patient is a pleasant 53-year-old female with a past medical history of atrial fibrillation on anticoagulation with Eliquis, chronic diastolic heart failure, COPD home oxygen dependent on 2-1/2 L, hypertension, hyperlipidemia, hypothyroidism, osteoarthritis with chronic lower back pain with spinal cord stimulator and morphine pain pump in place, chronic lower extremity wounds following with wound care, and anxiety. She presented to the hospital on/with a chief complaint of shortness of breath 08/06/24. Patient reports it started out as anxiety resulting from feeling stressed over going to her doctor's appointment which shortly after developed into shortness of breath, chest pain, palpitations, and dizziness. Upon arrival to our facility, patient underwent evaluation in the emergency department. Upon initial blood pressure 135/85, heart rate 102, respiratory rate 18, temp 98.3 F, and SpO2 of 97% on 2 L EKG completed showing atrial fibrillation with RVR to 108 bpm. Chest x-ray completed showing cardiomegaly and mild pulmonary vascular congestion. Labs completed and reviewed. CBC showing normocytic anemia with hemoglobin of 11.1. Coagulation profile showing low PTT of 20.1. BMP showing metabolic alkalosis with chloride of 94, bicarb of 38, and anion gap of 7. Blood glucose 121. Magnesium 1.8. Liver profile showing elevated alkaline phosphatase of 134 otherwise normal findings. Troponin was negative at less than 0.012. proBNP slightly elevated at 2800 with previous proBNP of 2250 on 10/10/2023 patient was admitted under our services with consultation to cardiology and wound care for management of patient's chronic bilateral ankle wounds. Troponins trended and negative at less than 0.012 x 2 draws. Echocardiogram resulting showing a reduced EF of 35 to 40% from previous preserved EF with moderate impairment in the left ventricle systolic function with global hypokinesis, moderate severe mitral and moderate tricuspid regurgitation with moderate pulmonary hypertension. Discussed echocardiogram results with cardiology [employer]LL [employer] ANALYSIS, patient's admission upgraded to inpatient from observation status for appropriate optimization of acute systolic heart failure. Physical exam: Patient seen and fully evaluated at the bedside this morning. She currently reports feeling okay this morning and does report improvement in her anxiety since increasing hydroxyzine dose to 50 mg 4 times daily as needed. Vital signs reviewed and stable. General: Nontoxic, no distress and appears stated age. Obese. Derm: Skin warm and dry, normal coloration for ethnicity. Head: Atraumatic, normocephalic and symmetric. Eyes: EOM's intact, no lid lag, and anicteric sclera Mouth: no lip lesions, mucus membranes moist Cardiovascular: regular rate and rhythm with normal S1S2, no murmur, positive posterior tibial pulses bilaterally, and cap refill < 2 seconds. Lungs: Respirations even, regular, and unlabored on supplemental oxygen. Lungs diminished, no rhonchi, no rales, no wheezing, and no accessory muscle usage. Abdominal: soft, nontender to palpation, no guarding, no appreciable organomegaly Ext: No gross muscle atrophy, no edema, no contractures. Bilateral lower extremity lymphedema with chronic bilateral lower extremity venous discoloration and open ulcers/wounds to right medial calf and chronic wounds to bilateral ankles. Neuro: Speech clear, face symmetrical and CN II-XII grossly intact with no noted focal neuro deficits Psych: Alert and oriented to person, place, time, and situation. Appropriate and pleasant affect. Assessment and Plan of Care: Atrial fibrillation with RVR HFrEF with exacerbation Metabolic alkalosis, secondary to contraction alkalosis resulting from diuresis. Shortness of breath and chest pain, likely secondary to above Hypertension Hyperlipidemia -Cardiology following, discussed case in detail with store grocery merchandiser and cardiac [employer]NAL[employer]IS decreasing Metalazone to every other day. Recommend continuation of Bumex 1 mg IVP every 12 hours, Diamox 250 mg twice daily, metolazone 5 mg every 48 hours, and Aldactone 25 mg daily. -Troponins trended at negative less than 0.012 x 2 draws. proBNP 2800. -Continue cardiac medication regimen with Eliquis 5 mg twice daily, atorvastatin 40 mg nightly, metoprolol 100 mg twice daily, Diamox 250 mg twice daily, metolazone 5 mg every 48 hours, and Aldactone 25 mg daily.. -Continue IV diuretics with Bumex 1 mg twice daily with close monitoring of I's and O's. -Echocardiogram resulting showing a reduced EF of 35 to 40% from previous preserved EF with moderate impairment in the left ventricle systolic function with global hypokinesis, moderate severe mitral and moderate tricuspid regurgitation with moderate pulmonary hypertension COPD with chronic hypoxic respiratory failure 2 L home oxygen dependent, not in acute exacerbation -Continue to provide supplemental oxygen as needed to maintain SpO2 equal to or greater than 90%. Continue DuoNebs 4 times daily as needed for whee zing/shortness of breath. Hypothyroidism -TSH 6.160 with normal free T4 1.78. Continue levothyroxine 25 mcg daily. Osteoarthritis with chronic lower back pain with spinal cord stimulator and morphine pain pump in place - Patient has morphine pain pump and spinal cord stimulator in place and follows outpatient with Dr. Barrett for pain management. Patient may also continue home pain medication regimen with [place] 7.5-325 mg tablets 3 times daily as needed for breakthrough pain. -Patient was requesting additional dose of morphine or Dilaudid stating that she is due to have her pain pump refilled and needs pain medication. Called Dr. Marie's office and discussed with staff and was informed that patient has enough morphine in her pump to last until December and recommending to continue treatment of chronic pain only with her [place] 7.5/325 mg tablets 3 times daily as needed for breakthrough pain. Anxiety -Patient has been requesting Klonopin, Ativan, and/or Xanax for treatment of her anxiety. Patient to continue with Zonegran 100 mg nightly and BuSpar 30 mg twice daily. Will hold off on additional benzodiazepines and increased patient's home medication hydroxyzine to 50 mg 4 times daily as needed for anxiety. Bilateral lower extremity lymphedema with chronic wounds - Wound care following and patient to continue to follow with wound care outpatient. Recommend elevation of legs and compression/[place] wraps to bilateral lower extremities. Morbid obesity with BMI 79.0 kg/m -Recommend structured outpatient weight management program. Data and imaging reviewed - Morning labs reviewed. CBC showing stable normocytic anemia with hemoglobin of 10.7. BMP showing continued metabolic alkalosis with chloride of 87, bicarb of 48, and anion gap of 3. Blood glucose was 102. Magnesium slightly low at 1.7 and replaced with 2 g IVPB magnesium sulfate. - Vital signs reviewed. Blood pressure 102/69, heart rate 93, respiratory rate 18, temp 98.0 F, and SpO2 of 99% on 2.5 L. CODE STATUS: Full code DVT prophylaxis: Eliquis Discussed with: Patient, RN, store grocery merchandiser and cardiology [employer] Anticipated discharge date: Pending clinical course Anticipated discharge place: Pending clinical course Patient was seen independently by Nurse Pracitioner. This document was prepared using [employer] dictation software. Please allow for errors in serging machine operator, while rare they do occur. Francis Hernandez [employer] rendered care for this patient independently, reviewed the findings and plan as documented in the note above and agree with plan. I did no t physically speak with or examine the patient on this date. Objective - Vital Signs Vital signs: Vital Signs Temp 98.1 F 08/10/24 00:00 Pulse 89 08/10/24 06:16 Resp 16 08/09/24 15:05 BP 97/63 08/10/24 06:16 Pulse Ox 97 08/10/24 06:16 FiO2 Intake & Output 08/09/24 08/10/24 08/10/24 18:59 06:59 18:59 Intake Total 718 Output Total 950 1600 Balance -232 -1600 Weight 233.7 kg Intake: Intake, IV Titration 100 Amount ceFAZolin 2 gm In 100 Dextrose 5% in Water 50 ml @ 100 mls/hr IVPB Q8HR [facility] Rx#:[id number] Oral 618 Output: Urine 950 1600 Other: Voiding Method External Catheter External Catheter - Labs CBC & Chem 7: 08/10/24 06:51 08/10/24 06:51 Labs: Abnormal Lab Results - Last 24 Hours (Table) 08/10/24 08/10/24 Range/Units 06:51 06:51 Hgb 10.7 L (12.0-15.0) g/dL MCH 24.8 L (27.0-32.0) pg MCHC 28.1 L (32.0-37.0) g/dL Chloride 87 L (98-107) mmol/L Carbon Dioxide 48 H* (22-30) mmol/L Glucose 102 H (74-99) mg/dL Microbiology - Last 24 Hours (Table) 08/06/24 23:30 Blood Culture - Preliminary Blood
[2024-08-10] MEDS: MAGNESIUM SULFATE-D5W PMX 1 GM in DEXTROSE/WATER 1 100ML.BAG IVPB SCH (16:59)
[2024-08-11 06:31] LABS: HCT 36.5 % (37.2-46.3); MCH 24.4 pg (27.0-32.0); MCHC 27.4 g/dL (32.0-37.0); MCV 89.2 fL (80.0-97.0); Mean Platelet Volume 11.9 fL (9.5-12.2); Platelet Count 149 10*3/uL (140-440); RBC 4.09 10*6/uL (4.10-5.20); RDW 16.2 % (11.5-14.5); WBC 8.76 10*3/uL (4.50-10.00)
[2024-08-11 06:47] LABS: African American GFR (CKD) >90 (>60 ml/min/1.73 sqM); Blood Urea Nitrogen 13 mg/dL (7-17); Chloride 84 mmol/L (98-107); Glucose 95 mg/dL (74-99); Magnesium 1.9 mg/dL (1.6-2.3); Non-African American GFR(CKD) 83 (>60 ml/min/1.73 sqM); Potassium 3.8 mmol/L (3.5-5.1); Sodium 138 mmol/L (137-145)
[2024-08-11 06:54] LABS: Anion Gap 7 mmol/L
[2024-08-11 07:08] LABS: Carbon Dioxide 47 mmol/L (22-30)
[2024-08-11] MEDS: POTASSIUM CHLORIDE ER 20 MEQ TAB.ER PO STA (09:18)
--- NOTE | 2024-08-11 09:36 | P.PN ---
Subjective Progress Note Date: 08/11/24 Reason for Consult (text): CHF, A-fib with RVR History of present illness: This is a 53-year-old female previously seen in the office by Dr. Tran with most recent office visit on 06/22/2020. Patient is homebound and has visiting physicians in place. Patient has a past medical history of venous insufficiency, paroxysmal atrial fibrillation, chronic dyspnea on exertion, morbid obesity, chronic pain with pain pump, nonhealing ulceration right lower extremity. We have been asked to evaluate the patient for A-fib with RVR and CHF. Patient states that she was very anxious yesterday and was having shortness of breath. She states she is on home O2 at 2 L nasal cannula. She does not have a CPAP but states that she had a study done a number of years ago and she did not have sleep apnea. Patient is complaining of lower extremity edema which she has which has been chronic. She also felt like her heart rate was elevated. Blood pressure 95/72, heart rate 82, pulse ox 94% on room air. Patient has been started on IV Bumex 1.5 mg every 12 hours and resumed on home cardiac medications. Patient was on Cardizem drip and is status 1 L of IV fluid bolus. -EKG: Atrial fibrillation 108 bpm. -Chest x-ray: Cardiomegaly with mild pulmonary vascular congestion. -Laboratory studies: WBC 10, hemoglobin 11.1, CO2 41, creatinine 0.69. Troponin negative x 2. TSH 6.16 with normal free T4 of 1.78. -Home cardiac medications: Eliquis 5 mg twice daily, Bumex 1 mg twice daily, Cardizem 30 mg every 8 hours, metoprolol succinate 50 mg at bedtime, spir onolactone 25 mg daily, also on levothyroxine. -Dobutamine stress echo performed at [facility] on 03/09/2022 revealed normal stress EKG and echo response to dobutamine infusion without any evidence of inducible ischemia. -Echocardiogram performed on 10/11/2023 revealed EF of 50 to 55%. No significant valvular dysfunction. 08/08 Patient seen and examined on the cardiac stepdown unit. Yesterday, echocardiogram was completed and EF 35 to 40%, technically difficult study. Definity contrast used. Moderate impairment in the left ventricular systolic function with global hypokinesis. Moderate severe mitral and moderate tricuspid regurgitation. Moderate pulmonary hypertension. 08/09 Patient seen and examined. A number of medication changes were made yesterday. Cardizem was discontinued due to cardiomyopathy. She has been continued on IV Bumex 1.5 mg twice daily. We also added Diamox and metolazone and increased beta-annaeblle. Blood pressure 100/63, heart rate 87, pulse ox 93% on 2 and half liters nasal cannula. Repeat blood work reveals CO2 48, creatinine 1.02. 08/10 Patient seen and examined. Yesterday we decreased Bumex IV to 1 mg every 12 hours, continued metolazone and continue Diamox. Blood pressure 102/69, heart rate 93, pulse ox 99% on 2 and half liters nasal cannula. Repeat blood work reveals CO2 48, creatinine 0.94, hemoglobin 10.7. 08/11 Patient seen and examined. CO2 remains high at 47 despite being on Diamox. Other lab work shows hemoglobin of 10, creatinine 0.81. Blood pressure 103/69, heart rate 84, pulse ox 97% on 2 and half liters nasal cannula. Patient has documented negative fluid balance and weight loss. Plan to continue current medications for another 24 hours. Replace potassium. Physical examination: Gen: This is a 53-year-old female in no acute respiratory distress. VS: reviewed HEENT: Head is atraumatic, normocephalic. Pupils equal, round. Sclerae is anicteric. NECK: Supple. No JVD. LUNGS: Clear to auscultation. No wheezes or rhonchi. No intercostal retractions. HEART: Regular rate and rhythm. No murmur. ABDOMEN: Soft No tenderness. EXTREMITIES: Massive lower extremity edema, lymphedema bilaterally with wound to the right lower extremity, chronic dark skin color changes. NEUROLOGICAL: Patient is awake, alert and oriented x3. Assessment: Chronic atrial fibrillation currently heart rate is controlled Chronic hypoxic respiratory failure Chronic systolic heart failure with possible mild component of acute failure Chronic nonhealing ulceration right lower extremity Venous insufficiency Chronic lower extremity edema and lymphedema Cardiomyopathy, unknown if ischemic or nonischemic Valvular heart disease with moderate to severe mitral and moderate tricuspid regurgitation Moderate pulmonary hypertension Suspected obstructive sleep apnea although patient denies Morbid obesity with BMI of 79 Hypothyroidism with elevated TSH and normal free T4 Anxiety Plan: Continue patient's home cardiac medications Discontinue oral Cardizem due to cardiomyopathy Continue IV Bumex 1 mg every 12 hours for another 24 hours and transition to oral tomorrow Continue Diamox 250 mg twice daily Change metolazone 5 mg to every 48 hours Continue metoprolol tartrate 100 mg twice daily Further recommendations to follow based upon clinical course Nurse practitioner note has been reviewed, I agree with documented findings and plan of care. Patient was seen and examined. Objective - Vital Signs Vital signs: Vital Signs Temp 98.4 F 08/11/24 07:58 Pulse 84 08/11/24 07:58 Resp 20 08/11/24 07:58 BP 103/69 08/11/24 07:58 Pulse Ox 97 08/11/24 07:58 FiO2 Intake & Output 08/10/24 08/11/24 08/11/24 18:59 06:59 18:59 Intake Total 20 20 Output Total 700 2350 Balance -680 -2330 Weight 225.9 kg Intake: IV 20 20 Invasive Line 2 20 10 Invasive Line 3 10 Output: Urine 700 2350 Other: Voiding Method External Catheter External Catheter # Voids 1 - Labs CBC & Chem 7: 08/11/24 06:19 08/11/24 06:19 Labs: Abnormal Lab Results - Last 24 Hours (Table) 08/11/24 08/11/24 Range/Units 06:19 06:19 RBC 4.09 L (4.10-5.20) 10*6/uL Hgb 10.0 L (12.0-15.0) g/dL Hct 36.5 L (37.2-46.3) % MCH 24.4 L (27.0-32.0) pg MCHC 27.4 L (32.0-37.0) g/dL Chloride 84 L (98-107) mmol/L Carbon Dioxide 47 H* (22-30) mmol/L Microbiology - Last 24 Hours (Table) 08/06/24 23:30 Blood Culture - Preliminary Blood
--- NOTE | 2024-08-11 12:14 | P.PN ---
Subjective Progress Note Date: 08/11/24 Hospital course: Patient is a pleasant 53-year-old female with a past medical history of atrial fibrillation on anticoagulation with Eliquis, chronic diastolic heart failure, COPD home oxygen dependent on 2-1/2 L, hypertension, hyperlipidemia, hypothyroidism, osteoarthritis with chronic lower back pain with spinal cord stimulator and morphine pain pump in place, chronic lower extremity wounds following with wound care, and anxiety. She presented to the hospital on/with a chief complaint of shortness of breath 08/06/24. Patient reports it started out as anxiety resulting from feeling stressed over going to her doctor's appointment which shortly after developed into shortness of breath, chest pain, palpitations, and dizziness. Upon arrival to our facility, patient underwent evaluation in the emergency department. Upon initial blood pressure 135/85, heart rate 102, respiratory rate 18, temp 98.3 F, and SpO2 of 97% on 2 L EKG completed showing atrial fibrillation with RVR to 108 bpm. Chest x-ray completed showing cardiomegaly and mild pulmonary vascular congestion. Labs completed and reviewed. CBC showing normocytic anemia with hemoglobin of 11.1. Coagulation profile showing low PTT of 20.1. BMP showing metabolic alkalosis with chloride of 94, bicarb of 38, and anion gap of 7. Blood glucose 121. Magnesium 1.8. Liver profile showing elevated alkaline phosphatase of 134 otherwise normal findings. Troponin was negative at less than 0.012. proBNP slightly elevated at 2800 with previous proBNP of 2250 on 10/10/2023 patient was admitted under our services with consultation to cardiology and wound care for management of patient's chronic bilateral ankle wounds. Troponins trended and negative at less than 0.012 x 2 draws. Echocardiogram resulting showing a reduced EF of 35 to 40% from previous preserved EF with moderate impairment in the left ventricle systolic function with global hypokinesis, moderate severe mitral and moderate tricuspid regurgitation with moderate pulmonary hypertension. Discussed echocardiogram results with cardiology TECHNICAL SALES SUPPORT MANAGER, patient's admission upgraded to inpatient from observation status for appropriate optimization of acute systolic heart failure. Physical exam: Patient seen and fully evaluated at the bedside this morning. She appears to be doing well this morning although she is reporting continued shortness of breath at times. She remains on her baseline 2.5 L of oxygen maintaining SpO2 of 97%. Patient denies having any chest pain, palpitations, cough or congestion, nausea or vomiting, or any difficulties with or changes in urinary function. Vital signs reviewed and stable. General: Nontoxic, no distress and appears stated age. Obese. Derm: Skin warm and dry, normal coloration for ethnicity. Head: Atraumatic, normocephalic and symmetric. Eyes: EOM's intact, no lid lag, and anicteric sclera Mouth: no lip lesions, mucus membranes moist Cardiovascular:irregularly irregular, no murmur Lungs: Respirations even, regular, and unlabored on supplemental oxygen. Lungs diminished, no rhonchi, no rales, no wheezing, and no accessory muscle usage. Abdominal: Obese abdomen soft, nontender to palpation, no guarding, no appreciable organomegaly Ext: No gross muscle atrophy, no edema, no contractures. Bilateral lower extremity lymphedema with chronic bilateral lower extremity venous discoloration and open ulcers/wounds to right medial calf and chronic wounds to bilateral ankles. Henok wraps to BLE in place Neuro: Speech clear, face symmetrical and CN II-XII grossly intact with no noted focal neuro deficits Psych: Alert and oriented to person, place, time, and situation. Appropriate and pleasant affect. Assessment and Plan of Care: HFrEF with acute exacerbation Metabolic alkalosis, secondary to contraction alkalosis resulting from diuresis. Atrial fibrillation with RVR, currently maintaining controlled ventricular response Shortness of breath and chest pain, likely secondary to above Hypertension Hyperlipidemia -Cardiology following, discussed case in detail with vice president integrated and cardiac TECHNICAL SALES SUPPORT MANAGER decreasing Metalazone to every other day. Recommend continuation of Bumex 1 mg IVP every 12 hours, Diamox 250 mg twice daily, metolazone 5 mg every 48 hours, and Aldactone 25 mg daily. -Troponins trended at negative less than 0.012 x 2 draws. proBNP 2800. -Continue cardiac medication regimen with Eliquis 5 mg twice daily, atorvastatin 40 mg nightly, metoprolol 100 mg twice daily, Diamox 250 mg twice daily, metolazone 5 mg every 48 hours, and Aldactone 25 mg daily.. -Continue IV diuretics with Bumex 1 mg twice daily with close monitoring of I's and O's, likely transition to oral tomorrow. -Echocardiogram resulting showing a reduced EF of 35 to 40% from previous preserved EF with moderate impairment in the left ventricle systolic function w ith global hypokinesis, moderate severe mitral and moderate tricuspid regurgitation with moderate pulmonary hypertension COPD with chronic hypoxic respiratory failure 2 L home oxygen dependent, not in acute exacerbation -Continue to provide supplemental oxygen as needed to maintain SpO2 equal to or greater than 90%. Continue DuoNebs 4 times daily as needed for wheezing/shortness of breath. Hypothyroidism -TSH 6.160 with normal free T4 1.78. Continue levothyroxine 25 mcg daily. Osteoarthritis with chronic lower back pain with spinal cord stimulator and morphine pain pump in place -Patient has morphine pain pump and spinal cord stimulator in place and follows outpatient with Dr. Barrett for pain management. Patient may also continue home pain medication regimen with [employer] 7.5-325 mg tablets 3 times daily as needed for breakthrough pain. -Patient was requesting additional dose of morphine or Dilaudid stating that she is due to have her pain pump refilled and needs pain medication. Called Dr. Marie's office and discussed with staff and was informed that patient has enough morphine in her pump to last until December and recommending to continue treatment of chronic pain only with her [employer] 7.5/325 mg tablets 3 times daily as needed for breakthrough pain. Anxiety -Patient has been requesting Klonopin, Ativan, and/or Xanax for treatment of her anxiety. Patient to continue with Zonegran 100 mg nightly and BuSpar 30 mg twice daily. Will hold off on additional benzodiazepines and increased patient's home medication hydroxyzine to 50 mg 4 times daily as needed for anxiety. Bilateral lower extremity lymphedema with chronic wounds - Wound care following and patient to continue to follow with wound care outpatient. Recommend elevation of legs and compression/Henok wraps to bilateral lower extremities. Morbid obesity with BMI 79.0 kg/m -Recommend structured outpatient weight management program. Data and imaging reviewed - Morning labs reviewed. CBC showing stable normocytic anemia with hemoglobin of 10.0. BMP showing continued metabolic alkalosis with chloride of 84, bicarb of 47, and anion gap of 7. Blood glucose was 95. Magnesium 1.9 - Vital signs reviewed. Blood pressure 103/69, heart rate 84, respiratory rate 20, temp 98.4 F, and SpO2 of 97% on 2.5 L O2 CODE STATUS: Full code DVT prophylaxis: Eliquis Discussed with: Patient, RN, vice president integrated and cardiology TECHNICAL SALES SUPPORT MANAGER Anticipated discharge date: Pending clinical course Anticipated discharge place: Pending clinical course Patient was seen independently by Nurse Pracitioner. This document was prepared using [employer] dictation software. Please allow for errors in ciaio counter molder, while rare they do occur. Francis Hernandez NP rendered care for this patient independently, reviewed the findings and plan as documented in the note above and agree with plan. I did not physically speak with or examine the patient on this date. Objective - Vital Signs Vital signs: Vital Signs Temp 98.4 F 08/11/24 07:58 Pulse 84 08/11/24 07:58 Resp 20 08/11/24 07:58 BP 103/69 08/11/24 07:58 Pulse Ox 97 08/11/24 07:58 FiO2 Intake & Output 08/10/24 08/11/24 08/11/24 18:59 06:59 18:59 Intake Total 20 20 Output Total 700 2350 Balance -680 -2330 Weight 225.9 kg Intake: IV 20 20 Invasive Line 2 20 10 Invasive Line 3 10 Output: Urine 700 2350 Other: Voiding Method External Catheter External Catheter # Voids 1 - Labs CBC & Chem 7: 08/11/24 06:19 08/11/24 06:19 Labs: Abnormal Lab Results - Last 24 Hours (Table) 08/11/24 08/11/24 Range/Units 06:19 06:19 RBC 4.09 L (4.10-5.20) 10*6/uL Hgb 10.0 L (12.0-15.0) g/dL Hct 36.5 L (37.2-46.3) % MCH 24.4 L (27.0-32.0) pg MCHC 27.4 L (32.0-37.0) g/dL Chloride 84 L (98-107) mmol/L Carbon Dioxide 47 H* (22-30) mmol/L Microbiology - Last 24 Hours (Table) 08/06/24 23:30 Blood Culture - Preliminary Blood
[2024-08-11] MEDS: FERROUS SULFATE 325 MG TAB PO SCH (12:59)
[2024-08-11 15:01] LABS: % Iron Saturation 7.48 (12.00-45.00)
[2024-08-12 07:42] LABS: HCT 36.3 % (37.2-46.3); MCH 24.2 pg (27.0-32.0); MCHC 27.5 g/dL (32.0-37.0); MCV 87.9 fL (80.0-97.0); Mean Platelet Volume 12.2 fL (9.5-12.2); Platelet Count 146 10*3/uL (140-440); RBC 4.13 10*6/uL (4.10-5.20); RDW 15.9 % (11.5-14.5); WBC 6.86 10*3/uL (4.50-10.00)
[2024-08-12 08:04] LABS: African American GFR (CKD) >90 (>60 ml/min/1.73 sqM); Blood Urea Nitrogen 12 mg/dL (7-17); Calcium 8.8 mg/dL (8.4-10.2); Chloride 87 mmol/L (98-107); Glucose 109 mg/dL (74-99); Magnesium 1.7 mg/dL (1.6-2.3); Non-African American GFR(CKD) 83 (>60 ml/min/1.73 sqM); Potassium 3.6 mmol/L (3.5-5.1); Sodium 137 mmol/L (137-145)
[2024-08-12 08:13] LABS: Anion Gap 0 mmol/L
[2024-08-12 08:15] LABS: Carbon Dioxide 50 mmol/L (22-30)
--- NOTE | 2024-08-12 12:35 | P.PN ---
Subjective HISTORY OF PRESENT ILLNESS: This is a 53-year-old female previously seen in the office by Dr. Tran with most recent office visit on 06/22/2020. Patient is homebound and has visiting physicians in place. Patient has a past medical history of venous insufficiency, paroxysmal atrial fibrillation, chronic dyspnea on exertion, morbid obesity, chronic pain with pain pump, nonhealing ulceration right lower extremity. We have been asked to evaluate the patient for A-fib with RVR and CHF. Patient states that she was very anxious yesterday and was having shortness of breath. She states she is on home O2 at 2 L nasal cannula. She does not have a CPAP but states that she had a study done a number of years ago and she did not have sleep apnea. Patient is complaining of lower extremity edema which she has which has been chronic. She also felt like her heart rate was elevated. Blood pressure 95/72, heart rate 82, pulse ox 94% on room air. Patient has been started on IV Bumex 1.5 mg every 12 hours and resumed on home cardiac medications. Patient was on Cardizem drip and is status 1 L of IV fluid bolus. -EKG: Atrial fibrillation 108 bpm. -Chest x-ray: Cardiomegaly with mild pulmonary vascular congestion. -Laboratory studies: WBC 10, hemoglobin 11.1, CO2 41, creatinine 0.69. Troponin negative x 2. TSH 6.16 with normal free T4 of 1.78. -Home cardiac medications: Eliquis 5 mg twice daily, Bumex 1 mg twice daily, Cardizem 30 mg every 8 hours, metoprolol succinate 50 mg at bedtime, spironolactone 25 mg daily, also on levothyroxine. -Dobutamine stress echo performed at [facility] on 03/09/2022 revealed normal stress EKG and echo response to dobutamine infusion without any evidence of inducible ischemia. -Echocardiogram performed on 10/11/2023 revealed EF of 50 to 55%. No significant valvular dysfunction. 08/08 Patient seen and examined on the cardiac stepdown unit. Yesterday, echocardiogram was completed and EF 35 to 40%, technically difficult study. Definity contrast used. Moderate impairment in the left ventricular systolic function with global hypokinesis. Moderate severe mitral and moderate tricuspid regurgitation. Moderate pulmonary hypertension. 08/09 Patient seen and examined. A number of medication changes were made yesterday. Cardizem was discontinued due to cardiomyopathy. She has been continued on IV Bumex 1.5 mg twice daily. We also added Diamox and metolazone and increased beta-annabelle. Blood pressure 100/63, heart rate 87, pulse ox 93% on 2 and half liters nasal cannula. Repeat blood work reveals CO2 48, creatinine 1.02. 08/10 Patient seen and examined. Yesterday we decreased Bumex IV to 1 mg every 12 hours, continued metolazone and continue Diamox. Blood pressure 102/69, heart rate 93, pulse ox 99% on 2 and half liters nasal cannula. Repeat blood work reveals CO2 48, creatinine 0.94, hemoglobin 10.7. 08/11 Patient seen and examined. CO2 remains high at 47 despite being on Diamox. Other lab work shows hemoglobin of 10, creatinine 0.81. Blood pressure 103/69, heart rate 84, pulse ox 97% on 2 and half liters nasal cannula. Patient has documented negative fluid balance and weight loss. Plan to continue current medications for another 24 hours. Replace potassium. 08/12/2024 Patient examined this morning at the bedside. Patient currently denies chest pain or pressure. She denies shortness of breath. She remains on IV diuretics. CO2 50. BUN 12. Creatinine 0.81. She continues to have lower extremity edema. Legs are wrapped with Henok bandages. Telemetry reveals atrial fibrillation with controlled ventricular rate PHYSICAL EXAM: VITAL SIGNS: Reviewed. GENERAL: Well-developed in no acute distress. NECK: Supple. No JVD or thyromegaly LUNGS: Respirations even and unlabored. Lungs essentially clear to auscultation bilaterally. HEART: Regular rate and rhythm. S1 and S2 heard. EXTREMITIES: Normal range of motion. No clubbing or cyanosis. Peripheral pulses intact. Bilateral lower extremity edema noted. ASSESSMENT: Persistent atrial fibrillation Chronic hypoxic respiratory failure Acute on chronic heart failure with reduced EF Chronic nonhealing ulceration right lower extremity Venous insufficiency Chronic lower extremity edema and lymphedema Cardiomyopathy, unknown if ischemic or nonischemic Valvular heart disease with moderate to severe mitral and moderate tricuspid regurgitation Moderate pulmonary hypertension Suspected obstructive sleep apnea although patient denies Morbid obesity with BMI of 79 Hypothyroidism with elevated TSH and normal free T4 Anxiety PLAN: Continue current cardiac medications including Diamox, Eliquis, Lipitor, metoprolol, Zaroxolyn, and Aldactone Continue IV Bumex 1 mg every 12 hours Daily weights, accurate intake and output, monitoring of kidney function Further recommendations pending patient course Nurse practitioner note has been reviewed by physician. Signing provider agrees with the documented findings, assessment, and plan of care documented by DAY CARE SUPERVISOR as a scribe. Objective - Vital Signs Vital signs: Vital Signs Temp 98.3 F 08/12/24 12:00 Pulse 90 08/12/24 12:00 Resp 16 08/12/24 12:00 BP 106/68 08/12/24 12:00 Pulse Ox 95 08/12/24 12:00 FiO2 Intake & Output 08/11/24 08/12/24 08/12/24 18:59 06:59 18:59 Intake Total 760 130 Output Total 1800 2250 Balance -1040 -2120 Weight 225.7 kg Intake: IV 60 10 Invasive Line 3 10 10 ceFAZolin 2 gm In 50 Dextrose 5% in Water 50 ml @ 100 mls/hr IVPB Q8HR VANE Rx#:[id number] Oral 700 120 Output: Urine 1800 2250 Other: Voiding Method External Catheter External Catheter # Bowel Movements 1 - Labs CBC & Chem 7: 08/12/24 07:24 08/12/24 07:24 Labs: Abnormal Lab Results - Last 24 Hours (Table) 08/11/24 08/12/24 08/12/24 Range/Units 06:19 07:24 07:24 Hgb 10.0 L (12.0-15.0) g/dL Hct 36.3 L (37.2-46.3) % MCH 24.2 L (27.0-32.0) pg MCHC 27.5 L (32.0-37.0) g/dL Chloride 87 L (98-107) mmol/L Carbon Dioxide 50 H* (22-30) mmol/L Glucose 109 H (74-99) mg/dL Iron 32 L (50-170) UG/DL % Saturation 7.48 L (12.00-45.00)
--- NOTE | 2024-08-12 18:42 | P.PN ---
Progress Note - Text Progress Note Date: 08/12/24 Hospital course: Patient is a pleasant 53-year-old female with a past medical history of atrial fibrillation on anticoagulation with Eliquis, chronic diastolic heart failure, COPD home oxygen dependent on 2-1/2 L, hypertension, hyperlipidemia, hypothyro idism, osteoarthritis with chronic lower back pain with spinal cord stimulator and morphine pain pump in place, chronic lower extremity wounds following with wound care, and anxiety. She presented to the hospital on/with a chief complaint of shortness of breath 08/06/24. Patient reports it started out as anxiety resulting from feeling stressed over going to her doctor's appointment which shortly after developed into shortness of breath, chest pain, palpitations, and dizziness. Upon arrival to our facility, patient underwent evaluation in the emergency department. Upon initial blood pressure 135/85, heart rate 102, respiratory rate 18, temp 98.3 F, and SpO2 of 97% on 2 L EKG completed showing atrial fibrillation with RVR to 108 bpm. Chest x-ray completed showing cardiomegaly and mild pulmonary vascular congestion. Labs completed and reviewed. CBC showing normocytic anemia with hemoglobin of 11.1. Coagulation profile showing low PTT of 20.1. BMP showing metabolic alkalosis with chloride of 94, bicarb of 38, and anion gap of 7. Blood glucose 121. Magnesium 1.8. Liver profile showing elevated alkaline phosphatase of 134 otherwise normal findings. Troponin was negative at less than 0.012. proBNP slightly elevated at 2800 with previous proBNP of 2250 on 10/10/2023 patient was admitted under our services with consultation to cardiology and wound care for management of patient's chronic bilateral ankle wounds. Troponins trended and negative at less than 0.012 x 2 draws. Echocardiogram resulting showing a reduced EF of 35 to 40% from previous preserved EF with moderate impairment in the left ventricle systolic function with global hypokinesis, moderate severe mitral and moderate tricuspid regurgitation with moderate pulmonary hypertension. 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 Social history: No smoking no alcohol. . Does use a wheelchair when outside the house Physical examination: VITAL SIGNS: 98.5, 90, 18, 96 per 60, 97% on 2.5 L GENERAL: BMI 85.4 reclining bed awake, comfortable EYES: Pupils equal. Conjunctiva lucho l. HEENT: External appearance of nose and ears normal, oral cavity grossly normal. NECK: JVD unable to assess; masses not palpable. HEART: Heart sounds distant, some edema. LUNGS: Respiratory rate normal, distant breath sounds. ABDOMEN: Soft, nontender, liver spleen not palpable, no masses palpable. PSYCH: Alert and oriented x3; mood and affect lucho l. MUSCULOSKELETAL:No Clubbing/cyanosis;muscles-grossly intact NEUROLOGICAL: Cranial nerves grossly intact; no facial asymmetry, power and sensation grossly intact. LYMPHATICS: Bilateral lower extremity severe lymphedema, with discoloration and thickening of the skin below the knee to the foot Bilateral lower extremity lymphedema, with discoloration. INVESTIGATIONS, reviewed in the clinical context: August 12: White count 6.8 hemoglobin 10 platelets 146 sodium 137 potassium 3.6 bicarb 58 creatinine 0.81 2D echocardiogram: [August 06, 2024] technically difficult study EF 35 to 40%. Moderate global hypokinesis. Moderate pulmonary hypertension. Moderate to severe mitral regurgitation. Moderate TR. Assessment and Plan of Care: -HFrEF with acute exacerbation: EF 35 to 40% slow to respond IV Bumex 1 mg every 12. Metolazone. Aldactone. Diamox Add fluid restriction 2000 cc a day -Acute metabolic alkalosis, secondary to contraction alkalosis resulting from diuresis. Diamox -Persistent atrial fibrillation with RVR, currently maintaining controlled ventricular response Eliquis. Lopressor 100 mg twice daily -Chronic obesity hypoventilation syndrome/pickwickian syndrome -Essential hypertension Lopressor -Hyperlipidemia Lipitor - Hypothyroid Levothyroxine 25 mcg a day - Secondary pulmonary hypertension, moderate multifactorial - Moderate to severe mitral regurgitation,, moderate tricuspid regurgitation -COPD with chronic hypoxic respiratory failure 2.5 L home oxygen dependent, not in acute exacerbation - Nonhealing ulceration right lower extremity with fat layer exposed. Chronic venous insufficiency with chronic venous hypertension of the lower extremity. Being followed by wound care team -Hypothyroidism TSH 6.160 with normal free T4 1.78. Continue levothyroxine 25 mcg daily. - chronic lower back pain with spinal cord stimulator and morphine pain pump in place Patient has morphine pain pump and spinal cord stimulator in place and follows outpatient with Dr. Barrett for pain management. Patient may also continue home pain medication regimen with [place] 7.5-325 mg tablets 3 times daily as needed for breakthrough pain. Patient was requesting additional dose of morphine or Dilaudid stating that she is due to have her pain pump refilled and needs pain medication. Called Dr. Marie's office and discussed with staff and was informed that patient has enough morphine in her pump to last until December and recommending to continue treatment of chronic pain only with her [place] 7.5/325 mg tablets 3 times daily as needed for breakthrough pain. -Anxiety Patient has been requesting Klonopin, Ativan, and/or Xanax for treatment of her anxiety. Patient to continue with Zonegran 100 mg nightly and BuSpar 30 mg twice daily. Will hold off on additional benzodiazepines and increased patient's home medication hydroxyzine to 50 mg 4 times daily as needed for anxiety. -Chronic, bilateral lower extremity, severe lymphedema with chronic wounds [hyperplasia, hyperkeratosis, hyperpigmentation] Wound care following and patient to continue to follow with wound care outpatient. Recommend elevation of legs and compression/Henok wraps to bilateral lower extremities. Patient has home care once a week that takes care of wounds -Morbid obesity with BMI 79.0 kg/m recommend structured outpatient weight management program. -Full code
[2024-08-13 07:51] LABS: African American GFR (CKD) 76 (>60 ml/min/1.73 sqM); Blood Urea Nitrogen 13 mg/dL (7-17); Calcium 8.9 mg/dL (8.4-10.2); Chloride 83 mmol/L (98-107); Glucose 101 mg/dL (74-99); Non-African American GFR(CKD) 66 (>60 ml/min/1.73 sqM); Potassium 3.3 mmol/L (3.5-5.1); Sodium 140 mmol/L (137-145)
[2024-08-13 07:58] LABS: Anion Gap 4 mmol/L
[2024-08-13 08:10] LABS: Carbon Dioxide 53 mmol/L (22-30)
--- NOTE | 2024-08-13 11:14 | P.PN ---
Subjective HISTORY OF PRESENT ILLNESS: This is a 53-year-old female previously seen in the office by Dr. Tran with most recent office visit on 06/22/2020. Patient is homebound and has visiting physicians in place. Patient has a past medical history of venous insufficiency, paroxysmal atrial fibrillation, chronic dyspnea on exertion, morbid obesity, chronic pain with pain pump, nonhealing ulceration right lower extremity. We have been asked to evaluate the patient for A-fib with RVR and CHF. Patient states that she was very anxious yesterday and was having shortness of breath. She states she is on home O2 at 2 L nasal cannula. She does not have a CPAP but states that she had a study done a number of years ago and she did not have sleep apnea. Patient is complaining of lower extremity edema which she has which has been chronic. She also felt like her heart rate was elevated. Blood pressure 95/72, heart rate 82, pulse ox 94% on room air. Patient has been started on IV Bumex 1.5 mg every 12 hours and resumed on home cardiac medications. Patient was on Cardizem drip and is status 1 L of IV fluid bolus. -EKG: Atrial fibrillation 108 bpm. -Chest x-ray: Cardiomegaly with mild pulmonary vascular congestion. -Laboratory studies: WBC 10, hemoglobin 11.1, CO2 41, creatinine 0.69. Troponin negative x 2. TSH 6.16 with normal free T4 of 1.78. -Home cardiac medications: Eliquis 5 mg twice daily, Bumex 1 mg twice daily, Cardizem 30 mg every 8 hours, metoprolol succinate 50 mg at bedtime, spironolactone 25 mg daily, also on levothyroxine. -Dobutamine stress echo performed at [facility] on 03/09/2022 revealed normal stress EKG and echo response to dobutamine infusion without any evidence of inducible ischemia. -Echocardiogram performed on 10/11/2023 revealed EF of 50 to 55%. No significant valvular dysfunction. 08/08 Patient seen and examined on the cardiac stepdown unit. Yesterday, echocardiogram was completed and EF 35 to 40%, technically difficult study. Definity contrast used. Moderate impairment in the left ventricular systolic function with global hypokinesis. Moderate severe mitral and moderate tricuspid regurgitation. Moderate pulmonary hypertension. 08/09 Patient seen and examined. A number of medication changes were made yesterday. Cardizem was discontinued due to cardiomyopathy. She has been continued on IV Bumex 1.5 mg twice daily. We also added Diamox and metolazone and increased beta-annabelle. Blood pressure 100/63, heart rate 87, pulse ox 93% on 2 and half liters nasal cannula. Repeat blood work reveals CO2 48, creatinine 1.02. 08/10 Patient seen and examined. Yesterday we decreased Bumex IV to 1 mg every 12 hours, continued metolazone and continue Diamox. Blood pressure 102/69, heart rate 93, pulse ox 99% on 2 and half liters nasal cannula. Repeat blood work reveals CO2 48, creatinine 0.94, hemoglobin 10.7. 08/11 Patient seen and examined. CO2 remains high at 47 despite being on Diamox. Other lab work shows hemoglobin of 10, creatinine 0.81. Blood pressure 103/69, heart rate 84, pulse ox 97% on 2 and half liters nasal cannula. Patient has documented negative fluid balance and weight loss. Plan to continue current medications for another 24 hours. Replace potassium. 08/12/2024 Patient examined this morning at the bedside. Patient currently denies chest pain or pressure. She denies shortness of breath. She remains on IV diuretics. CO2 50. BUN 12. Creatinine 0.81. She continues to have lower extremity edema. Legs are wrapped with Henok bandages. Telemetry reveals atrial fibrillation with controlled ventricular rate 08/13/2024 Patient examined this morning at the bedside. Patient currently denies chest or pressure. She denies shortness of breath. She remains on IV diuretics. CO2 increased today to 53. She continues to have lower extremity edema. Henok wraps noted to bilateral lower extremities. Telemetry reveals atrial fibrillation with controlled ventricular rate PHYSICAL EXAM: VITAL SIGNS: Reviewed. GENERAL: Well-developed in no acute distress. NECK: Supple. No JVD or thyromegaly LUNGS: Respirations even and unlabored. Lungs essentially clear to auscultation bilaterally. HEART: Regular rate and rhythm. S1 and S2 heard. EXTREMITIES: Normal range of motion. No clubbing or cyanosis. Peripheral pulses intact. Bilateral lower extremity edema noted. ASSESSMENT: Persistent atrial fibrillation Chronic hypoxic respiratory failure Acute on chronic heart failure with reduced EF Chronic nonhealing ulceration right lower extremity Venous insufficiency Chronic lower extremity edema and lymphedema Cardiomyopathy, unknown if ischemic or nonischemic Valvular heart disease with moderate to severe mitral and moderate tricuspid r egurgitation Moderate pulmonary hypertension Suspected obstructive sleep apnea although patient denies Morbid obesity with BMI of 79 Hypothyroidism with elevated TSH and normal free T4 Anxiety PLAN: Continue current cardiac medications including Diamox, Eliquis, Lipitor, metoprolol, Zaroxolyn, and Aldactone Discontinue IV Bumex. Begin oral Bumex 1 mg twice a day. Daily weights, accurate intake and output, monitoring of kidney function Further recommendations pending patient course Nurse practitioner note has been reviewed by physician. Signing provider agrees with the documented findings, assessment, and plan of care documented by SUBSTANCE ABUSE NURSE as a scribe. Objective - Vital Signs Vital signs: Vital Signs Temp 98.7 F 08/13/24 07:50 Pulse 89 08/13/24 07:50 Resp 17 08/13/24 07:50 BP 96/63 08/13/24 07:50 Pulse Ox 98 08/13/24 07:50 FiO2 Intake & Output 08/12/24 08/13/24 08/13/24 18:59 06:59 18:59 Intake Total 360 110 130 Output Total 2300 1400 Balance -1940 -1290 130 Weight 217.8 kg Intake: IV 120 10 10 Invasive Line 3 20 10 10 ceFAZolin 2 gm In 100 Dextrose 5% in Water 50 ml @ 100 mls/hr IVPB Q8HR VANE Rx#:[id number] Intake, IV Titration 100 Amount ceFAZolin 2 gm In 100 Dextrose 5% in Water 50 ml @ 100 mls/hr IVPB Q8HR VANE Rx#:[id number] Oral 240 120 Output: Urine 2300 1400 Other: Voiding Method Bedside Commode Bedside Commode Bedside Commode External Catheter External Catheter # Bowel Movements 0 - Labs CBC & Chem 7: 08/12/24 07:24 08/13/24 07:08 Labs: Abnormal Lab Results - Last 24 Hours (Table) 08/13/24 Range/Units 07:08 Potassium 3.3 L (3.5-5.1) mmol/L Chloride 83 L (98-107) mmol/L Carbon Dioxide 53 H* (22-30) mmol/L Glucose 101 H (74-99) mg/dL Microbiology - Last 24 Hours (Table) 08/06/24 23:30 Blood Culture - Final Blood
[2024-08-13] MEDS: POTASSIUM CHLORIDE ER 20 MEQ TAB.ER PO STA (11:53)
[2024-08-13] MEDS: BUMETANIDE 1 MG TAB PO SCH (15:53)
--- NOTE | 2024-08-13 19:30 | P.PN ---
Progress Note - Text Progress Note Date: 08/13/24 Hospital course: Patient is a pleasant 53-year-old female with a past medical history of atrial fibrillation on anticoagulation with Eliquis, chronic diastolic heart failure, COPD home oxygen dependent on 2-1/2 L, hypertension, hyperlipidemia, hypothyro idism, osteoarthritis with chronic lower back pain with spinal cord stimulator and morphine pain pump in place, chronic lower extremity wounds following with wound care, and anxiety. She presented to the hospital on/with a chief complaint of shortness of breath 08/06/24. Patient reports it started out as anxiety resulting from feeling stressed over going to her doctor's appointment which shortly after developed into shortness of breath, chest pain, palpitations, and dizziness. Upon arrival to our facility, patient underwent evaluation in the emergency department. Upon initial blood pressure 135/85, heart rate 102, respiratory rate 18, temp 98.3 F, and SpO2 of 97% on 2 L EKG completed showing atrial fibrillation with RVR to 108 bpm. Chest x-ray completed showing cardiomegaly and mild pulmonary vascular congestion. Labs completed and reviewed. CBC showing normocytic anemia with hemoglobin of 11.1. Coagulation profile showing low PTT of 20.1. BMP showing metabolic alkalosis with chloride of 94, bicarb of 38, and anion gap of 7. Blood glucose 121. Magnesium 1.8. Liver profile showing elevated alkaline phosphatase of 134 otherwise normal findings. Troponin was negative at less than 0.012. proBNP slightly elevated at 2800 with previous proBNP of 2250 on 10/10/2023 patient was admitted under our services with consultation to cardiology and wound care for management of patient's chronic bilateral ankle wounds. Troponins trended and negative at less than 0.012 x 2 draws. Echocardiogram resulting showing a reduced EF of 35 to 40% from previous preserved EF with moderate impairment in the left ventricle systolic function with global hypokinesis, moderate severe mitral and moderate tricuspid regurgitation with moderate pulmonary hypertension. 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 August 12: Resting in bed. Nasal cannula. Eating well. Pain controlled. PT OT has been consulted. Had a bowel movement. August 13: In bed. No new issues. Increase bicarbonate for metabolic alkalosis. Has been switched over to oral Bumex. Will hold off Zaroxolyn for now. A lot of her lower extremity swelling is from lymphedema. Is also restriction. Looking into possible rehab depending on PT OT Active Medications Acetaminophen/Butalbital/Caffeine (Butalb/Apap/Caff 50-325-40mg Tab) 1 each PO Q4H PRN PRN Reason: Migraine Headache Hydrocodone Bitart/Acetaminophen (Hydrocodone/Apap 7.5-325mg 1 Each Tab) 1 each PO TID PRN PRN Reason: Pain Last Admin: 08/13/24 15:53 Dose: 1 each Acetazolamide (Acetazolamide 250 Mg Tab) 250 mg PO BID [facility] Last Admin: 08/13/24 07:51 Dose: 250 mg Albuterol/Ipratropium (Ipratropium-Albuterol 3 Ml Neb) 3 ml INHALATION RT-QID PRN PRN Reason: Shortness Of Breath Last Admin: 08/07/24 08:10 Dose: 3 ml Apixaban (Apixaban 5 Mg Tab) 5 mg PO BID [facility]; Protocol Last Admin: 08/13/24 07:52 Dose: 5 mg Atorvastatin Calcium (Atorvastatin 40 Mg Tab) 40 mg PO HS [facility] Last Admin: 08/12/24 20:38 Dose: 40 mg Bumetanide (Bumetanide 1 Mg Tab) 1 mg PO BID@0900,1600 [facility] Last Admin: 08/13/24 15:53 Dose: 1 mg Buspirone HCl (Buspirone Hcl 10 Mg Tab) 30 mg PO BID [facility] Last Admin: 08/13/24 07:51 Dose: 30 mg Cholecalciferol (Cholecalciferol 125 Mcg (5000 Iu) Tablet) 125 mcg PO DAILY [facility] Last Admin: 08/13/24 07:52 Dose: 125 mcg Ferrous Sulfate (Ferrous Sulfate 325 Mg Tab) 325 mg PO W/LUNCH [facility] Last Admin: 08/13/24 11:53 Dose: 325 mg Folic Acid (Folic Acid 1 Mg Tab) 0.5 mg PO DAILY [facility] Last Admin: 08/13/24 07:51 Dose: 0.5 mg Hydroxyzine HCl (Hydroxyzine Hcl 25 Mg Tab) 50 mg PO QID PRN PRN Reason: Anxiety Last Admin: 08/13/24 14:06 Dose: 50 mg Cefazolin Sodium 2 gm/ (Dextrose/Water) 50 mls @ 100 mls/hr IVPB Q8HR [facility]; Protocol Last Admin: 08/13/24 15:53 Dose: 100 mls/hr Levothyroxine Sodium (Levothyroxine 25 Mcg Tab) 25 mcg PO DAILY@0630 [facility] Last Admin: 08/13/24 06:00 Dose: 25 mcg Lidocaine (Lidocaine 4% Patch) 1 patch TOPICAL DAILY [facility]; Protocol Last Admin: 08/13/24 07:46 Dose: Not Given Metoprolol Tartrate (Metoprolol Tartrate 50 Mg Tab) 100 mg PO BID [facility] Last Admin: 08/13/24 07:51 Dose: 100 mg Nystatin (Nystatin 100,000 Unit/Gm Powd 15 Gm) 1 applic TOPICAL BID PRN; Protocol PRN Reason: Rash Pantoprazole Sodium (Pantoprazole 40 Mg Tablet) 40 mg PO AC-BRKFST [facility] Last Admin: 08/13/24 06:00 Dose: 40 mg Spironolactone (Spironolactone 25 Mg Tab) 25 mg PO DAILY [facility] Last Admin: 08/13/24 07:52 Dose: 25 mg Zonisamide (Zonisamide 100 Mg Cap) 100 mg PO HS [facility] Last Admin: 08/12/24 20:38 Dose: 100 mg Social history: No smoking no alcohol. . Does use a wheelchair when outside the house Physical examination: VITAL SIGNS: 98.2, 91, 17, 90 x 60, 97% on 2.5 L GENERAL: BMI 85.4 reclining bed awake, comfortable EYES: Pupils equal. Conjunctiva lucho l. HEENT: External appearance of nose and ears normal, oral cavity grossly normal. NECK: JVD unable to assess; masses not palpable. HEART: Heart sounds distant, some edema. LUNGS: Respiratory rate normal, distant breath sounds. ABDOMEN: Soft, nontender, liver spleen not palpable, no masses palpable. PSYCH: Alert and oriented x3; mood and affect lucho l. LYMPHATICS: Bilateral lower extremity severe lymphedema, with discoloration and thickening of the skin below the knee to the foot Bilateral lower extremity lymphedema, with discoloration. INVESTIGATIONS, reviewed in the clinical context: August 13: Potassium 3.3 bicarb 53 creatinine 0.97 August 12: White count 6.8 hemoglobin 10 platelets 146 sodium 137 potassium 3.6 bicarb 58 creatinine 0.81 2D echocardiogram: [August 06, 2024] technically difficult study EF 35 to 40%. Moderate global hypokinesis. Moderate pulmonary hypertension. Moderate to severe mitral regurgitation. Moderate TR. Assessment and Plan of Care: -HFrEF with acute exacerbation: EF 35 to 40% better Switched over to oral Bumex. . Aldactone. Diamox Add fluid restriction 2000 cc a day Stop metolazone -Acute metabolic alkalosis, secondary to contraction alkalosis resulting from diuresis. Diamox. Cut back diuretics -Persistent atrial fibrillation with RVR, currently maintaining controlled ventricular response Eliquis. Lopressor 100 mg twice daily -Chronic obesity hypoventilation syndrome/pickwickian syndrome -Essential hypertension Lopressor -Hyperlipidemia Lipitor - Hypothyroid Levothyroxine 25 mcg a day - Secondary pulmonary hypertension, moderate multifactorial - Moderate to severe mitral regurgitation,, moderate tricuspid regurgitation -COPD with chronic hypoxic respiratory failure 2.5 L home oxygen dependent, not in acute exacerbation - Nonhealing ulceration right lower extremity with fat layer exposed. Chronic venous insufficiency with chronic venous hypertension of the lower extremity. Being followed by wound care team -Hypothyroidism TSH 6.160 with normal free T4 1.78. Continue levothyroxine 25 mcg daily. - chronic lower back pain with spinal cord stimulator and morphine pain pump in place Patient has morphine pain pump and spinal cord stimulator in place and follows outpatient with Dr. Barrett for pain management. Patient may also continue home pain medication regimen with [place] 7.5-325 mg tablets 3 times daily as needed for breakthrough pain. Patient was requesting additional dose of morphine or Dilaudid stating that she is due to have her pain pump refilled and needs pain medication. Called Dr. Marie's office and discussed with staff and was informed that patient has enough morphine in her pump to last until December and recommending to continue treatment of chronic pain only with her [place] 7.5/325 mg tablets 3 times daily as needed for breakthrough pain. -Anxiety Patient has been requesting Klonopin, Ativan, and/or Xanax for treatment of her anxiety. Patient to continue with Zonegran 100 mg nightly and BuSpar 30 mg twice daily. Will hold off on additional benzodiazepines and increased patient's home medication hydroxyzine to 50 mg 4 times daily as needed for anxiety. -Chronic, bilateral lower extremity, severe lymphedema with chronic wounds [hyperplasia, hyperkeratosis, hyperpigmentation] Wound care following and patient to continue to follow with wound care outpatient. Recommend elevation of legs and compression/Henok wraps to bilateral lower extremities. Patient has home care once a week that takes care of wounds -Morbid obesity with BMI 79.0 kg/m recommend structured outpatient weight management program. 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 Fran Booth.
[2024-08-14 07:42] LABS: African American GFR (CKD) 89 (>60 ml/min/1.73 sqM); Blood Urea Nitrogen 12 mg/dL (7-17); Calcium 8.9 mg/dL (8.4-10.2); Chloride 84 mmol/L (98-107); Glucose 97 mg/dL (74-99); Non-African American GFR(CKD) 77 (>60 ml/min/1.73 sqM); Potassium 3.5 mmol/L (3.5-5.1); Sodium 137 mmol/L (137-145)
[2024-08-14 07:49] LABS: Anion Gap 3 mmol/L
[2024-08-14 08:09] LABS: Carbon Dioxide 50 mmol/L (22-30)
--- NOTE | 2024-08-14 11:49 | P.PN ---
Subjective HISTORY OF PRESENT ILLNESS: This is a 53-year-old female previously seen in the office by Dr. Tran with most recent office visit on 06/22/2020. Patient is homebound and has visiting physicians in place. Patient has a past medical history of venous insufficiency, paroxysmal atrial fibrillation, chronic dyspnea on exertion, morbid obesity, chronic pain with pain pump, nonhealing ulceration right lower extremity. We have been asked to evaluate the patient for A-fib with RVR and CHF. Patient states that she was very anxious yesterday and was having shortness of breath. She states she is on home O2 at 2 L nasal cannula. She does not have a CPAP but states that she had a study done a number of years ago and she did not have sleep apnea. Patient is complaining of lower extremity edema which she has which has been chronic. She also felt like her heart rate was elevated. Blood pressure 95/72, heart rate 82, pulse ox 94% on room air. Patient has been started on IV Bumex 1.5 mg every 12 hours and resumed on home cardiac medications. Patient was on Cardizem drip and is status 1 L of IV fluid bolus. -EKG: Atrial fibrillation 108 bpm. -Chest x-ray: Cardiomegaly with mild pulmonary vascular congestion. -Laboratory studies: WBC 10, hemoglobin 11.1, CO2 41, creatinine 0.69. Troponin negative x 2. TSH 6.16 with normal free T4 of 1.78. -Home cardiac medications: Eliquis 5 mg twice daily, Bumex 1 mg twice daily, Cardizem 30 mg every 8 hours, metoprolol succinate 50 mg at bedtime, spironolactone 25 mg daily, also on levothyroxine. -Dobutamine stress echo performed at [facility] on 03/09/2022 revealed normal stress EKG and echo response to dobutamine infusion without any evidence of inducible ischemia. -Echocardiogram performed on 10/11/2023 revealed EF of 50 to 55%. No significant valvular dysfunction. 08/08 Patient seen and examined on the cardiac stepdown unit. Yesterday, echocardiogram was completed and EF 35 to 40%, technically difficult study. Definity contrast used. Moderate impairment in the left ventricular systolic function with global hypokinesis. Moderate severe mitral and moderate tricuspid regurgitation. Moderate pulmonary hypertension. 08/09 Patient seen and examined. A number of medication changes were made yesterday. Cardizem was discontinued due to cardiomyopathy. She has been continued on IV Bumex 1.5 mg twice daily. We also added Diamox and metolazone and increased beta-annabelle. Blood pressure 100/63, heart rate 87, pulse ox 93% on 2 and half liters nasal cannula. Repeat blood work reveals CO2 48, creatinine 1.02. 08/10 Patient seen and examined. Yesterday we decreased Bumex IV to 1 mg every 12 hours, continued metolazone and continue Diamox. Blood pressure 102/69, heart rate 93, pulse ox 99% on 2 and half liters nasal cannula. Repeat blood work reveals CO2 48, creatinine 0.94, hemoglobin 10.7. 08/11 Patient seen and examined. CO2 remains high at 47 despite being on Diamox. Other lab work shows hemoglobin of 10, creatinine 0.81. Blood pressure 103/69, heart rate 84, pulse ox 97% on 2 and half liters nasal cannula. Patient has documented negative fluid balance and weight loss. Plan to continue current medications for another 24 hours. Replace potassium. 08/12/2024 Patient examined this morning at the bedside. Patient currently denies chest pain or pressure. She denies shortness of breath. She remains on IV diuretics. CO2 50. BUN 12. Creatinine 0.81. She continues to have lower extremity edema. Legs are wrapped with Henok bandages. Telemetry reveals atrial fibrillation with controlled ventricular rate 08/13/2024 Patient examined this morning at the bedside. Patient currently denies chest or pressure. She denies shortness of breath. She remains on IV diuretics. CO2 increased today to 53. She continues to have lower extremity edema. Henok wraps noted to bilateral lower extremities. Telemetry reveals atrial fibrillation with controlled ventricular rate 08/14/2024 Patient examined this morning at the bedside. Patient currently denies chest pain or pressure. She denies shortness of breath. She continues to have lower extremity edema. She has been transition to oral Bumex 1 mg twice a day yesterday. CO2 50. BUN 12. Creatinine 0.86. She is complaining of worsening anxiety today and is requesting something stronger for anxiety. PHYSICAL EXAM: VITAL SIGNS: Reviewed. GENERAL: Well-developed in no acute distress. NECK: Supple. No JVD or thyromegaly LUNGS: Respirations even and unlabored. Lungs essentially clear to auscultation bilaterally. HEART: Regular rate and rhythm. S1 and S2 heard. EXTREMITIES: Normal range of motion. No clubbing or cyanosis. Peripheral pulses intact. Bilateral lower extremity edema noted. ASSESSMENT: Persistent atrial fibrillation Chronic hypoxic respiratory failure Acute on chronic heart failure with reduced EF Chronic nonhealing ulceration right lower extremity Venous insufficiency Chronic lower extremity edema and lymphedema Cardiomyopathy, unknown if ischemic or nonischemic Valvular heart disease with moderate to severe mitral and moderate tricuspid regurgitation Moderate pulmonary hypertension Suspected obstructive sleep apnea although patient denies Morbid obesity with BMI of 79 Hypothyroidism with elevated TSH and normal free T4 Anxiety PLAN: Continue current cardiac medications including Diamox, Eliquis, Lipitor, metoprolol, Aldactone, and Bumex Daily weights, accurate intake and output, monitoring of kidney function Further recommendations pending patient course Patient is currently stable from a cardiac standpoint with no further inpatient recommendations We will sign off. Please reconsult if needed. Nurse practitioner note has been reviewed by physician. Signing provider agrees with the documented findings, assessment, and plan of care documented by PARENT AIDE as a scribe. Objective - Vital Signs Vital signs: Vital Signs Temp 98.8 F 08/14/24 08:20 Pulse 90 08/14/24 08:20 Resp 17 08/14/24 08:20 BP 93/59 08/14/24 08:20 Pulse Ox 95 08/14/24 09:02 FiO2 Intake & Output 08/13/24 08/14/24 08/14/24 18:59 06:59 18:59 Intake Total 240 800 250 Output Total 2195 091 3679 Balance -860 -100 -1150 Weight 215.1 kg Intake: IV 20 20 10 Invasive Line 3 20 20 10 Oral 220 780 240 Output: Urine 6677 365 8351 Other: Voiding Method Bedside Commode Bedside Commode Bedside Commode External Catheter External Catheter External Catheter # Voids 1 - Labs CBC & Chem 7: 08/12/24 07:24 08/14/24 07:02 Labs: Abnormal Lab Results - Last 24 Hours (Table) 08/14/24 Range/Units 07:02 Chloride 84 L (98-107) mmol/L Carbon Dioxide 50 H* (22-30) mmol/L
--- NOTE | 2024-08-14 18:21 | P.PN ---
Progress Note - Text Progress Note Date: 08/14/24 Hospital course: Patient is a pleasant 53-year-old female with a past medical history of atrial fibrillation on anticoagulation with Eliquis, chronic diastolic heart failure, COPD home oxygen dependent on 2-1/2 L, hypertension, hyperlipidemia, hypothyro idism, osteoarthritis with chronic lower back pain with spinal cord stimulator and morphine pain pump in place, chronic lower extremity wounds following with wound care, and anxiety. She presented to the hospital on/with a chief complaint of shortness of breath 08/06/24. Patient reports it started out as anxiety resulting from feeling stressed over going to her doctor's appointment which shortly after developed into shortness of breath, chest pain, palpitations, and dizziness. Upon arrival to our facility, patient underwent evaluation in the emergency department. Upon initial blood pressure 135/85, heart rate 102, respiratory rate 18, temp 98.3 F, and SpO2 of 97% on 2 L EKG completed showing atrial fibrillation with RVR to 108 bpm. Chest x-ray completed showing cardiomegaly and mild pulmonary vascular congestion. Labs completed and reviewed. CBC showing normocytic anemia with hemoglobin of 11.1. Coagulation profile showing low PTT of 20.1. BMP showing metabolic alkalosis with chloride of 94, bicarb of 38, and anion gap of 7. Blood glucose 121. Magnesium 1.8. Liver profile showing elevated alkaline phosphatase of 134 otherwise normal findings. Troponin was negative at less than 0.012. proBNP slightly elevated at 2800 with previous proBNP of 2250 on 10/10/2023 patient was admitted under our services with consultation to cardiology and wound care for management of patient's chronic bilateral ankle wounds. Troponins trended and negative at less than 0.012 x 2 draws. Echocardiogram resulting showing a reduced EF of 35 to 40% from previous preserved EF with moderate impairment in the left ventricle systolic function with global hypokinesis, moderate severe mitral and moderate tricuspid regurgitation with moderate pulmonary hypertension. Discussed echocardiogram results with cardiology [facility], patient's admission upgraded to inpatient from observation status for appropriate optimization of acute systolic heart failure. August 12: Resting in bed. Nasal cannula. Eating well. Pain controlled. PT OT has been consulted. Had a bowel movement. August 13: In bed. No new issues. Increase bicarbonate for metabolic alkalosis. Has been switched over to oral Bumex. Will hold off Zaroxolyn for now. A lot of her lower extremity swelling is from lymphedema. Is also restriction. Looking into possible rehab depending on PT OT August 14: . Spoke to delinquency prevention social worker. Pending authorization for rehab. Eating fair. Zaroxolyn was discontinued yesterday. Will hold off p.m. dose of Bumex tonight. Still significant metabolic alkalosis Active Medications Acetaminophen/Butalbital/Caffeine (Butalb/Apap/Caff 50-325-40mg Tab) 1 each PO Q4H PRN PRN Reason: Migraine Headache Hydrocodone Bitart/Acetaminophen (Hydrocodone/Apap 7.5-325mg 1 Each Tab) 1 each PO TID PRN PRN Reason: Pain Last Admin: 08/14/24 08:22 Dose: 1 each Acetazolamide (Acetazolamide 250 Mg Tab) 250 mg PO BID [facility] Last Admin: 08/14/24 08:23 Dose: 250 mg Albuterol/Ipratropium (Ipratropium-Albuterol 3 Ml Neb) 3 ml INHALATION RT-QID PRN PRN Reason: Shortness Of Breath Last Admin: 08/07/24 08:10 Dose: 3 ml Apixaban (Apixaban 5 Mg Tab) 5 mg PO BID [facility]; Protocol Last Admin: 08/14/24 08:23 Dose: 5 mg Atorvastatin Calcium (Atorvastatin 40 Mg Tab) 40 mg PO HS [facility] Last Admin: 08/13/24 20:47 Dose: 40 mg Bumetanide (Bumetanide 1 Mg Tab) 1 mg PO BID@0900,1600 [facility] Last Admin: 08/14/24 16:24 Dose: 1 mg Buspirone HCl (Buspirone Hcl 10 Mg Tab) 30 mg PO BID [facility] Last Admin: 08/14/24 08:23 Dose: 30 mg Cholecalciferol (Cholecalciferol 125 Mcg (5000 Iu) Tablet) 125 mcg PO DAILY [facility] Last Admin: 08/14/24 08:23 Dose: 125 mcg Ferrous Sulfate (Ferrous Sulfate 325 Mg Tab) 325 mg PO W/LUNCH [facility] Last Admin: 08/14/24 11:41 Dose: 325 mg Folic Acid (Folic Acid 1 Mg Tab) 0.5 mg PO DAILY [facility] Last Admin: 08/14/24 08:23 Dose: 0.5 mg Hydroxyzine HCl (Hydroxyzine Hcl 25 Mg Tab) 50 mg PO QID PRN PRN Reason: Anxiety Last Admin: 08/14/24 16:24 Dose: 50 mg Levothyroxine Sodium (Levothyroxine 25 Mcg Tab) 25 mcg PO DAILY@0630 [facility] Last Admin: 08/14/24 06:11 Dose: 25 mcg Lidocaine (Lidocaine 4% Patch) 1 patch TOPICAL DAILY [facility]; Protocol Last Admin: 08/14/24 08:21 Dose: Not Given Metoprolol Tartrate (Metoprolol Tartrate 50 Mg Tab) 100 mg PO BID [facility] Last Admin: 08/14/24 08:23 Dose: 100 mg Nystatin (Nystatin 100,000 Unit/Gm Powd 15 Gm) 1 applic TOPICAL BID PRN; Protocol PRN Reason: Rash Pantoprazole Sodium (Pantoprazole 40 Mg Tablet) 40 mg PO AC-BRKFST [facility] Last Admin: 08/14/24 06:11 Dose: 40 mg Spironolactone (Spironolactone 25 Mg Tab) 25 mg PO DAILY [facility] Last Admin: 08/14/24 08:23 Dose: 25 mg Zonisamide (Zonisamide 100 Mg Cap) 100 mg PO HS [facility] Last Admin: 08/13/24 20:47 Dose: 100 mg Social history: No smoking no alcohol. . Does use a wheelchair when outside the house Physical examination: VITAL SIGNS: 98.8, 80, 17, 95 x 59, 95% on 2.5 L GENERAL: reclining bed awake, comfortable EYES: Pupils equal. Conjunctiva lucho l. HEENT: External appearance of nose and ears normal, oral cavity grossly normal. NECK: JVD unable to assess; masses not palpable. HEART: Heart sounds distant, some edema. LUNGS: Respiratory rate normal, distant breath sounds. ABDOMEN: Soft, nontender, liver spleen not palpable, no masses palpable. PSYCH: Alert and oriented x3; mood and affect lucho l. LYMPHATICS: Bilateral lower extremity severe lymphedema, with discoloration and thickening of the skin below the knee to the foot Bilateral lower extremity lymphedema, with discoloration. INVESTIGATIONS, reviewed in the clinical context: August 14: Potassium 3.5 BUN 12 creatinine 0.86 bicarb 50 August 13: Potassium 3.3 bicarb 53 creatinine 0.97 August 12: White count 6.8 hemoglobin 10 platelets 146 sodium 137 potassium 3.6 bicarb 58 creatinine 0.81 2D echocardiogram: [August 06, 2024] technically difficult study EF 35 to 40%. Moderate global hypokinesis. Moderate pulmonary hypertension. Moderate to severe mitral regurgitation. Moderate TR. Assessment and Plan of Care: -HFrEF with acute exacerbation: EF 35 to 40% better Switched over to oral Bumex. . Aldactone. Diamox Add fluid restriction 2000 cc a day Stop metolazone -Acute metabolic alkalosis, secondary to contraction alkalosis resulting from diuresis. Diamox. Diuretics scaled back -Persistent atrial fibrillation with RVR, currently maintaining controlled ventricular response Eliquis. Lopressor 100 mg twice daily -Chronic obesity hypoventilation syndrome/pickwickian syndrome -Essential hypertension Lopressor -Hyperlipidemia Lipitor - Hypothyroid Levothyroxine 25 mcg a day - Secondary pulmonary hypertension, moderate multifactorial - Moderate to severe mitral regurgitation,, moderate tricuspid regurgitation -COPD with chronic hypoxic respiratory failure 2.5 L home oxygen dependent, not in acute exacerbation - Nonhealing ulceration right lower extremity with fat layer exposed. Chronic venous insufficiency with chronic venous hypertension of the lower extremity. Being followed by wound care team -Hypothyroidism TSH 6.160 with normal free T4 1.78. Continue levothyroxine 25 mcg daily. - chronic lower back pain with spinal cord stimulator and morphine pain pump in place Patient has morphine pain pump and spinal cord stimulator in place and follows outpatient with Dr. Barrett for pain management. Patient may also continue home pain medication regimen with [place] 7.5-325 mg tablets 3 times daily as needed for breakthrough pain. Patient was requesting additional dose of morphine or Dilaudid stating that she is due to have her pain pump refilled and needs pain medication. Called Dr. Marie's office and discussed with staff and was informed that patient has enough morphine in her pump to last until December and recommending to continue treatment of chronic pain only with her [place] 7.5/325 mg tablets 3 times daily as needed for breakthrough pain. -Anxiety Patient has been requesting Klonopin, Ativan, and/or Xanax for treatment of her anxiety. Patient to continue with Zonegran 100 mg nightly and BuSpar 30 mg twice daily. Will hold off on additional benzodiazepines and increased patient's home medication hydroxyzine to 50 mg 4 times daily as needed for anxiety. -Chronic, bilateral lower extremity, severe lymphedema with chronic wounds [hyperplasia, hyperkeratosis, hyperpigmentation] Wound care following and patient to continue to follow with wound care outpatient. Recommend elevation of legs and compression/Henok wraps to bilateral lower extremities. Patient has home care once a week that takes care of wounds -Morbid obesity with BMI 79.0 kg/m recommend structured outpatient weight management program. -Full code Pending authorization for rehab. Will hold off p.m. dose of Bumex tonight for metabolic alkalosis. Other medications to continue
[2024-08-14 20:18] VITALS: TEMP 98.4
--- NOTE | 2024-08-15 11:31 | P.DS ---
Providers Date of admission: 08/06/24 17:38 Expected date of discharge: 08/15/24 Attending physician: Justice Lechuga Primary care physician: Greg Arango MD Hospital Course: Hospital course: Patient is a pleasant 53-year-old female with a past medical history of atrial fibrillation on anticoagulation with Eliquis, chronic diastolic heart failure, COPD home oxygen dependent on 2-1/2 L, hypertension, hyperlipidemia, hypothyroidism, osteoarthritis with chronic lower back pain with spinal cord stimulator and morphine pain pump in place, chronic lower extremity wounds following with wound care, and anxiety. She presented to the hospital on/with a chief complaint of shortness of breath 08/06/24. Patient reports it started out as anxiety resulting from feeling stressed over going to her doctor's appointment which shortly after developed into shortness of breath, chest pain, palpitations, and dizziness. Upon arrival to our facility, patient underwent evaluation in the emergency department. Upon initial blood pressure 135/85, heart rate 102, respiratory rate 18, temp 98.3 F, and SpO2 of 97% on 2 L EKG completed showing atrial fibrillation with RVR to 108 bpm. Chest x-ray comple daryl showing cardiomegaly and mild pulmonary vascular congestion. Labs completed and reviewed. CBC showing normocytic anemia with hemoglobin of 11.1. Coagulation profile showing low PTT of 20.1. BMP showing metabolic alkalosis with chloride of 94, bicarb of 38, and anion gap of 7. Blood glucose 121. Magnesium 1.8. Liver profile showing elevated alkaline phosphatase of 134 otherwise normal findings. Troponin was negative at less than 0.012. proBNP slightly elevated at 2800 with previous proBNP of 2250 on 10/10/2023 patient was admitted under our services with consultation to cardiology and wound care for management of patient's chronic bilateral ankle wounds. Troponins trended and negative at less than 0.012 x 2 draws. Echocardiogram resulting showing a reduced EF of 35 to 40% from previous preserved EF with moderate impairment in the left ventricle systolic function with global hypokinesis, moderate severe mitral and moderate tricuspid regurgitation with moderate pulmonary hype rtension. Discussed echocardiogram results with cardiology BELT MAKER, patient's admission upgraded to inpatient from observation status for appropriate optimization of acute systolic heart failure. August 12: Resting in bed. Nasal cannula. Eating well. Pain controlled. PT OT has been consulted. Had a bowel movement. August 13: In bed. No new issues. Increase bicarbonate for metabolic alkalosis. Has been switched over to oral Bumex. Will hold off Zaroxolyn for now. A lot of her lower extremity swelling is from lymphedema. Is also restriction. Looking into possible rehab depending on PT OT August 14: Comfortable. Spoke to long term care social worker. Pending authorization for rehab. Eating fair. Zaroxolyn was discontinued yesterday. Will hold off p.m. dose of Bumex tonight. Still significant metabolic alkalosis August 15: No new issues. Has been accepted to rehab. Fluid restriction 2000 cc a day. 2-week course of Diamox. Discussion and discharge planning more than 35 minutes Social history: No smoking no alcohol. . Does use a wheelchair when outside the house Physical examination: VITAL SIGNS: 98.4, 83, 16, 95 x 57, 92% on 2.5 L GENERAL: reclining bed awake, comfortable EYES: Pupils equal. Conjunctiva lucho l. HEENT: External appearance of nose and ears normal, oral cavity grossly normal. NECK: JVD unable to assess; masses not palpable. HEART: Heart sounds distant, some edema. LUNGS: Respiratory rate normal, distant breath sounds. ABDOMEN: Soft, nontender, liver spleen not palpable, no masses palpable. PSYCH: Alert and oriented x3; mood and affect lucho l. LYMPHATICS: Bilateral lower extremity severe lymphedema, with discoloration and thickening of the skin below the knee to the foot Bilateral lower extremity lymphedema, with discoloration. INVESTIGATIONS, reviewed in the clinical context: August 14: Potassium 3.5 BUN 12 creatinine 0.86 bicarb 50 August 13: Potassium 3.3 bicarb 53 creatinine 0.97 August 12: White count 6.8 hemoglobin 10 platelets 146 sodium 137 potassium 3.6 bicarb 58 creatinine 0.81 2D echocardiogram: [August 06, 2024] technically difficult study EF 35 to 40%. Moderate global hypokinesis. Moderate pulmonary hypertension. Moderate to severe mitral regurgitation. Moderate TR. Assessment and Plan of Care: -HFrEF with acute exacerbation: EF 35 to 40% better Switched over to oral Bumex. . Aldactone. Diamox fluid restriction 2000 cc a day Stop metolazone -Acute metabolic alkalosis, secondary to contraction alkalosis resulting from diuresis. Diamox. Diuretics scaled back -Persistent atrial fibrillation with RVR, currently maintaining controlled ventricular response Eliquis. Lopressor 100 mg twice daily -Chronic obesity hypoventilation syndrome/pickwickian syndrome -Essential hypertension Lopressor -Hyperlipidemia Lipitor - Hypothyroid Levothyroxine 25 mcg a day - Secondary pulmonary hypertension, moderate multifactorial - Moderate to severe mitral regurgitation,, moderate tricuspid regurgitation -COPD with chronic hypoxic respiratory failure 2.5 L home oxygen dependent, not in acute exacerbation - Nonhealing ulceration right lower extremity with fat layer exposed. Chronic venous insufficiency with chronic venous hypertension of the lower extremity. Being followed by wound care team -Hypothyroidism TSH 6.160 with normal free T4 1.78. Continue levothyroxine 25 mcg daily. - chronic lower back pain with spinal cord stimulator and morphine pain pump in place Patient has morphine pain pump and spinal cord stimulator in place and follows outpatient with Dr. Barrett for pain management. Patient may also continue home pain medication regimen with [place] 7.5-325 mg tablets 3 times daily as needed for breakthrough pain. Patient was requesting additional dose of morphine or Dilaudid stating that she is due to have her pain pump refilled and needs pain medication. Called Dr. Marie's office and discussed with staff and was informed that patient has enough morphine in her pump to last until December and recommending to continue treatment of chronic pain only with her [place] 7.5/325 mg tablets 3 times daily as needed for breakthrough pain. -Anxiety Patient has been requesting Klonopin, Ativan, and/or Xanax for treatment of her anxiety. Patient to continue with Zonegran 100 mg nightly and BuSpar 30 mg twice daily. Will hold off on additional benzodiazepines and increased patient's home medication hydroxyzine to 50 mg 4 times daily as needed for anxiety. -Chronic, bilateral lower extremity, severe lymphedema with chronic wounds [hyperplasia, hyperkeratosis, hyperpigmentation] Wound care following and patient to continue to follow with wound care outpatient. Recommend elevation of legs and compression/Henok wraps to bilateral lower extremities. Patient has home care once a week that takes care of wounds -Morbid obesity with BMI 79.0 kg/m recommend structured outpatient weight management program. -Full code [facility] BMP: 3 days Plan - Discharge Summary New Discharge Prescriptions: New acetaZOLAMIDE [Diamox] 250 mg PO BID #30 tab Lidocaine 4% Patch 1 patch TOPICAL DAILY patch Atorvastatin [Lipitor] 40 mg PO HS tab Ferrous Sulfate [Iron (65 MG Elemental)] 325 mg PO W/LUNCH tab Metoprolol Tartrate [Lopressor] 100 mg PO BID tab Continue Zonisamide [Zonegran] 100 mg PO HS Nystatin 100,000 Unit/gm Powd [Mycostatin Powder] 1 applic TOPICAL BID PRN PRN Reason: Rash Spironolactone [Aldactone] 25 mg PO DAILY #30 tab Folic Acid 667mg 667 mg PO DAILY Apixaban [Eliquis] 5 mg PO BID busPIRone HCL [Buspar] 30 mg PO BID Levothyroxine Sodium [Synthroid] 25 mcg PO DAILY Pantoprazole [Protonix] 40 mg PO AC-BRKFST Cholecalciferol (Vitamin D3) [Vitamin D3 (125 MCG = 5,000 IU)] 125 mcg PO DAILY Ipratropium-Albuterol Nebulize [Duoneb 0.5 mg-3 mg/3 ml Soln] 3 ml INHALATION RT-QID PRN PRN Reason: Shortness Of Breath hydrOXYzine HCL [Atarax] 50 - 100 mg PO Q6H PRN PRN Reason: Anxiety Bumetanide [BUMEX] 1 mg PO BID@0900,1600 #60 tab Butalb/Acetaminophen/Caffeine [Fioricet 50-300-40 mg Capsule] 1 cap PO Q4H PRN #18 cap PRN Reason: Migraine Headache HYDROcodone/APAP 7.5-325MG [[place] 7.5-325] 1 tab PO TID PRN #9 tab PRN Reason: Pain Discontinued Metoprolol Succinate (ER) [Toprol XL] 50 mg PO HS tab No Action Diltiazem Oral [Cardizem*] 30 mg PO Q8H Discharge Medication List Zonisamide [Zonegran] 100 mg PO HS 09/11/13 [History] Cholecalciferol (Vitamin D3) [Vitamin D3 (125 MCG = 5,000 IU)] 125 mcg PO DAILY 10/10/23 [History] Diltiazem Oral [Cardizem*] 30 mg PO Q8H 10/10/23 [History] Ipratropium-Albuterol Nebulize [Duoneb 0.5 mg-3 mg/3 ml Soln] 3 ml INHALATION RT-QID PRN 10/10/23 [History] Nystatin 100,000 Unit/gm Powd [Mycostatin Powder] 1 applic TOPICAL BID PRN 10/10/23 [History] hydrOXYzine HCL [Atarax] 50 - 100 mg PO Q6H PRN 10/10/23 [History] Bumetanide [BUMEX] 1 mg PO BID@0900,1600 #60 tab 10/12/23 [Rx] Spironolactone [Aldactone] 25 mg PO DAILY #30 tab 10/12/23 [Rx] Apixaban [Eliquis] 5 mg PO BID 08/06/24 [History] Folic Acid 667mg 667 mg PO DAILY 08/06/24 [History] Levothyroxine Sodium [Synthroid] 25 mcg PO DAILY 08/06/24 [History] Pantoprazole [Protonix] 40 mg PO AC-BRKFST 08/06/24 [History] busPIRone HCL [Buspar] 30 mg PO BID 08/06/24 [History] Atorvastatin [Lipitor] 40 mg PO HS tab 08/15/24 [Rx] Butalb/Acetaminophen/Caffeine [Fioricet 50-300-40 mg Capsule] 1 cap PO Q4H PRN #18 cap 08/15/24 [Rx] Ferrous Sulfate [Iron (65 MG Elemental)] 325 mg PO W/LUNCH tab 08/15/24 [Rx] HYDROcodone/APAP 7.5-325MG [[place] 7.5-325] 1 tab PO TID PRN #9 tab 08/15/24 [Rx] Lidocaine 4% Patch 1 patch TOPICAL DAILY patch 08/15/24 [Rx] Metoprolol Tartrate [Lopressor] 100 mg PO BID tab 08/15/24 [Rx] acetaZOLAMIDE [Diamox] 250 mg PO BID #30 tab 08/15/24 [Rx] Follow up Appointment(s)/Referral(s): [facility] [NON-STAFF] - [facility],[place] [facility] [NON-STAFF] - Greg Arango MD [Primary Care Provider] - 1-2 days Home Health,[facility] [NON-STAFF] - Vanda Marie MD [Medical Doctor] - 2 Weeks Activity/Diet/Wound Care/Special Instructions: Will need ambulance ride home. Form in Chart Fluid restriction: 2000 cc a day Discharge/Stand Alone Forms: [place] [facility] Pamphlet, Who Do I Call?
[2024-08-15 13:11] VITALS: BP 104/71; RESP 18
[2024-08-15 15:51] VITALS: PULSE 83
== END 2024-08-15 15:25 | DRG 291 ==
LOC: EC 15:22 → 3SCARD 17:38 → OBSVTOIN 17:38 → 3SCARD 23:53
PROVIDERS: ADMIT Hospitalist; ATTEND Hospitalist
DX: I11.0 Hypertensive heart disease with heart failure (principal); I50.23 Acute on chronic systolic (congestive) heart failure; E87.3 Alkalosis; D69.6 Thrombocytopenia, unspecified; E66.2 Morbid (severe) obesity with alveolar hypoventilation; L03.115 Cellulitis of right lower limb; I27.22 Pulmonary hypertension due to left heart disease; J44.9 Chronic obstructive pulmonary disease, unspecified; E03.9 Hypothyroidism, unspecified; D64.9 Anemia, unspecified; I08.1 Rheumatic disorders of both mitral and tricuspid valves; Z68.45 Body mass index [BMI] 70 or greater, adult; L97.212 Non-pressure chronic ulcer of right calf with fat layer exposed; L97.921 Non-pressure chronic ulcer of unspecified part of left lower leg limited to breakdown of skin; J96.11 Chronic respiratory failure with hypoxia; I48.19 Other persistent atrial fibrillation; L03.116 Cellulitis of left lower limb; I42.9 Cardiomyopathy, unspecified; I87.2 Venous insufficiency (chronic) (peripheral); E78.5 Hyperlipidemia, unspecified; M19.90 Unspecified osteoarthritis, unspecified site; T50.2X5A Adverse effect of carbonic-anhydrase inhibitors, benzothiadiazides and other diuretics, initial encounter; F41.9 Anxiety disorder, unspecified; I89.0 Lymphedema, not elsewhere classified; Z99.81 Dependence on supplemental oxygen; I87.323 Chronic venous hypertension (idiopathic) with inflammation of bilateral lower extremity; G89.29 Other chronic pain; M54.50 Low back pain, unspecified; L85.9 Epidermal thickening, unspecified; L81.8 Other specified disorders of pigmentation; Z96.89 Presence of other specified functional implants; Z79.891 Long term (current) use of opiate analgesic; Z79.01 Long term (current) use of anticoagulants; Z79.890 Hormone replacement therapy; Z79.899 Other long term (current) drug therapy; Z98.84 Bariatric surgery status; Z96.653 Presence of artificial knee joint, bilateral
CPT/HCPCS: 36415; 71046; 80048; 80053; 83540; 83550; 83735; 83880; 84439; 84443; 84484; 85025; 85027; 85610; 85730; 87040; 93005; 93306; 94640; 94760; 96361; 96365; 96366; 96375; 99291

== ENCOUNTER 2024-10-11 09:23 | Inpatient (IN) | payer MEDICARE, OTHER ==
--- NOTE | 2024-10-11 10:16 | ED ---
General Adult HPI - General Chief complaint: Weakness Stated complaint: Weakness Time Seen by Provider: 10/11/24 09:25 Source: patient, RN notes reviewed, old records reviewed Mode of arrival: EMS - History of Present Illness Initial comments: 54-year-old female presenting with weakness, dyspnea. Patient is morbidly obese, bedbound. Significant comorbidities. Upon arrival patient is noted to be in atrial fibrillation with RVR. She is moderately dyspneic. She is complaining of increased dyspnea without fever or cough. She has chronic lower extremity swelling and venous stasis. She is also been incontinent of urine and stool. Her she states her is her primary caregiver. - Related Data Home Medications Medication Instructions Recorded Confirmed Zonisamide [Zonegran] 100 mg PO HS 09/11/13 08/06/24 Cholecalciferol (Vitamin D3) 125 mcg PO DAILY 10/10/23 08/06/24 [Vitamin D3 (125 MCG = 5,000 IU)] Ipratropium-Albuterol Nebulize 3 ml INHALATION RT-QID PRN 10/10/23 08/06/24 [Duoneb 0.5 mg-3 mg/3 ml Soln] Nystatin 100,000 Unit/gm Powd 1 applic TOPICAL BID PRN 10/10/23 08/06/24 [Mycostatin Powder] hydrOXYzine HCL [Atarax] 50 - 100 mg PO Q6H PRN 10/10/23 08/06/24 Apixaban [Eliquis] 5 mg PO BID 08/06/24 08/06/24 Folic Acid 667mg 667 mg PO DAILY 08/06/24 08/06/24 Levothyroxine Sodium [Synthroid] 25 mcg PO DAILY 08/06/24 08/06/24 Pantoprazole [Protonix] 40 mg PO AC-BRKFST 08/06/24 08/06/24 busPIRone HCL [Buspar] 30 mg PO BID 08/06/24 08/06/24 Previous Rx's Medication Instructions Recorded Bumetanide [BUMEX] 1 mg PO BID@0900,1600 #60 tab 10/12/23 Spironolactone [Aldactone] 25 mg PO DAILY #30 tab 10/12/23 Atorvastatin [Lipitor] 40 mg PO HS tab 08/15/24 Butalb/Acetaminophen/Caffeine 1 cap PO Q4H PRN #18 cap 08/15/24 [Fioricet 50-300-40 mg Capsule] Ferrous Sulfate [Iron (65 MG 325 mg PO W/LUNCH tab 08/15/24 Elemental)] HYDROcodone/APAP 7.5-325MG [[place] 1 tab PO TID PRN #9 tab 08/15/24 7.5-325] Lidocaine 4% Patch 1 patch TOPICAL DAILY patch 08/15/24 Metoprolol Tartrate [Lopressor] 100 mg PO BID tab 08/15/24 acetaZOLAMIDE [Diamox] 250 mg PO BID #30 tab 08/15/24 HYDROmorphone [Dilaudid] 2 mg PO Q6H PRN 3 Days #12 tab 08/25/24 Allergies Allergy/AdvReac Type Severity Reaction Status Date / Time No Known Allergies Allergy Verified 10/11/24 10:05 Review of Systems ROS Statement: Those systems with pertinent positive or pertinent negative responses have been documented in the HPI. ROS Other: All systems not noted in ROS Statement are negative. Past Medical History Past Medical History: Atrial Fibrillation, Hyperlipidemia, Hypertension, Musculoskeletal Disorder, Osteoarthritis (OA) Additional Past Medical History / Comment(s): NEUROPATHY, CARPEL TUNNEL, BACK NECK AND KNEE PAIN, MIGRAINES. "Raspy voice last few days." "Oxygen 2.5L per nasal cannula." History of Any Multi-Drug Resistant Organisms: None Reported Past Surgical History: Bariatric Surgery, Section, Hysterectomy, Joint Replacement, Orthopedic Surgery, Tubal Ligation Additional Past Surgical History / Comment(s): GASTRIC BYPASS, SPINAL CORD STIMULATOR, bilateral knee replacements, right knee arthroscopy. Past Anesthesia/Blood Transfusion Reactions: No Reported Reaction Past Psychological History: Anxiety Smoking Status: Never smoker Past Alcohol Use History: None Reported Past Drug Use History: None Reported - Past Family History Mother Family Medical History: Cancer General Exam General appearance: lethargic, in distress Head exam: Present: atraumatic, normocephalic Eye exam: Present: normal appearance, PERRL ENT exam: Present: normal exam Neck exam: Present: normal inspection. Absent: tenderness, meningismus Respiratory exam: Present: respiratory distress, decreased breath sounds Cardiovascular Exam: Present: tachycardia, irregular rhythm GI/Abdominal exam: Present: soft, distended. Absent: tenderness, guarding Extremities exam: Present: pedal edema (Chronic venous stasis) Neurological exam: Present: alert, oriented X3, CN II-XII intact. Absent: motor sensory deficit Psychiatric exam: Present: normal affect, normal mood Skin exam: Present: warm Course Vital Signs 10/11/24 10/11/24 10/11/24 09:47 10:02 10:52 Temperature 99.1 F 99.1 F Pulse Rate 138 H 130 H 126 H Respiratory 20 20 18 Rate Blood Pressure 109/72 109/72 104/61 O2 Sat by Pulse 96 97 96 Oximetry 10/11/24 12:24 Temperature Pulse Rate 156 H Respiratory 20 Rate Blood Pressure 102/65 O2 Sat by Pulse 95 Oximetry Medical Decision Making - Medical Decision Making Was pt. sent in by a medical professional or institution (, PA, ART STUDIO TEACHER, urgent care, hospital, or [place] health care facility...) When possible be specific @ -No Did you speak to anyone other than the patient for history (EMS, parent, family, police, friend...)? What history was obtained from this source @ -No Did you review nursing and triage notes (agree or disagree)? Why? @ -I reviewed and agree with nursing and triage notes Were old charts reviewed (outside hosp., previous admission, EMS record, old EKG, old radiological studies, urgent care reports/EKG's, [place] health care facility records)? Report findings @ -No old charts were reviewed Differential Dyspnea: Coronary syndrome, arrhythmia, tamponade, asthma, COPD, pulmonary embolism, pneumonia, pneumothorax, pulmonary effusion, anaphylaxis, diabetic ketoacidosis, flailed chest, pulmonary contusion, diaphragmatic rupture, anemia, neuromuscular, this is not meant to be an all-inclusive list. EKG interpreted by me (3pts min.). @ Atrial fibrillation with RVR rate of 141, QRS duration 105, QTc [address] segment elevation. X-rays interpreted by me (1pt min.). @ -Chest x-ray shows pulmonary vascular congestion and linear atelectasis versus pneumonia in the right midlung field. CT interpreted by me (1pt min.). @ -None done U/S interpreted by me (1pt. min.). @ -None done What testing was considered but not performed or refused? (CT, X-rays, U/S, labs)? Why? @ -None What meds were considered but not given or refused? Why? @ -None Did you discuss the management of the patient with other professionals (professionals i.e. DrEdelmira, PA, ART STUDIO TEACHER, lab, RT, psych nurse, social service assistant, silk trimmer, teacher, security flex utility officer, case management coordinator)? Give summary @ -[[facility] physician group Was smoking cessation discussed for >3mins.? @ -No Was critical care preformed (if so, how long)? @ -[Yes 35 minutes Were there social determinants of health that impacted care today? How? (Homelessness, low income, unemployed, alcoholism, drug addiction, transportation, low edu. Level, literacy, decrease access to med. care, long term, rehab)? @ -No Was there de-escalation of care discussed even if they declined (Discuss DNR or withdrawal of care, Hospice)? DNR status @ -No What co-morbidities impacted this encounter? (DM, HTN, Smoking, COPD, CAD, Cancer, CVA, ARF, Chemo, Hep., AIDS, mental health diagnosis, sleep apnea, morbid obesity)? @Debility, morbid obesity, atrial fibrillation Was patient admitted / discharged? Hospital course, mention meds given and route, prescriptions, significant lab abnormalities, going to OR and other pertinent info. @ -54-year-old female presenting for evaluation of dyspnea, weakness. Patient has history of heart failure, atrial fibrillation. She is tachypneic upon arrival but maintaining oxygenation on 2 L nasal cannula. She is in atrial fibrillation with RVR. She has a significantly elevated white blood cell count. She has bilateral peripheral edema and venous stasis. Patient has a degree of heart failure on x-ray and a significantly elevated BNP had a minimally elevated troponin. I did provide antibiotics for the likelihood of developing pneumonia and leukocytosis. Urinalysis, urine culture and blood culture are pending. Patient is started on Cardizem for rate control of her rapid atrial fibrillation. She is admitted to [facility]. Undiagnosed new problem with uncertain prognosis? @ -No Drug Therapy requiring intensive monitoring for toxicity (Heparin, Nitro, Insulin, Cardizem)? @ -No Were any procedures done? @ -No Diagnosis/symptom? @ -A-fib with RVR, heart failure, pneumonia, leukocytosis Acute, or Chronic, or Acute on Chronic? @ -Acute Uncomplicated (without systemic symptoms) or Complicated (systemic symptoms)? @ -Default Side effects of treatment? @ -No Exacerbation, Progression, or Severe Exacerbation? @ -No Poses a threat to life or bodily function? How? (Chest pain, [place], GA, pneumonia, PE, COPD, DKA, ARF, appy, cholecystitis, CVA, Diverticulitis, Homicidal, Suicidal, threat to staff... and all critical care pts) @ -Yes, respiratory failure, arrhythmia, sepsis - Lab Data Result diagrams: 10/11/24 10:33 10/11/24 10:33 Lab Results 10/11/24 10/11/24 10/11/24 Range/Units 10:33 10:33 10:33 WBC 27.59 H (4.50-10.00) 10*3/uL RBC 4.44 (4.10-5.20) 10*6/uL Hgb 11.1 L (12.0-15.0) g/dL Hct 35.2 L (37.2-46.3) % MCV 79.3 L (80.0-97.0) fL MCH 25.0 L (27.0-32.0) pg MCHC 31.5 L (32.0-37.0) g/dL Plt Count 171 (140-440) 10*3/uL MPV 11.9 (9.5-12.2) fL Immature Gran % (Auto) 0.6 % Neutrophils % 90.5 % Lymphocytes % 3.0 % Monocytes % 3.4 % Eosinophils % 2.1 % Basophils % 0.4 % Immature Gran # 0.17 H (0.00-0.04) 10*3/uL Neutrophils # 24.95 H (1.80-7.70) 10*3/uL Lymphocytes # 0.83 L (0.90-5.00) 10*3/uL Monocytes # 0.95 (0.20-1.00) 10*3/uL Eosinophils # 0.57 H (0.04-0.35) 10*3/uL Basophils # 0.12 H (0.00-0.10) 10*3/uL PT 14.8 H (10.0-12.5) sec INR 1.4 H (<1.2) APTT 24.6 (22.0-30.0) sec VBG pH (7.31-7.41) VBG pCO2 (37-51) mmHg VBG HCO3 (24-28) mmol/L Sodium 134 L (137-145) mmol/L Potassium 3.9 (3.5-5.1) mmol/L Chloride 92 L (98-107) mmol/L Carbon Dioxide 37 H (22-30) mmol/L Anion Gap 5 mmol/L BUN 26 H (7-17) mg/dL Creatinine 0.80 (0.52-1.04) mg/dL Est GFR (CKD-EPI)AfAm >90 (>60 ml/min/1.73 sqM) Est GFR (CKD-EPI)NonAf 83 (>60 ml/min/1.73 sqM) Glucose 133 H (74-99) mg/dL Plasma Lactic Acid Narinder (0.7-2.0) mmol/L Calcium 8.6 (8.4-10.2) mg/dL Magnesium 1.6 (1.6-2.3) mg/dL Total Bilirubin 1.4 H (0.2-1.3) mg/dL AST 48 H (14-36) U/L ALT 18 (4-34) U/L Alkaline Phosphatase 156 H (38-126) U/L Troponin I (0.000-0.034) ng/mL NT-Pro-B Natriuret Pep 3970 pg/mL Total Protein 5.9 L (6.3-8.2) g/dL Albumin 2.9 L (3.5-5.0) g/dL 10/11/24 10/11/24 10/11/24 Range/Units 10:33 10:33 11:59 WBC (4.50-10.00) 10*3/uL RBC (4.10-5.20) 10*6/uL Hgb (12.0-15.0) g/dL Hct (37.2-46.3) % MCV (80.0-97.0) fL MCH (27.0-32.0) pg MCHC (32.0-37.0) g/dL Plt Count (140-440) 10*3/uL MPV (9.5-12.2) fL Immature Gran % (Auto) % Neutrophils % % Lymphocytes % % Monocytes % % Eosinophils % % Basophils % % Immature Gran # (0.00-0.04) 10*3/uL Neutrophils # (1.80-7.70) 10*3/uL Lymphocytes # (0.90-5.00) 10*3/uL Monocytes # (0.20-1.00) 10*3/uL Eosinophils # (0.04-0.35) 10*3/uL Basophils # (0.00-0.10) 10*3/uL PT (10.0-12.5) sec INR (<1.2) APTT (22.0-30.0) sec VBG pH 7.40 (7.31-7.41) VBG pCO2 58 H (37-51) mmHg VBG HCO3 36 H (24-28) mmol/L Sodium (137-145) mmol/L Potassium (3.5-5.1) mmol/L Chloride (98-107) mmol/L Carbon Dioxide (22-30) mmol/L Anion Gap mmol/L BUN (7-17) mg/dL Creatinine (0.52-1.04) mg/dL Est GFR (CKD-EPI)AfAm (>60 ml/min/1.73 sqM) Est GFR (CKD-EPI)NonAf (>60 ml/min/1.73 sqM) Glucose (74-99) mg/dL Plasma Lactic Acid Narinder 1.6 (0.7-2.0) mmol/L Calcium (8.4-10.2) mg/dL Magnesium (1.6-2.3) mg/dL Total Bilirubin (0.2-1.3) mg/dL AST (14-36) U/L ALT (4-34) U/L Alkaline Phosphatase (38-126) U/L Troponin I 0.065 H* (0.000-0.034) ng/mL NT-Pro-B Natriuret Pep pg/mL Total Protein (6.3-8.2) g/dL Albumin (3.5-5.0) g/dL Critical Care Time Critical Care Time: Yes Total Critical Care Time: 35 Disposition Clinical Impression: Atrial fibrillation with RVR, Congestive heart failure, Chronic venous hypertension (idiopathic) with inflammation of left lower extremity, Pneumonia Disposition: ADMITTED IP TO THIS [facility] Condition: Stable Is patient prescribed a controlled substance at d/c from ED?: No Referrals: Greg Arango MD [Primary Care Provider] - 1-2 days Time of Disposition: 12:47
[2024-10-11] MEDS: DILTIAZEM 5 MG/ML 5 ML VIAL IVP STA (10:47)
[2024-10-11 10:56] LABS: Basophils # (A) 0.12 10*3/uL (0.00-0.10); Basophils % (A) 0.4 %; Eosinophils # (A) 0.57 10*3/uL (0.04-0.35); Eosinophils % (A) 2.1 %; HCT 35.2 % (37.2-46.3); HGB 11.1 g/dL (12.0-15.0); Lymphocytes # (A) 0.83 10*3/uL (0.90-5.00); Lymphocytes % (A) 3.0 %; MCH 25.0 pg (27.0-32.0); MCHC 31.5 g/dL (32.0-37.0); MCV 79.3 fL (80.0-97.0); Monocytes # (A) 0.95 10*3/uL (0.20-1.00); Monocytes % (A) 3.4 %; Neutrophils # (A) 24.95 10*3/uL (1.80-7.70); Neutrophils % (A) 90.5 %; Platelet Count 171 10*3/uL (140-440); RBC 4.44 10*6/uL (4.10-5.20); RDW 17.3 % (11.5-14.5); WBC 27.59 10*3/uL (4.50-10.00)
[2024-10-11 11:00] LABS: VBG HCO3 36.0 mmol/L (24-28); VBG PCO2 58.0 mmHg (37-51); VBG PH 7.4 (7.31-7.41)
[2024-10-11 11:05] LABS: INR 1.4 (<1.2); Prothrombin Time 14.8 sec (10.0-12.5)
[2024-10-11 11:06] LABS: Partial Thromboplastin Time 24.6 sec (22.0-30.0)
[2024-10-11 11:07] LABS: ALT 18 U/L (4-34); AST 48 U/L (14-36); African American GFR (CKD) >90 (>60 ml/min/1.73 sqM); Albumin 2.9 g/dL (3.5-5.0); Alkaline Phosphatase 156 U/L (38-126); Anion Gap 5 mmol/L; Blood Urea Nitrogen 26 mg/dL (7-17); Calcium 8.6 mg/dL (8.4-10.2); Carbon Dioxide 37 mmol/L (22-30); Chloride 92 mmol/L (98-107); Glucose 133 mg/dL (74-99); Magnesium 1.6 mg/dL (1.6-2.3); Non-African American GFR(CKD) 83 (>60 ml/min/1.73 sqM); Potassium 3.9 mmol/L (3.5-5.1); Sodium 134 mmol/L (137-145); Total Protein 5.9 g/dL (6.3-8.2)
--- NOTE | 2024-10-11 11:14 | XR ---
EXAMINATION TYPE: XR chest 1V portable DATE OF EXAM: 10/11/2024 11:10 AM COMPARISON: 08/06/2024 CLINICAL INDICATION: Female, 54 years old with history of fuentes, TECHNIQUE: XR chest 1V portable view(s) obtained. FINDINGS: The heart size is enlarged. The pulmonary vasculature is mildly prominent. Mild diffuse alveolar infiltrate may be present. Correlate for early congestive heart failure. IMPRESSION: 1. Suggestion of mild pulmonary edema. Consider early congestive heart failure. [facility], , 10/11/2024 11:11 AM
[2024-10-11 11:16] LABS: NT-Pro-B-Type Natriuretic Pept 3970 pg/mL
[2024-10-11] MEDS: DILTIAZEM 125 MG in DEXTROSE 5% IN WATER 100 ML IV SCH (11:16)
[2024-10-11] MEDS ORDERED: NALOXONE 0.4 MG/ML 1 ML VIAL IV PRN (12:43)
[2024-10-11] MEDS: AZITHROMYCIN 500 MG in SODIUM CHLORIDE 0.9% 250 ML IVPB STA (12:58)
[2024-10-11 13:30] LABS: Bacteria,Urine Rare /hpf; Bilirubin,Urine Negative (Negative); Blood,Urine Trace (Negative); Color,Urine Yellow; Glucose,Urine (UA) Negative (Negative); Ketones,Urine Negative (Negative); Leukocyte Esterase,Urine Small (Negative); Mucus,Urine Rare /hpf; Nitrite,Urine Negative (Negative); PH, Urine 5.5 (5.0-8.0); Protein,Urine Trace (Negative); RBC,Urine 1 /hpf (0-5); Specific Gravity,Urine 1.023 (1.001-1.035); Squamous Epithelial Cell,Urine <1 /hpf (0-4); Urobilinogen,Urine <2.0 mg/dL (<2.0); WBC,Urine 8 /hpf (0-5)
[2024-10-11] MEDS: FUROSEMIDE 10 MG/ML 4 ML VIAL IV STA (16:25)
[2024-10-11] MEDS ORDERED: VANCOMYCIN IV PER PHARMACY 1 EACH MISC MISCELLANE PRN (17:53)
[2024-10-11] MEDS ORDERED: IPRATROPIUM-ALBUTEROL 3 ML NEB INHALATION PRN (17:55)
--- NOTE | 2024-10-11 18:11 | P.HPIM ---
History of Present Illness H&P Date: 10/11/24 54 year old F with PMH AFib, HTN, HLD, chronic pain, Hypothyroid, Depression and Anxiety presents to the ED for shortness of breath and lower extremities edema. History is limited as patient is lethargic. Apparently she was incontinence of urine and stool. Found to be in A-Fib with RVR. In the ED she underwent extensive evaluation. BP 109/72, HR 138, T 99.1F, RR 20, 96% on 2L NC. CBC, Coag panel, CMP significant for WBC 27.59, Hg 11.1, Hct 35.2, MCV 79.3, PT 14.8, INR 1.4, Na 134, Cl 92, bicarb 37, BUN 26, glu 133, T. Bili 1.4, AST 48, alk phos 156, alb 2.9. Trop 0.065. BNP 3970. Latic acid 1.6. UA neg LE or nitrite. CXR concerning for pulmonray vasular congestion. General: toxic, no distress, appears at stated age Derm: warm, dry, Sacral wound (per RN) Head: atraumatic, normocephalic, symmetric Eyes: EOMI, no lid lag, anicteric sclera Mouth: no lip lesion, mucus membranes moist Cardiovascular: S1S2 irreg, no murmur Lungs: Decreased BS bilateral, no rhonchi, no rales , no accessory muscle use Ext: no gross muscle atrophy, no contractures, chronic venous stasis bilateral LE with LE edema Neuro: no focal neuro deficits Psych: Alert, oriented, appropriate affect Based on my assessment of this patient, this patient meets a high complexity level of care. Sepsis: Unknown etiology. Obtain BCx. Start Vancomycin dosed per pharmacy and Zosyn 3.75g IV TID. Consult ID. Bolus 1L NS followed by NS at 75 cc/hr. Acute metabolic encephalopathy likely due to above. AFib with RVR: Start Cardizem drip and titrate. Re-start Metoprolol 100 mg PO BID. Re-start Eliquis 5 mg PO BID. Cardiology consulted. Troponin elevation: Likely demand. Trend Trop. Obtain Echo. Cardiology consulted. Hyperbiliruibinemia: Obtain GB and Liver US. Microcytic anemia: Unknown baseline. No signs of active bleeding. Trend. Transfuse if Hg < 7. HTN: Hold Bumex, Aldactone due to hypotension. HLD: Hold Lipitor due to elevated LFT. Chronic pain: Hold MS Contin and Pryor due to altered mentation. Hypothyroid: Synthroid 25 mcg PO QD. Depression and Anxiety CODE STATUS: FULL CODE DVT Prophylaxis: Eliquis. GI Prophylaxis: Protonix Designated medical POA if patient is not able to make medical decisions for th emselves: I have reviewed the following human capital consultant notes: ED note. I have reviewed the results of the following tests: As above. I have ordered the following tests: As above. I have discussed the care of this patient with the following independent historian: RN. I have independently interpreted the following test below: CXR I have discussed the management of this patient with the following physician: Dr. Glaser. Past Medical History Past Medical History: Atrial Fibrillation, Hyperlipidemia, Hypertension, Musculoskeletal Disorder, Osteoarthritis (OA) Additional Past Medical History / Comment(s): NEUROPATHY, CARPEL TUNNEL, BACK NECK AND KNEE PAIN, MIGRAINES. "Raspy voice last few days." "Oxygen 2.5L per nasal cannula." History of Any Multi-Drug Resistant Organisms: None Reported Past Surgical History: Bariatric Surgery, Section, Hysterectomy, Joint Replacement, Orthopedic Surgery, Tubal Ligation Additional Past Surgical History / Comment(s): GASTRIC BYPASS, SPINAL CORD STIMULATOR, bilateral knee replacements, right knee arthroscopy. Past Anesthesia/Blood Transfusion Reactions: No Reported Reaction Past Psychological History: Anxiety Smoking Status: Never smoker Past Alcohol Use History: None Reported Past Drug Use History: None Reported - Past Family History Mother Family Medical History: Cancer Medications and Allergies Home Medications Medication Instructions Recorded Confirmed Type Zonisamide [Zonegran] 100 mg PO HS 09/11/13 10/11/24 History Ipratropium-Albuterol Nebulize 3 ml INHALATION RT-QID PRN 10/10/23 10/11/24 History [Duoneb 0.5 mg-3 mg/3 ml Soln] Nystatin 100,000 Unit/gm Powd 1 applic TOPICAL BID 10/10/23 10/11/24 History [Mycostatin Powder] hydrOXYzine HCL [Atarax] 50 - 100 mg PO Q6H PRN 10/10/23 10/11/24 History Spironolactone [Aldactone] 25 mg PO DAILY #30 tab 10/12/23 10/11/24 Rx Apixaban [Eliquis] 5 mg PO BID 08/06/24 10/11/24 History Levothyroxine Sodium [Synthroid] 25 mcg PO DAILY 08/06/24 10/11/24 History Pantoprazole [Protonix] 40 mg PO DAILY 08/06/24 10/11/24 History busPIRone HCL [Buspar] 30 mg PO BID 08/06/24 10/11/24 History Atorvastatin [Lipitor] 40 mg PO HS tab 08/15/24 10/11/24 Rx Butalb/Acetaminophen/Caffeine 1 cap PO Q4H PRN #18 cap 08/15/24 10/11/24 Rx [Fioricet 50-300-40 mg Capsule] acetaZOLAMIDE [Diamox] 250 mg PO BID #30 tab 08/15/24 10/11/24 Rx Bumetanide [BUMEX] 2 mg PO DAILY 10/11/24 10/11/24 History Ferrous Sulfate [Iron (65 MG 325 mg PO HS 10/11/24 10/11/24 History Elemental)] HYDROcodone/APAP 7.5-325MG [Pryor 1 tab PO BID PRN 10/11/24 10/11/24 History 7.5-325] Metoprolol Tartrate [Lopressor] 100 mg PO BID 10/11/24 10/11/24 History Morphine Sulfate ER [Ms Contin] 30 mg PO Q12HR 10/11/24 10/11/24 History Allergies Allergy/AdvReac Type Severity Reaction Status Date / Time No Known Allergies Allergy Verified 10/11/24 15:32 Physical Exam Vitals: Vital Signs Temp Pulse Resp BP Pulse Ox 10/11/24 16:23 99 F 124 H 18 113/77 95 10/11/24 15:00 128 H 18 100/67 95 10/11/24 13:02 128 H 20 94/68 93 L 10/11/24 12:24 156 H 20 102/65 95 10/11/24 10:52 126 H 18 104/61 96 10/11/24 10:02 99.1 F 130 H 20 109/72 97 10/11/24 09:47 99.1 F 138 H 20 109/72 96 Intake and Output 10/11/24 10/11/24 10/11/24 06:59 14:59 22:59 Intake Total 5. 54.833 Balance 09.08 54.833 Intake: Intake, IV Titration 09.08 54.833 Amount Diltiazem 125 mg In . 54.833 Dextrose 5% in Water 100 ml @ 5 MG/HR 5 mls/hr IV .Q24H [facility] Rx#:[id number] Other: Weight 158.757 kg Results CBC & Chem 7: 10/11/24 10:33 10/11/24 10:33 Labs: Abnormal Lab Results - Last 24 Hours (Table) 10/11/24 10/11/24 10/11/24 Range/Units 10:33 10:33 10:33 WBC 27.59 H (4.50-10.00) 10*3/uL Hgb 11.1 L (12.0-15.0) g/dL Hct 35.2 L (37.2-46.3) % MCV 79.3 L (80.0-97.0) fL MCH 25.0 L (27.0-32.0) pg MCHC 31.5 L (32.0-37.0) g/dL Immature Gran # 0.17 H (0.00-0.04) 10*3/uL Neutrophils # 24.95 H (1.80-7.70) 10*3/uL Lymphocytes # 0.83 L (0.90-5.00) 10*3/uL Eosinophils # 0.57 H (0.04-0.35) 10*3/uL Basophils # 0.12 H (0.00-0.10) 10*3/uL PT 14.8 H (10.0-12.5) sec INR 1.4 H (<1.2) VBG pCO2 (37-51) mmHg VBG HCO3 (24-28) mmol/L Sodium 134 L (137-145) mmol/L Chloride 92 L (98-107) mmol/L Carbon Dioxide 37 H (22-30) mmol/L BUN 26 H (7-17) mg/dL Glucose 133 H (74-99) mg/dL Total Bilirubin 1.4 H (0.2-1.3) mg/dL AST 48 H (14-36) U/L Alkaline Phosphatase 156 H (38-126) U/L Troponin I (0.000-0.034) ng/mL Total Protein 5.9 L (6.3-8.2) g/dL Albumin 2.9 L (3.5-5.0) g/dL Urine Protein (Negative) Urine Blood (Negative) Ur Leukocyte Esterase (Negative) Urine WBC (0-5) /hpf Urine Bacteria (None) /hpf Urine Mucus (None) /hpf 10/11/24 10/11/24 10/11/24 Range/Units 10:33 10:33 13:02 WBC (4.50-10.00) 10*3/uL Hgb (12.0-15.0) g/dL Hct (37.2-46.3) % MCV (80.0-97.0) fL MCH (27.0-32.0) pg MCHC (32.0-37.0) g/dL Immature Gran # (0.00-0.04) 10*3/uL Neutrophils # (1.80-7.70) 10*3/uL Lymphocytes # (0.90-5.00) 10*3/uL Eosinophils # (0.04-0.35) 10*3/uL Basophils # (0.00-0.10) 10*3/uL PT (10.0-12.5) sec INR (<1.2) VBG pCO2 58 H (37-51) mmHg VBG HCO3 36 H (24-28) mmol/L Sodium (137-145) mmol/L Chloride (98-107) mmol/L Carbon Dioxide (22-30) mmol/L BUN (7-17) mg/dL Glucose (74-99) mg/dL Total Bilirubin (0.2-1.3) mg/dL AST (14-36) U/L Alkaline Phosphatase (38-126) U/L Troponin I 0.065 H* (0.000-0.034) ng/mL Total Protein (6.3-8.2) g/dL Albumin (3.5-5.0) g/dL Urine Protein Trace H (Negative) Urine Blood Trace H (Negative) Ur Leukocyte Esterase Small H (Negative) Urine WBC 8 H (0-5) /hpf Urine Bacteria Rare H (None) /hpf Urine Mucus Rare H (None) /hpf
[2024-10-11] MEDS: SODIUM CHLORIDE 0.9% 1,000 ML IV SCH (18:33)
[2024-10-11] MEDS: SODIUM CHLORIDE 0.9% 1,000 ML IV ONE (18:34)
[2024-10-11] MEDS: PIPERACILLIN-TAZOBACTAM 3.375 GM in SODIUM CHLORIDE 0.9% 100 ML IVPB SCH (18:36)
--- NOTE | 2024-10-11 19:21 | US ---
EXAMINATION TYPE: US gallbladder DATE OF EXAM: 10/11/2024 COMPARISON: NONE CLINICAL INDICATION: Female, 54 years old with history of elevated LFT; Elevated LFT, hx of bariatric surgery. TECHNIQUE: Grayscale and color Doppler imaging of the right upper quadrant. FINDINGS: Significantly limited study due to shadowing bowel gas and patient body habitus. EXAM MEASUREMENTS: Liver Length: 17.1 cm Gallbladder Wall: limited, measured at 0.38 cm CBD: Obscured Right Kidney: 12.2 x 5.3 x 5.0 cm MARINE REPORTER NOTES: Exam is extremely limited due to patient body habitus and gas Pancreas: Obscured Liver: Very limited. Increased attenuation. Very coarse. Measures upper limits. Gallbladder: Multiple hyperechoic foci with posterior shadowing seen within the gallbladder, clust er measures: 4.7 x 2.4 x 2.3 cm. Wall is borderline thickened, although limited evaluation. Evidence for sonographic Peña's sign: No CBD: Obscured Right Kidney: Very limited visibility. IMPRESSION: Cholelithiasis and questionable nonspecific gallbladder wall thickening/edema, limited in evaluation due to underdistention.. [facility], , 10/11/2024 7:18 PM
[2024-10-11] MEDS: METOPROLOL TARTRATE 50 MG TAB PO SCH (20:34)
[2024-10-11] MEDS: ZONISAMIDE 100 MG CAP PO SCH (20:39)
[2024-10-11] MEDS: FERROUS SULFATE 325 MG TAB PO SCH (20:39)
[2024-10-11] MEDS: APIXABAN 5 MG TAB PO SCH (20:39)
[2024-10-11] MEDS: acetaZOLAMIDE 250 MG TAB PO SCH (20:40)
[2024-10-11] MEDS: ACETAMINOPHEN TAB 325 MG TAB PO PRN (20:40)
[2024-10-11] MEDS: VANCOMYCIN 2,250 MG in SODIUM CHLORIDE 0.9% 500 ML 500 ML IVPB SCH (23:25)
[2024-10-12] MEDS: NYSTATIN 100,000 UNIT/GM POWD 15 GM TOPICAL SCH (02:30)
[2024-10-12] MEDS: LEVOTHYROXINE 25 MCG TAB PO SCH (06:09)
[2024-10-12 06:33] LABS: African American GFR (CKD) >90 (>60 ml/min/1.73 sqM); Non-African American GFR(CKD) >90 (>60 ml/min/1.73 sqM)
[2024-10-12 07:44] LABS: HCT 35.4 % (37.2-46.3); HGB 10.5 g/dL (12.0-15.0); MCH 24.3 pg (27.0-32.0); MCHC 29.7 g/dL (32.0-37.0); MCV 81.9 fL (80.0-97.0); Platelet Count 148 10*3/uL (140-440); RBC 4.32 10*6/uL (4.10-5.20); RDW 17.5 % (11.5-14.5); WBC 18.19 10*3/uL (4.50-10.00)
[2024-10-12 07:59] LABS: ALT 19 U/L (4-34); Albumin 2.6 g/dL (3.5-5.0); Anion Gap 5 mmol/L; Blood Urea Nitrogen 23 mg/dL (7-17); Calcium 8.3 mg/dL (8.4-10.2); Carbon Dioxide 34 mmol/L (22-30); Chloride 100 mmol/L (98-107); Glucose 117 mg/dL (74-99); Sodium 139 mmol/L (137-145); Total Protein 5.4 g/dL (6.3-8.2)
[2024-10-12 08:02] LABS: AST 40 U/L (14-36); Alkaline Phosphatase 130 U/L (38-126); Potassium 3.3 mmol/L (3.5-5.1)
[2024-10-12] MEDS: HYDROcodone/APAP 7.5-325MG 1 EACH TAB PO PRN (09:15)
[2024-10-12] MEDS: PANTOPRAZOLE 40 MG TABLET PO SCH (09:16)
[2024-10-12] MEDS: VANCOMYCIN 2,250 MG in SODIUM CHLORIDE 0.9% 500 ML 500 ML IVPB SCH (09:35)
--- NOTE | 2024-10-12 11:52 | P.CRDCN ---
History of Present Illness Consult date: 10/12/24 Consult reason: atrial fibrillation History of present illness: The patient is a 54-year-old female with multiple comorbid conditions. Patient is morbidly obese and is homebound. Patient presented to the emergency room with increased shortness of breath and has subsequently been diagnosed with sepsis and pneumonia. Cardiology has been consulted for atrial fibrillation with RVR. She has a known history of atrial fibrillation and is rate controlled on beta-blockers. Patient also has a history of congestive heart failure with cardiomyopathy. DIAGNOSTICS: EKG shows atrial fibrillation with RVR Echocardiogram 08/07/2024 shows preserved LV function at 35 to 40% Chest x-ray shows mild pulmonary edema Lab data: WBC 18.1, hemoglobin 10.5, hematocrit 35.4, platelet 148, sodium 139, potassium 3.3, BUN 23, creatinine 0.73, magnesium 1.6, AST 40, ALT 19, troponin 0.03, 0.03, 0.04, BNP 3970 REVIEW OF SYSTEMS: No fever or chills. No cough or expectoration. No diaphoresis. Patient denies headache, dizziness, blurred vision, double vision. Patient denies any stomach discomfort. No nausea, vomiting. No hematochezia. No hematemesis. Denies any black stools or blood in his stools. Denies dysuria or hematuria. No muscle weakness or numbness. PHYSICAL EXAMINATION: This is a 54-year-old female in no apparent distress at the time of my examination. HEENT: Head is atraumatic, normocephalic. Pupils are equal, round. There is no jugular venous distention. No carotid bruit is heard. CHEST EXAMINATION: Lungs are diminished to auscultation. No chest wall tenderness is noted on palpation or with deep breathing. HEART EXAMINATION: Irregular rate and rhythm. Unable to appreciate any murmurs or rubs ABDOMEN: Soft, nontender. Bowel sounds are heard. No organomegaly noted. EXTREMITIES: Severe peripheral edema and lipedema. No calf tenderness noted. NEUROLOGIC EXAMINATION: Patient is awake, alert and oriented x3. FINAL ASSESSMENT AND PLAN: Paroxysmal atrial fibrillation, currently in RVR Sepsis, unknown etiology Pneumonia Mildly elevated troponins, flat trend Chronic hypoxic respiratory failure History of cardiomyopathy, EF 35-40 Congestive heart failure, acute on chronic systolic History of valvular disease, moderate to severe mitral and tricuspid regurgitation Morbid obesity, BMI 60 PLAN: Resume home cardiac medications including diuretics Cautious fluid administration with previously decreased ejection fraction Aggressive pulmonary hygiene and treatment for pneumonia No need for repeat echocardiogram as patient had one in July 2024 I am dictating on behalf of Dr Channing Marinelli's history/physical and assessment/plan. Past Medical History Past Medical History: Atrial Fibrillation, Hyperlipidemia, Hypertension, Musculoskeletal Disorder, Osteoarthritis (OA) Additional Past Medical History / Comment(s): NEUROPATHY, CARPEL TUNNEL, BACK NECK AND KNEE PAIN, MIGRAINES. "Raspy voice last few days." "Oxygen 2.5L per nasal cannula." History of Any Multi-Drug Resistant Organisms: None Reported Past Surgical History: Bariatric Surgery, Section, Hysterectomy, Joint Replacement, Orthopedic Surgery, Tubal Ligation Additional Past Surgical History / Comment(s): GASTRIC BYPASS, SPINAL CORD STIMULATOR, bilateral knee replacements, right knee arthroscopy. Past Anesthesia/Blood Transfusion Reactions: No Reported Reaction Past Psychological History: Anxiety Smoking Status: Never smoker Past Alcohol Use History: None Reported Past Drug Use History: None Reported - Past Family History Mother Family Medical History: Cancer Medications and Allergies Home Medications Medication Instructions Recorded Confirmed Type Zonisamide [Zonegran] 100 mg PO HS 09/11/13 10/11/24 History Ipratropium-Albuterol Nebulize 3 ml INHALATION RT-QID PRN 10/10/23 10/11/24 History [Duoneb 0.5 mg-3 mg/3 ml Soln] Nystatin 100,000 Unit/gm Powd 1 applic TOPICAL BID 10/10/23 10/11/24 History [Mycostatin Powder] hydrOXYzine HCL [Atarax] 50 - 100 mg PO Q6H PRN 10/10/23 10/11/24 History Spironolactone [Aldactone] 25 mg PO DAILY #30 tab 10/12/23 10/11/24 Rx Apixaban [Eliquis] 5 mg PO BID 08/06/24 10/11/24 History Levothyroxine Sodium [Synthroid] 25 mcg PO DAILY 08/06/24 10/11/24 History Pantoprazole [Protonix] 40 mg PO DAILY 08/06/24 10/11/24 History busPIRone HCL [Buspar] 30 mg PO BID 08/06/24 10/11/24 History Atorvastatin [Lipitor] 40 mg PO HS tab 08/15/24 10/11/24 Rx Butalb/Acetaminophen/Caffeine 1 cap PO Q4H PRN #18 cap 08/15/24 10/11/24 Rx [Fioricet 50-300-40 mg Capsule] acetaZOLAMIDE [Diamox] 250 mg PO BID #30 tab 08/15/24 10/11/24 Rx Bumetanide [BUMEX] 2 mg PO DAILY 10/11/24 10/11/24 History Ferrous Sulfate [Iron (65 MG 325 mg PO HS 10/11/24 10/11/24 History Elemental)] HYDROcodone/APAP 7.5-325MG [[place] 1 tab PO BID PRN 10/11/24 10/11/24 History 7.5-325] Metoprolol Tartrate [Lopressor] 100 mg PO BID 10/11/24 10/11/24 History Morphine Sulfate ER [Ms Contin] 30 mg PO Q12HR 10/11/24 10/11/24 History Allergies Allergy/AdvReac Type Severity Reaction Status Date / Time No Known Allergies Allergy Verified 10/11/24 15:32 Physical Exam Vitals: Vital Signs Temp Pulse Resp BP Pulse Ox 10/12/24 11:00 71 18 94/68 97 10/12/24 10:00 66 18 96 10/12/24 09:00 92 18 105/85 98 10/12/24 08:00 98.1 F 90 18 96/68 98 10/12/24 07:00 102 H 18 97 10/12/24 06:00 98.2 F 98 20 98/76 98 10/12/24 04:00 98.4 F 94 20 118/73 98 10/12/24 00:00 98.2 F 110 H 20 105/62 98 10/11/24 23:30 98.7 F 111 H 20 102/72 100 10/11/24 20:33 115 H 20 91/59 97 10/11/24 19:55 98.2 F 124 H 20 96/72 97 10/11/24 18:54 98.7 F 138 H 18 104/70 10/11/24 16:23 99 F 124 H 18 113/77 95 10/11/24 15:00 128 H 18 100/67 95 10/11/24 13:02 128 H 20 94/68 93 L 10/11/24 12:24 156 H 20 102/65 95 Intake and Output 10/11/24 10/12/24 10/12/24 22:59 06:59 14:59 Intake Total 113.083 109.25 93.5 Output Total 1000 Balance 113.083 109.25 -906.5 Intake: Intake, IV Titration 113.083 109.25 93.5 Amount Diltiazem 125 mg In 113.083 109.25 93.5 Dextrose 5% in Water 100 ml @ 5 MG/HR 5 mls/hr IV .Q24H [facility] Rx#:[id number] Output: Urine 1000 Results 10/12/24 05:50 10/12/24 05:50 Cardiac Enzymes 10/11/24 10/11/24 10/12/24 Range/Units 18:18 20:52 05:50 AST 40 H (14-36) U/L Troponin I 0.047 H* 0.042 H* (0.000-0.034) ng/mL CBC 10/12/24 Range/Units 05:50 WBC 18.19 H (4.50-10.00) 10*3/uL RBC 4.32 (4.10-5.20) 10*6/uL Hgb 10.5 L (12.0-15.0) g/dL Hct 35.4 L (37.2-46.3) % Plt Count 148 (140-440) 10*3/uL Comprehensive Metabolic Panel 10/12/24 Range/Units 05:50 Sodium 139 (137-145) mmol/L Potassium 3.3 L (3.5-5.1) mmol/L Chloride 100 (98-107) mmol/L Carbon Dioxide 34 H (22-30) mmol/L BUN 23 H (7-17) mg/dL Creatinine 0.73 (0.52-1.04) mg/dL Glucose 117 H (74-99) mg/dL Calcium 8.3 L (8.4-10.2) mg/dL AST 40 H (14-36) U/L ALT 19 (4-34) U/L Alkaline Phosphatase 130 H (38-126) U/L Total Protein 5.4 L (6.3-8.2) g/dL Albumin 2.6 L (3.5-5.0) g/dL Current Medications Generic Name Dose Route Start Last Admin Trade Name Freq PRN Reason Stop Dose Admin Acetaminophen 650 mg 10/11/24 12:43 10/12/24 03:25 Acetaminophen Tab 325 Mg Tab PO 650 mg Q6HR PRN Administration Mild Pain or Fever > 100.5 Hydrocodone Bitart/Acetaminophen 1 each 10/11/24 21:26 10/12/24 09:15 Hydrocodone/Apap 7.5-325mg 1 Each Tab PO 1 each BID PRN Administration Pain Acetazolamide 250 mg 10/11/24 21:00 10/12/24 09:09 Acetazolamide 250 Mg Tab PO 250 mg BID VANE Administration Albuterol/Ipratropium 3 ml 10/11/24 17:55 Ipratropium-Albuterol 3 Ml Neb INHALATION RT-QID PRN Shortness Of Breath Apixaban 5 mg 10/11/24 21:00 10/12/24 09:20 Apixaban 5 Mg Tab PO 5 mg BID VANE Administration Protocol Buspirone HCl 30 mg 10/11/24 21:00 10/12/24 09:09 Buspirone Hcl 10 Mg Tab PO 30 mg BID VANE Administration Ferrous Sulfate 325 mg 10/11/24 21:00 10/11/24 20:39 Ferrous Sulfate 325 Mg Tab PO 325 mg HS VANE Administration Diltiazem HCl 125 mg/ Dextrose 125 mls @ 5 mls/hr 10/11/24 10:30 10/12/24 11:12 /Water IV 10 mg/hr .Q24H VANE 10 mls/hr Titration Protocol 5 MG/HR Piperacillin Sod/Tazobactam 100 mls @ 25 mls/hr 10/11/24 18:00 10/12/24 03:24 Sod 3.375 gm/ Sodium Chloride IVPB 25 mls/hr Q8H VANE Administration Protocol Sodium Chloride 1,000 mls @ 75 mls/hr 10/11/24 18:00 10/12/24 09:19 Saline 0.9% IV 75 mls/hr .[id number] [facility]ANE Administration Vancomycin HCl 2,250 mg/ 500 mls @ 167 mls/hr 10/12/24 10:00 10/12/24 09:35 Sodium Chloride IVPB 167 mls/hr Q12H [facility] Administration Levothyroxine Sodium 25 mcg 10/12/24 06:30 10/12/24 06:09 Levothyroxine 25 Mcg Tab PO 25 mcg DAILY@0630 VANE Administration Metoprolol Tartrate 100 mg 10/11/24 21:00 10/12/24 09:35 Metoprolol Tartrate 50 Mg Tab PO 100 mg BID VANE Administration Naloxone HCl 0.2 mg 10/11/24 12:43 Naloxone 0.4 Mg/Ml 1 Ml Vial IV Q2M PRN Opioid Reversal Nystatin 1 applic 10/12/24 02:30 10/12/24 11:14 Nystatin 100,000 Unit/Gm Powd 15 Gm TOPICAL 1 applic TID VANE Administration Protocol Pantoprazole Sodium 40 mg 10/12/24 07:30 10/12/24 09:16 Pantoprazole 40 Mg Tablet PO 40 mg [id number] VANE Administration Zonisamide 100 mg 10/11/24 21:00 10/11/24 20:39 Zonisamide 100 Mg Cap PO 100 mg HS VANE Administration Intake and Output 10/11/24 10/12/24 10/12/24 22:59 06:59 14:59 Intake Total 113.083 109.25 93.5 Output Total 1000 Balance 113.083 109.25 -906.5 Intake: Intake, IV Titration 113.083 109.25 93.5 Amount Diltiazem 125 mg In 113.083 109.25 93.5 Dextrose 5% in Water 100 ml @ 5 MG/HR 5 mls/hr IV .Q24H [facility] Rx#:[id number] Output: Urine 1000 10/12/24 05:50 10/12/24 05:50
--- NOTE | 2024-10-12 14:13 | P.PN ---
Subjective Progress Note Date: 10/12/24 54 year old F with PMH AFib, HTN, HLD, chronic pain, Hypothyroid, Depression and Anxiety presents to the ED for shortness of breath and lower extremities edema. History is limited as patient is lethargic. Apparently she was incontinence of urine and stool. Found to be in A-Fib with RVR. In the ED she underwent extensive evaluation. BP 109/72, HR 138, T 99.1F, RR 20, 96% on 2L NC. CBC, Coag panel, CMP significant for WBC 27.59, Hg 11.1, Hct 35.2, MCV 79.3, PT 14.8, INR 1.4, Na 134, Cl 92, bicarb 37, BUN 26, glu 133, T. Bili 1.4, AST 48, alk phos 156, alb 2.9. Trop 0.065. BNP 3970. Latic acid 1.6. UA neg LE or nitrite. CXR concerning for pulmonray vasular congestion. Started on Vancomycin and Zosyn along with IV fluids. Started on Cardizem drip for A-Fib RVR. Cardiology consulted, recommending re- starting home medications and careful fluid administration given EF 35-40%. 10/12 Patient was seen and examined. Much more awake. Reports chronic pain, requesting MS Contin be restarted. Maintained on Cardizem drip at 10 mg/hr. Antibiotics include Zosyn 3.75g IV TID + Vancomycin dosed per pharmacy (D2). CBC and CMP significant for WBC 18.19, Hg 10.5, Hct 35.4, K 3.3, bicarb 34, BUN 23, glu 117, Ca 8.3, AST 40, alk phos 130, alb 2.6. TSH 0.829. Trop 0.047, 0.042. GB US shows cholelithiasis and questionable GB wall thickening. EKG shows A-Fib with RVR rate of 133. General: toxic, no distress, appears at stated age Derm: warm, dry, Sacral wound (per RN) Head: atraumatic, normocephalic, symmetric Eyes: EOMI, no lid lag, anicteric sclera Mouth: no lip lesion, mucus membranes moist Cardiovascular: S1S2 irreg, no murmur Lungs: Decreased BS bilateral, no rhonchi, no rales , no accessory muscle use Ext: no gross muscle atrophy, no contractures, chronic venous stasis bilateral LE with LE edema Neuro: no focal neuro deficits Psych: Alert, oriented, appropriate affect Based on my assessment of this patient, this patient meets a high complexity level of care. Sepsis: Unknown etiology. Follow BCx. Start Vancomycin dosed per pharmacy and Zosyn 3.75g IV TID. Consult ID. Continue NS at 75 cc/hr. Obtain CT AP with contrast to evaluate gallbladder. Acute metabolic encephalopathy likely due to above. AFib with RVR: Cardizem drip and titrate. Metoprolol 100 mg PO BID. Eliquis 5 mg PO BID. Cardiology on board. Troponin elevation: Likely demand. Troponins are flat. Echo pending. Cardiology on board. Hyperbiliruibinemia: GB and Liver US as above. Obtain CT AP with contrast to further evaluate. Microcytic anemia: Unknown baseline. No signs of active bleeding. Trend. Transfuse if Hg < 7. HTN: Hold Bumex, Aldactone due to hypotension. HLD: Hold Lipitor due to elevated LFT. Chronic pain: Restart MS Contin 30 mg PO BID. Hypothyroid: Synthroid 25 mcg PO QD. Depression and Anxiety CODE STATUS: FULL CODE DVT Prophylaxis: Eliquis. GI Prophylaxis: Protonix Designated medical POA if patient is not able to make medical decisions for themselves: I have reviewed the following quality consultant notes: Cardio note. I have reviewed the results of the following tests: As above. I have ordered the following tests: As above. I have discussed the care of this patient with the following independent historian: CHAPINCITO. I have independently interpreted the following test below: EKG. I have discussed the management of this patient with the following physician: Objective - Vital Signs Vital signs: Vital Signs Temp 98.1 F 10/12/24 08:00 Pulse 75 10/12/24 13:00 Resp 18 10/12/24 13:00 BP 95/67 10/12/24 13:00 Pulse Ox 97 10/12/24 13:00 FiO2 Intake & Output 10/11/24 10/12/24 10/12/24 18:59 06:59 18:59 Intake Total 60.083 167.50 93.5 Output Total 1000 Balance 60.083 167.50 -906.5 Weight 158.757 kg Intake: Intake, IV Titration 60.083 167.50 93.5 Amount Diltiazem 125 mg In 60.083 167.50 93.5 Dextrose 5% in Water 100 ml @ 5 MG/HR 5 mls/hr IV .Q24H [facility] Rx#:[id number] Output: Urine 1000 - Labs CBC & Chem 7: 10/12/24 05:50 10/12/24 05:50 Labs: Abnormal Lab Results - Last 24 Hours (Table) 10/11/24 10/11/24 10/12/24 Range/Units 18:18 20:52 05:50 WBC (4.50-10.00) 10*3/uL Hgb (12.0-15.0) g/dL Hct (37.2-46.3) % MCH (27.0-32.0) pg MCHC (32.0-37.0) g/dL Potassium 3.3 L (3.5-5.1) mmol/L Carbon Dioxide 34 H (22-30) mmol/L BUN 23 H (7-17) mg/dL Glucose 117 H (74-99) mg/dL Calcium 8.3 L (8.4-10.2) mg/dL AST 40 H (14-36) U/L Alkaline Phosphatase 130 H (38-126) U/L Troponin I 0.047 H* 0.042 H* (0.000-0.034) ng/mL Total Protein 5.4 L (6.3-8.2) g/dL Albumin 2.6 L (3.5-5.0) g/dL 10/12/24 Range/Units 05:50 WBC 18.19 H (4.50-10.00) 10*3/uL Hgb 10.5 L (12.0-15.0) g/dL Hct 35.4 L (37.2-46.3) % MCH 24.3 L (27.0-32.0) pg MCHC 29.7 L (32.0-37.0) g/dL Potassium (3.5-5.1) mmol/L Carbon Dioxide (22-30) mmol/L BUN (7-17) mg/dL Glucose (74-99) mg/dL Calcium (8.4-10.2) mg/dL AST (14-36) U/L Alkaline Phosphatase (38-126) U/L Troponin I (0.000-0.034) ng/mL Total Protein (6.3-8.2) g/dL Albumin (3.5-5.0) g/dL
[2024-10-12] MEDS: MORPHINE SULFATE ER 30 MG TABLET PO SCH (15:18)
[2024-10-12] MEDS: POTASSIUM CHLORIDE ER 20 MEQ TAB.ER PO STA (20:33)
[2024-10-12] MEDS: PIPERACILLIN-TAZOBACTAM 3.375 GM in SODIUM CHLORIDE 0.9% 100 ML IVPB SCH (20:34)
--- NOTE | 2024-10-12 22:49 | P.CONS ---
History of Present Illness - Reason for Consult Consult date: 10/12/24 Sepsis Requesting physician: Adam Nunez - Chief Complaint Weakness x few days - History of Present Illness Patient is a 54-year-old female with a past medical history significant for hypertension hyperlipidemia osteoarthritis morbid obesity atrial fibrillation has been brought to the hospital concerning for weakness and increasing shortness of breath patient symptom has been getting worse for the last few days patient denies having any headache or URI symptom has been complaining of shortness with no chest pain or cough sputum production. Denies any nausea vomiting no abdominal pain no diarrhea patient did have a chronic swelling to bilateral lower extremity however has been complaining of increasing pain and swelling to the right leg with the patient was noted to have some negative infestation and drainage on presentation to the hospital patient did have a low-grade fever of 99.1 degrees for night patient was nontachycardic mildly hypertensive and hypoxic currently on a 3 L nasal cannula oxygen patient did have elevated white to 27.59 with a left shift BUN is elevated creatinine was normal troponin is elevated at 11 subsequently elevated urine has been mildly positive patient did have a chest x-ray suggestion of mild pulmonary edema consider early congestive heart failure patient did have a gallbladder ultrasound cholelithiasis and questionable nonspecific gallbladder wall thickening edema patient was started on vancomycin and Zosyn infectious disease was consulted concerning for sepsis Review of Systems Positive point and negatives has been mentioned in the HPI, complete review of systems was performed and all other systems are negative Past Medical History Past Medical History: Atrial Fibrillation, Hyperlipidemia, Hypertension, Musculoskeletal Disorder, Osteoarthritis (OA) Additional Past Medical History / Comment(s): NEUROPATHY, CARPEL TUNNEL, BACK NECK AND KNEE PAIN, MIGRAINES. "Raspy voice last few days." "Oxygen 2.5L per nasal cannula." History of Any Multi-Drug Resistant Organisms: None Reported Past Surgical History: Bariatric Surgery, Section, Hysterectomy, Joint Replacement, Orthopedic Surgery, Tubal Ligation Additional Past Surgical History / Comment(s): GASTRIC BYPASS, SPINAL CORD STIMULATOR, bilateral knee replacements, right knee arthroscopy. Past Anesthesia/Blood Transfusion Reactions: No Reported Reaction Past Psychological History: Anxiety Smoking Status: Never smoker Past Alcohol Use History: None Reported Past Drug Use History: None Reported - Past Family History Mother Family Medical History: Cancer Medications and Allergies Home Medications Medication Instructions Recorded Confirmed Type Zonisamide [Zonegran] 100 mg PO HS 09/11/13 10/11/24 History Ipratropium-Albuterol Nebulize 3 ml INHALATION RT-QID PRN 10/10/23 10/11/24 History [Duoneb 0.5 mg-3 mg/3 ml Soln] Nystatin 100,000 Unit/gm Powd 1 applic TOPICAL BID 10/10/23 10/11/24 History [Mycostatin Powder] hydrOXYzine HCL [Atarax] 50 - 100 mg PO Q6H PRN 10/10/23 10/11/24 History Spironolactone [Aldactone] 25 mg PO DAILY #30 tab 10/12/23 10/11/24 Rx Apixaban [Eliquis] 5 mg PO BID 08/06/24 10/11/24 History Levothyroxine Sodium [Synthroid] 25 mcg PO DAILY 08/06/24 10/11/24 History Pantoprazole [Protonix] 40 mg PO DAILY 08/06/24 10/11/24 History busPIRone HCL [Buspar] 30 mg PO BID 08/06/24 10/11/24 History Atorvastatin [Lipitor] 40 mg PO HS tab 08/15/24 10/11/24 Rx Butalb/Acetaminophen/Caffeine 1 cap PO Q4H PRN #18 cap 08/15/24 10/11/24 Rx [Fioricet 50-300-40 mg Capsule] acetaZOLAMIDE [Diamox] 250 mg PO BID #30 tab 08/15/24 10/11/24 Rx Bumetanide [BUMEX] 2 mg PO DAILY 10/11/24 10/11/24 History Ferrous Sulfate [Iron (65 MG 325 mg PO HS 10/11/24 10/11/24 History Elemental)] HYDROcodone/APAP 7.5-325MG [[place] 1 tab PO BID PRN 10/11/24 10/11/24 History 7.5-325] Metoprolol Tartrate [Lopressor] 100 mg PO BID 10/11/24 10/11/24 History Morphine Sulfate ER [Ms Contin] 30 mg PO Q12HR 10/11/24 10/11/24 History Allergies Allergy/AdvReac Type Severity Reaction Status Date / Time No Known Allergies Allergy Verified 10/11/24 15:32 Physical Exam Vitals: Vital Signs Temp Pulse Resp BP Pulse Ox 10/12/24 11:00 71 18 94/68 97 10/12/24 10:00 66 18 96 10/12/24 09:00 92 18 105/85 98 10/12/24 08:00 98.1 F 90 18 96/68 98 10/12/24 07:00 102 H 18 97 10/12/24 06:00 98.2 F 98 20 98/76 98 10/12/24 04:00 98.4 F 94 20 118/73 98 10/12/24 00:00 98.2 F 110 H 20 105/62 98 10/11/24 23:30 98.7 F 111 H 20 102/72 100 10/11/24 20:33 115 H 20 91/59 97 10/11/24 19:55 98.2 F 124 H 20 96/72 97 10/11/24 18:54 98.7 F 138 H 18 104/70 10/11/24 16:23 99 F 124 H 18 113/77 95 10/11/24 15:00 128 H 18 100/67 95 10/11/24 13:02 128 H 20 94/68 93 L Intake and Output 10/11/24 10/12/24 10/12/24 22:59 06:59 14:59 Intake Total 113.083 109.25 93.5 Output Total 1000 Balance 113.083 109.25 -906.5 Intake: Intake, IV Titration 113.083 109.25 93.5 Amount Diltiazem 125 mg In 113.083 109.25 93.5 Dextrose 5% in Water 100 ml @ 5 MG/HR 5 mls/hr IV .Q24H [facility] Rx#:[id number] Output: Urine 1000 GENERAL DESCRIPTION: Middle-age female lying in bed, no distress. No tachypnea or accessory muscle of respiration use. HEENT: Shows Pallor , no scleral icterus. Oral mucous membrane is dry. NECK: Trachea central, no thyromegaly. LUNGS: Unlabored breathing. Clear to auscultation anteriorly. No wheeze or crackle. HEART: S1, S2, regular rate and rhythm. No loud murmur ABDOMEN: Soft, no tenderness , EXTREMITIES: Diffuse swelling to bilateral lower extremity with some erythema noticed patient with right leg did have some negative infestation and superficial ulceration cultures were obtained SKIN: Stage II pressure ulcer to the lower back area but no slough tissue or surrounding redness NEUROLOGICAL: The patient is awake, alert, oriented x3, mood and affect normal. Results CBC & Chem 7: 10/12/24 05:50 10/12/24 18:23 Labs: Abnormal Lab Results - Last 24 Hours (Table) 10/11/24 10/11/24 10/11/24 Range/Units 13:02 18:18 20:52 WBC (4.50-10.00) 10*3/uL Hgb (12.0-15.0) g/dL Hct (37.2-46.3) % MCH (27.0-32.0) pg MCHC (32.0-37.0) g/dL Potassium (3.5-5.1) mmol/L Carbon Dioxide (22-30) mmol/L BUN (7-17) mg/dL Glucose (74-99) mg/dL Calcium (8.4-10.2) mg/dL AST (14-36) U/L Alkaline Phosphatase (38-126) U/L Troponin I 0.047 H* 0.042 H* (0.000-0.034) ng/mL Total Protein (6.3-8.2) g/dL Albumin (3.5-5.0) g/dL Urine Protein Trace H (Negative) Urine Blood Trace H (Negative) Ur Leukocyte Esterase Small H (Negative) Urine WBC 8 H (0-5) /hpf Urine Bacteria Rare H (None) /hpf Urine Mucus Rare H (None) /hpf 10/12/24 10/12/24 Range/Units 05:50 05:50 WBC 18.19 H (4.50-10.00) 10*3/uL Hgb 10.5 L (12.0-15.0) g/dL Hct 35.4 L (37.2-46.3) % MCH 24.3 L (27.0-32.0) pg MCHC 29.7 L (32.0-37.0) g/dL Potassium 3.3 L (3.5-5.1) mmol/L Carbon Dioxide 34 H (22-30) mmol/L BUN 23 H (7-17) mg/dL Glucose 117 H (74-99) mg/dL Calcium 8.3 L (8.4-10.2) mg/dL AST 40 H (14-36) U/L Alkaline Phosphatase 130 H (38-126) U/L Troponin I (0.000-0.034) ng/mL Total Protein 5.4 L (6.3-8.2) g/dL Albumin 2.6 L (3.5-5.0) g/dL Urine Protein (Negative) Urine Blood (Negative) Ur Leukocyte Esterase (Negative) Urine WBC (0-5) /hpf Urine Bacteria (None) /hpf Urine Mucus (None) /hpf Assessment and Plan (1) Bilateral lower leg cellulitis Current Visit: Yes Status: Acute Code(s): L03.116 - CELLULITIS OF LEFT LOWER LIMB; L03.115 - CELLULITIS OF RIGHT LOWER LIMB SNOMED Code(s): 081454195 (2) Cholecystitis Current Visit: Yes Status: Acute Code(s): K81.9 - CHOLECYSTITIS, UNSPECIFIED SNOMED Code(s): 88365713 (3) Sepsis Current Visit: No Status: Acute Code(s): A41.9 - SEPSIS, UNSPECIFIED ORGANISM SNOMED Code(s): 92098090 Plan: 1patient presented to hospital with weakness in this patient noted to have low- grade fever she has hypotension, leukocytosis meeting criteria for SIRS/sepsis source could be likely lower extremity cellulitis as the patient noted to have superficial ulceration with maggot infestation in erythema concerning for cellulitis patient also have mildly elevated liver enzymes with abnormal ultrasound of the gallbladder concern for possible cholecystitis however no significant tenderness was noticed on abdominal examination. 2local culture have been obtained and will guide further antibiotic therapy and follow-up on the blood culture. 3we will continue the patient on vancomycin pharmacy to dose however switch Zosyn to cefepime to decrease risk of nephrotoxicity 4May benefit from surgical evaluation concerning for elevated liver enzymes as well as abnormal ultrasound Multiple question concern answered We will follow on clinical condition and cultures to further adjust medication if needed Thank you for this consultation we will follow the patient along with you Dictation was produced using [id number] software. please excuse any grammatical, word or spelling errors.
[2024-10-13] MEDS: CEFEPIME 2 GM in SODIUM CHLORIDE 0.9% 100 ML IVPB SCH (00:11)
[2024-10-13] MEDS: ARTIFICIAL TEARS-HYPROMELLOSE DROPS 15 ML BTL BOTH EYES PRN (05:51)
[2024-10-13 09:38] LABS: HCT 38.4 % (37.2-46.3); HGB 11.0 g/dL (12.0-15.0); MCH 24.2 pg (27.0-32.0); MCHC 28.6 g/dL (32.0-37.0); MCV 84.4 fL (80.0-97.0); Platelet Count 141 10*3/uL (140-440); RBC 4.55 10*6/uL (4.10-5.20); RDW 17.9 % (11.5-14.5); WBC 13.39 10*3/uL (4.50-10.00)
--- NOTE | 2024-10-13 09:49 | P.PN ---
Subjective Progress Note Date: 10/13/24 The patient is a 54-year-old female with multiple comorbid conditions. Patient is morbidly obese and is homebound. Patient presented to the emergency room with increased shortness of breath and has subsequently been diagnosed with sepsis and pneumonia. Cardiology has been consulted for atrial fibrillation with RVR. She has a known history of atrial fibrillation and is rate controlled on beta-blockers. Patient also has a history of congestive heart failure with cardiomyopathy. Cardizem has been titrated off overnight as heart rates were in the 70s. Patient interviewed and examined resting comfortably in bed. Denies chest pain or difficulty breathing currently. GENERAL: Well-appearing, well-nourished and in no acute distress. NECK: Supple without JVD or thyromegaly. LUNGS: Breath sounds clear to auscultation bilaterally. Respiration equal and unlabored. No wheezes, rales or rhonchi. HEART: Irregular rate and rhythm without murmurs, rubs or gallops. S1 and S2 heard. EXTREMITIES: Severe peripheral edema and lipedema. No calf tenderness noted. TELEMETRY: Persistent atrial fibrillation, heart rates in the 70s to 90s. Cardizem currently off IMPRESSION: Paroxysmal atrial fibrillation, currently in RVR Sepsis, unknown etiology Pneumonia Mildly elevated troponins, flat trend Chronic hypoxic respiratory failure History of cardiomyopathy, EF 35-40 Congestive heart failure, acute on chronic systolic History of valvular disease, moderate to severe mitral and tricuspid regurgitation Morbid obesity, BMI 60 PLAN: Titrate Cardizem to keep heart rates below 100 Continue supportive treatment for pneumonia Aggressive pulmonary hygiene We will sign off on the case as she is stable from the cardiac standpoint. I am dictating on behalf of Dr Channing Marinelli's history/physical and assess ment/plan. Objective - Vital Signs Vital signs: Vital Signs Temp 97.2 F L 10/13/24 08:43 Pulse 95 10/13/24 08:43 Resp 19 10/13/24 08:43 BP 94/60 10/13/24 08:43 Pulse Ox 99 10/13/24 08:43 FiO2 Intake & Output 10/12/24 10/13/24 10/13/24 18:59 06:59 18:59 Intake Total 272.5 540 10 Output Total 1300 250 Balance -1027.5 290 10 Weight 158.757 kg 215.7 kg Intake: IV 20 10 Invasive Line 1 10 10 Invasive Line 2 10 Intake, IV Titration 134.5 Amount Diltiazem 125 mg In 134.5 Dextrose 5% in Water 100 ml @ 5 MG/HR 5 mls/hr IV .Q24H [facility] Rx#:[id number] Oral 118 540 0 Output: Urine 1300 250 Other: Voiding Method External Catheter External Catheter External Catheter # Voids 1 - Labs CBC & Chem 7: 10/13/24 09:09 10/12/24 18:23 Labs: Abnormal Lab Results - Last 24 Hours (Table) 10/12/24 10/13/24 Range/Units 18:23 09:09 WBC 13.39 H (4.50-10.00) 10*3/uL Hgb 11.0 L (12.0-15.0) g/dL MCH 24.2 L (27.0-32.0) pg MCHC 28.6 L (32.0-37.0) g/dL Potassium 3.3 L (3.5-5.1) mmol/L Microbiology - Last 24 Hours (Table) 10/11/24 11:59 Blood Culture Gram Stain - Preliminary Blood Blood Culture - Preliminary Molecular ID
--- NOTE | 2024-10-13 10:23 | CT ---
EXAMINATION TYPE: CT abdomen pelvis w con DATE OF EXAM: 10/13/2024 9:45 AM COMPARISON: None, ultrasound CLINICAL INDICATION: Female, 54 years old with history of questionable cholecystitis; ABD PAIN TECHNIQUE: Axial CT abdomen pelvis w con;Sagittal and coronal reformats were created on a separate w orkstation. Contrast used:100 mL of Isovue 300 with IV Contrast, (none if empty) Oral contrast used: without Oral Contrast (none if empty) CT DLP: 3173.4 mGycm, Automated exposure control for dose reduction was used. FINDINGS: LOWER CHEST: Mild cardiomegaly. ABDOMEN LIVER: Unremarkable GALLBLADDER AND BILE DUCTS: Gallbladder shows multiple gallstones. No evidence for wall thickening or inflammation of the right upper quadrant. PANCREAS: Unremarkable. SPLEEN: Unremarkable. ADRENAL GLANDS: Unremarkable. KIDNEYS AND URETERS: No evidence of hydronephrosis or obstructing renal calculus. The ureters are unr emarkable. PELVIS BLADDER: No evidence for wall thickening or mass given limitations of exam. REPRODUCTIVE: The uterus is surgically absent. ABDOMEN & PELVIS STOMACH AND BOWEL: No evidence of bowel obstruction. Postsurgical changes of the gastric lumen PERITONEUM/RETROPERITONEUM: No evidence of pneumoperitoneum or free fluid. VASCULATURE: No evidence of aortic aneurysm. IVC filter in place. MUSCULOSKELETAL: No acute osseous abnormalities LYMPH NODES: No gross evidence for lymphadenopathy. SOFT TISSUE/ABDOMINAL WALL: Unremarkable IMPRESSION: 1. Cholelithiasis is present. The Gallbladder wall does not appear to be thickened. No evidence for adjacent inflammation to suggest acute cholecystitis on CT imaging. 2. Mild cardiomegaly. 3. Hepatic steatosis. [facility], , 10/13/2024 10:21 AM
--- NOTE | 2024-10-13 11:48 | P.PN ---
Subjective Progress Note Date: 10/13/24 54 year old F with PMH AFib, HTN, HLD, chronic pain, Hypothyroid, Depression and Anxiety presents to the ED for shortness of breath and lower extremities edema. History is limited as patient is lethargic. Apparently she was incontinence of urine and stool. Found to be in A-Fib with RVR. In the ED she underwent extensive evaluation. BP 109/72, HR 138, T 99.1F, RR 20, 96% on 2L NC. CBC, Coag panel, CMP significant for WBC 27.59, Hg 11.1, Hct 35.2, MCV 79.3, PT 14.8, INR 1.4, Na 134, Cl 92, bicarb 37, BUN 26, glu 133, T. Bili 1.4, AST 48, alk phos 156, alb 2.9. Trop 0.065. BNP 3970. Latic acid 1.6. UA neg LE or nitrite. CXR concerning for pulmonray vasular congestion. Started on Vancomycin and Zosyn along with IV fluids. ID consulted, wound cultures obtained, Zosyn switched to Cefepime. GB US showed cholelithiasis and questionable GB wall thickening. Troponin trending 0.065, 0.047, 0.042. Started on Cardizem drip for A-Fib RVR. Cardiology consulted, recommending re-starting home medications and careful fluid administration given EF 35-40%. 10/13 Patient was seen and examined. Much more awake. Apparently has maggots growing in her LE wounds. Maintained on Cardizem drip at 10 mg/hr. Antibiotics include Vancomycin dosed per pharmacy (D3). Zosyn has been switched to Cefepime 2g IV TID (D1). CT AP done shows cholelithiasis with no signs of cholecystitis, cardiomegaly and hepatic steatosis. CBC significant for WBC 13.39, Hg 11. BMP is pending at the time of this note. BCx growing presumed staph aureus. General: toxic, no distress, appears at stated age Derm: warm, dry, Sacral wound (per RN) Head: atraumatic, normocephalic, symmetric Eyes: EOMI, no lid lag, anicteric sclera Mouth: no lip lesion, mucus membranes moist Cardiovascular: S1S2 irreg, no murmur Lungs: Decreased BS bilateral, no rhonchi, no rales , no accessory muscle use Ext: no gross muscle atrophy, no contractures, chronic venous stasis bilateral LE with LE edema Neuro: no focal neuro deficits Psych: Alert, oriented, appropriate affect Based on my assessment of this patient, this patient meets a high complexity level of care. Sepsis with gram + bacteremia: Unknown etiology. Follow final BCx. Repeat BCx ordered today. CT AP shows no concerns of cholecystitis. Continue Vancomycin dosed per pharmacy (D3), Zosyn switched to Cefepime 2g IV TID (D1). ID on board, wound cultures obtained. Decrease NS from 75 to 20 cc/hr given EF of 35-40%. Acute metabolic encephalopathy likely due to above. AFib with RVR: Cardizem drip and titrate. Metoprolol 100 mg PO BID. Eliquis 5 mg PO BID. Cardiology on board. Troponin elevation: Likely demand. Troponins are flat. Echo pending. Cardiology on board. Hyperbiliruibinemia: Likely due to hepatic steatosis. GB and Liver US as above. CT AP as above. Microcytic anemia: Unknown baseline. No signs of active bleeding. Trend. Transfuse if Hg < 7. HTN: Hold Bumex, Aldactone due to hypotension. HLD: Hold Lipitor due to elevated LFT. Chronic pain: MS Contin 30 mg PO BID. [place] 10 PO Q6H PRN. Hypothyroid: Synthroid 25 mcg PO QD. Depression and Anxiety CODE STATUS: FULL CODE DVT Prophylaxis: Eliquis. GI Prophylaxis: Protonix Designated medical POA if patient is not able to make medical decisions for themselves: I have reviewed the following communication consultant notes: Cardio, ID note. I have reviewed the results of the following tests: CBC, BCx, CT AP. I have ordered the following tests: BMP pending. Repeat CBC and BMP in the AM. Echo is pending. I have discussed the care of this patient with the following independent historian: [place]. I have independently interpreted the following test below: I have discussed the management of this patient with the following physician: Objective - Vital Signs Vital signs: Vital Signs Temp 97.2 F L 10/13/24 08:43 Pulse 95 10/13/24 08:43 Resp 19 10/13/24 08:43 BP 94/60 10/13/24 08:43 Pulse Ox 99 10/13/24 08:43 FiO2 Intake & Output 10/12/24 10/13/24 10/13/24 18:59 06:59 18:59 Intake Total 272.5 540 10 Output Total 1300 250 200 Balance -1027.5 290 -190 Weight 158.757 kg 215.7 kg Intake: IV 20 10 Invasive Line 1 10 10 Invasive Line 2 10 Intake, IV Titration 134.5 Amount Diltiazem 125 mg In 134.5 Dextrose 5% in Water 100 ml @ 5 MG/HR 5 mls/hr IV .Q24H [facility] Rx#:[id number] Oral 118 540 0 Output: Urine 1300 250 200 Other: Voiding Method External Catheter External Catheter External Catheter # Voids 1 - Labs CBC & Chem 7: 10/13/24 09:09 10/12/24 18:23 Labs: Abnormal Lab Results - Last 24 Hours (Table) 10/12/24 10/13/24 Range/Units 18:23 09:09 WBC 13.39 H (4.50-10.00) 10*3/uL Hgb 11.0 L (12.0-15.0) g/dL MCH 24.2 L (27.0-32.0) pg MCHC 28.6 L (32.0-37.0) g/dL Potassium 3.3 L (3.5-5.1) mmol/L Microbiology - Last 24 Hours (Table) 10/11/24 11:59 Blood Culture Gram Stain - Preliminary Blood Blood Culture - Preliminary Molecular ID
[2024-10-13 15:03] LABS: African American GFR (CKD) >90 (>60 ml/min/1.73 sqM); Anion Gap 8 mmol/L; Blood Urea Nitrogen 17 mg/dL (7-17); Calcium 8.5 mg/dL (8.4-10.2); Carbon Dioxide 29 mmol/L (22-30); Chloride 101 mmol/L (98-107); Glucose 101 mg/dL (74-99); Non-African American GFR(CKD) >90 (>60 ml/min/1.73 sqM); Sodium 138 mmol/L (137-145)
[2024-10-13 15:14] LABS: Potassium 4.0 mmol/L (3.5-5.1)
--- NOTE | 2024-10-13 15:44 | P.PN ---
Subjective Progress Note Date: 10/13/24 Principal diagnosis: Reason for follow-up with bilateral extremity cellulitis wound and cellulitis Patient is a 54-year-old female with a past medical history significan t for hypertension hyperlipidemia osteoarthritis morbid obesity atrial fibrillation has been brought to the hospital concerning for weakness and increasing shortness of breath, patient did have a significant bilateral lower extremity swelling lymphedema with maggots infestation and cellulitis. On today's evaluation that is 10/13/2024, Patient is afebrile patient is currently on 3 L goal oxygen and denies having any shortness of breath, the patient denies any chest pain or cough, the patient denies any nausea vomiting did not have any abdominal pain and no diarrhea, denies any worsening pain to the lower extremity. The patient white count is down to 13.39, creatinine 0.73 blood culture with M SSA Objective - Vital Signs Vital signs: Vital Signs Temp 97.9 F 10/13/24 12:00 Pulse 85 10/13/24 12:00 Resp 17 10/13/24 12:00 BP 88/60 10/13/24 12:00 Pulse Ox 98 10/13/24 12:00 FiO2 Intake & Output 10/12/24 10/13/24 10/13/24 18:59 06:59 18:59 Intake Total 272.5 540 490 Output Total 1300 250 200 Balance -1027.5 290 290 Weight 158.757 kg 215.7 kg Intake: IV 20 10 Invasive Line 1 10 10 Invasive Line 2 10 Intake, IV Titration 134.5 Amount Diltiazem 125 mg In 134.5 Dextrose 5% in Water 100 ml @ 5 MG/HR 5 mls/hr IV .Q24H [facility] Rx#:[id number] Oral 118 540 480 Output: Urine 1300 250 200 Other: Voiding Method External Catheter External Catheter External Catheter # Voids 1 - Exam GENERAL DESCRIPTION: Middle-age female lying in bed in no distress RESPIRATORY SYSTEM: Unlabored breathing , decreased breath sounds at bases HEART: S1 S2 regular rate and rhythm , ABDOMEN: Soft , no tenderness EXTREMITIES: Bilateral lower extremity with diffuse swelling desquamative changes and erythema - Labs CBC & Chem 7: 10/13/24 09:09 10/13/24 14:26 Labs: Abnormal Lab Results - Last 24 Hours (Table) 06/28/25 06/29/25 06/29/25 Range/Units 18:23 09:09 14:26 WBC 13.39 H (4.50-10.00) 10*3/uL Hgb 11.0 L (12.0-15.0) g/dL MCH 24.2 L (27.0-32.0) pg MCHC 28.6 L (32.0-37.0) g/dL Potassium 3.3 L (3.5-5.1) mmol/L Glucose 101 H (74-99) mg/dL Microbiology - Last 24 Hours (Table) 10/11/24 11:59 Blood Culture Gram Stain - Preliminary Blood Blood Culture - Preliminary Molecular ID Assessment and Plan (1) Bilateral lower leg cellulitis Current Visit: Yes Status: Acute Code(s): L03.116 - CELLULITIS OF LEFT LOWER LIMB; L03.115 - CELLULITIS OF RIGHT LOWER LIMB SNOMED Code(s): 336152442 (2) Cholecystitis Current Visit: Yes Status: Acute Code(s): K81.9 - CHOLECYSTITIS, UNSPECIFIED SNOMED Code(s): 04363695 (3) Sepsis Current Visit: No Status: Acute Code(s): A41.9 - SEPSIS, UNSPECIFIED ORGANISM SNOMED Code(s): 01661173 (4) Bacteremia Current Visit: Yes Status: Acute Code(s): R78.81 - BACTEREMIA SNOMED Code(s): 0542091 Plan: 1patient presented to hospital with weakness in this patient noted to have low- grade fever she has hypotension, leukocytosis meeting criteria for SIRS/sepsis source could be likely lower extremity cellulitis as the patient noted to have superficial ulceration with maggot infestation in erythema concerning for cellulitis patient also have mildly elevated liver enzymes with abnormal ultrasound of the gallbladder concern for possible cholecystitis however no significant tenderness was noticed on abdominal examination. 2local culture currently pending blood cultures can be positive with MSSA source likely lower extremity wound and cellulitis 3discontinue cefepime and vancomycin 4patient will be started on cefazolin 3 g every 8 however blood culture repeated document clearance of bacteremia Dictation was produced using [employer] software. please excuse any grammatical, word or spelling errors. Time with Patient: Less than 30
[2024-10-13] MEDS: PETROLATUM, WHITE OINT 454 GM JAR TOPICAL PRN (16:27)
[2024-10-14 06:34] LABS: HCT 40.2 % (37.2-46.3); HGB 11.0 g/dL (12.0-15.0); MCH 24.4 pg (27.0-32.0); MCHC 27.4 g/dL (32.0-37.0); MCV 89.3 fL (80.0-97.0); Platelet Count 176 10*3/uL (140-440); RBC 4.50 10*6/uL (4.10-5.20); RDW 17.9 % (11.5-14.5); WBC 11.42 10*3/uL (4.50-10.00)
[2024-10-14 06:55] LABS: African American GFR (CKD) >90 (>60 ml/min/1.73 sqM); Anion Gap 6 mmol/L; Blood Urea Nitrogen 16 mg/dL (7-17); Calcium 8.5 mg/dL (8.4-10.2); Carbon Dioxide 32 mmol/L (22-30); Chloride 101 mmol/L (98-107); Glucose 102 mg/dL (74-99); Non-African American GFR(CKD) >90 (>60 ml/min/1.73 sqM); Potassium 3.8 mmol/L (3.5-5.1); Sodium 139 mmol/L (137-145)
[2024-10-14] MEDS ORDERED: VANCOMYCIN TROUGH DUE 1 EACH MISC MISCELLANE ONE (09:00)
--- NOTE | 2024-10-14 16:24 | P.PN ---
Subjective Progress Note Date: 10/14/24 Hospital Course: 54 year old F with PMH AFib, HTN, HLD, chronic pain, Hypothyroid, Depression and Anxiety presents to the ED for shortness of breath and lower extremities edema. History is limited as patient is lethargic. Apparently she was incontinence of urine and stool. Found to be in A-Fib with RVR. In the ED she underwent extensive evaluation. BP 109/72, HR 138, T 99.1F, RR 20, 96% on 2L NC. CBC, Coag panel, CMP significant for WBC 27.59, Hg 11.1, Hct 35.2, MCV 79.3, PT 14.8, INR 1.4, Na 134, Cl 92, bicarb 37, BUN 26, glu 133, T. Bili 1.4, AST 48, alk phos 156, alb 2.9. Trop 0.065. BNP 3970. Latic acid 1.6. UA neg LE or nitrite. CXR concerning for pulmonray vasular congestion. Started on Vancomycin and Zosyn along with IV fluids. ID consulted, wound cultures obtained, Zosyn switched to Cefepime. GB US showed cholelithiasis and questionable GB wall thickening. Of note, patient was noted to have maggots all over her lower extremities. Troponin trending 0.065, 0.047, 0.042. Started on Cardizem drip for A-Fib RVR. Cardiology consulted, recommending re-starting home medications and careful fluid administration given EF 35-40%. 10/14: Seen and examined at bedside, no acute events overnight, RN present during morning rounds. Patient is satting well on 4 L oxygen, home oxygen is 2.5, her blood pressure is soft but stable 100/64, heart rate in 90s. Lab work showed improving leukocytosis 11.4, hemoglobin stable 11.0, normal sodium, potassium, creatinine, bicarb 32. Maintained on cefazolin 3 g every 8 hours. Pertinent positives and negatives as discussed above, a complete review of systems was performed and all other systems are negative. Vitals Signs Reviewed. General: toxic], [no distress], [chronically ill-appearing, morbidly obese Derm: [warm], [dry] Head: [atraumatic], [normocephalic], [symmetric] Eyes: [EOMI], [no lid lag], [anicteric sclera] Mouth: [no lip lesion], [mucus membranes moist] Cardiovascular: [S1S2 reg], [no murmur] Lungs: [Diminished bilateral breath sounds], [no rhonchi, no rales] , [no accessory muscle use] Abdominal: [soft], [ nontender to palpation], [no guarding], [no appreciable organomegaly] Ext: [no gross muscle atrophy neck venous stasis changes bilaterally, lower extremity bilateral, chronic wounds Neuro: [ CN II-XI grossly intact], [no focal neuro deficits] Psych: [Alert], [oriented], [appropriate affect] Assessment and Plan: Sepsis with MSSA bacteremia likely due to lower extremity cellulitis with maggot infestation Acute metabolic encephalopathy likely secondary to above - ID following, patient is continued on cefazolin 2 g every 8 hours - Blood and wound cultures are still preliminary growing MSSA. - Monitor CBC and BMP daily AFib with RVR: Cardizem drip and titrate. Metoprolol 100 mg PO BID. Eliquis 5 mg PO BID. Cardiology on board. Troponin elevation: Likely demand. Troponins are flat. Echo pending. Cardiology on board. Hyperbiliruibinemia: Likely due to hepatic steatosis. GB and Liver US as above. CT AP as above. Microcytic anemia: Unknown baseline. No signs of active bleeding. Trend. Transfu se if Hg < 7. HTN: Hold Bumex, Aldactone due to hypotension. HLD: Hold Lipitor due to elevated LFT. Chronic pain: MS Contin 30 mg PO BID. Babbitt 10 PO Q6H PRN. Hypothyroid: Synthroid 25 mcg PO QD. Depression and Anxiety DVT ppx: Eliquis Code status: Full code Anticipated discharge place: TBD Anticipated discharge time: TBD Objective - Vital Signs Vital signs: Vital Signs Temp 98.0 F 10/14/24 09:39 Pulse 119 H 10/14/24 14:00 Resp 18 10/14/24 14:00 BP 100/64 10/14/24 12:30 Pulse Ox 95 10/14/24 12:30 FiO2 Intake & Output 10/13/24 10/14/24 10/14/24 18:59 06:59 18:59 Intake Total 500 20 20 Output Total 450 Balance 50 20 20 Weight 221 kg 221 kg Intake: IV 20 20 20 Invasive Line 1 20 20 20 Oral 480 0 Output: Urine 450 Other: Voiding Method External Catheter External Catheter External Catheter # Voids 1 - Labs CBC & Chem 7: 10/14/24 05:49 10/14/24 05:49 Labs: Abnormal Lab Results - Last 24 Hours (Table) 10/14/24 10/14/24 Range/Units 05:49 05:49 WBC 11.42 H (4.50-10.00) 10*3/uL Hgb 11.0 L (12.0-15.0) g/dL MCH 24.4 L (27.0-32.0) pg MCHC 27.4 L (32.0-37.0) g/dL Carbon Dioxide 32 H (22-30) mmol/L Glucose 102 H (74-99) mg/dL Microbiology - Last 24 Hours (Table) 10/11/24 11:59 Blood Culture Gram Stain - Preliminary Blood Blood Culture - Preliminary Presumptive Staph aureus Molecular ID 10/12/24 16:33 Gram Stain - Preliminary Ankle - Right Wound Culture - Preliminary Presumptive Staph aureus Enterobacter cloacae Complex
[2024-10-14] MEDS: CEFEPIME 2 GM in SODIUM CHLORIDE 0.9% 100 ML IVPB SCH (17:17)
[2024-10-15] MEDS: DILTIAZEM 125 MG in DEXTROSE 5% IN WATER 100 ML IV SCH (05:28)
[2024-10-15 06:54] LABS: Basophils # (A) 0.16 10*3/uL (0.00-0.10); Basophils % (A) 1.3 %; Eosinophils # (A) 0.06 10*3/uL (0.04-0.35); Eosinophils % (A) 0.5 %; HCT 44.8 % (37.2-46.3); HGB 11.9 g/dL (12.0-15.0); Lymphocytes # (A) 0.95 10*3/uL (0.90-5.00); Lymphocytes % (A) 8.0 %; MCH 23.9 pg (27.0-32.0); MCHC 26.6 g/dL (32.0-37.0); MCV 90.1 fL (80.0-97.0); Monocytes # (A) 0.49 10*3/uL (0.20-1.00); Monocytes % (A) 4.1 %; Neutrophils # (A) 9.62 10*3/uL (1.80-7.70); Neutrophils % (A) 80.6 %; Platelet Count 169 10*3/uL (140-440); RBC 4.97 10*6/uL (4.10-5.20); RDW 17.7 % (11.5-14.5); WBC 11.94 10*3/uL (4.50-10.00)
[2024-10-15 07:11] LABS: Carbon Dioxide 32 mmol/L (22-30); Chloride 101 mmol/L (98-107); Glucose 108 mg/dL (74-99); Sodium 142 mmol/L (137-145)
[2024-10-15 07:12] LABS: African American GFR (CKD) >90 (>60 ml/min/1.73 sqM); Anion Gap 9 mmol/L; Blood Urea Nitrogen 22 mg/dL (7-17); Calcium 8.7 mg/dL (8.4-10.2); Non-African American GFR(CKD) 89 (>60 ml/min/1.73 sqM)
[2024-10-15 07:16] LABS: Potassium 4.2 mmol/L (3.5-5.1)
--- NOTE | 2024-10-15 07:23 | CA ---
Transthoracic Echo Report Name: Jemma Muniz Age: 54 Gender: F : 1970 Exam Date: 10/14/2024 08:58 Exam Location: [facility] Ht (in): 64 Wt (lb): 350 Ordering Physician: Adam Nunez MD Attending/Referring Phys: [employer] Tender Mary Jane Miller RDCS Procedure CPT: Indications: trop Cardiac Hx: Technical Quality: Poor, Technically difficult study Contrast 1: Definity Total Dose (mL): 2 Contrast 2: Total Dose (mL): MEASUREMENTS (Male / Female) Normal Values 2D ECHO LV Diastolic Diameter PLAX 4.8 cm 4.2 - 5.9 / 3.9 - 5.3 cm LV Systolic Diameter PLAX 3.9 cm IVS Diastolic Thickness 1.1 cm 0.6 - 1.0 / 0.6 - 0.9 cm LVPW Diastolic Thickness 1.1 cm 0.6 - 1.0 / 0.6 - 0.9 cm LV Relative Wall Thickness 0.5 LA Volume 121.9 cm??? 18 - 58 / 22 - 52 cm??? LA Volume Index 43.8 cm???/m??? 16 - 28 cm???/m??? M-MODE Aortic Root Diameter MM 3.6 cm LA Systolic Diameter MM 4.6 cm LA Ao Ratio MM 1.3 AV Cusp Separation MM 1.9 cm DOPPLER TR Peak Velocity 327.1 cm/s TR Peak Gradient 42.8 mmHg Right Atrial Pressure 20.0 mmHg Pulmonary Artery Systolic Pressu 62.8 mmHg Right Ventricular Systolic Press 62.8 mmHg FINDINGS Left Ventricle Left ventricular ejection fraction is estimated at 30-35 %. Mildly increased septal wall thickness. Mildly increased posterior wall thickness. Moderately reduced global left ventricular systolic function. Right Ventricle Moderate right ventricular dilatation. Severe pulmonary hypertension. Right Atrium Left Atrium Severely increased left atrial volume. Mildly increased left atrial area. Mitral Valve Aortic Valve Tricuspid Valve Pulmonic Valve Pericardium No pericardial or pleural effusion. Aorta CONCLUSIONS Severe LV systolic dysfunction with an ejection fraction of 30 to 35% Severe pulmonary hypertension Technically suboptimal study Previewed by: Dr. Kei Kaplan MD (Electronically Signed) Final Date: 15 October 2024 07:23
--- NOTE | 2024-10-15 12:14 | P.CONS ---
History of Present Illness - Reason for Consult Consult date: 10/15/24 wound care - History of Present Illness This is a 54-year-old patient being seen on 3 S. for nonhealing ulceration to multiple locations. Patient presented to the emergency room and found to have maggots on her bilateral lower extremities. Patient has a nonhealing ulceration to the left posterior lower extremity measuring approximately 2 x 2.5 x 0.2 cm back ulceration measuring 3 x 0.2 x 0.2 cm excoriation and maceration to the sacrum and dry flaky skin to bilateral lower extremities from the knee to the a nkle. Patient's past medical history significant for atrial fibrillation hyperlipidemia hypertension neuropathy obesity. Review Of Systems: Constitutional: No fever, no chills, no night sweats. No weight change. No weakness, fatigue or lethargy. No daytime sleepiness. Integumentary:reports wounds, no lesions. No rash or pruritus. No unusual bruising. No change in hair or nails. Physical exam: General Appearance: Alert, cooperative, no distress, appears stated age. Skin: See HPI all other Skin color, texture, tugor normal, no rashes or lesions. Neurologic: Alert oriented x3 Assessment: 1. Nonpressure ulceration left lower extremity with fat layer exposed 2. Nonpressure ulceration other site with fat layer exposed 3. Neuropathy 4. Obesity Plan: 1. Left posterior Lower extremity, back, sacrum: Apply honey gel and bordered foam to the site. Bilateral lower extremities leave open to air at this time. Thank you for the consultation any questions please contact the wound care center DNP note has been reviewed and discussed with Dr. Montano and the impression and plan of care has been directed as dictated. Past Medical History Past Medical History: Atrial Fibrillation, Hyperlipidemia, Hypertension, Musculoskeletal Disorder, Osteoarthritis (OA) Additional Past Medical History / Comment(s): NEUROPATHY, CARPEL TUNNEL, BACK NECK AND KNEE PAIN, MIGRAINES. "Raspy voice last few days." "Oxygen 2.5L per nasal cannula." History of Any Multi-Drug Resistant Organisms: None Reported Past Surgical History: Bariatric Surgery, Section, Hysterectomy, Joint Replacement, Orthopedic Surgery, Tubal Ligation Additional Past Surgical History / Comment(s): GASTRIC BYPASS, SPINAL CORD STIMULATOR, bilateral knee replacements, right knee arthroscopy. Past Anesthesia/Blood Transfusion Reactions: No Reported Reaction Past Psychological History: Anxiety Smoking Status: Never smoker Past Alcohol Use History: None Reported Past Drug Use History: None Reported - Past Family History Mother Family Medical History: Cancer Medications and Allergies Home Medications Medication Instructions Recorded Confirmed Type Zonisamide [Zonegran] 100 mg PO HS 09/11/13 10/11/24 History Ipratropium-Albuterol Nebulize 3 ml INHALATION RT-QID PRN 10/10/23 10/11/24 History [Duoneb 0.5 mg-3 mg/3 ml Soln] Nystatin 100,000 Unit/gm Powd 1 applic TOPICAL BID 10/10/23 10/11/24 History [Mycostatin Powder] hydrOXYzine HCL [Atarax] 50 - 100 mg PO Q6H PRN 10/10/23 10/11/24 History Spironolactone [Aldactone] 25 mg PO DAILY #30 tab 10/12/23 10/11/24 Rx Apixaban [Eliquis] 5 mg PO BID 08/06/24 10/11/24 History Levothyroxine Sodium [Synthroid] 25 mcg PO DAILY 08/06/24 10/11/24 History Pantoprazole [Protonix] 40 mg PO DAILY 08/06/24 10/11/24 History busPIRone HCL [Buspar] 30 mg PO BID 08/06/24 10/11/24 History Atorvastatin [Lipitor] 40 mg PO HS tab 08/15/24 10/11/24 Rx Butalb/Acetaminophen/Caffeine 1 cap PO Q4H PRN #18 cap 08/15/24 10/11/24 Rx [Fioricet 50-300-40 mg Capsule] acetaZOLAMIDE [Diamox] 250 mg PO BID #30 tab 08/15/24 10/11/24 Rx Bumetanide [BUMEX] 2 mg PO DAILY 10/11/24 10/11/24 History Ferrous Sulfate [Iron (65 MG 325 mg PO HS 10/11/24 10/11/24 History Elemental)] HYDROcodone/APAP 7.5-325MG [[place] 1 tab PO BID PRN 10/11/24 10/11/24 History 7.5-325] Metoprolol Tartrate [Lopressor] 100 mg PO BID 10/11/24 10/11/24 History Morphine Sulfate ER [Ms Contin] 30 mg PO Q12HR 10/11/24 10/11/24 History Allergies Allergy/AdvReac Type Severity Reaction Status Date / Time No Known Allergies Allergy Verified 10/11/24 15:32 Physical Exam Vitals: Vital Signs Temp Pulse Resp BP Pulse Ox 10/15/24 03:25 82 16 108/74 94 L 10/15/24 01:21 89 18 10/14/24 23:14 89 18 104/74 97 10/14/24 20:50 99 18 10/14/24 20:00 97.4 F L 99 18 107/72 97 10/14/24 16:51 93 18 93/59 95 10/14/24 14:00 119 H 18 10/14/24 12:30 95 18 100/64 95 Intake and Output 10/14/24 10/15/24 10/15/24 22:59 06:59 14:59 Intake Total 10 300 Output Total 250 450 Balance -240 -150 Intake: IV 10 Invasive Line 1 10 Oral 300 Output: Urine 250 450 Other: Voiding Method External Catheter External Catheter Weight 217.3 kg Results CBC & Chem 7: 10/15/24 06:18 10/15/24 06:18 Labs: Abnormal Lab Results - Last 24 Hours (Table) 10/15/24 10/15/24 Range/Units 06:18 06:18 WBC 11.94 H (4.50-10.00) 10*3/uL Hgb 11.9 L (12.0-15.0) g/dL MCH 23.9 L (27.0-32.0) pg MCHC 26.6 L (32.0-37.0) g/dL Immature Gran # 0.66 H (0.00-0.04) 10*3/uL Neutrophils # 9.62 H (1.80-7.70) 10*3/uL Basophils # 0.16 H (0.00-0.10) 10*3/uL Carbon Dioxide 32 H (22-30) mmol/L BUN 22 H (7-17) mg/dL Glucose 108 H (74-99) mg/dL Microbiology - Last 24 Hours (Table) 10/12/24 16:33 Gram Stain - Preliminary Ankle - Right Wound Culture - Preliminary Staphylococcus aureus Enterobacter cloacae Complex Proteus mirabilis 10/12/24 16:33 Anaerobic Culture - Preliminary Ankle - Right 10/13/24 09:09 Blood Culture - Preliminary Blood Assessment and Plan (1) Non-pressure chronic ulcer of left thigh with fat layer exposed Current Visit: Yes Status: Acute Code(s): L97.122 - NON-PRESSURE CHRONIC ULCER OF LEFT THIGH W FAT LAYER EXPOSED SNOMED Code(s): 38629188793279369 (2) Non-pressure chronic ulcer of skin of other sites with fat layer exposed Current Visit: Yes Status: Acute Code(s): L98.492 - NON-PRS CHRONIC ULCER OF SKIN OF SITES W FAT LAYER EXPOSED SNOMED Code(s): 13025773 (3) Chronic venous hypertension (idiopathic) with inflammation of bilateral lower extremity Current Visit: Yes Status: Acute Code(s): I87.323 - CHRONIC VENOUS HTN W INFLAMMATION OF BILATERAL LOW EXTRM SNOMED Code(s): 619199236 (4) Neuropathy Current Visit: Yes Status: Acute Code(s): G62.9 - POLYNEUROPATHY, UNSPECIFIED SNOMED Code(s): 830246143 (5) Obesities, morbid Current Visit: Yes Status: Acute Code(s): E66.01 - MORBID (SEVERE) OBESITY DUE TO EXCESS CALORIES SNOMED Code(s): 779629608
--- NOTE | 2024-10-15 12:57 | P.PN ---
Subjective Progress Note Date: 10/14/24 Principal diagnosis: Reason for follow-up with bilateral extremity cellulitis wound and cellulitis Patient is a 54-year-old female with a past medical history significan t for hypertension hyperlipidemia osteoarthritis morbid obesity atrial fibrillation has been brought to the hospital concerning for weakness and increasing shortness of breath, patient did have a significant bilateral lower extremity swelling lymphedema with maggots infestation and cellulitis. On today's evaluation that is 10/14/2024, patient has been afebrile, patient is breathing comfortably and is currently on 4 L goal oxygen, patient was sleepy did not answer any question no vomiting diarrhea change reported by the nursing staff. Patient white count is 11.42, creatinine 0.74 local culture now growing Enterobacter in addition to Staph aureus Objective - Vital Signs Vital signs: Vital Signs Temp 98.0 F 10/14/24 09:39 Pulse 119 H 10/14/24 14:00 Resp 18 10/14/24 14:00 BP 100/64 10/14/24 12:30 Pulse Ox 95 10/14/24 12:30 FiO2 Intake & Output 10/13/24 10/14/24 10/14/24 18:59 06:59 18:59 Intake Total 500 20 20 Output Total 450 Balance 50 20 20 Weight 221 kg 221 kg Intake: IV 20 20 20 Invasive Line 1 20 20 20 Oral 480 0 Output: Urine 450 Other: Voiding Method External Catheter External Catheter External Catheter # Voids 1 - Exam GENERAL DESCRIPTION: Middle-age female lying in bed in no distress RESPIRATORY SYSTEM: Unlabored breathing , decreased breath sounds at bases HEART: S1 S2 regular rate and rhythm , ABDOMEN: Soft , no tenderness EXTREMITIES: Bilateral lower extremity with diffuse swelling desquamative changes and erythema - Labs CBC & Chem 7: 10/15/24 06:18 10/15/24 06:18 Labs: Abnormal Lab Results - Last 24 Hours (Table) 10/14/24 10/14/24 Range/Units 05:49 05:49 WBC 11.42 H (4.50-10.00) 10*3/uL Hgb 11.0 L (12.0-15.0) g/dL MCH 24.4 L (27.0-32.0) pg MCHC 27.4 L (32.0-37.0) g/dL Carbon Dioxide 32 H (22-30) mmol/L Glucose 102 H (74-99) mg/dL Microbiology - Last 24 Hours (Table) 10/11/24 11:59 Blood Culture Gram Stain - Preliminary Blood Blood Culture - Preliminary Presumptive Staph aureus Molecular ID 10/12/24 16:33 Gram Stain - Preliminary Ankle - Right Wound Culture - Preliminary Presumptive Staph aureus Enterobacter cloacae Complex Assessment and Plan (1) Bilateral lower leg cellulitis Current Visit: Yes Status: Acute Code(s): L03.116 - CELLULITIS OF LEFT LOWER LIMB; L03.115 - CELLULITIS OF RIGHT LOWER LIMB SNOMED Code(s): 529256725 (2) Cholecystitis Current Visit: Yes Status: Acute Code(s): K81.9 - CHOLECYSTITIS, UNSPECIFIED SNOMED Code(s): 84856292 (3) Sepsis Current Visit: No Status: Acute Code(s): A41.9 - SEPSIS, UNSPECIFIED ORGANISM SNOMED Code(s): 69557291 (4) Bacteremia Current Visit: Yes Status: Acute Code(s): R78.81 - BACTEREMIA SNOMED Code(s): 1849092 Plan: 1patient presented to hospital with weakness in this patient noted to have low- grade fever she has hypotension, leukocytosis meeting criteria for SIRS/sepsis source could be likely lower extremity cellulitis as the patient noted to have superficial ulceration with maggot infestation in erythema concerning for cellulitis patient also have mildly elevated liver enzymes with abnormal ultrasound of the gallbladder concern for possible cholecystitis however no sign ificant tenderness was noticed on abdominal examination. 2local culture currently growing Staph aureus as well as Enterobacter blood cultures can be positive with MSSA source likely lower extremity wound and cellulitis 3discontinue cefazolin will start the patient on cefepime while waiting for the sensitivity on the Enterobacter Dictation was produced using [employer] dictation software. please excuse any grammatical, word or spelling errors. Time with Patient: Less than 30
--- NOTE | 2024-10-15 12:58 | P.PN ---
Subjective Progress Note Date: 10/15/24 Principal diagnosis: Reason for follow-up with bilateral extremity cellulitis wound and cellulitis Patient is a 54-year-old female with a past medical history significan t for hypertension hyperlipidemia osteoarthritis morbid obesity atrial fibrillation has been brought to the hospital concerning for weakness and increasing shortness of breath, patient did have a significant bilateral lower extremity swelling lymphedema with maggots infestation and cellulitis. On today's evaluation that is 10/15/2024, Patient is afebrile this morning patient denies having any chest pain shortness of breath or cough, the patient is currently 4 L nasal oxygen, patient denies any abdominal pain no diarrhea no nausea no vomiting still complaining of pain in the lower extremity wound but no worsening. Patient white count is 11.94, creatinine 0.76 blood culture repeat currently pe nding Objective - Vital Signs Vital signs: Vital Signs Temp 97.4 F L 10/14/24 20:00 Pulse 82 10/15/24 08:45 Resp 16 10/15/24 08:45 BP 108/74 10/15/24 03:25 Pulse Ox 94 L 10/15/24 03:25 FiO2 Intake & Output 10/14/24 10/15/24 10/15/24 18:59 06:59 18:59 Intake Total 20 310 Output Total 250 450 Balance -230 -140 Weight 221 kg 217.3 kg Intake: IV 20 10 Invasive Line 1 20 10 Oral 0 300 Output: Urine 250 450 Other: Voiding Method External Catheter External Catheter External Catheter # Voids 1 - Exam GENERAL DESCRIPTION: Middle-age female lying in bed in no distress RESPIRATORY SYSTEM: Unlabored breathing , decreased breath sounds at bases HEART: S1 S2 regular rate and rhythm , ABDOMEN: Soft , no tenderness EXTREMITIES: Bilateral lower extremity with diffuse swelling desquamative changes and erythema - Labs CBC & Chem 7: 10/15/24 06:18 10/15/24 06:18 Labs: Abnormal Lab Results - Last 24 Hours (Table) 10/15/24 10/15/24 Range/Units 06:18 06:18 WBC 11.94 H (4.50-10.00) 10*3/uL Hgb 11.9 L (12.0-15.0) g/dL MCH 23.9 L (27.0-32.0) pg MCHC 26.6 L (32.0-37.0) g/dL Immature Gran # 0.66 H (0.00-0.04) 10*3/uL Neutrophils # 9.62 H (1.80-7.70) 10*3/uL Basophils # 0.16 H (0.00-0.10) 10*3/uL Carbon Dioxide 32 H (22-30) mmol/L BUN 22 H (7-17) mg/dL Glucose 108 H (74-99) mg/dL Microbiology - Last 24 Hours (Table) 10/11/24 11:59 Blood Culture Gram Stain - Final Blood Blood Culture - Final Staphylococcus aureus Molecular ID 10/12/24 16:33 Gram Stain - Preliminary Ankle - Right Wound Culture - Preliminary Staphylococcus aureus Enterobacter cloacae Complex Proteus mirabilis 10/12/24 16:33 Anaerobic Culture - Preliminary Ankle - Right 10/13/24 09:09 Blood Culture - Preliminary Blood Assessment and Plan (1) Bilateral lower leg cellulitis Current Visit: Yes Status: Acute Code(s): L03.116 - CELLULITIS OF LEFT LOWER LIMB; L03.115 - CELLULITIS OF RIGHT LOWER LIMB SNOMED Code(s): 145629845 (2) Cholecystitis Current Visit: Yes Status: Acute Code(s): K81.9 - CHOLECYSTITIS, UNSPECIFIED SNOMED Code(s): 42252613 (3) Sepsis Current Visit: No Status: Acute Code(s): A41.9 - SEPSIS, UNSPECIFIED ORGANISM SNOMED Code(s): 20439747 (4) Bacteremia Current Visit: Yes Status: Acute Code(s): R78.81 - BACTEREMIA SNOMED Code(s): 2107749 Plan: 1patient presented to hospital with weakness in this patient noted to have low- grade fever she has hypotension, leukocytosis meeting criteria for SIRS/sepsis source could be likely lower extremity cellulitis as the patient noted to have superficial ulceration with maggot infestation in erythema concerning for adam lulitis patient also have mildly elevated liver enzymes with abnormal ultrasound of the gallbladder concern for possible cholecystitis however no significant tenderness was noticed on abdominal examination. 2local culture currently growing Staph aureus as well as Enterobacter blood cultures can be positive with MSSA source likely lower extremity wound and cellulitis 3patient is currently on cefepime 2 with Enterobacter sensitive as well as will provide coverage for MSSA blood culture repeat has been negative this remains to be negative at 72 hours to get a midline as we need to continue with IV antibiotics on discharge Dictation was produced using [employer] dictation software. please excuse any grammatical, word or spelling errors. Time with Patient: Less than 30
--- NOTE | 2024-10-15 15:52 | P.PN ---
Subjective Progress Note Date: 10/15/24 Hospital Course: 54 year old F with PMH AFib, HTN, HLD, chronic pain, Hypothyroid, Depression and Anxiety presents to the ED for shortness of breath and lower extremities edema. History is limited as patient is lethargic. Apparently she was incontinence of urine and stool. Found to be in A-Fib with RVR. In the ED she underwent extensive evaluation. BP 109/72, HR 138, T 99.1F, RR 20, 96% on 2L NC. CBC, Coag panel, CMP significant for WBC 27.59, Hg 11.1, Hct 35.2, MCV 79.3, PT 14.8, INR 1.4, Na 134, Cl 92, bicarb 37, BUN 26, glu 133, T. Bili 1.4, AST 48, alk phos 156, alb 2.9. Trop 0.065. BNP 3970. Latic acid 1.6. UA neg LE or nitrite. CXR concerning for pulmonray vasular congestion. Started on Vancomycin and Zosyn along with IV fluids. ID consulted, wound cultures obtained, Zosyn switched to Cefepime. GB US showed cholelithiasis and questionable GB wall thickening. Of note, patient was noted to have maggots all over her lower extremities. Troponin trending 0.065, 0.047, 0.042. Started on Cardizem drip for A-Fib RVR. Cardiology consulted, recommending re-starting home medications and careful fluid administration given EF 35-40%. 10/15: Seen and examined at bedside, no acute events overnight, Patient is satting well on 4 L oxygen, home oxygen is 2.5, her blood pressure is soft but stable with 180/76, heart rate in 90s. Lab work cytosis 11.9, hemoglobin stable 11.9, normal sodium, potassium, creatinine, bicarb 32. ID switched antibiotics to cefepime 2 g. Wound care following. Patient appears more awake today, she is fully alert and oriented, feels very tired, no other complaints. APS is involved. Plan to discharge to [facility], ID recommends midline for IV antibiotics at discharge. Discussed with case management Pertinent positives and negatives as discussed above, a complete review of systems was performed and all other systems are negative. Vitals Signs Reviewed. General: toxic], [no distress], [chronically ill-appearing, morbidly obese, lethargic Derm: [warm], [dry] Head: [atraumatic], [normocephalic], [symmetric] Eyes: [EOMI], [no lid lag], [anicteric sclera] Mouth: [no lip lesion], [mucus membranes moist] Cardiovascular: [S1S2 reg], [no murmur] Lungs: [Diminished bilateral breath sounds], [no rhonchi, no rales] , [no accessory muscle use] Abdominal: [soft], [ nontender to palpation], [no guarding], [no appreciable organomegaly] Ext: [no gross muscle atrophy neck venous stasis changes bilaterally, lower extremity bilateral, chronic wounds Neuro: [ CN II-XI grossly intact], [no focal neuro deficits] Psych: [Alert], [oriented], [appropriate affect] Assessment and Plan: Sepsis with MSSA bacteremia likely due to lower extremity cellulitis with maggot infestation Acute metabolic encephalopathy likely secondary to above - ID following, patient is cefepime 2 g every 8 hours - Blood and wound cultures are still preliminary growing Enterobacter, Proteus Mirabella's, Staphylococcus aureus, repeat blood cultures from 10/13 negative so far - Monitor CBC and BMP daily AFib with RVR: Cardizem drip and titrate. Metoprolol 100 mg PO BID. Eliquis 5 mg PO BID. Cardiology on board. Troponin elevation: Likely demand. Troponins are flat. Echo pending. Cardiology on board. Hyperbiliruibinemia: Likely due to hepatic steatosis. GB and Liver US as above. CT AP as above. Microcytic anemia: Unknown baseline. No signs of active bleeding. Trend. Tra nsfuse if Hg < 7. HTN: Hold Bumex, Aldactone due to hypotension. HLD: Hold Lipitor due to elevated LFT. Chronic pain: MS Contin 30 mg PO BID. [place] 10 PO Q6H PRN. Hypothyroid: Synthroid 25 mcg PO QD. Depression and Anxiety DVT ppx: Eliquis Code status: Full code Anticipated discharge place: TBD Anticipated discharge time: TBD Objective - Vital Signs Vital signs: Vital Signs Temp 97.2 F L 10/15/24 08:45 Pulse 97 10/15/24 14:00 Resp 18 10/15/24 14:00 BP 108/76 10/15/24 12:00 Pulse Ox 93 L 10/15/24 12:00 FiO2 Intake & Output 10/14/24 10/15/24 10/15/24 18:59 06:59 18:59 Intake Total 20 310 180 Output Total 250 450 Balance -230 -140 180 Weight 221 kg 217.3 kg Intake: IV 20 10 Invasive Line 1 20 10 Oral 0 300 180 Output: Urine 250 450 Other: Voiding Method External Catheter External Catheter External Catheter # Voids 1 - Labs CBC & Chem 7: 10/15/24 06:18 10/15/24 06:18 Labs: Abnormal Lab Results - Last 24 Hours (Table) 10/15/24 10/15/24 Range/Units 06:18 06:18 WBC 11.94 H (4.50-10.00) 10*3/uL Hgb 11.9 L (12.0-15.0) g/dL MCH 23.9 L (27.0-32.0) pg MCHC 26.6 L (32.0-37.0) g/dL Immature Gran # 0.66 H (0.00-0.04) 10*3/uL Neutrophils # 9.62 H (1.80-7.70) 10*3/uL Basophils # 0.16 H (0.00-0.10) 10*3/uL Carbon Dioxide 32 H (22-30) mmol/L BUN 22 H (7-17) mg/dL Glucose 108 H (74-99) mg/dL Microbiology - Last 24 Hours (Table) 10/11/24 11:59 Blood Culture Gram Stain - Final Blood Blood Culture - Final Staphylococcus aureus Molecular ID 10/12/24 16:33 Gram Stain - Preliminary Ankle - Right Wound Culture - Preliminary Staphylococcus aureus Enterobacter cloacae Complex Proteus mirabilis 10/12/24 16:33 Anaerobic Culture - Preliminary Ankle - Right 10/13/24 09:09 Blood Culture - Preliminary Blood
[2024-10-16 09:03] LABS: Basophils # (A) 0.14 10*3/uL (0.00-0.10); Basophils % (A) 1.0 %; Eosinophils # (A) 0.45 10*3/uL (0.04-0.35); Eosinophils % (A) 3.3 %; HCT 43.2 % (37.2-46.3); HGB 12.0 g/dL (12.0-15.0); Lymphocytes # (A) 1.48 10*3/uL (0.90-5.00); Lymphocytes % (A) 10.9 %; MCH 24.7 pg (27.0-32.0); MCHC 27.8 g/dL (32.0-37.0); MCV 88.9 fL (80.0-97.0); Monocytes # (A) 0.88 10*3/uL (0.20-1.00); Monocytes % (A) 6.5 %; Neutrophils # (A) 10.17 10*3/uL (1.80-7.70); Neutrophils % (A) 74.6 %; Platelet Count 218 10*3/uL (140-440); RBC 4.86 10*6/uL (4.10-5.20); RDW 17.5 % (11.5-14.5); WBC 13.62 10*3/uL (4.50-10.00)
[2024-10-16 10:06] LABS: African American GFR (CKD) >90 (>60 ml/min/1.73 sqM); Anion Gap 4 mmol/L; Blood Urea Nitrogen 18 mg/dL (7-17); Calcium 8.8 mg/dL (8.4-10.2); Carbon Dioxide 37 mmol/L (22-30); Chloride 100 mmol/L (98-107); Glucose 90 mg/dL (74-99); Non-African American GFR(CKD) >90 (>60 ml/min/1.73 sqM); Potassium 3.6 mmol/L (3.5-5.1); Sodium 141 mmol/L (137-145)
--- NOTE | 2024-10-16 15:23 | P.PN ---
Subjective Progress Note Date: 10/16/24 Hospital Course: 54 year old F with PMH AFib, HTN, HLD, chronic pain, Hypothyroid, Depression and Anxiety presents to the ED for shortness of breath and lower extremities edema. History is limited as patient is lethargic. Apparently she was incontinence of urine and stool. Found to be in A-Fib with RVR. In the ED she underwent extensive evaluation. BP 109/72, HR 138, T 99.1F, RR 20, 96% on 2L NC. CBC, Coag panel, CMP significant for WBC 27.59, Hg 11.1, Hct 35.2, MCV 79.3, PT 14.8, INR 1.4, Na 134, Cl 92, bicarb 37, BUN 26, glu 133, T. Bili 1.4, AST 48, alk phos 156, alb 2.9. Trop 0.065. BNP 3970. Latic acid 1.6. UA neg LE or nitrite. CXR concerning for pulmonray vasular congestion. Started on Vancomycin and Zosyn along with IV fluids. ID consulted, wound cultures obtained, Zosyn switched to Cefepime. GB US showed cholelithiasis and questionable GB wall thickening. Of note, patient was noted to have maggots all over her lower extremities. Troponin trending 0.065, 0.047, 0.042. Started on Cardizem drip for A-Fib RVR. Cardiology consulted, recommending re-starting home medications and careful fluid administration given EF 35-40%. 10/16: Seen and examined at bedside, no acute events overnight, Patient is satting well on 4 L oxygen, home oxygen is 2.5, her blood pressure is soft but stable with 101/68, heart rate in 90s. WBC up to 13.6, hemoglobin stable at 12.0, normal sodium, potassium, creatinine, bicarb up to 37, glucose 90.. Continued on cefepime per ID recommendations. Wound care following. Patient was more lethargic this morning, was not opening eyes however was able to hold a very short conversation, she feels tired, denies shortness of breath, abdominal pain, chest pain. Ordered ABG and CT head without contrast. APS is involved. Plan to discharge to [facility], ID recommends midline for IV antibiotics at discharge. Discussed with case management, RN Pertinent positives and negatives as discussed above, a complete review of systems was performed and all other systems are negative. Vitals Signs Reviewed. General: toxic], [no distress], [chronically ill-appearing, morbidly obese, lethargic Derm: [warm], [dry] Head: [atraumatic], [normocephalic], [symmetric] Eyes: [EOMI], [no lid lag], [anicteric sclera] Mouth: [no lip lesion], [mucus membranes moist] Cardiovascular: [S1S2 reg], [no murmur] Lungs: [Diminished bilateral breath sounds], [no rhonchi, no rales] , [no accessory muscle use] Abdominal: [soft], [ nontender to palpation], [no guarding], [no appreciable organomegaly] Ext: [no gross muscle atrophy neck venous stasis changes bilaterally, lower extremity bilateral, chronic wounds Neuro: [ CN II-XI grossly intact], [no focal neuro deficits] Psych: [Alert], [lethargic Assessment and Plan: Sepsis with MSSA bacteremia likely due to lower extremity cellulitis with maggot infestation Acute metabolic encephalopathy likely secondary to above - ID following, patient is cefepime 2 g every 8 hours - Blood and wound cultures are still preliminary growing Enterobacter, Proteus Mirabella's, Staphylococcus aureus, repeat blood cultures from 10/13 negative so far - Monitor CBC and BMP daily -ABG and CT head ordered AFib with RVR: Cardizem drip and titrate. Metoprolol 100 mg PO BID. Eliquis 5 mg PO BID. Cardiology on board. Troponin elevation: Likely demand. Troponins are flat. Echo pending. Cardiology on board. Hyperbiliruibinemia: Likely due to hepatic steatosis. GB and Liver US as above. CT AP as above. Microcytic anemia: Unknown baseline. No signs of active bleeding. Trend. Transfuse if Hg < 7. HTN: Hold Bumex, Aldactone due to hypotension. HLD: Hold Lipitor due to elevated LFT. Chronic pain: MS Contin 30 mg PO BID. [place] 10 PO Q6H PRN. Hypothyroid: Synthroid 25 mcg PO QD. Depression and Anxiety DVT ppx: Eliquis Code status: Full code Anticipated discharge place: [facility] Anticipated discharge time: TBD Objective - Vital Signs Vital signs: Vital Signs Temp 96.0 F L 10/16/24 03:53 Pulse 96 10/16/24 03:53 Resp 20 10/16/24 03:53 BP 110/74 10/16/24 03:53 Pulse Ox 97 10/16/24 03:53 FiO2 Intake & Output 10/15/24 10/16/24 10/16/24 18:59 06:59 18:59 Intake Total 180 Output Total 600 1200 750 Balance -420 -1200 -750 Weight 218.4 kg Intake: Oral 180 Output: Urine 600 1200 750 Other: Voiding Method External Catheter External Catheter - Labs CBC & Chem 7: 10/16/24 07:56 10/16/24 07:56 Labs: Abnormal Lab Results - Last 24 Hours (Table) 10/16/24 10/16/24 Range/Units 07:56 07:56 WBC 13.62 H (4.50-10.00) 10*3/uL MCH 24.7 L (27.0-32.0) pg MCHC 27.8 L (32.0-37.0) g/dL Immature Gran # 0.50 H (0.00-0.04) 10*3/uL Neutrophils # 10.17 H (1.80-7.70) 10*3/uL Eosinophils # 0.45 H (0.04-0.35) 10*3/uL Basophils # 0.14 H (0.00-0.10) 10*3/uL Carbon Dioxide 37 H (22-30) mmol/L BUN 18 H (7-17) mg/dL Microbiology - Last 24 Hours (Table) 10/12/24 16:33 Gram Stain - Final Ankle - Right Wound Culture - Final Proteus mirabilis Staphylococcus aureus Enterobacter cloacae Complex 10/13/24 09:09 Blood Culture - Preliminary Blood 10/11/24 11:59 Blood Culture Gram Stain - Final Blood Blood Culture - Final Staphylococcus aureus Molecular ID
--- NOTE | 2024-10-16 15:35 | CT ---
EXAMINATION TYPE: CT brain wo con DATE OF EXAM: 10/16/2024 COMPARISON: 03/17/2016 CLINICAL INDICATION: Female, 54 years old with history of mental status changes; PHH, ams CT DLP: 1125.1 mGycm Automated exposure control for dose reduction was used. Findings: The ventricles, basal cisterns and sulci over the convexities are within normal limits and there is n o mass effect or shift of midline structures. No abnormal density is seen throughout the brain parenchyma and there is no acute intra or extra-axia l hemorrhage. The posterior fossa including the brainstem, fourth ventricle and cerebellar pontine angles appear no rmal. Intraorbital contents appear normal and symmetric. Visualized paranasal sinuses and mastoid air cells are well aerated. The calvarium is intact. IMPRESSION: No significant abnormality seen. There is no acute bleed or mass effect. [facility], Workstation: [id number] 10/16/2024 3:33 PM
[2024-10-16] MEDS ORDERED: PETROLATUM, WHITE OINT 50 GM TUBE TOPICAL PRN (17:18)
[2024-10-16 18:03] LABS: Allen Test Performed? Yes
[2024-10-16 18:05] LABS: ABG HCO3 33 mmol/L (21-25); ABG PCO2 50 mmHg (35-45); ABG PH 7.43 (7.35-7.45); ABG PO2 135 mmHg (83-108); ABG TCO2 35 mmol/L (19-24)
[2024-10-17 06:55] LABS: Basophils # (A) 0.14 10*3/uL (0.00-0.10); Basophils % (A) 1.0 %; Eosinophils # (A) 0.62 10*3/uL (0.04-0.35); Eosinophils % (A) 4.6 %; HCT 39.2 % (37.2-46.3); HGB 11.2 g/dL (12.0-15.0); Lymphocytes # (A) 1.69 10*3/uL (0.90-5.00); Lymphocytes % (A) 12.6 %; MCH 24.7 pg (27.0-32.0); MCHC 28.6 g/dL (32.0-37.0); MCV 86.3 fL (80.0-97.0); Monocytes # (A) 1.04 10*3/uL (0.20-1.00); Monocytes % (A) 7.8 %; Neutrophils # (A) 9.42 10*3/uL (1.80-7.70); Neutrophils % (A) 70.3 %; Platelet Count 208 10*3/uL (140-440); RBC 4.54 10*6/uL (4.10-5.20); RDW 17.7 % (11.5-14.5); WBC 13.40 10*3/uL (4.50-10.00)
[2024-10-17 07:13] LABS: African American GFR (CKD) >90 (>60 ml/min/1.73 sqM); Anion Gap 2 mmol/L; Blood Urea Nitrogen 15 mg/dL (7-17); Calcium 8.5 mg/dL (8.4-10.2); Carbon Dioxide 36 mmol/L (22-30); Chloride 104 mmol/L (98-107); Glucose 110 mg/dL (74-99); Non-African American GFR(CKD) >90 (>60 ml/min/1.73 sqM); Potassium 3.4 mmol/L (3.5-5.1); Sodium 142 mmol/L (137-145)
--- NOTE | 2024-10-17 21:22 | P.PN ---
Progress Note - Text Progress Note Date: 10/17/24 Hospital Course: 54 year old F with PMH AFib, HTN, HLD, chronic pain, Hypothyroid, Depression and Anxiety presents to the ED for shortness of breath and lower extremities edema. History is limited as patient is lethargic. Apparently she was incontinence of urine and stool. Found to be in A-Fib with RVR. In the ED she underwent extensive evaluation. BP 109/72, HR 138, T 99.1F, RR 20, 96% on 2L NC. CBC, Coag panel, CMP significant for WBC 27.59, Hg 11.1, Hct 35.2, MCV 79.3, PT 14.8, INR 1.4, Na 134, Cl 92, bicarb 37, BUN 26, glu 133, T. Bili 1.4, AST 48, alk phos 156, alb 2.9. Trop 0.065. BNP 3970. Latic acid 1.6. UA neg LE or nitrite. CXR concerning for pulmonray vasular congestion. Started on Vancomycin and Zosyn along with IV fluids. ID consulted, wound cultures obtained, Zosyn switched to Cefepime. GB US showed cholelithiasis and questionable GB wall thickening. Of note, patient was noted to have maggots all over her lower extremities. Troponin trending 0.065, 0.047, 0.042. Started on Cardizem drip for A-Fib RVR. Cardiology consulted, recommending re-starting home medications and careful fluid administration given EF 35-40%. 10/16: Seen and examined at bedside, no acute events overnight, Patient is satting well on 4 L oxygen, home oxygen is 2.5, her blood pressure is soft but stable with 101/68, heart rate in 90s. WBC up to 13.6, hemoglobin stable at 12.0, normal sodium, potassium, creatinine, bicarb up to 37, glucose 90.. Continued on cefepime per ID recommendations. Wound care following. Patient was more lethargic this morning, was not opening eyes however was able to hold a very short conversation, she feels tired, denies shortness of breath, abdominal pain, chest pain. Ordered ABG and CT head without contrast. APS is involved. Plan to discharge to [facility], ID recommends midline for IV antibiotics at discharge. Discussed with case management, RN October 17: Spoke to nurse. Has been rather lethargic. She does wake up to answer questions but then dozes right off. Sometimes midway. Eating fair. Had a bowel movement. Patient came home from rehab recently. Patient's house has been found to be in a total mess. I spoke to the nurse to get hold of patient's pain clinic doctor Cynthia and find out exactly what pain medications the patient is on. Patient is states she is off of pain pump. Patient is felt of lower extremity cellulitis secondary to maggots infestation. On IV cefepime per ID. Blood culture on October 11 positive for MSSA. Wound cultures growing multiple organisms as expected. Active Medications Acetaminophen (Acetaminophen Tab 325 Mg Tab) 650 mg PO Q6HR PRN PRN Reason: Mild Pain or Fever > 100.5 Last Admin: 10/12/24 22:50 Dose: 650 mg Hydrocodone Bitart/Acetaminophen (Hydrocodone/Apap 10-325mg 1 Each Tab) 1 each PO Q6HR PRN PRN Reason: Pain Acetazolamide (Acetazolamide 250 Mg Tab) 250 mg PO BID [facility] Last Admin: 10/17/24 09:21 Dose: 250 mg Albuterol/Ipratropium (Ipratropium-Albuterol 3 Ml Neb) 3 ml INHALATION RT-QID PRN PRN Reason: Shortness Of Breath Apixaban (Apixaban 5 Mg Tab) 5 mg PO BID [facility]; Protocol Last Admin: 10/17/24 09:21 Dose: 5 mg Artificial Tears (Artificial Tears-Hypromellose Drops 15 Ml Btl) 2 drops BOTH EYES QID PRN PRN Reason: Dry Eye(s) Last Admin: 10/13/24 05:51 Dose: 2 drops Buspirone HCl (Buspirone Hcl 10 Mg Tab) 30 mg PO BID [facility] Last Admin: 10/17/24 09:21 Dose: 30 mg Ferrous Sulfate (Ferrous Sulfate 325 Mg Tab) 325 mg PO HS [facility] Last Admin: 10/16/24 20:36 Dose: 325 mg Sodium Chloride (Saline 0.9%) 1,000 mls @ 20 mls/hr IV .Q24H [facility] Last Admin: 10/17/24 09:23 Dose: 20 mls/hr Cefepime HCl 2 gm/ Sodium (Chloride) 100 mls @ 25 mls/hr IVPB Q8H [facility]; Protocol Last Admin: 10/17/24 17:44 Dose: 25 mls/hr Diltiazem HCl 125 mg/ Dextrose (/Water) 125 mls @ 5 mls/hr IV .Q24H [facility]; Protocol Last Admin: 10/16/24 20:40 Dose: Not Given Levothyroxine Sodium (Levothyroxine 25 Mcg Tab) 25 mcg PO DAILY@0630 [facility] Last Admin: 10/17/24 06:17 Dose: 25 mcg Metoprolol Tartrate (Metoprolol Tartrate 50 Mg Tab) 100 mg PO BID [facility] Last Admin: 10/17/24 09:20 Dose: 100 mg Morphine Sulfate (Morphine Sulfate Er 30 Mg Tablet) 30 mg PO Q12HR [facility]; Protocol Last Admin: 10/17/24 09:20 Dose: 30 mg Naloxone HCl (Naloxone 0.4 Mg/Ml 1 Ml Vial) 0.2 mg IV Q2M PRN PRN Reason: Opioid Reversal Nystatin (Nystatin 100,000 Unit/Gm Powd 15 Gm) 1 applic TOPICAL TID [facility]; Protocol Last Admin: 10/17/24 17:44 Dose: 1 applic Pantoprazole Sodium (Pantoprazole 40 Mg Tablet) 40 mg PO AC-BRKFST [facility] Last Admin: 10/17/24 06:17 Dose: 40 mg Petrolatum (Petrolatum, White Oint 454 Gm Jar) 1 applic TOPICAL QID PRN; Protocol PRN Reason: Wound Healing Last Admin: 10/13/24 16:27 Dose: 1 applic Petrolatum (Petrolatum, White Oint 50 Gm Tube) 1 applic TOPICAL BID PRN; Protocol PRN Reason: Skin Irritation Zonisamide (Zonisamide 100 Mg Cap) 100 mg PO HS [facility] Last Admin: 10/16/24 20:37 Dose: 100 mg Physical examination: VITAL SIGNS: 97.9, 102, 18, 113 x 71, 98% 2 L GENERAL: Sleepy lethargic. Arousable EYES: Pupils equal. Conjunctiva lucho l. HEENT: External appearance of nose and ears normal, oral cavity grossly normal. NECK: JVD unable to assess; masses not palpable. HEART: Heart sounds distant, some edema. LUNGS: Respiratory rate normal, distant breath sounds. ABDOMEN: Soft, nontender, liver spleen not palpable, no masses palpable. PSYCH: Lethargic does wake up to answer questions and dozes off LYMPHATICS: Bilateral lower extremity severe lymphedema, with pigmentation discoloration and coarsening of the skin below the knee to the foot. Breakdown of skin with cellulitic evidence INVESTIGATIONS, reviewed in the clinical context: October 17: White count 13.4 hemoglobin 11.2 platelets 208 potassium 3[address] brain without contrast [October 17] unremark[address] CT abdomen pelvis: Gallstones present. No thickening. No evidence of adjacent inflammation. Mild cardiomegaly. Hepatic steatosis Limited 2D echo: EF 30 to 35%. Moderate right ventricle dilatation. Severe pulmonary hypertension Assessment and Plan: -Sepsis with MSSA bacteremia likely due to lower extremity cellulitis with maggot infestation IV cefepime -Acute metabolic encephalopathy likely secondary to above and her pain medications. - Lower extremity wounds from maggot infestation. Cultures positive for polymicrobial Being followed by ID - Maggot infestation lower extremity. ID following. - Heart failure reduced ejection fraction, EF 30-35% Resume Bumex at 1 mg a day Fluid restriction 2000 cc a day - Chronic hypoxic respiratory failure 2.5 L at home underlying COPD obesity hypoventilation syndrome - Chronic obesity hypoventilation syndrome/pickwickian syndrome -AFib with RVR initially. Now on low 100s: Cardizem drip, now discontinued.. Metoprolol 100 mg PO BID. Eliquis 5 mg PO BID. Cardiology following - Severe secondary pulmonary hypertension secondary to obesity hypoventilation syndrome -Hepatic steatosis. . -Microcytic anemia: Unknown baseline. No signs of active bleeding. Trend. Transfuse if Hg < 7. -Essential HTN: Lopressor 100 mg twice daily . -HLD: Lipitor 40 mg nightly -Chronic lower back pain with spinal cord stimulator. Did have a morphine pain pump from Dr. Marie in the past. His office is being contacted : MS Contin 30 mg PO BID. [place] 10 PO Q6H PRN. Will cut back MS Contin to 50 mg Q8 as patient is rather lethargic as also reported by the nurse and during my interview. -Hypothyroid: Synthroid 25 mcg PO QD. -Depression and Anxiety BuSpar. zonegram - Morbid obesity BMI of 81.3 Code status: Full code Since patient was a lethargic with her MS Contin. Will cut back the dose 15 mg every 8. Add Bumex 1 mg a day. Follow-up with ID
[2024-10-17] MEDS: metroNIDAZOLE 500 MG TAB PO SCH (23:08)
[2024-10-17] MEDS: ATORVASTATIN 40 MG TAB PO SCH (23:09)
[2024-10-17] MEDS: MORPHINE SULFATE ER 15 MG TABLET PO SCH (23:13)
--- NOTE | 2024-10-18 07:17 | P.PN ---
Subjective Progress Note Date: 10/16/24 Principal diagnosis: Reason for follow-up with bilateral extremity cellulitis wound and cellulitis Patient is a 54-year-old female with a past medical history significan t for hypertension hyperlipidemia osteoarthritis morbid obesity atrial fibrillation has been brought to the hospital concerning for weakness and increasing shortness of breath, patient did have a significant bilateral lower extremity swelling lymphedema with maggots infestation and cellulitis. On today's evaluation that is 10/16/2024,the patient denies any fever or any chills, patient is breathing comfortably on 2 L current oxygen, the patient sleepy but arousable denies chest pain shortness of breath and no significant cough, patient denies abdominal pain, no nausea vomiting or diarrhea. Patient white count of 13.62 creatinine 0.65 cultures with Proteus MSSA Enterobacter Objective - Vital Signs Vital signs: Vital Signs Temp 96.0 F L 10/16/24 03:53 Pulse 96 10/16/24 03:53 Resp 20 10/16/24 03:53 BP 110/74 10/16/24 03:53 Pulse Ox 97 10/16/24 03:53 FiO2 Intake & Output 10/15/24 10/16/24 10/16/24 18:59 06:59 18:59 Intake Total 180 Output Total 600 1200 Balance -420 -1200 Weight 218.4 kg Intake: Oral 180 Output: Urine 600 1200 Other: Voiding Method External Catheter External Catheter - Exam GENERAL DESCRIPTION: Middle-age female lying in bed in no distress RESPIRATORY SYSTEM: Unlabored breathing , decreased breath sounds at bases HEART: S1 S2 regular rate and rhythm , ABDOMEN: Soft , no tenderness EXTREMITIES: Bilateral lower extremity with diffuse swelling desquamative changes and erythema - Labs CBC & Chem 7: 10/17/24 06:08 10/17/24 06:08 Labs: Abnormal Lab Results - Last 24 Hours (Table) 10/16/24 10/16/24 Range/Units 07:56 07:56 WBC 13.62 H (4.50-10.00) 10*3/uL MCH 24.7 L (27.0-32.0) pg MCHC 27.8 L (32.0-37.0) g/dL Immature Gran # 0.50 H (0.00-0.04) 10*3/uL Neutrophils # 10.17 H (1.80-7.70) 10*3/uL Eosinophils # 0.45 H (0.04-0.35) 10*3/uL Basophils # 0.14 H (0.00-0.10) 10*3/uL Carbon Dioxide 37 H (22-30) mmol/L BUN 18 H (7-17) mg/dL Microbiology - Last 24 Hours (Table) 10/12/24 16:33 Gram Stain - Final Ankle - Right Wound Culture - Final Proteus mirabilis Staphylococcus aureus Enterobacter cloacae Complex 10/13/24 09:09 Blood Culture - Preliminary Blood 10/11/24 11:59 Blood Culture Gram Stain - Final Blood Blood Culture - Final Staphylococcus aureus Molecular ID Assessment and Plan (1) Bilateral lower leg cellulitis Current Visit: Yes Status: Acute Code(s): L03.116 - CELLULITIS OF LEFT LOWER LIMB; L03.115 - CELLULITIS OF RIGHT LOWER LIMB SNOMED Code(s): 274640658 (2) Cholecystitis Current Visit: Yes Status: Acute Code(s): K81.9 - CHOLECYSTITIS, UNSPECIFIED SNOMED Code(s): 38274724 (3) Sepsis Current Visit: No Status: Acute Code(s): A41.9 - SEPSIS, UNSPECIFIED ORGANISM SNOMED Code(s): 69002965 (4) Bacteremia Current Visit: Yes Status: Acute Code(s): R78.81 - BACTEREMIA SNOMED Code(s): 3847007 Plan: 1patient presented to hospital with weakness in this patient noted to have low- grade fever she has hypotension, leukocytosis meeting criteria for SIRS/sepsis source could be likely lower extremity cellulitis as the patient noted to have superficial ulceration with maggot infestation in erythema concerning for cellul itis patient also have mildly elevated liver enzymes with abnormal ultrasound of the gallbladder concern for possible cholecystitis however no significant tenderness was noticed on abdominal examination. 2local culture currently growing Staph aureus as well as Enterobacter blood cultures can be positive with MSSA source likely lower extremity wound and cellulitis 3patient is currently on cefepime that should cover for both Enterobacter as well as MSSA will need IV antibiotic therapy on discharge Dictation was produced using [employer] dictation software. please excuse any grammatical, word or spelling errors. Time with Patient: Less than 30
--- NOTE | 2024-10-18 07:19 | P.PN ---
Subjective Progress Note Date: 10/17/24 Principal diagnosis: Reason for follow-up with bilateral extremity cellulitis wound and cellulitis Patient is a 54-year-old female with a past medical history significan t for hypertension hyperlipidemia osteoarthritis morbid obesity atrial fibrillation has been brought to the hospital concerning for weakness and increasing shortness of breath, patient did have a significant bilateral lower extremity swelling lymphedema with maggots infestation and cellulitis. On today's evaluation that is 10/17/2024,the patient remains to be afebrile, jose rendon is on 2 L nasal cannula supplemental oxygen and denies any shortness of breath no chest pain or cough.Patient denies having any nausea or vomiting, no abdominal pain and no diarrhea has been reported. Patient white count is 13.40 creatinine 0.58 cultures also growing Finegoldia magna Objective - Vital Signs Vital signs: Vital Signs Temp 97.9 F 10/17/24 08:50 Pulse 102 H 10/17/24 08:50 Resp 18 10/17/24 08:50 BP 113/71 10/17/24 08:50 Pulse Ox 98 10/17/24 08:50 FiO2 Intake & Output 10/16/24 10/17/24 10/17/24 18:59 06:59 18:59 Intake Total 600 60 0 Output Total 750 1550 Balance -150 -1490 0 Weight 214.8 kg Intake: IV 60 0.9 60 Oral 600 0 Output: Urine 750 1550 Other: Voiding Method External Catheter External Catheter # Bowel Movements 2 1 - Exam GENERAL DESCRIPTION: Middle-age female lying in bed in no distress RESPIRATORY SYSTEM: Unlabored breathing , decreased breath sounds at bases HEART: S1 S2 regular rate and rhythm , ABDOMEN: Soft , no tenderness EXTREMITIES: Bilateral lower extremity with diffuse swelling desquamative changes and erythema - Labs CBC & Chem 7: 10/17/24 06:08 10/17/24 06:08 Labs: Abnormal Lab Results - Last 24 Hours (Table) 10/16/24 10/17/24 10/17/24 Range/Units 17:58 06:08 06:08 WBC 13.40 H (4.50-10.00) 10*3/uL Hgb 11.2 L (12.0-15.0) g/dL MCH 24.7 L (27.0-32.0) pg MCHC 28.6 L (32.0-37.0) g/dL Immature Gran # 0.49 H (0.00-0.04) 10*3/uL Neutrophils # 9.42 H (1.80-7.70) 10*3/uL Monocytes # 1.04 H (0.20-1.00) 10*3/uL Eosinophils # 0.62 H (0.04-0.35) 10*3/uL Basophils # 0.14 H (0.00-0.10) 10*3/uL ABG pCO2 50 H (35-45) mmHg ABG pO2 135 H (83-108) mmHg ABG HCO3 33 H (21-25) mmol/L ABG Total CO2 35 H (19-24) mmol/L ABG O2 Saturation 99.7 H (94-97) % Potassium 3.4 L (3.5-5.1) mmol/L Carbon Dioxide 36 H (22-30) mmol/L Glucose 110 H (74-99) mg/dL Microbiology - Last 24 Hours (Table) 10/12/24 16:33 Anaerobic Culture - Final Ankle - Right Finegoldia magna 10/13/24 09:09 Blood Culture - Preliminary Blood Assessment and Plan (1) Bilateral lower leg cellulitis Current Visit: Yes Status: Acute Code(s): L03.116 - CELLULITIS OF LEFT LOWER LIMB; L03.115 - CELLULITIS OF RIGHT LOWER LIMB SNOMED Code(s): 435634936 (2) Cholecystitis Current Visit: Yes Status: Acute Code(s): K81.9 - CHOLECYSTITIS, UNSPECIFIED SNOMED Code(s): 82936834 (3) Sepsis Current Visit: No Status: Acute Code(s): A41.9 - SEPSIS, UNSPECIFIED ORGANISM SNOMED Code(s): 78886264 (4) Bacteremia Current Visit: Yes Status: Acute Code(s): R78.81 - BACTEREMIA SNOMED Code(s): 3287398 Plan: 1patient presented to hospital with weakness in this patient noted to have low- grade fever she has hypotension, leukocytosis meeting criteria for SIRS/sepsis source could be likely lower extremity cellulitis as the patient noted to have superficial ulceration with maggot infestation in erythema concerning for cellulitis 2-patient did have MSSA bacteremia repeat blood culture 10/13/2024 has been negative so far 2local culture currently growing Staph aureus as well as Enterobacter local wound culture also growing Finegoldia magna 3patient is currently on cefepime we will add Flagyl to cover for the anaerobe and watch her white count closely Dictation was produced using [employer] dictation software. please excuse any grammatical, word or spelling errors. Time with Patient: Less than 30
[2024-10-18] MEDS: BUMETANIDE 1 MG TAB PO SCH (09:15)
--- NOTE | 2024-10-18 14:51 | P.PN ---
Subjective Progress Note Date: 10/18/24 Principal diagnosis: Reason for follow-up with bilateral extremity cellulitis wound and cellulitis Patient is a 54-year-old female with a past medical history significan t for hypertension hyperlipidemia osteoarthritis morbid obesity atrial fibrillation has been brought to the hospital concerning for weakness and increasing shortness of breath, patient did have a significant bilateral lower extremity swelling lymphedema with maggots infestation and cellulitis. On today's evaluation that is 10/18/2024, the patient continues to be afebrile, the patient is on 2 L nasal cannula oxygen and breathing comfortably, the Pt denies having any chest pain or cough, the patient denies having any abdominal pain no vomiting or any diarrhea.No new symptoms. No new lab has been obtained today blood culture repeat has been negative Objective - Vital Signs Vital signs: Vital Signs Temp 98.0 F 10/18/24 08:58 Pulse 84 10/18/24 12:45 Resp 18 10/18/24 12:45 BP 112/68 10/18/24 12:45 Pulse Ox 97 10/18/24 12:45 FiO2 Intake & Output 10/17/24 10/18/24 10/18/24 18:59 06:59 18:59 Intake Total 0 Output Total 9604 654 2094 Balance -1150 -700 -1550 Weight 220.6 kg Intake: Oral 0 Output: Urine 8520 290 6824 Other: Voiding Method External Catheter External Catheter External Catheter # Bowel Movements 1 - Exam GENERAL DESCRIPTION: Middle-age female lying in bed in no distress RESPIRATORY SYSTEM: Unlabored breathing , decreased breath sounds at bases HEART: S1 S2 regular rate and rhythm , ABDOMEN: Soft , no tenderness EXTREMITIES: Bilateral lower extremity with diffuse swelling desquamative changes and erythema - Labs CBC & Chem 7: 10/17/24 06:08 10/17/24 06:08 Assessment and Plan (1) Bilateral lower leg cellulitis Current Visit: Yes Status: Acute Code(s): L03.116 - CELLULITIS OF LEFT LOWER LIMB; L03.115 - CELLULITIS OF RIGHT LOWER LIMB SNOMED Code(s): 544911281 (2) Cholecystitis Current Visit: Yes Status: Acute Code(s): K81.9 - CHOLECYSTITIS, UNSPECIFIED SNOMED Code(s): 99780475 (3) Sepsis Current Visit: No Status: Acute Code(s): A41.9 - SEPSIS, UNSPECIFIED ORGANISM SNOMED Code(s): 74869336 (4) Bacteremia Current Visit: Yes Status: Acute Code(s): R78.81 - BACTEREMIA SNOMED Code(s): 2487834 Plan: 1patient presented to hospital with weakness in this patient noted to have low- grade fever she has hypotension, leukocytosis meeting criteria for SIRS/sepsis source could be likely lower extremity cellulitis as the patient noted to have superficial ulceration with maggot infestation in erythema concerning for cellulitis 2-patient did have MSSA bacteremia repeat blood culture 10/13/2024 has been negative so far 2local culture currently growing Staph aureus as well as Enterobacter local wound culture also growing Finegoldia magna 3patient is currently on cefepime and Flagyl will repeat a CBC with a.m. lab to make sure the white count has normalized Dictation was produced using [employer] dictation software. please excuse any grammatical, word or spelling errors. Time with Patient: Less than 30
--- NOTE | 2024-10-18 17:44 | P.PN ---
Progress Note - Text Progress Note Date: 10/18/24 Hospital Course: 54 year old F with PMH AFib, HTN, HLD, chronic pain, Hypothyroid, Depression and Anxiety presents to the ED for shortness of breath and lower extremities edema. History is limited as patient is lethargic. Apparently she was incontinence of urine and stool. Found to be in A-Fib with RVR. In the ED she underwent extensive evaluation. BP 109/72, HR 138, T 99.1F, RR 20, 96% on 2L NC. CBC, Coag panel, CMP significant for WBC 27.59, Hg 11.1, Hct 35.2, MCV 79.3, PT 14.8, INR 1.4, Na 134, Cl 92, bicarb 37, BUN 26, glu 133, T. Bili 1.4, AST 48, alk phos 156, alb 2.9. Trop 0.065. BNP 3970. Latic acid 1.6. UA neg LE or nitrite. CXR concerning for pulmonray vasular congestion. Started on Vancomycin and Zosyn along with IV fluids. ID consulted, wound cultures obtained, Zosyn switched to Cefepime. GB US showed cholelithiasis and questionable GB wall thickening. Of note, patient was noted to have maggots all over her lower extremities. Troponin trending 0.065, 0.047, 0.042. Started on Cardizem drip for A-Fib RVR. Cardiology consulted, recommending re-starting home medications and careful fluid administration given EF 35-40%. 10/16: Seen and examined at bedside, no acute events overnight, Patient is satting well on 4 L oxygen, home oxygen is 2.5, her blood pressure is soft but stable with 101/68, heart rate in 90s. WBC up to 13.6, hemoglobin stable at 12.0, normal sodium, potassium, creatinine, bicarb up to 37, glucose 90.. Continued on cefepime per ID recommendations. Wound care following. Patient was more lethargic this morning, was not opening eyes however was able to hold a very short conversation, she feels tired, denies shortness of breath, abdominal pain, chest pain. Ordered ABG and CT head without contrast. APS is involved. Plan to discharge to [facility], ID recommends midline for IV antibiotics at discharge. Discussed with case management, RN October 17: Spoke to nurse. Has been rather lethargic. She does wake up to answer questions but then dozes right off. Sometimes midway. Eating fair. Had a bowel movement. Patient came home from rehab recently. Patient's house has been found to be in a total mess. I spoke to the nurse to get hold of patient's pain clinic doctor Cynthia and find out exactly what pain medications the patient is on. Patient is states she is off of pain pump. Patient is felt of lower extremity cellulitis secondary to maggots infestation. On IV cefepime per ID. Blood culture on October 11 positive for MSSA. Wound cultures growing multiple organisms as expected. October 18: Patient's MS Contin was decreased by 25% from 30 mg twice daily to 50 mg every 8. Patient is more awake today. Tolerating diet. Remains on IV cefepime. And Flagyl. ID following Active Medications Acetaminophen (Acetaminophen Tab 325 Mg Tab) 650 mg PO Q6HR PRN PRN Reason: Mild Pain or Fever > 100.5 Last Admin: 10/12/24 22:50 Dose: 650 mg Hydrocodone Bitart/Acetaminophen (Hydrocodone/Apap 10-325mg 1 Each Tab) 1 each PO Q6HR PRN PRN Reason: Pain Acetazolamide (Acetazolamide 250 Mg Tab) 250 mg PO BID REPLACED BY [facility] Last Admin: 10/18/24 09:16 Dose: 250 mg Albuterol/Ipratropium (Ipratropium-Albuterol 3 Ml Neb) 3 ml INHALATION RT-QID PRN PRN Reason: Shortness Of Breath Apixaban (Apixaban 5 Mg Tab) 5 mg PO BID REPLACED BY [facility]; Protocol Last Admin: 10/18/24 09:15 Dose: 5 mg Artificial Tears (Artificial Tears-Hypromellose Drops 15 Ml Btl) 2 drops BOTH EYES QID PRN PRN Reason: Dry Eye(s) Last Admin: 10/13/24 05:51 Dose: 2 drops Atorvastatin Calcium (Atorvastatin 40 Mg Tab) 40 mg PO HS REPLACED BY [facility] Last Admin: 10/17/24 23:09 Dose: 40 mg Bumetanide (Bumetanide 1 Mg Tab) 1 mg PO DAILY REPLACED BY [facility] Last Admin: 10/18/24 09:15 Dose: 1 mg Buspirone HCl (Buspirone Hcl 10 Mg Tab) 30 mg PO BID REPLACED BY [facility] Last Admin: 10/18/24 09:16 Dose: 30 mg Ferrous Sulfate (Ferrous Sulfate 325 Mg Tab) 325 mg PO HS REPLACED BY [facility] Last Admin: 10/17/24 21:13 Dose: 325 mg Sodium Chloride (Saline 0.9%) 1,000 mls @ 20 mls/hr IV .Q24H REPLACED BY [facility] Last Admin: 10/18/24 12:30 Dose: Not Given Cefepime HCl 2 gm/ Sodium (Chloride) 100 mls @ 25 mls/hr IVPB Q8H REPLACED BY [facility]; Protocol Last Admin: 10/18/24 16:42 Dose: 25 mls/hr Diltiazem HCl 125 mg/ Dextrose (/Water) 125 mls @ 5 mls/hr IV .Q24H REPLACED BY [facility]; Protocol Last Admin: 10/17/24 21:17 Dose: Not Given Levothyroxine Sodium (Levothyroxine 25 Mcg Tab) 25 mcg PO DAILY@0630 REPLACED BY [facility] Last Admin: 10/18/24 05:15 Dose: 25 mcg Metoprolol Tartrate (Metoprolol Tartrate 50 Mg Tab) 100 mg PO BID REPLACED BY [facility] Last Admin: 10/18/24 09:16 Dose: 100 mg Metronidazole (Metronidazole 500 Mg Tab) 500 mg PO TID REPLACED BY [facility]; Protocol Last Admin: 10/18/24 16:42 Dose: 500 mg Morphine Sulfate (Morphine Sulfate Er 15 Mg Tablet) 15 mg PO Q8HR REPLACED BY [facility]; Protocol Last Admin: 10/18/24 16:42 Dose: 15 mg Naloxone HCl (Naloxone 0.4 Mg/Ml 1 Ml Vial) 0.2 mg IV Q2M PRN PRN Reason: Opioid Reversal Nystatin (Nystatin 100,000 Unit/Gm Powd 15 Gm) 1 applic TOPICAL TID REPLACED BY [facility]; Protocol Last Admin: 10/18/24 16:42 Dose: 1 applic Pantoprazole Sodium (Pantoprazole 40 Mg Tablet) 40 mg PO AC-BRKFST REPLACED BY [facility] Last Admin: 10/18/24 05:14 Dose: 40 mg Petrolatum (Petrolatum, White Oint 454 Gm Jar) 1 applic TOPICAL QID PRN; Protocol PRN Reason: Wound Healing Last Admin: 10/18/24 00:15 Dose: 1 applic Petrolatum (Petrolatum, White Oint 50 Gm Tube) 1 applic TOPICAL BID PRN; Protocol PRN Reason: Skin Irritation Zonisamide (Zonisamide 100 Mg Cap) 100 mg PO HS REPLACED BY [facility] Last Admin: 10/17/24 21:13 Dose: 100 mg Physical examination: VITAL SIGNS: 97.8, 89, 17, 114 x 54, 96% 2 L GENERAL: Awake, answering questions EYES: Pupils equal. Conjunctiva lucho l. HEENT: External appearance of nose and ears normal, oral cavity grossly normal. NECK: JVD unable to assess; masses not palpable. HEART: Heart sounds distant, some edema. LUNGS: Respiratory rate normal, distant breath sounds. ABDOMEN: Soft, nontender, liver spleen not palpable, no masses palpable. PSYCH: More awake today. Answering questions appropriately LYMPHATICS: Bilateral lower extremity severe lymphedema, with pigmentation discoloration and coarsening of the skin below the knee to the foot. Breakdown of skin with cellulitic evidence INVESTIGATIONS, reviewed in the clinical context: October 17: White count 13.4 hemoglobin 11.2 platelets 208 potassium 3.[address] brain without contrast [October 17] unremarkable CT abdomen pelvis: Gallstones present. No thickening. No evidence of adjacent inflammation. Mild cardiomegaly. Hepatic steatosis Limited 2D echo: EF 30 to 35%. Moderate right ventricle dilatation. Severe pulmonary hypertension Assessment and Plan: -Sepsis with MSSA bacteremia likely due to lower extremity cellulitis with maggot infestation Initially positive on October 11. Repeat October 13 negative IV cefepime -Acute metabolic encephalopathy likely secondary to above and her pain medications. Much improved after MS Contin cut back to 50 mg every 8 - Lower extremity wounds from maggot infestation. Cultures positive- polymicrobial Being followed by ID - Maggot infestation lower extremity. ID following. - Heart failure reduced ejection fraction, EF 30-35% Bumex at 1 mg a day Fluid restriction 2000 cc a day - Chronic hypoxic respiratory failure 2.5 L at home underlying COPD obesity hypoventilation syndrome - Chronic obesity hypoventilation syndrome/pickwickian syndrome -AFib with RVR initially. Now on low 100s: Cardizem drip,-discontinued.. Metoprolol 100 mg PO BID. Eliquis 5 mg PO BID. Cardiology following - Severe secondary pulmonary hypertension secondary to obesity hypoventilation syndrome -Hepatic steatosis. . -Microcytic anemia: Unknown baseline. No signs of active bleeding. Trend. Transfuse if Hg < 7. -Essential HTN: Lopressor 100 mg twice daily . -HLD: Lipitor 40 mg nightly -Chronic lower back pain with spinal cord stimulator. Did have a morphine pain pump from Dr. Marie in the past. His office is being contacted : MS Contin 30 mg PO BID. [place] 10 PO Q6H PRN. cut back MS Contin to 15 mg Q8-patient more awake. Pain controlled -Hypothyroid: Synthroid 25 mcg PO QD. -Depression and Anxiety BuSpar. zonegram - Morbid obesity BMI of 81.3 Code status: Full code Continue antibiotics per ID. Other medications to continue
[2024-10-19 07:21] LABS: Basophils # (A) 0.06 10*3/uL (0.00-0.10); Basophils % (A) 0.7 %; Eosinophils # (A) 0.56 10*3/uL (0.04-0.35); Eosinophils % (A) 6.9 %; HCT 41.2 % (37.2-46.3); HGB 11.6 g/dL (12.0-15.0); Lymphocytes # (A) 1.35 10*3/uL (0.90-5.00); Lymphocytes % (A) 16.6 %; MCH 24.3 pg (27.0-32.0); MCHC 28.2 g/dL (32.0-37.0); MCV 86.2 fL (80.0-97.0); Monocytes # (A) 0.71 10*3/uL (0.20-1.00); Monocytes % (A) 8.7 %; Neutrophils # (A) 5.08 10*3/uL (1.80-7.70); Neutrophils % (A) 62.5 %; Platelet Count 205 10*3/uL (140-440); RBC 4.78 10*6/uL (4.10-5.20); RDW 18.0 % (11.5-14.5); WBC 8.13 10*3/uL (4.50-10.00)
[2024-10-19 07:45] LABS: African American GFR (CKD) >90 (>60 ml/min/1.73 sqM); Anion Gap 1 mmol/L; Blood Urea Nitrogen 14 mg/dL (7-17); Carbon Dioxide 39 mmol/L (22-30); Chloride 102 mmol/L (98-107); Glucose 98 mg/dL (74-99); Potassium 3.9 mmol/L (3.5-5.1); Sodium 142 mmol/L (137-145)
[2024-10-19 07:46] LABS: Calcium 8.4 mg/dL (8.4-10.2); Non-African American GFR(CKD) >90 (>60 ml/min/1.73 sqM)
--- NOTE | 2024-10-19 14:36 | P.PN ---
Progress Note - Text Progress Note Date: 10/19/24 Hospital Course: 54 year old F with PMH AFib, HTN, HLD, chronic pain, Hypothyroid, Depression and Anxiety presents to the ED for shortness of breath and lower extremities edema. History is limited as patient is lethargic. Apparently she was incontinence of urine and stool. Found to be in A-Fib with RVR. In the ED she underwent extensive evaluation. BP 109/72, HR 138, T 99.1F, RR 20, 96% on 2L NC. CBC, Coag panel, CMP significant for WBC 27.59, Hg 11.1, Hct 35.2, MCV 79.3, PT 14.8, INR 1.4, Na 134, Cl 92, bicarb 37, BUN 26, glu 133, T. Bili 1.4, AST 48, alk phos 156, alb 2.9. Trop 0.065. BNP 3970. Latic acid 1.6. UA neg LE or nitrite. CXR concerning for pulmonray vasular congestion. Started on Vancomycin and Zosyn along with IV fluids. ID consulted, wound cultures obtained, Zosyn switched to Cefepime. GB US showed cholelithiasis and questionable GB wall thickening. Of note, patient was noted to have maggots all over her lower extremities. Troponin trending 0.065, 0.047, 0.042. Started on Cardizem drip for A-Fib RVR. Cardiology consulted, recommending re-starting home medications and careful fluid administration given EF 35-40%. 10/16: Seen and examined at bedside, no acute events overnight, Patient is satting well on 4 L oxygen, home oxygen is 2.5, her blood pressure is soft but stable with 101/68, heart rate in 90s. WBC up to 13.6, hemoglobin stable at 12.0, normal sodium, potassium, creatinine, bicarb up to 37, glucose 90.. Continued on cefepime per ID recommendations. Wound care following. Patient was more lethargic this morning, was not opening eyes however was able to hold a very short conversation, she feels tired, denies shortness of breath, abdominal pain, chest pain. Ordered ABG and CT head without contrast. APS is involved. Plan to discharge to [facility], ID recommends midline for IV antibiotics at discharge. Discussed with case management, RN October 17: Spoke to nurse. Has been rather lethargic. She does wake up to answer questions but then dozes right off. Sometimes midway. Eating fair. Had a bowel movement. Patient came home from rehab recently. Patient's house has been found to be in a total mess. I spoke to the nurse to get hold of patient's pain clinic doctor Cynthia and find out exactly what pain medications the patient is on. Patient is states she is off of pain pump. Patient is felt of lower extremity cellulitis secondary to maggots infestation. On IV cefepime per ID. Blood culture on October 11 positive for MSSA. Wound cultures growing multiple organisms as expected. October 18: Patient's MS Contin was decreased by 25% from 30 mg twice daily to 50 mg every 8. Patient is more awake today. Tolerating diet. Remains on IV cefepime. And Flagyl. ID following October 19: Patient is doing better with decreased dose of MS Contin. More awake answering question appropriately. She has been refusing food as she does not like the food here as per the nurse. Have told her to asked the to bring in food. White count is normalized. On IV cefepime. Follow-up with ID. Also on Flagyl. Active Medications Acetaminophen (Acetaminophen Tab 325 Mg Tab) 650 mg PO Q6HR PRN PRN Reason: Mild Pain or Fever > 100.5 Last Admin: 10/12/24 22:50 Dose: 650 mg Hydrocodone Bitart/Acetaminophen (Hydrocodone/Apap 10-325mg 1 Each Tab) 1 each PO Q6HR PRN PRN Reason: Pain Acetazolamide (Acetazolamide 250 Mg Tab) 250 mg PO BID [facility] Last Admin: 10/19/24 08:43 Dose: 250 mg Albuterol/Ipratropium (Ipratropium-Albuterol 3 Ml Neb) 3 ml INHALATION RT-QID PRN PRN Reason: Shortness Of Breath Apixaban (Apixaban 5 Mg Tab) 5 mg PO BID [facility]; Protocol Last Admin: 10/19/24 08:43 Dose: 5 mg Artificial Tears (Artificial Tears-Hypromellose Drops 15 Ml Btl) 2 drops BOTH EYES QID PRN PRN Reason: Dry Eye(s) Last Admin: 10/13/24 05:51 Dose: 2 drops Atorvastatin Calcium (Atorvastatin 40 Mg Tab) 40 mg PO HS [facility] Last Admin: 10/18/24 21:03 Dose: 40 mg Bumetanide (Bumetanide 1 Mg Tab) 1 mg PO DAILY [facility] Last Admin: 10/19/24 08:43 Dose: 1 mg Buspirone HCl (Buspirone Hcl 10 Mg Tab) 30 mg PO BID [facility] Last Admin: 10/19/24 08:43 Dose: 30 mg Ferrous Sulfate (Ferrous Sulfate 325 Mg Tab) 325 mg PO [facility] Last Admin: 10/18/24 21:03 Dose: 325 mg Sodium Chloride (Saline 0.9%) 1,000 mls @ 20 mls/hr IV .Q24H [facility] Last Admin: 10/19/24 11:46 Dose: Not Given Cefepime HCl 2 gm/ Sodium (Chloride) 100 mls @ 25 mls/hr IVPB Q8H [facility]; Protocol Last Admin: 10/19/24 08:43 Dose: 25 mls/hr Diltiazem HCl 125 mg/ Dextrose (/Water) 125 mls @ 5 mls/hr IV .Q24H [facility]; Protocol Last Admin: 10/18/24 21:04 Dose: Not Given Levothyroxine Sodium (Levothyroxine 25 Mcg Tab) 25 mcg PO DAILY@0630 [facility] Last Admin: 10/19/24 06:21 Dose: Not Given Metoprolol Tartrate (Metoprolol Tartrate 50 Mg Tab) 100 mg PO BID [facility] Last Admin: 10/19/24 08:43 Dose: 100 mg Metronidazole (Metronidazole 500 Mg Tab) 500 mg PO TID [facility]; Protocol Last Admin: 10/19/24 08:43 Dose: 500 mg Morphine Sulfate (Morphine Sulfate Er 15 Mg Tablet) 15 mg PO Q8HR [facility]; Protocol Last Admin: 10/19/24 08:43 Dose: 15 mg Naloxone HCl (Naloxone 0.4 Mg/Ml 1 Ml Vial) 0.2 mg IV Q2M PRN PRN Reason: Opioid Reversal Nystatin (Nystatin 100,000 Unit/Gm Powd 15 Gm) 1 applic TOPICAL TID [facility]; Protocol Last Admin: 10/19/24 08:43 Dose: 1 applic Pantoprazole Sodium (Pantoprazole 40 Mg Tablet) 40 mg PO AC-BRKFST [facility] Last Admin: 10/19/24 06:21 Dose: Not Given Petrolatum (Petrolatum, White Oint 454 Gm Jar) 1 applic TOPICAL QID PRN; Protocol PRN Reason: Wound Healing Last Admin: 10/18/24 00:15 Dose: 1 applic Petrolatum (Petrolatum, White Oint 50 Gm Tube) 1 applic TOPICAL BID PRN; Protocol PRN Reason: Skin Irritation Zonisamide (Zonisamide 100 Mg Cap) 100 mg PO HS [facility] Last Admin: 10/18/24 21:02 Dose: 100 mg Physical examination: VITAL SIGNS: 97.9, 86, 16, 102 x 71, 97% 2 L GENERAL: Awake, answering questions EYES: Pupils equal. Conjunctiva lucho l. HEENT: External appearance of nose and ears normal, oral cavity grossly normal. NECK: JVD unable to assess; masses not palpable. HEART: Heart sounds distant, some edema. LUNGS: Respiratory rate normal, distant breath sounds. ABDOMEN: Soft, nontender, liver spleen not palpable, no masses palpable. PSYCH: More awake today. Answering questions appropriately LYMPHATICS: Bilateral lower extremity severe lymphedema, with pigmentation discoloration and coarsening of the skin below the knee to the foot. Breakdown of skin with cellulitic evidence INVESTIGATIONS, reviewed in the clinical context: October 19: White count 8.1 hemoglobin 11.6 platelets 205 potassium 3.9 Right ankle culture: Finegoldia magna, Proteus mirabilis, Staph aureus, Enterobacter cloacae complex October 17: White count 13.4 hemoglobin 11.2 platelets 208 potassium 3.[address] brain without contrast [October 17] unremarkable CT abdomen pelvis: Gallstones present. No thickening. No evidence of adjacent inflammation. Mild cardiomegaly. Hepatic steatosis Limited 2D echo: EF 30 to 35%. Moderate right ventricle dilatation. Severe pulmonary hypertension Assessment and Plan: -Sepsis with MSSA bacteremia likely due to lower extremity cellulitis with maggot infestation Initially positive on October 11. Repeat October 13 negative IV cefepime -Acute metabolic encephalopathy likely secondary to above and her pain medications.: Improved Much improved after MS Contin cut back to 15 mg every 8 - Lower extremity wounds from maggot infestation. Cultures positive- polymicrobial White count has normalized Being followed by ID - Maggot infestation lower extremity. ID following. - Heart failure reduced ejection fraction, EF 30-35% Bumex at 1 mg a day Fluid restriction 2000 cc a day - Chronic hypoxic respiratory failure 2.5 L at home underlying COPD obesity hypoventilation syndrome - Chronic obesity hypoventilation syndrome/pickwickian syndrome -AFib with RVR initially. Now on low 100s: Darek coleman,-discontinued.. Metoprolol 100 mg PO BID. Eliquis 5 mg PO BID. Cardiology following - Severe secondary pulmonary hypertension secondary to obesity hypoventilation syndrome -Hepatic steatosis. . -Microcytic anemia: Unknown baseline. No signs of active bleeding. Trend. Transfuse if Hg < 7. -Essential HTN: Lopressor 100 mg twice daily . -HLD: Lipitor 40 mg nightly -Chronic lower back pain with spinal cord stimulator. Did have a morphine pain pump from Dr. Marie in the past. His office is being contacted : MS Contin 30 mg PO BID. [place] 10 PO Q6H PRN. cut back MS Contin to 15 mg Q8-patient more awake. Pain controlled -Hypothyroid: Synthroid 25 mcg PO QD. -Depression and Anxiety BuSpar. zonegram - Morbid obesity BMI of 81.3 Code status: Full code Continue antibiotics per ID. Look at discharge planning
--- NOTE | 2024-10-19 16:11 | P.PN ---
Subjective Progress Note Date: 10/19/24 Principal diagnosis: Reason for follow-up with bilateral extremity cellulitis wound and cellulitis Patient is a 54-year-old female with a past medical history significan t for hypertension hyperlipidemia osteoarthritis morbid obesity atrial fibrillation has been brought to the hospital concerning for weakness and increasing shortness of breath, patient did have a significant bilateral lower extremity swelling lymphedema with maggots infestation and cellulitis. On today's evaluation that is 10/20/2023, patient did have a temperature of 98 F this morning and denies having any chills, patient is on 2 L nasal oxygen and breathing comfortably no chest pain or cough, the patient did not have any nausea vomiting abdominal pain or any diarrhea. Patient white normalized to 8.13, creatinine 0.58 blood culture repeat has been negative Objective - Vital Signs Vital signs: Vital Signs Temp 97.9 F 10/19/24 08:42 Pulse 86 10/19/24 11:46 Resp 16 10/19/24 11:46 BP 102/71 10/19/24 11:46 Pulse Ox 97 10/19/24 11:46 FiO2 Intake & Output 10/18/24 10/19/24 10/19/24 18:59 06:59 18:59 Intake Total 0 Output Total 1550 1100 1850 Balance -1550 -1100 -1850 Weight 220.7 kg Intake: Oral 0 Output: Urine 1550 1100 1850 Other: Voiding Method External Catheter External Catheter External Catheter # Voids 4 - Exam GENERAL DESCRIPTION: Middle-age female lying in bed in no distress RESPIRATORY SYSTEM: Unlabored breathing , decreased breath sounds at bases HEART: S1 S2 regular rate and rhythm , ABDOMEN: Soft , no tenderness EXTREMITIES: Bilateral lower extremity with diffuse swelling desquamative changes and erythema - Labs CBC & Chem 7: 10/19/24 05:44 10/19/24 05:44 Labs: Abnormal Lab Results - Last 24 Hours (Table) 10/19/24 10/19/24 Range/Units 05:44 05:44 Hgb 11.6 L (12.0-15.0) g/dL MCH 24.3 L (27.0-32.0) pg MCHC 28.2 L (32.0-37.0) g/dL Immature Gran # 0.37 H (0.00-0.04) 10*3/uL Eosinophils # 0.56 H (0.04-0.35) 10*3/uL Carbon Dioxide 39 H (22-30) mmol/L Microbiology - Last 24 Hours (Table) 10/13/24 09:09 Blood Culture - Final Blood Assessment and Plan (1) Bilateral lower leg cellulitis Current Visit: Yes Status: Acute Code(s): L03.116 - CELLULITIS OF LEFT LOWER LIMB; L03.115 - CELLULITIS OF RIGHT LOWER LIMB SNOMED Code(s): 294980706 (2) Cholecystitis Current Visit: Yes Status: Acute Code(s): K81.9 - CHOLECYSTITIS, UNSPECIFIED SNOMED Code(s): 33060749 (3) Sepsis Current Visit: No Status: Acute Code(s): A41.9 - SEPSIS, UNSPECIFIED ORGANISM SNOMED Code(s): 06952487 (4) Bacteremia Current Visit: Yes Status: Acute Code(s): R78.81 - BACTEREMIA SNOMED Code(s): 2430942 Plan: 1patient presented to hospital with weakness in this patient noted to have low- grade fever she has hypotension, leukocytosis meeting criteria for SIRS/sepsis source could be likely lower extremity cellulitis as the patient noted to have superficial ulceration with maggot infestation in erythema concerning for cellulitis 2-patient did have MSSA bacteremia repeat blood culture 10/13/2024 has been negative so far 2local culture currently growing Staph aureus as well as Enterobacter local wound culture also growing Finegoldia magna 3patient is afebrile the patient white count has normalized patient to continue with cefepime and Flagyl plan will be for 2-week course from negative blood culture Dictation was produced using [employer] dictation software. please excuse any grammatical, word or spelling errors. Time with Patient: Less than 30
--- NOTE | 2024-10-20 16:55 | P.PN ---
Progress Note - Text Progress Note Date: 10/20/24 Hospital Course: 54 year old F with PMH AFib, HTN, HLD, chronic pain, Hypothyroid, Depression and Anxiety presents to the ED for shortness of breath and lower extremities edema. History is limited as patient is lethargic. Apparently she was incontinence of urine and stool. Found to be in A-Fib with RVR. In the ED she underwent extensive evaluation. BP 109/72, HR 138, T 99.1F, RR 20, 96% on 2L NC. CBC, Coag panel, CMP significant for WBC 27.59, Hg 11.1, Hct 35.2, MCV 79.3, PT 14.8, INR 1.4, Na 134, Cl 92, bicarb 37, BUN 26, glu 133, T. Bili 1.4, AST 48, alk phos 156, alb 2.9. Trop 0.065. BNP 3970. Latic acid 1.6. UA neg LE or nitrite. CXR concerning for pulmonray vasular congestion. Started on Vancomycin and Zosyn along with IV fluids. ID consulted, wound cultures obtained, Zosyn switched to Cefepime. GB US showed cholelithiasis and questionable GB wall thickening. Of note, patient was noted to have maggots all over her lower extremities. Troponin trending 0.065, 0.047, 0.042. Started on Cardizem drip for A-Fib RVR. Cardiology consulted, recommending re-starting home medications and careful fluid administration given EF 35-40%. 10/16: Seen and examined at bedside, no acute events overnight, Patient is satting well on 4 L oxygen, home oxygen is 2.5, her blood pressure is soft but stable with 101/68, heart rate in 90s. WBC up to 13.6, hemoglobin stable at 12.0, normal sodium, potassium, creatinine, bicarb up to 37, glucose 90.. Continued on cefepime per ID recommendations. Wound care following. Patient was more lethargic this morning, was not opening eyes however was able to hold a very short conversation, she feels tired, denies shortness of breath, abdominal pain, chest pain. Ordered ABG and CT head without contrast. APS is involved. Plan to discharge to [facility] [place], ID recommends midline for IV antibiotics at discharge. Discussed with case management, RN October 17: Spoke to nurse. Has been rather lethargic. She does wake up to answer questions but then dozes right off. Sometimes midway. Eating fair. Had a bowel movement. Patient came home from rehab recently. Patient's house has been found to be in a total mess. I spoke to the nurse to get hold of patient's pain clinic doctor Cytnhia and find out exactly what pain medications the patient is on. Patient is states she is off of pain pump. Patient is felt of lower extremity cellulitis secondary to maggots infestation. On IV cefepime per ID. Blood culture on October 11 positive for MSSA. Wound cultures growing multiple organisms as expected. October 18: Patient's MS Contin was decreased by 25% from 30 mg twice daily to 50 mg every 8. Patient is more awake today. Tolerating diet. Remains on IV cefepime. And Flagyl. ID following October 19: Patient is doing better with decreased dose of MS Contin. More awake answering question appropriately. She has been refusing food as she does not like the food here as per the nurse. Have told her to asked the to bring in food. White count is normalized. On IV cefepime. Follow-up with ID. Also on Flagyl. October 20: No new issues. Remains on IV cefepime. And Flagyl. Spoke to nurse Ruiz. Patient eating better. But nursing documentation was incorrect Active Medications Acetaminophen (Acetaminophen Tab 325 Mg Tab) 650 mg PO Q6HR PRN PRN Reason: Mild Pain or Fever > 100.5 Last Admin: 10/12/24 22:50 Dose: 650 mg Hydrocodone Bitart/Acetaminophen (Hydrocodone/Apap 10-325mg 1 Each Tab) 1 each PO Q6HR PRN PRN Reason: Pain Acetazolamide (Acetazolamide 250 Mg Tab) 250 mg PO BID [facility] Last Admin: 10/20/24 10:35 Dose: 250 mg Albuterol/Ipratropium (Ipratropium-Albuterol 3 Ml Neb) 3 ml INHALATION RT-QID PRN PRN Reason: Shortness Of Breath Apixaban (Apixaban 5 Mg Tab) 5 mg PO BID [facility]; Protocol Last Admin: 10/20/24 10:35 Dose: 5 mg Artificial Tears (Artificial Tears-Hypromellose Drops 15 Ml Btl) 2 drops BOTH EYES QID PRN PRN Reason: Dry Eye(s) Last Admin: 10/13/24 05:51 Dose: 2 drops Atorvastatin Calcium (Atorvastatin 40 Mg Tab) 40 mg PO HS [facility] Last Admin: 10/19/24 21:41 Dose: 40 mg Bumetanide (Bumetanide 1 Mg Tab) 1 mg PO DAILY [facility] Last Admin: 10/20/24 10:34 Dose: 1 mg Buspirone HCl (Buspirone Hcl 10 Mg Tab) 30 mg PO BID [facility] Last Admin: 10/20/24 10:34 Dose: 30 mg Ferrous Sulfate (Ferrous Sulfate 325 Mg Tab) 325 mg PO HS [facility] Last Admin: 10/19/24 21:40 Dose: 325 mg Sodium Chloride (Saline 0.9%) 1,000 mls @ 20 mls/hr IV .Q24H [facility] Last Admin: 10/20/24 10:36 Dose: Not Given Cefepime HCl 2 gm/ Sodium (Chloride) 100 mls @ 25 mls/hr IVPB Q8H [facility]; Protocol Last Admin: 10/20/24 10:36 Dose: 25 mls/hr Diltiazem HCl 125 mg/ Dextrose (/Water) 125 mls @ 5 mls/hr IV .Q24H [facility]; Protocol Last Admin: 10/19/24 21:41 Dose: Not Given Levothyroxine Sodium (Levothyroxine 25 Mcg Tab) 25 mcg PO DAILY@0630 [facility] Last Admin: 10/20/24 06:31 Dose: 25 mcg Metoprolol Tartrate (Metoprolol Tartrate 50 Mg Tab) 100 mg PO BID [facility] Last Admin: 10/20/24 10:34 Dose: 100 mg Metronidazole (Metronidazole 500 Mg Tab) 500 mg PO TID [facility]; Protocol Last Admin: 10/20/24 16:40 Dose: 500 mg Morphine Sulfate (Morphine Sulfate Er 15 Mg Tablet) 15 mg PO Q8HR [facility]; Protocol Last Admin: 10/20/24 16:39 Dose: 15 mg Naloxone HCl (Naloxone 0.4 Mg/Ml 1 Ml Vial) 0.2 mg IV Q2M PRN PRN Reason: Opioid Reversal Nystatin (Nystatin 100,000 Unit/Gm Powd 15 Gm) 1 applic TOPICAL TID [facility]; Protocol Last Admin: 10/20/24 16:40 Dose: 1 applic Pantoprazole Sodium (Pantoprazole 40 Mg Tablet) 40 mg PO AC-BRKFST [facility] Last Admin: 10/20/24 06:31 Dose: 40 mg Petrolatum (Petrolatum, White Oint 454 Gm Jar) 1 applic TOPICAL QID PRN; Protocol PRN Reason: Wound Healing Last Admin: 10/18/24 00:15 Dose: 1 applic Petrolatum (Petrolatum, White Oint 50 Gm Tube) 1 applic TOPICAL BID PRN; Protocol PRN Reason: Skin Irritation Zonisamide (Zonisamide 100 Mg Cap) 100 mg PO [facility] Last Admin: 10/18/24 21:02 Dose: 100 mg Physical examination: VITAL SIGNS: 98.1, 107, 18, 122 x 80, 95% 2 L GENERAL: Awake, answering questions EYES: Pupils equal. Conjunctiva lucho l. HEENT: External appearance of nose and ears normal, oral cavity grossly normal. NECK: JVD unable to assess; masses not palpable. HEART: Heart sounds distant, some edema. LUNGS: Respiratory rate normal, distant breath sounds. ABDOMEN: Soft, nontender, liver spleen not palpable, no masses palpable. PSYCH: More awake today. Answering questions appropriately LYMPHATICS: Bilateral lower extremity severe lymphedema, with pigmentation discoloration and coarsening of the skin below the knee to the foot. Breakdown of skin with cellulitic evidence INVESTIGATIONS, reviewed in the clinical context: October 19: White count 8.1 hemoglobin 11.6 platelets 205 potassium 3.9 Right ankle culture: Finegoldia magna, Proteus mirabilis, Staph aureus, Enterobacter cloacae complex October 17: White count 13.4 hemoglobin 11.2 platelets 208 potassium 3.[address] brain without contrast [October 17] unremark[address] CT abdomen pelvis: Gallstones present. No thickening. No evidence of adjacent inflammation. Mild cardiomegaly. Hepatic steatosis Limited 2D echo: EF 30 to 35%. Moderate right ventricle dilatation. Severe pulmonary hypertension Assessment and Plan: -Sepsis with MSSA bacteremia likely due to lower extremity cellulitis with maggot infestation Initially positive on October 11. Repeat October 13 negative IV cefepime -Acute metabolic encephalopathy likely secondary to above and her pain medications.: Improved Much improved after MS Contin cut back to 15 mg every 8 - Lower extremity wounds from maggot infestation. Cultures positive- polymicrobial White count has normalized Being followed by ID - Maggot infestation lower extremity. ID following. - Heart failure reduced ejection fraction, EF 30-35% Bumex at 1 mg a day Fluid restriction 2000 cc a day - Chronic hypoxic respiratory failure 2.5 L at home underlying COPD obesity hypoventilation syndrome - Chronic obesity hypoventilation syndrome/pickwickian syndrome -AFib with RVR initially. Now on low 100s: Cardizem drip,-discontinued.. Metoprolol 100 mg PO BID. Eliquis 5 mg PO BID. Cardiology following - Severe secondary pulmonary hypertension secondary to obesity hypoventilation syndrome -Hepatic steatosis. . -Microcytic anemia: Unknown baseline. No signs of active bleeding. Trend. Transfuse if Hg < 7. -Essential HTN: Lopressor 100 mg twice daily . -HLD: Lipitor 40 mg nightly -Chronic lower back pain with spinal cord stimulator. Did have a morphine pain pump from Dr. Marie in the past. His office is being contacted : MS Contin 30 mg PO BID. [place] 10 PO Q6H PRN. cut back MS Contin to 15 mg Q8-patient more awake. Pain controlled -Hypothyroid: Synthroid 25 mcg PO QD. -Depression and Anxiety BuSpar. zonegram - Morbid obesity BMI of 81.3 Code status: Full code Continue current antibiotics. Eating better. 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
--- NOTE | 2024-10-20 17:08 | P.PN ---
Subjective Progress Note Date: 10/20/24 Principal diagnosis: Reason for follow-up with bilateral extremity cellulitis wound and cellulitis Patient is a 54-year-old female with a past medical history significan t for hypertension hyperlipidemia osteoarthritis morbid obesity atrial fibrillation has been brought to the hospital concerning for weakness and increasing shortness of breath, patient did have a significant bilateral lower extremity swelling lymphedema with maggots infestation and cellulitis. On today's evaluation that is 10/20/2024, Patient is afebrile patient is currently on 3 L nasal oxygen and denies having any shortness of breath, the patient denies any chest pain or cough, the patient denies any nausea vomiting did not have any abdominal pain and no diarrhea or pain to the lower extremity. The patient white count normal at 8.13 as of yesterday no CBC was done today. Objective - Vital Signs Vital signs: Vital Signs Temp 98.1 F 10/20/24 16:00 Pulse 107 H 10/20/24 16:00 Resp 18 10/20/24 16:00 BP 122/80 10/20/24 16:00 Pulse Ox 95 10/20/24 16:00 FiO2 Intake & Output 10/19/24 10/20/24 10/20/24 18:59 06:59 18:59 Intake Total 0 Output Total 1850 1100 3000 Balance -1850 -1100 -3000 Weight 218.9 kg Intake: Oral 0 Output: Urine 1850 1100 3000 Other: Voiding Method External Catheter External Catheter External Catheter # Voids 4 # Bowel Movements 2 - Exam GENERAL DESCRIPTION: Middle-age female lying in bed in no distress RESPIRATORY SYSTEM: Unlabored breathing , decreased breath sounds at bases HEART: S1 S2 regular rate and rhythm , ABDOMEN: Soft , no tenderness EXTREMITIES: Bilateral lower extremity with diffuse swelling desquamative changes and erythema - Labs CBC & Chem 7: 10/19/24 05:44 10/19/24 05:44 Assessment and Plan (1) Bilateral lower leg cellulitis Current Visit: Yes Status: Acute Code(s): L03.116 - CELLULITIS OF LEFT LOWER LIMB; L03.115 - CELLULITIS OF RIGHT LOWER LIMB SNOMED Code(s): 991876722 (2) Cholecystitis Current Visit: Yes Status: Acute Code(s): K81.9 - CHOLECYSTITIS, UNSPECIFIED SNOMED Code(s): 92903042 (3) Sepsis Current Visit: No Status: Acute Code(s): A41.9 - SEPSIS, UNSPECIFIED ORGANISM SNOMED Code(s): 88661759 (4) Bacteremia Current Visit: Yes Status: Acute Code(s): R78.81 - BACTEREMIA SNOMED Code(s): 5696703 Plan: 1patient presented to hospital with weakness in this patient noted to have low- grade fever she has hypotension, leukocytosis meeting criteria for SIRS/sepsis source could be likely lower extremity cellulitis as the patient noted to have superficial ulceration with maggot infestation in erythema concerning for cellulitis 2-patient did have MSSA bacteremia repeat blood culture 10/13/2024 has been negative so far 2local culture currently growing Staph aureus as well as Enterobacter local wound culture also growing Finegoldia magna 3patient is afebrile the patient white count has normalized as of yesterday 4patient to continue with cefepime and Flagyl plan with the last day of antibiotic for this episode of bacteremia and infection will be 10/27/2024 Dictation was produced using [employer] dictation software. please excuse any grammatical, word or spelling errors. Time with Patient: Less than 30
[2024-10-21 15:40] VITALS: BMI 79.9
--- NOTE | 2024-10-21 20:02 | P.PN ---
Progress Note - Text Progress Note Date: 10/21/24 Hospital Course: 54 year old F with PMH AFib, HTN, HLD, chronic pain, Hypothyroid, Depression and Anxiety presents to the ED for shortness of breath and lower extremities edema. History is limited as patient is lethargic. Apparently she was incontinence of urine and stool. Found to be in A-Fib with RVR. In the ED she underwent extensive evaluation. BP 109/72, HR 138, T 99.1F, RR 20, 96% on 2L NC. CBC, Coag panel, CMP significant for WBC 27.59, Hg 11.1, Hct 35.2, MCV 79.3, PT 14.8, INR 1.4, Na 134, Cl 92, bicarb 37, BUN 26, glu 133, T. Bili 1.4, AST 48, alk phos 156, alb 2.9. Trop 0.065. BNP 3970. Latic acid 1.6. UA neg LE or nitrite. CXR concerning for pulmonray vasular congestion. Started on Vancomycin and Zosyn along with IV fluids. ID consulted, wound cultures obtained, Zosyn switched to Cefepime. GB US showed cholelithiasis and questionable GB wall thickening. Of note, patient was noted to have maggots all over her lower extremities. Troponin trending 0.065, 0.047, 0.042. Started on Cardizem drip for A-Fib RVR. Cardiology consulted, recommending re-starting home medications and careful fluid administration given EF 35-40%. 10/16: Seen and examined at bedside, no acute events overnight, Patient is satting well on 4 L oxygen, home oxygen is 2.5, her blood pressure is soft but stable with 101/68, heart rate in 90s. WBC up to 13.6, hemoglobin stable at 12.0, normal sodium, potassium, creatinine, bicarb up to 37, glucose 90.. Continued on cefepime per ID recommendations. Wound care following. Patient was more lethargic this morning, was not opening eyes however was able to hold a very short conversation, she feels tired, denies shortness of breath, abdominal pain, chest pain. Ordered ABG and CT head without contrast. APS is involved. Plan to discharge to [facility], ID recommends midline for IV antibiotics at discharge. Discussed with case management, RN October 17: Spoke to nurse. Has been rather lethargic. She does wake up to answer questions but then dozes right off. Sometimes midway. Eating fair. Had a bowel movement. Patient came home from rehab recently. Patient's house has been found to be in a total mess. I spoke to the nurse to get hold of patient's pain clinic doctor Cynthia and find out exactly what pain medications the patient is on. Patient is states she is off of pain pump. Patient is felt of lower extremity cellulitis secondary to maggots infestation. On IV cefepime per ID. Blood culture on October 11 positive for MSSA. Wound cultures growing multiple organisms as expected. October 18: Patient's MS Contin was decreased by 25% from 30 mg twice daily to 50 mg every 8. Patient is more awake today. Tolerating diet. Remains on IV cefepime. And Flagyl. ID following October 19: Patient is doing better with decreased dose of MS Contin. More awake answering question appropriately. She has been refusing food as she does not like the food here as per the nurse. Have told her to asked the to bring in food. White count is normalized. On IV cefepime. Follow-up with ID. Also on Flagyl. October 20: No new issues. Remains on IV cefepime. And Flagyl. Spoke to nurse Ruiz. Patient eating better. But nursing documentation was incorrect October 21: Patient remained on antibiotics till 10/27 per ID. Oral intake much better. [facility] her med has accepted the patient. Waiting for insurance authorization. Has been more awake though still sleepy quite a bit.. Will try the patient cut back MS Contin to 15 twice daily. Starting tomorrow. t Active Medications Acetaminophen (Acetaminophen Tab 325 Mg Tab) 650 mg PO Q6HR PRN PRN Reason: Mild Pain or Fever > 100.5 Last Admin: 10/12/24 22:50 Dose: 650 mg Hydrocodone Bitart/Acetaminophen (Hydrocodone/Apap 10-325mg 1 Each Tab) 1 each PO Q6HR PRN PRN Reason: Pain Acetazolamide (Acetazolamide 250 Mg Tab) 250 mg PO BID [facility] Last Admin: 10/21/24 09:51 Dose: 250 mg Albuterol/Ipratropium (Ipratropium-Albuterol 3 Ml Neb) 3 ml INHALATION RT-QID PRN PRN Reason: Shortness Of Breath Apixaban (Apixaban 5 Mg Tab) 5 mg PO BID [facility]; Protocol Last Admin: 10/21/24 09:51 Dose: 5 mg Artificial Tears (Artificial Tears-Hypromellose Drops 15 Ml Btl) 2 drops BOTH EYES QID PRN PRN Reason: Dry Eye(s) Last Admin: 10/13/24 05:51 Dose: 2 drops Atorvastatin Calcium (Atorvastatin 40 Mg Tab) 40 mg PO HS [facility] Last Admin: 10/20/24 20:26 Dose: 40 mg Bumetanide (Bumetanide 1 Mg Tab) 1 mg PO DAILY [facility] Last Admin: 10/21/24 09:51 Dose: 1 mg Buspirone HCl (Buspirone Hcl 10 Mg Tab) 30 mg PO BID [facility] Last Admin: 10/21/24 09:52 Dose: 30 mg Ferrous Sulfate (Ferrous Sulfate 325 Mg Tab) 325 mg PO HS [facility] Last Admin: 10/20/24 20:26 Dose: 325 mg Sodium Chloride (Saline 0.9%) 1,000 mls @ 20 mls/hr IV .Q24H [facility] Last Admin: 10/21/24 09:52 Dose: 20 mls/hr Cefepime HCl 2 gm/ Sodium (Chloride) 100 mls @ 25 mls/hr IVPB Q8H [facility]; Protocol Last Admin: 10/21/24 17:48 Dose: 25 mls/hr Diltiazem HCl 125 mg/ Dextrose (/Water) 125 mls @ 5 mls/hr IV .Q24H [facility]; Protocol Last Admin: 10/20/24 20:28 Dose: Not Given Levothyroxine Sodium (Levothyroxine 25 Mcg Tab) 25 mcg PO DAILY@0630 [facility] Last Admin: 10/21/24 06:20 Dose: 25 mcg Metoprolol Tartrate (Metoprolol Tartrate 50 Mg Tab) 100 mg PO BID [facility] Last Admin: 10/21/24 09:52 Dose: 100 mg Metronidazole (Metronidazole 500 Mg Tab) 500 mg PO TID [facility]; Protocol Last Admin: 10/21/24 16:16 Dose: 500 mg Morphine Sulfate (Morphine Sulfate Er 15 Mg Tablet) 15 mg PO Q8HR [facility]; Protocol Stop: 10/21/24 23:59 Last Admin: 10/21/24 16:16 Dose: 15 mg Morphine Sulfate (Morphine Sulfate Er 15 Mg Tablet) 15 mg PO Q12HR [facility]; Protocol Naloxone HCl (Naloxone 0.4 Mg/Ml 1 Ml Vial) 0.2 mg IV Q2M PRN PRN Reason: Opioid Reversal Nystatin (Nystatin 100,000 Unit/Gm Powd 15 Gm) 1 applic TOPICAL TID [facility]; Protocol Last Admin: 10/21/24 16:16 Dose: 1 applic Pantoprazole Sodium (Pantoprazole 40 Mg Tablet) 40 mg PO AC-BRKFST [facility] Last Admin: 10/21/24 06:20 Dose: 40 mg Petrolatum (Petrolatum, White Oint 454 Gm Jar) 1 applic TOPICAL QID PRN; Protocol PRN Reason: Wound Healing Last Admin: 10/18/24 00:15 Dose: 1 applic Petrolatum (Petrolatum, White Oint 50 Gm Tube) 1 applic TOPICAL BID PRN; Protocol PRN Reason: Skin Irritation Zonisamide (Zonisamide 100 Mg Cap) 100 mg PO HS [facility] Last Admin: 10/20/24 20:26 Dose: 100 mg Physical examination: VITAL SIGNS: 98.6, 104, 20, 107 x 77, 96% 2 L GENERAL: Awake, answering questions EYES: Pupils equal. Conjunctiva lucho l. HEENT: External appearance of nose and ears normal, oral cavity grossly normal. NECK: JVD unable to assess; masses not palpable. HEART: Heart sounds distant, some edema. LUNGS: Respiratory rate normal, distant breath sounds. ABDOMEN: Soft, nontender, liver spleen not palpable, no masses palpable. PSYCH: Awake. Does answer questions but this dose of afterwards. LYMPHATICS: Bilateral lower extremity severe lymphedema, with pigmentation discoloration and coarsening of the skin below the knee to the foot. Breakdown of skin with cellulitic evidence: Improved INVESTIGATIONS, reviewed in the clinical context: October 19: White count 8.1 hemoglobin 11.6 platelets 205 potassium 3.9 Right ankle culture: Finegoldia magna, Proteus mirabilis, Staph aureus, Entero bacter cloacae complex October 17: White count 13.4 hemoglobin 11.2 platelets 208 potassium 3[address] brain without contrast [October 17] unremarkable CT abdomen pelvis: Gallstones present. No thickening. No evidence of adjacent inflammation. Mild cardiomegaly. Hepatic steatosis Limited 2D echo: EF 30 to 35%. Moderate right ventricle dilatation. Severe pulmonary hypertension Assessment and Plan: -Sepsis with MSSA bacteremia likely due to lower extremity cellulitis with maggot infestation Initially positive on October 11. Repeat October 13 negative IV cefepime -Acute metabolic encephalopathy likely secondary to above and her pain medications.: Improved Much improved after MS Contin cut back to 15 mg every 8. Will try to cut back MS Contin to 15 mg every 12 starting tomorrow - Lower extremity wounds from maggot infestation. Cultures positive- polymicrobial White count has normalized Being followed by ID - Maggot infestation lower extremity. ID following. - Heart failure reduced ejection fraction, EF 30-35% Bumex at 1 mg a day Fluid restriction 2000 cc a day - Chronic hypoxic respiratory failure 2.5 L at home underlying COPD obesity hypoventilation syndrome - Chronic obesity hypoventilation syndrome/pickwickian syndrome -AFib with RVR initially. Now on low 100s: Cardizem drip,-discontinued.. Metoprolol 100 mg PO BID. Eliquis 5 mg PO BID. Cardiology following - Severe secondary pulmonary hypertension secondary to obesity hypoventilation syndrome -Hepatic steatosis. . -Microcytic anemia: Unknown baseline. No signs of active bleeding. Trend. Transfuse if Hg < 7. -Essential HTN: Lopressor 100 mg twice daily . -HLD: Lipitor 40 mg nightly -Chronic lower back pain with spinal cord stimulator. Did have a morphine pain pump from Dr. Marie in the past. His office is being contacted : MS Contin 30 mg PO BID. [place] 10 PO Q6H PRN. cut back MS Contin to 15 mg Q8-patient more awake. Pain controlled Try further cutting back to MS Contin 15 mg every 12 -Hypothyroid: Synthroid 25 mcg PO QD. -Depression and Anxiety BuSpar. zonegram - Morbid obesity BMI of 81.3 Code status: Full code Antibiotics per ID. Hopefully discharge tomorrow. Cut back MS Contin to every 12
[2024-10-22] MEDS: MORPHINE SULFATE ER 15 MG TABLET PO SCH (09:02)
[2024-10-22 10:48] LABS: Basophils # (A) 0.07 10*3/uL (0.00-0.10); Basophils % (A) 0.7 %; Eosinophils # (A) 0.38 10*3/uL (0.04-0.35); Eosinophils % (A) 3.7 %; HCT 43.3 % (37.2-46.3); HGB 12.7 g/dL (12.0-15.0); Lymphocytes # (A) 1.52 10*3/uL (0.90-5.00); Lymphocytes % (A) 14.6 %; MCH 24.8 pg (27.0-32.0); MCHC 29.3 g/dL (32.0-37.0); MCV 84.4 fL (80.0-97.0); Monocytes # (A) 0.66 10*3/uL (0.20-1.00); Monocytes % (A) 6.3 %; Neutrophils # (A) 7.68 10*3/uL (1.80-7.70); Neutrophils % (A) 73.7 %; Platelet Count 226 10*3/uL (140-440); RBC 5.13 10*6/uL (4.10-5.20); RDW 18.8 % (11.5-14.5); WBC 10.41 10*3/uL (4.50-10.00)
--- NOTE | 2024-10-22 15:06 | P.PN ---
Subjective Progress Note Date: 10/21/24 Principal diagnosis: Reason for follow-up with bilateral extremity cellulitis wound and cellulitis Patient is a 54-year-old female with a past medical history significan t for hypertension hyperlipidemia osteoarthritis morbid obesity atrial fibrillation has been brought to the hospital concerning for weakness and increasing shortness of breath, patient did have a significant bilateral lower extremity swelling lymphedema with maggots infestation and cellulitis. On today's evaluation that is 10/21/2024, patient has been afebrile, patient is breathing comfortably and is currently on 2 L nasal oxygen, patient denies having any chest pain and cough, patient denies nausea vomiting or diarrhea and no abdominal pain or pain to the lower extremity No new lab has been obtained today Objective - Vital Signs Vital signs: Vital Signs Temp 98.2 F 10/21/24 11:35 Pulse 84 10/21/24 11:35 Resp 16 10/21/24 11:35 BP 110/77 10/21/24 11:35 Pulse Ox 97 10/21/24 11:35 FiO2 Intake & Output 10/20/24 10/21/24 10/21/24 18:59 06:59 18:59 Intake Total 0 Output Total 3000 600 1200 Balance -3000 -600 -1200 Weight 211.374 kg Intake: Oral 0 Output: Urine 3000 600 1200 Other: Voiding Method External Catheter External Catheter External Catheter # Bowel Movements 2 1 - Exam GENERAL DESCRIPTION: Middle-age female lying in bed in no distress RESPIRATORY SYSTEM: Unlabored breathing , decreased breath sounds at bases HEART: S1 S2 regular rate and rhythm , ABDOMEN: Soft , no tenderness EXTREMITIES: Bilateral lower extremity with diffuse swelling desquamative changes and erythema - Labs CBC & Chem 7: 10/22/24 10:18 10/19/24 05:44 Assessment and Plan (1) Bilateral lower leg cellulitis Current Visit: Yes Status: Acute Code(s): L03.116 - CELLULITIS OF LEFT LOWER LIMB; L03.115 - CELLULITIS OF RIGHT LOWER LIMB SNOMED Code(s): 649578740 (2) Cholecystitis Current Visit: Yes Status: Acute Code(s): K81.9 - CHOLECYSTITIS, UNSPECIFIED SNOMED Code(s): 80026065 (3) Sepsis Current Visit: No Status: Acute Code(s): A41.9 - SEPSIS, UNSPECIFIED ORGANISM SNOMED Code(s): 32412469 (4) Bacteremia Current Visit: Yes Status: Acute Code(s): R78.81 - BACTEREMIA SNOMED Code(s): 6032474 Plan: 1patient presented to hospital with weakness in this patient noted to have low- grade fever she has hypotension, leukocytosis meeting criteria for SIRS/sepsis source could be likely lower extremity cellulitis as the patient noted to have superficial ulceration with maggot infestation in erythema concerning for cellulitis 2-patient did have MSSA bacteremia repeat blood culture 10/13/2024 has been negative so far 2local culture currently growing Staph aureus as well as Enterobacter local wound culture also growing Finegoldia magna 3patient is afebrile the patient white count has normalized. 4patient current being treated with cefepime and Flagyl plan with the last day of antibiotic for this episode of bacteremia and infection will be 10/27/2024 and close outpatient follow-up currently waiting for placement Dictation was produced using [employer] dictation software. please excuse any grammatical, word or spelling errors. Time with Patient: Less than 30
--- NOTE | 2024-10-22 15:07 | P.PN ---
Subjective Progress Note Date: 10/22/24 Principal diagnosis: Reason for follow-up with bilateral extremity cellulitis wound and cellulitis Patient is a 54-year-old female with a past medical history significan t for hypertension hyperlipidemia osteoarthritis morbid obesity atrial fibrillation has been brought to the hospital concerning for weakness and increasing shortness of breath, patient did have a significant bilateral lower extremity swelling lymphedema with maggots infestation and cellulitis. On today's evaluation that is 10/22/2024, Patient is afebrile this morning patient denies having any chest pain shortness of breath or cough, the patient is currently on room air, patient has developed a nosebleed since yesterday denies pain to lower extremity. The patient white count is 10.41 creatinine 0.58 Objective - Vital Signs Vital signs: Vital Signs Temp 98.0 F 10/22/24 08:45 Pulse 98 10/22/24 14:00 Resp 18 10/22/24 14:00 BP 107/91 10/22/24 12:20 Pulse Ox 94 L 10/22/24 12:20 FiO2 Intake & Output 10/21/24 10/22/24 10/22/24 18:59 06:59 18:59 Intake Total 180 300 Output Total 2100 1200 1999 Balance -1919 Weight 211.374 kg 206.8 kg Intake: Oral 180 300 Output: Urine 2100 1200 1999 Other: Voiding Method External Catheter External Catheter External Catheter # Bowel Movements 1 2 - Exam GENERAL DESCRIPTION: Middle-age female lying in bed in no distress RESPIRATORY SYSTEM: Unlabored breathing , decreased breath sounds at bases HEART: S1 S2 regular rate and rhythm , ABDOMEN: Soft , no tenderness EXTREMITIES: Bilateral lower extremity with diffuse swelling desquamative changes and erythema - Labs CBC & Chem 7: 10/22/24 10:18 10/19/24 05:44 Labs: Abnormal Lab Results - Last 24 Hours (Table) 10/22/24 Range/Units 10:18 WBC 10.41 H (4.50-10.00) 10*3/uL MCH 24.8 L (27.0-32.0) pg MCHC 29.3 L (32.0-37.0) g/dL Immature Gran # 0.10 H (0.00-0.04) 10*3/uL Eosinophils # 0.38 H (0.04-0.35) 10*3/uL Assessment and Plan (1) Bilateral lower leg cellulitis Current Visit: Yes Status: Acute Code(s): L03.116 - CELLULITIS OF LEFT LOWER LIMB; L03.115 - CELLULITIS OF RIGHT LOWER LIMB SNOMED Code(s): 135998625 (2) Cholecystitis Current Visit: Yes Status: Acute Code(s): K81.9 - CHOLECYSTITIS, UNSPECIFIED SNOMED Code(s): 02477422 (3) Sepsis Current Visit: No Status: Acute Code(s): A41.9 - SEPSIS, UNSPECIFIED ORGANISM SNOMED Code(s): 95024441 (4) Bacteremia Current Visit: Yes Status: Acute Code(s): R78.81 - BACTEREMIA SNOMED Code(s): 0358837 Plan: 1patient presented to hospital with weakness in this patient noted to have low- grade fever she has hypotension, leukocytosis meeting criteria for SIRS/sepsis source could be likely lower extremity cellulitis as the patient noted to have superficial ulceration with maggot infestation in erythema concerning for cellulitis 2-patient did have MSSA bacteremia repeat blood culture 10/13/2024 has been negative so far 2local culture currently growing Staph aureus as well as Enterobacter local wound culture also growing Finegoldia magna 3patient is afebrile the patient white count has normalized. With a white count of 10.41 today 4patient apparently has developed nosebleed at discharge we will put on hold being managed by admitting team she will continue with the cefepime and Flagyl until 10/27/2024 to finish course of therapy Dictation was produced using [employer] dictation software. please excuse any grammatical, word or spelling errors.
--- NOTE | 2024-10-22 18:30 | P.PN ---
Progress Note - Text Progress Note Date: 10/22/24 Hospital Course: 54 year old F with PMH AFib, HTN, HLD, chronic pain, Hypothyroid, Depression and Anxiety presents to the ED for shortness of breath and lower extremities edema. History is limited as patient is lethargic. Apparently she was incontinence of urine and stool. Found to be in A-Fib with RVR. In the ED she underwent extensive evaluation. BP 109/72, HR 138, T 99.1F, RR 20, 96% on 2L NC. CBC, Coag panel, CMP significant for WBC 27.59, Hg 11.1, Hct 35.2, MCV 79.3, PT 14.8, INR 1.4, Na 134, Cl 92, bicarb 37, BUN 26, glu 133, T. Bili 1.4, AST 48, alk phos 156, alb 2.9. Trop 0.065. BNP 3970. Latic acid 1.6. UA neg LE or nitrite. CXR concerning for pulmonray vasular congestion. Started on Vancomycin and Zosyn along with IV fluids. ID consulted, wound cultures obtained, Zosyn switched to Cefepime. GB US showed cholelithiasis and questionable GB wall thickening. Of note, patient was noted to have maggots all over her lower extremities. Troponin trending 0.065, 0.047, 0.042. Started on Cardizem drip for A-Fib RVR. Cardiology consulted, recommending re-starting home medications and careful fluid administration given EF 35-40%. 10/16: Seen and examined at bedside, no acute events overnight, Patient is satting well on 4 L oxygen, home oxygen is 2.5, her blood pressure is soft but stable with 101/68, heart rate in 90s. WBC up to 13.6, hemoglobin stable at 12.0, normal sodium, potassium, creatinine, bicarb up to 37, glucose 90.. Continued on cefepime per ID recommendations. Wound care following. Patient was more lethargic this morning, was not opening eyes however was able to hold a very short conversation, she feels tired, denies shortness of breath, abdominal pain, chest pain. Ordered ABG and CT head without contrast. APS is involved. Plan to discharge to [facility], ID recommends midline for IV antibiotics at discharge. Discussed with case management, RN October 17: Spoke to nurse. Has been rather lethargic. She does wake up to answer questions but then dozes right off. Sometimes midway. Eating fair. Had a bowel movement. Patient came home from rehab recently. Patient's house has been found to be in a total mess. I spoke to the nurse to get hold of patient's pain clinic doctor Cynthia and find out exactly what pain medications the patient is on. Patient is states she is off of pain pump. Patient is felt of lower extremity cellulitis secondary to maggots infestation. On IV cefepime per ID. Blood culture on October 11 positive for MSSA. Wound cultures growing multiple organisms as expected. October 18: Patient's MS Contin was decreased by 25% from 30 mg twice daily to 50 mg every 8. Patient is more awake today. Tolerating diet. Remains on IV cefepime. And Flagyl. ID following October 19: Patient is doing better with decreased dose of MS Contin. More awake answering question appropriately. She has been refusing food as she does not like the food here as per the nurse. Have told her to asked the to bring in food. White count is normalized. On IV cefepime. Follow-up with ID. Also on Flagyl. October 20: No new issues. Remains on IV cefepime. And Flagyl. Spoke to nurse Ruiz. Patient eating better. But nursing documentation was incorrect October 21: Patient remained on antibiotics till 10/27 per ID. Oral intake much better. [facility] has accepted the patient. Waiting for insurance authorization. Has been more awake though still sleepy quite a bit.. Will try the patient cut back MS Contin to 15 twice daily. Starting tomorrow. October 22: Comfortable. Doing well on MS Contin 15 mg twice daily. Pain controlled. Eating fair. 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 Possibly [facility]. Continue IV cefepime. Active Medications Acetaminophen (Acetaminophen Tab 325 Mg Tab) 650 mg PO Q6HR PRN PRN Reason: Mild Pain or Fever > 100.5 Last Admin: 10/21/24 21:28 Dose: 650 mg Hydrocodone Bitart/Acetaminophen (Hydrocodone/Apap 10-325mg 1 Each Tab) 1 each PO Q6HR PRN PRN Reason: Pain Acetazolamide (Acetazolamide 250 Mg Tab) 250 mg PO BID [facility] Last Admin: 10/22/24 09:02 Dose: 250 mg Albuterol/Ipratropium (Ipratropium-Albuterol 3 Ml Neb) 3 ml INHALATION RT-QID PRN PRN Reason: Shortness Of Breath Apixaban (Apixaban 5 Mg Tab) 5 mg PO BID [facility]; Protocol Last Admin: 10/22/24 11:21 Dose: Not Given Artificial Tears (Artificial Tears-Hypromellose Drops 15 Ml Btl) 2 drops BOTH EYES QID PRN PRN Reason: Dry Eye(s) Last Admin: 10/13/24 05:51 Dose: 2 drops Atorvastatin Calcium (Atorvastatin 40 Mg Tab) 40 mg PO [facility] Last Admin: 10/21/24 21:29 Dose: 40 mg Bumetanide (Bumetanide 1 Mg Tab) 1 mg PO DAILY [facility] Last Admin: 10/22/24 09:03 Dose: 1 mg Buspirone HCl (Buspirone Hcl 10 Mg Tab) 30 mg PO BID [facility] Last Admin: 10/22/24 09:02 Dose: 30 mg Ferrous Sulfate (Ferrous Sulfate 325 Mg Tab) 325 mg PO [facility] Last Admin: 10/21/24 21:29 Dose: 325 mg Sodium Chloride (Saline 0.9%) 1,000 mls @ 20 mls/hr IV .Q24H [facility] Last Admin: 10/22/24 12:10 Dose: Not Given Cefepime HCl 2 gm/ Sodium (Chloride) 100 mls @ 25 mls/hr IVPB Q8H [facility]; Protocol Last Admin: 10/22/24 17:36 Dose: 25 mls/hr Diltiazem HCl 125 mg/ Dextrose (/Water) 125 mls @ 5 mls/hr IV .Q24H [facility]; Protocol Last Admin: 10/21/24 21:29 Dose: Not Given Levothyroxine Sodium (Levothyroxine 25 Mcg Tab) 25 mcg PO DAILY@0630 [facility] Last Admin: 10/22/24 06:26 Dose: 25 mcg Metoprolol Tartrate (Metoprolol Tartrate 50 Mg Tab) 100 mg PO BID [facility] Last Admin: 10/22/24 09:02 Dose: 100 mg Metronidazole (Metronidazole 500 Mg Tab) 500 mg PO TID [facility]; Protocol Last Admin: 10/22/24 17:36 Dose: 500 mg Morphine Sulfate (Morphine Sulfate Er 15 Mg Tablet) 15 mg PO Q12HR [facility]; Protocol Last Admin: 10/22/24 09:02 Dose: 15 mg Naloxone HCl (Naloxone 0.4 Mg/Ml 1 Ml Vial) 0.2 mg IV Q2M PRN PRN Reason: Opioid Reversal Nystatin (Nystatin 100,000 Unit/Gm Powd 15 Gm) 1 applic TOPICAL TID [facility]; Protocol Last Admin: 10/22/24 17:36 Dose: 1 applic Oxymetazoline HCl (Oxymetazoline 0.05% Nasl [place] 1 [place] Bottle) 2 spray NASAL BID PRN PRN Reason: Dry Nasal Passages Pantoprazole Sodium (Pantoprazole 40 Mg Tablet) 40 mg PO AC-BRKFST [facility] Last Admin: 10/22/24 06:27 Dose: 40 mg Petrolatum (Petrolatum, White Oint 454 Gm Jar) 1 applic TOPICAL QID PRN; Protoc ol PRN Reason: Wound Healing Last Admin: 10/18/24 00:15 Dose: 1 applic Petrolatum (Petrolatum, White Oint 50 Gm Tube) 1 applic TOPICAL BID PRN; Protocol PRN Reason: Skin Irritation Zonisamide (Zonisamide 100 Mg Cap) 100 mg PO HS [facility] Last Admin: 10/21/24 21:29 Dose: 100 mg Physical examination: VITAL SIGNS: 98, 18, 107 x 91, 94% room air GENERAL: Awake, answering questions EYES: Pupils equal. Conjunctiva lucho l. HEENT: External appearance of nose and ears normal, oral cavity grossly normal. NECK: JVD unable to assess; masses not palpable. HEART: Heart sounds distant, some edema. LUNGS: Respiratory rate normal, distant breath sounds. ABDOMEN: Soft, nontender, liver spleen not palpable, no masses palpable. PSYCH: More awake and answering questions well. Not/sleepy LYMPHATICS: Bilateral lower extremity severe lymphedema, with pigmentation discoloration and coarsening of the skin below the knee to the foot. Breakdown of skin with cellulitic evidence: Improved INVESTIGATIONS, reviewed in the clinical context: October 22: White count 10.4 hemoglobin 12.7 October 19: White count 8.1 hemoglobin 11.6 platelets 205 potassium 3.9 Right ankle culture: Finegoldia magna, Proteus mirabilis, Staph aureus, Enterobacter cloacae complex October 17: White count 13.4 hemoglobin 11.2 platelets 208 potassium 3.[address] brain without contrast [October 17] unremarkable CT abdomen pelvis: Gallstones present. No thickening. No evidence of adjacent inflammation. Mild cardiomegaly. Hepatic steatosis Limited 2D echo: EF 30 to 35%. Moderate right ventricle dilatation. Severe pulmonary hypertension Assessment and Plan: -Sepsis with MSSA bacteremia likely due to lower extremity cellulitis with maggot infestation Initially positive on October 11. Repeat October 13 negative IV cefepime -Acute metabolic encephalopathy likely secondary to above and her pain medications.: Improved MS Contin started today on 50 mg twice daily - Lower extremity wounds from maggot infestation. Cultures positive- polymicrobial White count has normalized Being followed by ID - Maggot infestation lower extremity. ID following. - Heart failure reduced ejection fraction, EF 30-35% Bumex at 1 mg a day Fluid restriction 2000 cc a day - Chronic hypoxic respiratory failure 2.5 L at home underlying COPD obesity hypoventilation syndrome - Chronic obesity hypoventilation syndrome/pickwickian syndrome -AFib with RVR initially. Now on low 100s: Cardizem drip,-discontinued.. Metoprolol 100 mg PO BID. Eliquis 5 mg PO BID. Cardiology following - Severe secondary pulmonary hypertension secondary to obesity hypoventilation syndrome -Hepatic steatosis. . -Microcytic anemia: Unknown baseline. No signs of active bleeding. Trend. Transfuse if Hg < 7. -Essential HTN: Lopressor 100 mg twice daily . -HLD: Lipitor 40 mg nightly -Chronic lower back pain with spinal cord stimulator. Did have a morphine pain pump from Dr. Marie in the past. His office is being contacted [place] 10 PO Q6H PRN. Doing well on MS Contin 15 mg twice daily starting today -Hypothyroid: Synthroid 25 mcg PO QD. -Depression and Anxiety BuSpar. zonegram - Morbid obesity BMI of 81.3 Code status: Full code Looking into placement. Doing well on MS Contin 15 mg twice daily. Antibiotics per ID. Oral intake fluctuates
[2024-10-22] MEDS: OXYMETAZOLINE 0.05% NASL SPRAY 1 SPRAY BOTTLE NASAL PRN (21:25)
[2024-10-23 00:51] LABS: Basophils # (A) 0.08 10*3/uL (0.00-0.10); Basophils % (A) 0.5 %; Eosinophils # (A) 0.48 10*3/uL (0.04-0.35); Eosinophils % (A) 2.8 %; HCT 37.2 % (37.2-46.3); HGB 11.1 g/dL (12.0-15.0); Lymphocytes # (A) 3.30 10*3/uL (0.90-5.00); Lymphocytes % (A) 19.4 %; MCH 24.8 pg (27.0-32.0); MCHC 29.8 g/dL (32.0-37.0); MCV 83.0 fL (80.0-97.0); Monocytes # (A) 1.32 10*3/uL (0.20-1.00); Monocytes % (A) 7.8 %; Neutrophils # (A) 11.67 10*3/uL (1.80-7.70); Neutrophils % (A) 68.6 %; Platelet Count 239 10*3/uL (140-440); RBC 4.48 10*6/uL (4.10-5.20); RDW 18.9 % (11.5-14.5); WBC 17.01 10*3/uL (4.50-10.00)
[2024-10-23] MEDS: HYDROcodone/APAP 10-325MG 1 EACH TAB PO PRN (17:03)
--- NOTE | 2024-10-23 18:48 | P.PN ---
Progress Note - Text Progress Note Date: 10/23/24 Hospital Course: 54 year old F with PMH AFib, HTN, HLD, chronic pain, Hypothyroid, Depression and Anxiety presents to the ED for shortness of breath and lower extremities edema. History is limited as patient is lethargic. Apparently she was incontinence of urine and stool. Found to be in A-Fib with RVR. In the ED she underwent extensive evaluation. BP 109/72, HR 138, T 99.1F, RR 20, 96% on 2L NC. CBC, Coag panel, CMP significant for WBC 27.59, Hg 11.1, Hct 35.2, MCV 79.3, PT 14.8, INR 1.4, Na 134, Cl 92, bicarb 37, BUN 26, glu 133, T. Bili 1.4, AST 48, alk phos 156, alb 2.9. Trop 0.065. BNP 3970. Latic acid 1.6. UA neg LE or nitrite. CXR concerning for pulmonray vasular congestion. Started on Vancomycin and Zosyn along with IV fluids. ID consulted, wound cultures obtained, Zosyn switched to Cefepime. GB US showed cholelithiasis and questionable GB wall thickening. Of note, patient was noted to have maggots all over her lower extremities. Troponin trending 0.065, 0.047, 0.042. Started on Cardizem drip for A-Fib RVR. Cardiology consulted, recommending re-starting home medications and careful fluid administration given EF 35-40%. 10/16: Seen and examined at bedside, no acute events overnight, Patient is satting well on 4 L oxygen, home oxygen is 2.5, her blood pressure is soft but stable with 101/68, heart rate in 90s. WBC up to 13.6, hemoglobin stable at 12.0, normal sodium, potassium, creatinine, bicarb up to 37, glucose 90.. Continued on cefepime per ID recommendations. Wound care following. Patient was more lethargic this morning, was not opening eyes however was able to hold a very short conversation, she feels tired, denies shortness of breath, abdominal pain, chest pain. Ordered ABG and CT head without contrast. APS is involved. Plan to discharge to [facility], ID recommends midline for IV antibiotics at discharge. Discussed with case management, RN October 17: Spoke to nurse. Has been rather lethargic. She does wake up to answer questions but then dozes right off. Sometimes midway. Eating fair. Had a bowel movement. Patient came home from rehab recently. Patient's house has been found to be in a total mess. I spoke to the nurse to get hold of patient's pain clinic doctor Cynthia and find out exactly what pain medications the patient is on. Patient is states she is off of pain pump. Patient is felt of lower extremity cellulitis secondary to maggots infestation. On IV cefepime per ID. Blood culture on October 11 positive for MSSA. Wound cultures growing multiple organisms as expected. October 18: Patient's MS Contin was decreased by 25% from 30 mg twice daily to 50 mg every 8. Patient is more awake today. Tolerating diet. Remains on IV cefepime. And Flagyl. ID following October 19: Patient is doing better with decreased dose of MS Contin. More awake answering question appropriately. She has been refusing food as she does not like the food here as per the nurse. Have told her to asked the to bring in food. White count is normalized. On IV cefepime. Follow-up with ID. Also on Flagyl. October 20: No new issues. Remains on IV cefepime. And Flagyl. Spoke to nurse Ruiz. Patient eating better. But nursing documentation was incorrect October 21: Patient remained on antibiotics till 10/27 per ID. Oral intake much better. [facility] [employer] has accepted the patient. Waiting for insurance authorization. Has been more awake though still sleepy quite a bit.. Will try the patient cut back MS Contin to 15 twice daily. Starting tomorrow. October 22: Comfortable. Doing well on MS Contin 15 mg twice daily. Pain controlled. Eating fair. 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 Possibly [facility]. Continue IV cefepime. October 23: Patient continues to do well. Pain well-controlled on MS Contin 50 mg twice daily. Still having epistaxis since got nasal packing. She took it out. Eliquis has been held. Spoke to case picker. APS is cleared for patient to go back home. They will pay for her to get clean. I spoke to ID. Patient get 1 more day of IV antibiotics tomorrow. I am probably discharged with short course of oral antibiotic. Patient often has been pulse oxing above 92% room air. Patient states no further bleeding since this morning. Active Medications Acetaminophen (Acetaminophen Tab 325 Mg Tab) 650 mg PO Q6HR PRN PRN Reason: Mild Pain or Fever > 100.5 Last Admin: 10/22/24 21:29 Dose: 650 mg Hydrocodone Bitart/Acetaminophen (Hydrocodone/Apap 10-325mg 1 Each Tab) 1 each PO Q6HR PRN PRN Reason: Pain Last Admin: 10/23/24 17:03 Dose: 1 each Acetazolamide (Acetazolamide 250 Mg Tab) 250 mg PO BID [facility] Last Admin: 10/23/24 10:29 Dose: 250 mg Albuterol/Ipratropium (Ipratropium-Albuterol 3 Ml Neb) 3 ml INHALATION RT-QID PRN PRN Reason: Shortness Of Breath Apixaban (Apixaban 5 Mg Tab) 5 mg PO BID [facility]; Protocol Last Admin: 10/23/24 11:31 Dose: Not Given Artificial Tears (Artificial Tears-Hypromellose Drops 15 Ml Btl) 2 drops BOTH EYES QID PRN PRN Reason: Dry Eye(s) Last Admin: 10/13/24 05:51 Dose: 2 drops Atorvastatin Calcium (Atorvastatin 40 Mg Tab) 40 mg PO HS [facility] Last Admin: 10/22/24 19:58 Dose: 40 mg Bumetanide (Bumetanide 1 Mg Tab) 1 mg PO DAILY [facility] Last Admin: 10/23/24 10:27 Dose: 1 mg Buspirone HCl (Buspirone Hcl 10 Mg Tab) 30 mg PO BID [facility] Last Admin: 10/23/24 10:29 Dose: 30 mg Ferrous Sulfate (Ferrous Sulfate 325 Mg Tab) 325 mg PO HS [facility] Last Admin: 10/22/24 19:58 Dose: 325 mg Sodium Chloride (Saline 0.9%) 1,000 mls @ 20 mls/hr IV .Q24H [facility] Last Admin: 10/23/24 14:33 Dose: Not Given Cefepime HCl 2 gm/ Sodium (Chloride) 100 mls @ 25 mls/hr IVPB Q8H [facility]; Protocol Last Admin: 10/23/24 17:02 Dose: 25 mls/hr Diltiazem HCl 125 mg/ Dextrose (/Water) 125 mls @ 5 mls/hr IV .Q24H [facility]; Protocol Last Admin: 10/22/24 19:59 Dose: Not Given Levothyroxine Sodium (Levothyroxine 25 Mcg Tab) 25 mcg PO DAILY@0630 [facility] Last Admin: 10/23/24 06:24 Dose: 25 mcg Metoprolol Tartrate (Metoprolol Tartrate 50 Mg Tab) 100 mg PO BID [facility] Last Admin: 10/23/24 10:30 Dose: 100 mg Metronidazole (Metronidazole 500 Mg Tab) 500 mg PO TID [facility]; Protocol Last Admin: 10/23/24 10:30 Dose: 500 mg Morphine Sulfate (Morphine Sulfate Er 15 Mg Tablet) 15 mg PO Q12HR [facility]; Protocol Last Admin: 10/23/24 10:27 Dose: 15 mg Naloxone HCl (Naloxone 0.4 Mg/Ml 1 Ml Vial) 0.2 mg IV Q2M PRN PRN Reason: Opioid Reversal Nystatin (Nystatin 100,000 Unit/Gm Powd 15 Gm) 1 applic TOPICAL TID [facility]; Protocol Last Admin: 10/23/24 17:31 Dose: Not Given Oxymetazoline HCl (Oxymetazoline 0.05% Nasl [place] 1 [place] Bottle) 2 spray NASAL BID PRN PRN Reason: Dry Nasal Passages Last Admin: 10/23/24 00:19 Dose: 2 spray Pantoprazole Sodium (Pantoprazole 40 Mg Tablet) 40 mg PO -BRKFST [facility] Last Admin: 10/23/24 06:24 Dose: 40 mg Petrolatum (Petrolatum, White Oint 454 Gm Jar) 1 applic TOPICAL QID PRN; Protocol PRN Reason: Wound Healing Last Admin: 10/18/24 00:15 Dose: 1 applic Petrolatum (Petrolatum, White Oint 50 Gm Tube) 1 applic TOPICAL BID PR[facility]; Protocol PRN Reason: Skin Irritation Zonisamide (Zonisamide 100 Mg Cap) 100 mg PO HS [facility] Last Admin: 10/22/24 19:59 Dose: 100 mg Physical examination: VITAL SIGNS: 98, 109, 16, 95 x 69, 95% room air GENERAL: Awake, comfortable EYES: Pupils equal. Conjunctiva lucho l. HEENT: External appearance of nose and ears normal, oral cavity grossly normal. NECK: JVD unable to assess; masses not palpable. HEART: Heart sounds distant, some edema. LUNGS: Respiratory rate normal, distant breath sounds. ABDOMEN: Soft, nontender, liver spleen not palpable, no masses palpable. PSYCH: AO x 3, mood affect normal LYMPHATICS: Bilateral lower extremity severe lymphedema, with pigmentation discoloration and coarsening of the skin below the knee to the foot. Breakdown of skin with cellulitic evidence: Improved INVESTIGATIONS, reviewed in the clinical context: October 22: White count 10.4 hemoglobin 12.7 October 19: White count 8.1 hemoglobin 11.6 platelets 205 potassium 3.9 Right ankle culture: Finegoldia magna, Proteus mirabilis, Staph aureus, Enterobacter cloacae complex October 17: White count 13.4 hemoglobin 11.2 platelets 208 potassium 3.[address] brain without contrast [October 17] unremark[address] CT abdomen pelvis: Gallstones present. No thickening. No evidence of adjacent inflammation. Mild cardiomegaly. Hepatic steatosis Limited 2D echo: EF 30 to 35%. Moderate right ventricle dilatation. Severe pulmonary hypertension Assessment and Plan: -Sepsis with MSSA bacteremia likely due to lower extremity cellulitis with maggot infestation Initially positive on October 11. Repeat October 13 negative IV cefepime -Acute metabolic encephalopathy likely secondary to above and her pain medications.: Resolved MS Contin started on October 22 15 mg twice daily - Lower extremity wounds from maggot infestation. Cultures positive- polymicrobial White count has normalized Being followed by ID - Maggot infestation lower extremity. ID following. - Heart failure reduced ejection fraction, EF 30-35% Bumex at 1 mg a day Fluid restriction 2000 cc a day - Chronic hypoxic respiratory failure 2.5 L at home underlying COPD obesity hypoventilation syndrome - Chronic obesity hypoventilation syndrome/pickwickian syndrome -AFib with RVR initially. Now on low 100s: Cardizem drip,-discontinued.. Metoprolol 100 mg PO BID. Eliquis 5 mg PO BID. Cardiology following - Severe secondary pulmonary hypertension secondary to obesity hypoventilation syndrome -Hepatic steatosis. . -Microcytic anemia: Unknown baseline. No signs of active bleeding. Trend. Transfuse if Hg < 7. -Essential HTN: Lopressor 100 mg twice daily - Acute epistaxis from nose picking is confirmed by the nurse. And the patient. Also patient on Eliquis. Local (. Nasal packing. Eliquis held . -HLD: Lipitor 40 mg nightly -Chronic lower back pain with spinal cord stimulator. Did have a morphine pain pump from Dr. Marie in the past. His office is being contacted [place] 10 PO Q6H PRN. Doing well on MS Contin 15 mg twice daily -Hypothyroid: Synthroid 25 mcg PO QD. -Depression and Anxiety BuSpar. zonegram - Morbid obesity BMI of 81.3 Code status: Full code Looking for patient to get discharged to home tomorrow. Hold Eliquis today. Last dose of IV antibiotic tomorrow.
[2024-10-24 06:10] LABS: Basophils # (A) 0.08 10*3/uL (0.00-0.10); Basophils % (A) 0.5 %; Eosinophils # (A) 0.57 10*3/uL (0.04-0.35); Eosinophils % (A) 3.7 %; HCT 34.2 % (37.2-46.3); HGB 10.2 g/dL (12.0-15.0); Lymphocytes # (A) 3.40 10*3/uL (0.90-5.00); Lymphocytes % (A) 21.9 %; MCH 24.9 pg (27.0-32.0); MCHC 29.8 g/dL (32.0-37.0); MCV 83.4 fL (80.0-97.0); Monocytes # (A) 1.07 10*3/uL (0.20-1.00); Monocytes % (A) 6.9 %; Neutrophils # (A) 10.33 10*3/uL (1.80-7.70); Neutrophils % (A) 66.4 %; Platelet Count 214 10*3/uL (140-440); RBC 4.10 10*6/uL (4.10-5.20); RDW 19.8 % (11.5-14.5); WBC 15.54 10*3/uL (4.50-10.00)
--- NOTE | 2024-10-24 07:47 | P.PN ---
Subjective Progress Note Date: 10/23/24 Principal diagnosis: Reason for follow-up with bilateral extremity cellulitis wound and cellulitis Patient is a 54-year-old female with a past medical history significan t for hypertension hyperlipidemia osteoarthritis morbid obesity atrial fibrillation has been brought to the hospital concerning for weakness and increasing shortness of breath, patient did have a significant bilateral lower extremity swelling lymphedema with maggots infestation and cellulitis. On today's evaluation that is 10/23/2024,the patient denies any fever or any chills, patient is breathing comfortably on room air, the patient denies chest pain shortness of breath and no significant cough, patient denies abdominal pain, no nausea vomiting or diarrhea. Patient did have resolution of her nosebleed. Patient white count slightly up to 17.01 creatinine 0.5. Blood culture repeat has been negative Objective - Vital Signs Vital signs: Vital Signs Temp 98 F 10/23/24 11:31 Pulse 91 10/23/24 11:31 Resp 14 10/23/24 11:31 BP 107/72 10/23/24 11:31 Pulse Ox 2 L 10/23/24 11:31 FiO2 Intake & Output 10/22/24 10/23/24 10/23/24 18:59 06:59 18:59 Intake Total 240 Output Total 2900 900 Balance -2900 -900 240 Weight 199.9 kg Intake: Oral 240 Output: Urine 2900 900 Other: Voiding Method External Catheter External Catheter # Voids 1 # Bowel Movements 1 1 1 - Exam GENERAL DESCRIPTION: Middle-age female lying in bed in no distress RESPIRATORY SYSTEM: Unlabored breathing , decreased breath sounds at bases HEART: S1 S2 regular rate and rhythm , ABDOMEN: Soft , no tenderness EXTREMITIES: Bilateral lower extremity with diffuse swelling desquamative changes and erythema - Labs CBC & Chem 7: 10/24/24 04:43 10/19/24 05:44 Labs: Abnormal Lab Results - Last 24 Hours (Table) 10/23/24 Range/Units 00:32 WBC 17.01 H (4.50-10.00) 10*3/uL Hgb 11.1 L (12.0-15.0) g/dL MCH 24.8 L (27.0-32.0) pg MCHC 29.8 L (32.0-37.0) g/dL Immature Gran # 0.16 H (0.00-0.04) 10*3/uL Neutrophils # 11.67 H (1.80-7.70) 10*3/uL Monocytes # 1.32 H (0.20-1.00) 10*3/uL Eosinophils # 0.48 H (0.04-0.35) 10*3/uL Assessment and Plan (1) Bilateral lower leg cellulitis Current Visit: Yes Status: Acute Code(s): L03.116 - CELLULITIS OF LEFT LOWER LIMB; L03.115 - CELLULITIS OF RIGHT LOWER LIMB SNOMED Code(s): 632250170 (2) Cholecystitis Current Visit: Yes Status: Acute Code(s): K81.9 - CHOLECYSTITIS, UNSPECIFIED SNOMED Code(s): 16994737 (3) Sepsis Current Visit: No Status: Acute Code(s): A41.9 - SEPSIS, UNSPECIFIED ORGANISM SNOMED Code(s): 78465182 (4) Bacteremia Current Visit: Yes Status: Acute Code(s): R78.81 - BACTEREMIA SNOMED Code(s): 9423881 Plan: 1patient presented to hospital with weakness in this patient noted to have low- grade fever she has hypotension, leukocytosis meeting criteria for SIRS/sepsis source could be likely lower extremity cellulitis as the patient noted to have superficial ulceration with maggot infestation in erythema concerning for ce llulitis 2-patient did have MSSA bacteremia repeat blood culture 10/13/2024 has been negative so far 2local culture currently growing Staph aureus as well as Enterobacter local wound culture also growing Finegoldia magna 3patient is afebrile the patient white count has normalized initially but is slightly up today and will be monitored closely 4patient currently being treated with the cefepime and Flagyl last day of antibiotic was 10/27/2024 however now with the change of plan with the patient possible going home and may transition to oral antibiotics on discharge this was discussed with the admitting physician Dictation was produced using [employer] dictation software. please excuse any gramm atical, word or spelling errors. Time with Patient: Less than 30
[2024-10-24 09:27] VITALS: TEMP 97.8
[2024-10-24] MEDS: METOPROLOL TARTRATE 50 MG TAB PO SCH (09:27)
[2024-10-24 12:21] VITALS: BP 107/70; PULSE 94; RESP 18
--- NOTE | 2024-10-24 19:28 | P.DS ---
Providers Date of admission: 10/11/24 12:44 Expected date of discharge: 10/24/24 Attending physician: Justice Lechuga Consults: 10/11/24 17:55 Consult Physician Routine Consulting Provider: Gabe Casper Consult Reason/Comments: sepsis Do you want consulting provider notified?: Yes 10/11/24 18:06 Consult Physician Routine Consulting Provider: Mick Hansen Consult Reason/Comments: Trop eyevation Do you want consulting provider notified?: Yes Primary care physician: Greg Arango MD Hospital Course: Hospital Course: 54 year old F with PMH AFib, HTN, HLD, chronic pain, Hypothyroid, Depression and Anxiety presents to the ED for shortness of breath and lower extremities edema. History is limited as patient is lethargic. Apparently she was incontinence of u rine and stool. Found to be in A-Fib with RVR. In the ED she underwent extensive evaluation. BP 109/72, HR 138, T 99.1F, RR 20, 96% on 2L NC. CBC, Coag panel, CMP significant for WBC 27.59, Hg 11.1, Hct 35.2, MCV 79.3, PT 14.8, INR 1.4, Na 134, Cl 92, bicarb 37, BUN 26, glu 133, T. Bili 1.4, AST 48, alk phos 156, alb 2.9. Trop 0.065. BNP 3970. Latic acid 1.6. UA neg LE or nitrite. CXR concerning for pulmonray vasular congestion. Started on Vancomycin and Zosyn along with IV fluids. ID consulted, wound cultures obtained, Zosyn switched to Cefepime. GB US showed cholelithiasis and questionable GB wall thickening. Of note, patient was noted to have maggots all over her lower extremities. Troponin trending 0.065, 0.047, 0.042. Started on Cardizem drip for A-Fib RVR. Cardiology consulted, recommending re-starting home medications and careful fluid administration given EF 35-40%. 10/16: Seen and examined at bedside, no acute events overnight, Patient is satting well on 4 L oxygen, home oxygen is 2.5, her blood pressure is soft but stable with 101/68, heart rate in 90s. WBC up to 13.6, hemoglobin stable at 12.0, normal sodium, potassium, creatinine, bicarb up to 37, glucose 90.. Continued on cefepime per ID recommendations. Wound care following. Patient was more lethargic this morning, was not opening eyes however was able to hold a very short conversation, she feels tired, denies shortness of breath, abdominal pain, chest pain. Ordered ABG and CT head without contrast. APS is involved. Plan to discharge to [facility], ID recommends midline for IV antibiotics at discharge. Discussed with case management, RN October 17: Spoke to nurse. Has been rather lethargic. She does wake up to answer questions but then dozes right off. Sometimes midway. Eating fair. Had a bowel movement. Patient came home from rehab recently. Patient's house has been found to be in a total mess. I spoke to the nurse to get hold of patient's pain clinic doctor Cynthia and find out exactly what pain medications the patient is on. Patient is states she is off of pain pump. Patient is felt of lower extremity cellulitis secondary to maggots infestation. On IV cefepime per ID. Blood culture on October 11 positive for MSSA. Wound cultures growing multiple organisms as expected. October 18: Patient's MS Contin was decreased by 25% from 30 mg twice daily to 50 mg every 8. Patient is more awake today. Tolerating diet. Remains on IV cefepime. And Flagyl. ID following October 19: Patient is doing better with decreased dose of MS Contin. More awake answering question appropriately. She has been refusing food as she does not like the food here as per the nurse. Have told her to asked the to bring in food. White count is normalized. On IV cefepime. Follow-up with ID. Also on Flagyl. October 20: No new issues. Remains on IV cefepime. And Flagyl. Spoke to nurse Sara. Patient eating better. But nursing documentation was incorrect October 21: Patient remained on antibiotics till 10/27 per ID. Oral intake much better. [place] [facility] her med has accepted the patient. Waiting for insurance authorization. Has been more awake though still sleepy quite a bit.. Will try the patient cut back MS Contin to 15 twice daily. Starting tomorrow. October 22: Comfortable. Doing well on MS Contin 15 mg twice daily. Pain controlled. Eating fair. bottom worker is looking into rehab. Possibly [facility]. Continue IV cefepime. October 23: Patient continues to do well. Pain well-controlled on MS Contin 50 mg twice daily. Still having epistaxis since got nasal packing. She took it out. Eliquis has been held. Spoke to case managers. APS is cleared for patient to go back home. They will pay for her to get clean. I spoke to ID. Patient get 1 more day of IV antibiotics tomorrow. I am probably discharged with short course of oral antibiotic. Patient often has been pulse oxing above 92% room air. Patient states no further bleeding since this morning. October 24: Patient will be returning home. House was cleaned by APS. Patient doing well on MS Contin 15 mg twice daily. Patient does not require oxygen. Told not to use the same. Pulse ox have been above 90% on room air. Also patient told to resume Eliquis in 2 days. Patient did understand the same. Patient to follow-up with cardiology. Heart rate controlled. bottom worker i involved. Physical examination: VITAL SIGNS: 97.8, 94, 18, 107 x 70, 94% room air GENERAL: Awake, comfortable EYES: Pupils equal. Conjunctiva lucho l. HEENT: External appearance of nose and ears normal, oral cavity grossly normal. NECK: JVD unable to assess; masses not palpable. HEART: Heart sounds distant, some edema. LUNGS: Respiratory rate normal, distant breath sounds. ABDOMEN: Soft, nontender, liver spleen not palpable, no masses palpable. PSYCH: AO x 3, mood affect normal LYMPHATICS: Bilateral lower extremity severe lymphedema, with pigmentation discoloration and coarsening of the skin below the knee to the foot. Breakdown of skin with cellulitic evidence: Improved INVESTIGATIONS, reviewed in the clinical context: October 24: White count 15.5 hemoglobin 10.2 October 22: White count 10.4 hemoglobin 12.7 October 19: White count 8.1 hemoglobin 11.6 platelets 205 potassium 3.9 Right ankle culture: Finegoldia magna, Proteus mirabilis, Staph aureus, Enterobacter cloacae complex October 17: White count 13.4 hemoglobin 11.2 platelets 208 potassium 3[address] brain without contrast [October 17] unremarkable CT abdomen pelvis: Gallstones present. No thickening. No evidence of adjacent inflammation. Mild cardiomegaly. Hepatic steatosis Limited 2D echo: EF 30 to 35%. Moderate right ventricle dilatation. Severe pulmonary hypertension Assessment and Plan: -Sepsis with MSSA bacteremia likely due to lower extremity cellulitis with maggot infestation Initially positive on October 11. Repeat October 13 negative IV cefepime -Acute metabolic encephalopathy likely secondary to above and her pain medications.: Resolved MS Contin started on October 22 15 mg twice daily - Lower extremity wounds/cellulitis from maggot infestation. Cultures positive- polymicrobial White count has normalized Being followed by ID. Per ID patient being discharged on Keflex and Flagyl for 7 days. - Maggot infestation lower extremity. ID following. - Heart failure reduced ejection fraction, EF 30-35% Bumex at 1 mg a day Fluid restriction 2000 cc a day -Patient is doing well on room air. Pulse ox 90%. Patient only told to use her oxygen as needed if it drops below that. - Chronic obesity hypoventilation syndrome/pickwickian syndrome -AFib with RVR initially. Now on low 100s: Cardizem drip,-discontinued.. Metoprolol 100 mg PO BID. Eliquis 5 mg PO BID. Cardiology following - Severe secondary pulmonary hypertension secondary to obesity hypoventilation syndrome -Hepatic steatosis. . -Microcytic anemia: Unknown baseline. No signs of active bleeding. Trend. Transfuse if Hg < 7. -Essential HTN: Lopressor 100 mg twice daily - Acute epistaxis from nose picking is confirmed by the nurse. And the patient. Also patient on Eliquis. Local (. Nasal packing. Eliquis held-resume Eliquis in 2 days. Patient again reminded not to do any nasal picking . -HLD: Lipitor 40 mg nightly -Chronic lower back pain with spinal cord stimulator. Did have a morphine pain pump from Dr. Marei in the past. His office is being contacted [place] 10 PO Q6H PRN. Doing well on MS Contin 15 mg twice daily -Hypothyroid: Synthroid 25 mcg PO QD. -Depression and Anxiety BuSpar. zonegram - Morbid obesity BMI of 81.3 Code status: Full code Disposition: Home [facility] and adult protective services, Marcie was informed Plan - Discharge Summary Discharge Rx Participant: No New Discharge Prescriptions: New metroNIDAZOLE [Flagyl] 500 mg PO TID #21 tab metroNIDAZOLE [Flagyl] 500 mg PO TID #21 tab Cephalexin [Keflex] 500 mg PO Q6HR 7 Days #28 cap Morphine Sulfate ER [Ms Contin] 15 mg PO Q12HR #60 tab Continue Zonisamide [Zonegran] 100 mg PO HS Nystatin 100,000 Unit/gm Powd [Mycostatin Powder] 1 applic TOPICAL BID Apixaban [Eliquis] 5 mg PO BID busPIRone HCL [Buspar] 30 mg PO BID Levothyroxine Sodium [Synthroid] 25 mcg PO DAILY Pantoprazole [Protonix] 40 mg PO DAILY acetaZOLAMIDE [Diamox] 250 mg PO BID #30 tab Atorvastatin [Lipitor] 40 mg PO HS tab Metoprolol Tartrate [Lopressor] 100 mg PO BID Ipratropium-Albuterol Nebulize [Duoneb 0.5 mg-3 mg/3 ml Soln] 3 ml INHALATION RT-QID PRN PRN Reason: Shortness Of Breath hydrOXYzine HCL [Atarax] 50 - 100 mg PO Q6H PRN PRN Reason: Anxiety Butalb/Acetaminophen/Caffeine [Fioricet 50-300-40 mg Capsule] 1 cap PO Q4H PRN #18 cap PRN Reason: Migraine Headache Ferrous Sulfate [Iron (65 MG Elemental)] 325 mg PO HS HYDROcodone/APAP 7.5-325MG [[place] 7.5-325] 1 tab PO BID PRN PRN Reason: Pain Changed Bumetanide [BUMEX] 1 mg PO DAILY #0 Discontinued Spironolactone [Aldactone] 25 mg PO DAILY #30 tab Morphine Sulfate ER [Ms Contin] 30 mg PO Q12HR Discharge Medication List Zonisamide [Zonegran] 100 mg PO HS 09/11/13 [History] Ipratropium-Albuterol Nebulize [Duoneb 0.5 mg-3 mg/3 ml Soln] 3 ml INHALATION RT-QID PRN 10/10/23 [History] Nystatin 100,000 Unit/gm Powd [Mycostatin Powder] 1 applic TOPICAL BID 10/10/23 [History] hydrOXYzine HCL [Atarax] 50 - 100 mg PO Q6H PRN 10/10/23 [History] Apixaban [Eliquis] 5 mg PO BID 08/06/24 [History] Levothyroxine Sodium [Synthroid] 25 mcg PO DAILY 08/06/24 [History] Pantoprazole [Protonix] 40 mg PO DAILY 08/06/24 [History] busPIRone HCL [Buspar] 30 mg PO BID 08/06/24 [History] Atorvastatin [Lipitor] 40 mg PO HS tab 08/15/24 [Rx] Butalb/Acetaminophen/Caffeine [Fioricet 50-300-40 mg Capsule] 1 cap PO Q4H PRN #18 cap 08/15/24 [Rx] acetaZOLAMIDE [Diamox] 250 mg PO BID #30 tab 08/15/24 [Rx] Ferrous Sulfate [Iron (65 MG Elemental)] 325 mg PO HS 10/11/24 [History] HYDROcodone/APAP 7.5-325MG [[place] 7.5-325] 1 tab PO BID PRN 10/11/24 [History] Metoprolol Tartrate [Lopressor] 100 mg PO BID 10/11/24 [History] metroNIDAZOLE [Flagyl] 500 mg PO TID #21 tab 10/20/24 [Rx] Bumetanide [BUMEX] 1 mg PO DAILY #0 10/24/24 [Rx] Cephalexin [Keflex] 500 mg PO Q6HR 7 Days #28 cap 10/24/24 [Rx] Morphine Sulfate ER [Ms Contin] 15 mg PO Q12HR #60 tab 10/24/24 [Rx] metroNIDAZOLE [Flagyl] 500 mg PO TID #21 tab 10/24/24 [Rx] Follow up Appointment(s)/Referral(s): Channing Marinelli MD [STAFF PHYSICIAN] - 1 Week Nba,Greg Caba MD [Primary Care Provider] - 1-2 days Discharge Disposition: HOME SELF-CARE
--- NOTE | 2024-10-25 15:10 | P.PN ---
Subjective Progress Note Date: 10/24/24 Principal diagnosis: Reason for follow-up with bilateral extremity cellulitis wound and cellulitis Patient is a 54-year-old female with a past medical history significan t for hypertension hyperlipidemia osteoarthritis morbid obesity atrial fibrillation has been brought to the hospital concerning for weakness and increasing shortness of breath, patient did have a significant bilateral lower extremity swelling lymphedema with maggots infestation and cellulitis. On today's evaluation that is 10/24/2024,the patient remains to be afebrile, patient is on room air not requiring supplemental oxygen and denies any shortness of breath no chest pain or cough.Patient denies having any nausea or vomiting, no abdominal pain and no diarrhea has been reported. Patient white count is down to 15.54 creatinine was not the blood culture repeat has been negative Objective - Vital Signs Vital signs: Vital Signs Temp 97.8 F 10/24/24 09:24 Pulse 108 H 10/24/24 09:24 Resp 16 10/24/24 09:24 BP 98/66 10/24/24 09:24 Pulse Ox 92 L 10/24/24 09:24 FiO2 Intake & Output 10/23/24 10/24/24 10/24/24 18:59 06:59 18:59 Intake Total 720 480 0 Output Total 1200 300 Balance -480 180 0 Weight 200 kg Intake: Oral 720 480 0 Output: Urine 1200 300 Other: Voiding Method External Catheter External Catheter # Voids 1 # Bowel Movements 1 - Exam GENERAL DESCRIPTION: Middle-age female lying in bed in no distress RESPIRATORY SYSTEM: Unlabored breathing , decreased breath sounds at bases HEART: S1 S2 regular rate and rhythm , ABDOMEN: Soft , no tenderness EXTREMITIES: Bilateral lower extremity with diffuse swelling desquamative changes and erythema - Labs CBC & Chem 7: 10/24/24 04:43 10/19/24 05:44 Labs: Abnormal Lab Results - Last 24 Hours (Table) 10/24/24 Range/Units 04:43 WBC 15.54 H (4.50-10.00) 10*3/uL Hgb 10.2 L (12.0-15.0) g/dL Hct 34.2 L (37.2-46.3) % MCH 24.9 L (27.0-32.0) pg MCHC 29.8 L (32.0-37.0) g/dL Immature Gran # 0.09 H (0.00-0.04) 10*3/uL Neutrophils # 10.33 H (1.80-7.70) 10*3/uL Monocytes # 1.07 H (0.20-1.00) 10*3/uL Eosinophils # 0.57 H (0.04-0.35) 10*3/uL Assessment and Plan (1) Bilateral lower leg cellulitis Status: Acute Code(s): L03.116 - CELLULITIS OF LEFT LOWER LIMB; L03.115 - CELLULITIS OF RIGHT LOWER LIMB SNOMED Code(s): 941209226 (2) Cholecystitis Status: Acute Code(s): K81.9 - CHOLECYSTITIS, UNSPECIFIED SNOMED Code(s): 69219671 (3) Sepsis Status: Acute Code(s): A41.9 - SEPSIS, UNSPECIFIED ORGANISM SNOMED Code(s): 89398725 (4) Bacteremia Status: Acute Code(s): R78.81 - BACTEREMIA SNOMED Code(s): 8500627 Plan: 1patient presented to hospital with weakness in this patient noted to have low- grade fever she has hypotension, leukocytosis meeting criteria for SIRS/sepsis source could be likely lower extremity cellulitis as the patient noted to have superficial ulceration with maggot infestation in erythema concerning for cellulitis 2-patient did have MSSA bacteremia repeat blood culture 10/13/2024 has been negative so far 2local culture currently growing Staph aureus as well as Enterobacter local wound culture also growing Finegoldia magna 3patient is afebrile the patient white count has normalized initially but is slightly up today and will be monitored closely 4patient unable to go to rehab and is going home he will consider 1 week course of oral Keflex and Flagyl on discharge prescription sent to the pharmacy Dictation was produced using [employer] dictation software. please excuse any grammatical, word or spelling errors. Time with Patient: Less than 30
== END 2024-10-24 15:27 | disposition home health service (06) | DRG 871 ==
LOC: EC 09:23 → 3SCARD 12:44
PROVIDERS: ADMIT Hospitalist; ATTEND Hospitalist
PROC: 3E033XZ Introduction of Vasopressor into Peripheral Vein, Percutaneous Approach (ICD-10-PCS; principal; 2024-10-11)
DX: A41.01 Sepsis due to Methicillin susceptible Staphylococcus aureus (principal); G93.41 Metabolic encephalopathy; I50.23 Acute on chronic systolic (congestive) heart failure; J18.9 Pneumonia, unspecified organism; L89.102 Pressure ulcer of unspecified part of back, stage 2; I27.20 Pulmonary hypertension, unspecified; E66.2 Morbid (severe) obesity with alveolar hypoventilation; K80.10 Calculus of gallbladder with chronic cholecystitis without obstruction; I11.0 Hypertensive heart disease with heart failure; J44.0 Chronic obstructive pulmonary disease with (acute) lower respiratory infection; E03.9 Hypothyroidism, unspecified; F32.A Depression, unspecified; I08.1 Rheumatic disorders of both mitral and tricuspid valves; K76.0 Fatty (change of) liver, not elsewhere classified; D50.9 Iron deficiency anemia, unspecified; Z68.45 Body mass index [BMI] 70 or greater, adult; I48.19 Other persistent atrial fibrillation; I42.9 Cardiomyopathy, unspecified; J96.11 Chronic respiratory failure with hypoxia; L97.122 Non-pressure chronic ulcer of left thigh with fat layer exposed; I87.333 Chronic venous hypertension (idiopathic) with ulcer and inflammation of bilateral lower extremity; L03.115 Cellulitis of right lower limb; L03.116 Cellulitis of left lower limb; L98.492 Non-pressure chronic ulcer of skin of other sites with fat layer exposed; B87.9 Myiasis, unspecified; G43.909 Migraine, unspecified, not intractable, without status migrainosus; E78.5 Hyperlipidemia, unspecified; G62.9 Polyneuropathy, unspecified; I89.0 Lymphedema, not elsewhere classified; R04.0 Epistaxis; F98.8 Other specified behavioral and emotional disorders with onset usually occurring in childhood and adolescence; G89.29 Other chronic pain; I87.8 Other specified disorders of veins; M54.50 Low back pain, unspecified; I95.9 Hypotension, unspecified; F41.9 Anxiety disorder, unspecified; R32 Unspecified urinary incontinence; R15.9 Full incontinence of feces; Z79.01 Long term (current) use of anticoagulants; Z79.890 Hormone replacement therapy; Z79.891 Long term (current) use of opiate analgesic; Z79.899 Other long term (current) drug therapy; Z96.653 Presence of artificial knee joint, bilateral; Z98.84 Bariatric surgery status; Z74.01 Bed confinement status; Z96.82 Presence of neurostimulator
CPT/HCPCS: 36410; 36415; 36600; 70450; 71045; 74177; 76705; 76937; 80048; 80053; 81001; 82803; 82805; 83605; 83735; 83880; 84132; 84443; 84484; 85025; 85027; 85610; 85730; 87040; 87070; 87075; 87077; 87186; 87205; 93005; 93308; 94760; 96365; 96366; 96367; 96368; 96375; 99291